=== PATIENT | female | born 1935 | race Caucasian/White ===

== ENCOUNTER 2017-09-09 22:24 | Observation (INO) | payer MEDICARE, SELFPAY ==
[2017-09-09 22:25] VITALS: BP 171/61; PULSE 62; RESP 23; TEMP 36.6; O2SAT 95; BMI 29.7
--- NOTE | 2017-09-09 22:35 | ED.VISSUMM ---
- ER Visit Summary Date of Service: 09/09/17 Chief Complaint: Choking episode History of Present Illness: The patient is a 82 F reports choking on a piece of chicken at dinner tonight. She vomited 4 times and thinks she brought anything up. She is a mild cough. She does have a history of COPD. Physical Examination: Signs are unremarkable other than hypertension. Head neck examination is unremarkable. Heart is regular rate and rhythm. Lung sounds with mild expiratory wheeze in the right upper lung. She is in no distress and is speaking full sentences. Abdomen is soft and nontender. Test Results: EKG is sinus at 60 with left bundle branch block. Two-view chest x-ray shows calcified plaques of the aorta but no acute process. CBC was normal white count. Hemoglobin is concentrated at 15.2. Chemistry studies and troponin are negative. Emergency Department Course and Treatment: Patient was given Zofran and a DuoNeb treatment. While on the monitor nursing staff noted patient to bradycardia down into the 30s. They went in to check on her and she states she felt some pressure in her chest and felt as if she is going to throw up again. I am unsure if she had a vasovagal reaction. She was placed on pacer pads and has not had any further episodes of bradycardia. On further questioning patient states that her collection administrator, Dr. Josue, had mentioned her needing a pacemaker at some point. Patient will be observed overnight for any further bradycardic dysrhythmias. Treatment Plan: [] Disposition: Admit Impression: 1. Vomiting, improved 2. Esophageal impaction, resolved 3. Bradycardic episode This note was generated with [employer] dictation software. It may contain incorrect words, spelling, and punctuation that were not noted in review of the chart prior to signing ED Disposition - Plan for ED Patient: Chief Complaint: Foreign Body Referrals: Salinas Keller III, MD [Primary Care Provider] -
--- NOTE | 2017-09-09 22:50 | RAD_ITS ---
STUDY: X-RAY CHEST REASON FOR EXAM: Female, 82 years old. Chicken stuck in throat TECHNIQUE: PA and lateral views of the chest. COMPARISON: Prior study of 09/23/2016 FINDINGS: nuclear monitoring technician leads are present. The lungs are clear and expanded. There is no demonstrated pleural abnormality. Normal size heart. Normal mediastinum and noelle. Normal visualized pulmonary arteries. There are calcified plaques of the thoracic aorta. There is demineralization of the osseous structures. Normal visualized ribs, clavicles, and shoulders. There is no demonstrated abnormality of the visualized soft tissue structures of the upper abdomen. RAD/Chest PA and Lateral IMPRESSION: Calcified plaques of the thoracic aorta. Generalized osteopenia. No acute cardiopulmonary disease process is seen. Chest findings appear stable in the interval. Electronically Signed: Willi Pires MD at 23:26 EST , Service support ,
--- NOTE | 2017-09-09 23:36 | EKG12_ITS ---
Test Reason : BRADYCARDIA Blood Pressure : / mmHG Vent. Rate : 068 BPM Atrial Rate : 068 BPM P-R Int : 186 ms QRS Dur : 144 ms QT Int : 466 ms P-R-T Axes : 029 -39 109 degrees QTc Int : 495 ms Normal sinus rhythm Left axis deviation Left bundle branch block Abnormal ECG Confirmed by ANDERSON MCKEE, MARLA ([id number]), telegraph editor TYE MILLS ([id number] on 09/14/2017 2:52:36 PM Referred By: DR ENNIS Confirmed By:MARLA BARRON MD
[2017-09-09] MEDS: Ipratropium/Albuterol Sulfate 3 ML AMPUL.NEB INHALATION (23:42)
[2017-09-09 23:48] VITALS: PULSE 67; RESP 21
--- NOTE | 2017-09-09 23:57 | ED.RN ---
at 2330 pt's monitor rang out bradycardia. Pt HR noted to be in the 30's and irregular with pauses. Upon checking on patient, she c/o of nausea and chest pain. called for EKG and notified Dr. Wilson. Crash cart brought to bedside and defib pads placed on patient. Dr. Wilson at bedside discussing new findings and what measures the patient wants to take. Pt is a full code
[2017-09-10] VITALS (13 sets, daily range): BP systolic 145–164; BP diastolic 60–74; PULSE 56–80; RESP 12–19; TEMP 36.3–36.8; O2SAT 94–96; BMI 29.3
[2017-09-10 00:15] LABS: Absolute Lymphocyte Count 1.39 X10^3/ul (0.83-4.51); Absolute Neutrophil Count 5.7 X10^3/uL (2.0-7.7); Basophil# 0.05 X10^3/uL; Basophil% 0.6 % (0-1); Eosinophil# 0.33 X10^3/uL; Eosinophils% 4.1 % (0-5); Hematocrit 43.9 % (37-47); Hemoglobin 15.2 g/dl (12.0-15.0); Lymphocyte # 1.39 X10^3/ul (4.0); Lymphocyte % 17.2 % (19-41); Mean Corp Hgb Conc 34.6 g/gl (32-36); Mean Corpuscular Hgb 33.1 pg (27.0-32.0); Mean Corpuscular Volume 95.6 fL (81-99); Mean Platelet Vol. 9.3 fl (6.2-12.0); Monocyte# 0.59 X10^3/uL; Monocyte% 7.3 % (0-10); Neutrophil % 70.7 % (47-70); POSITIVE COUNT NO; POSITIVE DIFFERENTIAL NO; POSITIVE MORPHOLOGY NO; Platelet Count 234 K/mm3 (150-450); RBC Distribution Width CV 12.8 % (11.6-14.6); RBC Distribution Width SD 43.6 fl (35.1-43.9); Red Blood Count 4.59 M/mm3 (4.2-5.4); White Blood Count 8.1 K/mm3 (4.4-11.0)
[2017-09-10 00:19] LABS: Anion Gap 8 (5-15); BUN 21 mg/dL (7-18); BUN/Creat Ratio 21.5 RATIO (10-20); Calcium,Total 10.3 mg/dL (8.5-10.1); Chloride 108 mmol/L (98-107); Creatinine, Serum 0.98 mg/dL (0.55-1.02); EST Glomerular Filtration Rate 58 mL/min (>60); Est Glom Filt Rate - Afr Amer 70 mL/min (>60); Estimated Creatinine Clearance 39.83 ml/min; Glucose 133 mg/dL (74-106); Potassium 4.1 mmol/L (3.5-5.1); Sodium Level 141 mmol/L (136-145)
--- NOTE | 2017-09-10 01:01 | PCM.HP.STD ---
Problem List (1) Sinus bradycardia with sinus pauses Status: Acute (2) Acute dysphagia due to chicken piece Status: Acute (3) Sinus node dysfunction Status: Chronic (4) COPD with acute exacerbation Status: Resolved (5) COPD, mild Status: Chronic (6) Dyslipidemia Status: Chronic (7) HTN (hypertension) Status: Chronic (8) Hypothyroidism Status: Chronic History of Present Illness Date of Admission: 09/10/17 Chief Complaint: Dysphagia on chicken piece. Sinus bradycardia with sinus pauses The patient is a 82 year old F with multiple comorbidities and possible underlying sinus node dysfunction came to ER with choking while she was eating chicken piece at dinner tonight. She has dysphagia and it takes her longer time than usual for swallowing. She vomited about 4 times and she thinks she vomited that she can base out. In ER her EKG shows normal sinus rhythm at 68 bpm with LAD and left bundle branch block. On monitor technician she had bradycardia heart rate 55 and at 3 occasions she had missed beat and one time she had sinus pause about 3.2 second. She denies any chest symptoms including shortness of breath, chest pain or missed heartbeat. She recalls that her job placement counselor Dr. Josue said once time that she might need a pacemaker. She is further admitted. Past Medical History Past Medical History (Chronic Problems): Chronic Problems Sinus node dysfunction (Chronic) COPD, mild (Chronic) Hypothyroidism (Chronic) Dyslipidemia (Chronic) HTN (hypertension) (Chronic) Allergies hydrochlorothiazide Adverse Reaction (Verified 05/03/16 00:02) Other Home Medications: Ambulatory Orders Medication Instructions Recorded Allopurinol [Zyloprim] 100 mg PO QHS 09/10/13 Levothyroxine [Synthroid] 75 mcg PO DAILY 10/02/14 Lisinopril 10 mg PO BID 10/02/14 Multivitamins,Therapeutic 1 tablet PO DAILY 10/02/14 [Multivitamin] Albuterol Aerosols [Ventolin 2.5 mg INHALATION Q4H PRN #25 vial 09/23/16 Aerosols] Albuterol IH (ProAir) [Proair Hfa 2 puff INHALATION Q4H PRN PRN 09/23/16 (SP)Vent Pts] Budesonide/Formoterol 160/4.5 2 puff INHALATION BID 09/23/16 [Symbicort 160/4.5 Mcg Inhaler (SP)] Cholecalciferol (Vitamin D3) 5,000 unit PO DAILY 09/23/16 [Vitamin D3] PredniSONE [Prednisone] 40 mg PO DAILY #10 tablet 09/23/16 Surgical History: no surgical history Psychiatric History: 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 Denies: Head Aches, Sinus Congestion, Sinus Drainage Cardiovascular: Denies: Chest Pain, Claudication, Palpitations Respiratory: Reports: Cough - Mild chronic cough due to COPD. Denies: Shortness of breath at rest, Sputum production Gastrointestinal: Denies: Abdominal Pain, Nausea, Vomiting Genitourinary: Denies: Dysuria Musculoskeletal: Reports: Joint Pain, Joint stiffness. Denies: Joint Tenderness Skin: Denies: Rash, Wounds Neurological: Denies: Numbness, Tingling, Focal weakness Psychiatric: Denies: Anxiety, Depression, Homicidal Ideations, Suicidal Ideations Hematologic/ Lymphatic: Denies: Easy Bruising, Easy Bleeding VTE Information - Inpt Only VTE Present on Admission: No VTE Mechan Device Prophylaxis: SCD's VTE Pharm Prophylaxis ordered?: Yes Patient Problems: Active and Suspected Problems Sinus bradycardia with sinus pauses (Acute) Acute dysphagia due to chicken piece (Acute) - Physical Exam General: Alert, Oriented x3, Cooperative HEENT: Atraumatic, PERRLA, EOMI, Normocephalic, - Oral: Dry Mucosa - Of hearing Neck: Supple, No JVD, Negative Carotid Bruits Lungs: Clear to auscultation, Normal air movement, No rhonchi, No wheeze, No rales Cardiovascular: Normal S1, Normal S2, No murmurs, - - Sinus bradycardia with sinus pauses Abdomen: Bowel Sounds Present, Soft, Non Tender, Non-Distended Extremities: Capillary Refill Less than 3 Seconds, Edema Skin: No rashes, No breakdown Musculoskeletal: No Tenderness to Palpation of Joints or Extremities, Arthritic Changes, Muscle Wasting Neurological: Cranial nerves II-XII grossly intact Psych/Mental Status: Normal Affect, Appropriate Vital Signs Temp Pulse Resp BP Pulse Ox 97.8 F 80 12 156/60 H 94 09/09/17 22:25 09/10/17 00:24 09/10/17 00:24 09/10/17 00:24 09/10/17 00:24 Oxygen Delivery Method Room Air Weight: 179 lb 0.246 oz Body Mass Index (BMI) 29.7 Laboratory Tests Past 24 Hrs 09/09/17 09/09/17 23:50 23:50 WBC 8.1 RBC 4.59 Hgb 15.2 H Hct 43.9 MCV 95.6 MCH 33.1 H MCHC 34.6 RDW 12.8 RDW Differential 43.6 Plt Count 234 MPV 9.3 Immature Gran % (Auto) 0.100 Neut % (Auto) 70.7 H Lymph % (Auto) 17.2 L Mchenry % (Auto) 7.3 Eos % (Auto) 4.1 Baso % (Auto) 0.6 Absolute Neuts (auto) 5.7 Absolute Lymphs (auto) 1.39 Total Counted Not Reportable Sodium 141 Potassium 4.1 Chloride 108 H Carbon Dioxide 25.0 Anion Gap 8 BUN 21 H Creatinine 0.98 Estim Creat Clear Calc 39.83 Est GFR (MDRD) Af Amer 70 Est GFR (MDRD) Non-Af 58 L BUN/Creatinine Ratio 21.5 H Glucose 133 H Calcium 10.3 H Troponin I < 0.02 Assessment/Plan Active and Suspected Problems Sinus bradycardia with sinus pauses (Acute) Acute dysphagia due to chicken piece (Acute) The patient is a 82 year old F with multiple comorbidities and possible underlying sinus node dysfunction came to ER with choking while she was eating chicken piece at dinner tonight. She has dysphagia and it takes her longer time than usual for swallowing. She vomited about 4 times and she thinks she vomited that she can base out. In ER her EKG shows normal sinus rhythm at 68 bpm with LAD and left bundle branch block. On monitor technician she had bradycardia heart rate 55 and at 3 occasions she had missed beat and one time she had sinus pause about 3.2 second. She denies any chest symptoms including shortness of breath, chest pain or missed heartbeat. She recalls that her job placement counselor Dr. Josue said once time that she might need a pacemaker. She is further admitted. 1. Sinus bradycardia with sinus pauses most probably has underlying sinus node dysfunction exacerbated by vagal effect of dysphagia: The patient is admitted in PCU on monitor technician. She has chest pads. 2D echo tomorrow morning. Cardiology consult to further assess for need for pacemaker. Serial cardiac enzymes. She denies history of coronary artery disease/HI. She did not recall having recent a stress test or echo. 2. Acute dysphagia/odynophagia due to mid bolus: Currently, she is comfortable. Patient needs modified barium swallow. Speech/swallow evaluation. 3. COPD: She uses 4 times albuterol inhaler at home. Continue Symbicort and albuterol nebulization as needed. 4. Other comorbidities include hypothyroidism, gout, hypertension: Stable. Home medication reconciliation done. TSH and free T4 ordered for tomorrow a.m. DVT prophylaxis: On Lovenox 40 mg subcu daily and bilateral SCDs. Code Visit OBSV E&M: 81066 Initial observation care L3
[2017-09-10] MEDS: Enoxaparin 40 MG/0.4 ML Syringe SC (03:21)
[2017-09-10] MEDS: Levothyroxine 75 MCG Tablet PO (05:38)
--- NOTE | 2017-09-10 05:55 | ECHOD_ITS ---
Reason For Study: Arrhythmia Procedure This was a 2D Doppler, Color Flow transthoracic echocardiogram. Exam performed portable in patient room. Left Ventricle Normal LV size. Mild concentric left ventricular hypertrophy. The estimated ejection fraction is 65 %. Stage 2 diastolic dysfunction. Right Ventricle Normal right ventricle. Atria Normal left atrium. Normal right atrium. Mitral Valve Mildly thickened mitral valve leaflets. Tricuspid Valve Normal tricuspid valve. Mild tricuspid valve insufficiency. Right ventricular systolic pressure estimated to be 34 mmHg. Aortic Valve Normal aortic valve. Pulmonic Valve Mild (1+) pulmonic valve insufficiency. Great Vessels Normal aortic root. Pericardium/Pleural No pericardial effusion. MMode/2D Measurements & Calculations LVIDd: 3.9 cm IVSd: 1.2 cm Ao root diam: 2.7 cm LVIDs: 2.8 cm LVPWd: 1.3 cm LA dimension: 3.0 cm RVDd: 2.2 cm FS: 28.1 % LAV(MOD-bp): 34.6 ml LA A4 area: 13.0 cm2 RA A4 area: 10.6 cm2 LAV(MOD-bp) Indexed: 19.0 ml/m2 LAV(MOD-sp2): 38.1 ml LAV(MOD-sp4): 27.9 ml Doppler Measurements & Calculations MV E max nahum: 51.3 cm/sec Lat Peak E' Nahum: 3.9 cm/sec Med Peak E' Nahum: 4.1 cm/sec E/E' lat: 13.2 E/E' med: 12.6 Ao V2 max: 135.3 cm/sec LV V1 max: 90.4 cm/sec PA V2 max: 113.5 cm/sec Ao max P.3 mmHg LV V1 max P.3 mmHg Ao V2 mean: 106.2 cm/sec Ao mean P.7 mmHg Ao V2 VTI: 34.2 cm TR max nahum: 246.1 cm/sec TR max P.2 mmHg Interpretation Summary Mild concentric left ventricular hypertrophy. The estimated ejection fraction is 65 %. Stage 2 diastolic dysfunction. Mild tricuspid valve insufficiency. Ordering Physician: Alden Sumner Referring Physician: Salinas Keller Performed By: Rosaura Dong RDCS, RVT
[2017-09-10] MEDS: Albuterol 2.5 MG/3 ML VIAL.NEB. INHALATION ×2 (06:52→15:15)
[2017-09-10] MEDS: Budesonide Respules 0.5 MG/2 ML AMPUL.NEB. INHALATION (06:53)
[2017-09-10 08:18] LABS: Anion Gap 9 (5-15); BUN 20 mg/dL (7-18); BUN/Creat Ratio 23.5 RATIO (10-20); Calcium,Total 9.6 mg/dL (8.5-10.1); Chloride 109 mmol/L (98-107); Creatinine, Serum 0.85 mg/dL (0.55-1.02); EST Glomerular Filtration Rate 68 mL/min (>60); Est Glom Filt Rate - Afr Amer 82 mL/min (>60); Estimated Creatinine Clearance 44.06 ml/min; Glucose 94 mg/dL (74-106); Sodium Level 142 mmol/L (136-145); T4 Free Direct 1.13 ng/dL (0.76-1.46); Thyroid Stim Hormone (TSH) 1.68 uIU/mL (0.358-3.74)
--- NOTE | 2017-09-10 08:39 | PCM.CONS.C ---
Problem List (1) Sinus bradycardia with sinus pauses Status: Acute Reason for Consult Date of Consultation: 09/10/17 History of Present Illness: The patient is a 82 year old F with past medical history significant for hypertension, COPD, hypothyroidism and possible sick sinus syndrome. She came to the emergency room after she choked on a piece of chicken she was eating at home. Per patient, in the emergency room she continued to vomit and had the choking sensation going on. Subsequently with vomiting, she felt better and the choking sensation disappeared. She has not had any further symptoms overnight. In the emergency room, telemetry monitoring revealed that the patient had some dropped beats. A single 3.2 second pause was also noted. Since then, she has been in normal sinus rhythm with no dropped beats overnight. Denied any chest pains. No shortness of breath. No palpitations. Patient has a remote history of syncope. According to her, the last such episode may have occurred couple of years ago. She is to see Dr. Josue when he was here in town. According to her, she was told that she may need a pacemaker but it was not absolutely necessary. Subsequently she did not get the pacemaker. X Complains of occasional dizziness. [] Past Medical History Allergies/Adverse Reactions: Allergies hydrochlorothiazide Adverse Reaction (Verified 05/03/16 00:02) Other Home Medications: Ambulatory Orders Medication Instructions Recorded Allopurinol [Zyloprim] 100 mg PO QHS 09/10/13 Levothyroxine [Synthroid] 75 mcg PO DAILY 10/02/14 Lisinopril 10 mg PO BID 10/02/14 Multivitamins,Therapeutic 1 tablet PO DAILY 10/02/14 [Multivitamin] Albuterol Aerosols [Ventolin 2.5 mg INHALATION Q4H PRN #25 vial 09/23/16 Aerosols] Albuterol IH (ProAir) [Proair Hfa 2 puff INHALATION Q4H PRN PRN 09/23/16 (SP)Vent Pts] Budesonide/Formoterol 160/4.5 2 puff INHALATION BID 09/23/16 [Symbicort 160/4.5 Mcg Inhaler (SP)] Cholecalciferol (Vitamin D3) 5,000 unit PO DAILY 09/23/16 [Vitamin D3] PredniSONE [Prednisone] 40 mg PO DAILY #10 tablet 09/23/16 Atorvastatin Calcium [Lipitor] 20 mg PO QHS 09/10/17 Past Medical History (Chronic Problems): Chronic Problems Sinus node dysfunction (Chronic) COPD, mild (Chronic) Hypothyroidism (Chronic) Dyslipidemia (Chronic) HTN (hypertension) (Chronic) Surgical History: no surgical history Psychiatric History: No pertinent psych hx 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 Denies: Chest Discomfort, Chest Discomfort at Rest, Chest Discomfort with Exertion, Shortness of Breath, Shortness of Breath at Rest, Shortness of Breath with Exertion, Orthopnea, PND, Peripheral Edema, Palpitations Gastrointestinal: Reports: Nausea, Emesis - As noted in history of presenting illness. Denies: Jaundice Neurological: Denies: History of TIA, History of CVA Endocrine: Reports: - - Study of hypothyroidism. Denies: Heat Intolerance, Cold Intolerance Hematologic/ Lymphatic: Denies: Easy Brusing, Easy Bleeding Subjectve: Comfortable. No apparent distress Objective: Vital Signs Temp Pulse Resp BP Pulse Ox 97.3 F L 65 18 159/72 H 96 09/10/17 05:41 09/10/17 07:38 09/10/17 06:53 09/10/17 05:41 09/10/17 05:41 Oxygen Delivery Method Room Air Weight: 77.5 kg Body Mass Index (BMI) 29.3 General: Healthy Appearing, Awake, Alert, Oriented x 3, No Acute Distress HEENT: Atraumatic Oral: Moist Mucosa Neck: Supple Lungs: Clear to auscultation Cardiovascular: Regular Rhythm, Normal S1, Normal S2 Vascular: R Carotid Artery Bruits - Very soft right carotid bruit Abdomen: Bowel Sounds Present, Soft Extremities: No edema Neurological: No Focal Motor or Sensory Deficit Psych/Mental Status: Appropriate 09/10/17 03:40: Troponin I < 0.02 09/10/17 07:40: Sodium 142, Potassium 4.0, Chloride 109 H, Carbon Dioxide 24.0, Anion Gap 9, BUN 20 H, Creatinine 0.85, Est GFR (MDRD) Af Amer 82, Est GFR (MDRD) Non-Af 68, BUN/Creatinine Ratio 23.5 H, Glucose 94, Calcium 9.6, Magnesium 2.0, Troponin I < 0.02 Rhythm: Normal sinus rhythm presently. Telemetry strips from the emergency room were reviewed. They showed what appears to be second-degree AV block with Wenckebach phenomenon. On one such occasion, there was noted to be 3-1 conduction with a 3.2 second ventricular pause EKG: Normal sinus rhythm. Left bundle branch block. Left axis deviation ECHO: Pending Assessment/Plan 1. 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 This most probably was because of increased vagal tone with the patient choking on a piece of chicken and in acute distress with vomiting. Since her choking is resolved, she is continuing to have normal sinus rhythm without any heart blocks. Does give me a history of possible sick sinus syndrome. I would recommend avoiding negative chronotropic medications. Check 24-hour Holter as an outpatient. Follow-up with Dr. Arreola as outpatient next week for further evaluation 2. Episode of choking on a piece of chicken. Resolved. Dysphagia workup in process as per internal medicine 3. History of hypertension. Continue lisinopril. Blood pressure remains elevated, consider adding hydrochlorothiazide 4. History of hypothyroidism 5. History of COPD
--- NOTE | 2017-09-10 08:50 | CON.PCM_ITS ---
Problem List (1) Sinus bradycardia with sinus pauses Status: Acute Reason for Consult Date of Consultation: 09/10/17 History of Present Illness: The patient is a 82 year old F with past medical history significant for hypertension, COPD, hypothyroidism and possible sick sinus syndrome. She came to the emergency room after she choked on a piece of chicken she was eating at home. Per patient, in the emergency room she continued to vomit and had the choking sensation going on. Subsequently with vomiting, she felt better and the choking sensation disappeared. She has not had any further symptoms overnight. In the emergency room, telemetry monitoring revealed that the patient had some dropped beats. A single 3.2 second pause was also noted. Since then, she has been in normal sinus rhythm with no dropped beats overnight. Denied any chest pains. No shortness of breath. No palpitations. Patient has a remote history of syncope. According to her, the last such episode may have occurred couple of years ago. She is to see Dr. Josue when he was here in town. According to her, she was told that she may need a pacemaker but it was not absolutely necessary. Subsequently she did not get the pacemaker. X Complains of occasional dizziness. [] Past Medical History Allergies/Adverse Reactions: Allergies hydrochlorothiazide Adverse Reaction (Verified 05/03/16 00:02) Other Home Medications: Ambulatory Orders Medication Instructions Recorded Allopurinol [Zyloprim] 100 mg PO QHS 09/10/13 Levothyroxine [Synthroid] 75 mcg PO DAILY 10/02/14 Lisinopril 10 mg PO BID 10/02/14 Multivitamins,Therapeutic 1 tablet PO DAILY 10/02/14 [Multivitamin] Albuterol Aerosols [Ventolin 2.5 mg INHALATION Q4H PRN #25 vial 09/23/16 Aerosols] Albuterol IH (ProAir) [Proair Hfa 2 puff INHALATION Q4H PRN PRN 09/23/16 (SP)Vent Pts] Budesonide/Formoterol 160/4.5 2 puff INHALATION BID 09/23/16 [Symbicort 160/4.5 Mcg Inhaler (SP)] Cholecalciferol (Vitamin D3) 5,000 unit PO DAILY 09/23/16 [Vitamin D3] PredniSONE [Prednisone] 40 mg PO DAILY #10 tablet 09/23/16 Atorvastatin Calcium [Lipitor] 20 mg PO QHS 09/10/17 Past Medical History (Chronic Problems): Chronic Problems Sinus node dysfunction (Chronic) COPD, mild (Chronic) Hypothyroidism (Chronic) Dyslipidemia (Chronic) HTN (hypertension) (Chronic) Surgical History: no surgical history Psychiatric History: No pertinent psych hx 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 Denies: Chest Discomfort, Chest Discomfort at Rest , Chest Discomfort with Exertion, Shortness of Breath, Shortness of Breath at Rest, Shortness of Breath with Exertion, Orthopnea, PND, Peripheral Edema, Palpitations Gastrointestinal: Reports: Nausea, Emesis - As noted in history of presenting illness. Denies: Jaundice Neurological: Denies: History of TIA, History of CVA Endocrine: Reports: - - Study of hypothyroidism. Denies: Heat Intolerance, Cold Intolerance Hematologic/ Lymphatic: Denies: Easy Brusing, Easy Bleeding Subjectve: Comfortable. No apparent distress Objective: Vital Signs Temp Pulse Resp BP Pulse Ox 97.3 F L 65 18 159/72 H 96 09/10/17 05:41 09/10/17 07:38 09/10/17 06:53 09/10/17 05:41 09/10/17 05:41 Oxygen Delivery Method Room Air Weight: 77.5 kg Body Mass Index (BMI) 29.3 General: Healthy Appearing, Awake, Alert, Oriented x 3, No Acute Distress HEENT: Atraumatic Oral: Moist Mucosa Neck: Supple Lungs: Clear to auscultation Cardiovascular: Regular Rhythm, Normal S1, Normal S2 Vascular: R Carotid Artery Bruits - Very soft right carotid bruit Abdomen: Bowel Sounds Present, Soft Extremities: No edema Neurological: No Focal Motor or Sensory Deficit Psych/Mental Status: Appropriate 09/10/17 03:40: Troponin I < 0.02 09/10/17 07:40: Sodium 142, Potassium 4.0, Chloride 109 H, Carbon Dioxide 24.0, Anion Gap 9, BUN 20 H, Creatinine 0.85, Est GFR (MDRD) Af Amer 82, Est GFR (MDRD ) Non-Af 68, BUN/Creatinine Ratio 23.5 H, Glucose 94, Calcium 9.6, Magnesium 2.0 , Troponin I < 0.02 Rhythm: Normal sinus rhythm presently. Telemetry strips from the emergency room were reviewed. They showed what appears to be second-degree AV block with Wenckebach phenomenon. On one such occasion, there was noted to be 3-1 conduction with a 3.2 second ventricular pause EKG: Normal sinus rhythm. Left bundle branch block. Left axis deviation ECHO: Pending Assessment/Plan 1. 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 This most probably was because of increased vagal tone with the patient choking on a piece of chicken and in acute distress with vomiting. Since her choking is resolved, she is continuing to have normal sinus rhythm without any heart blocks. Does give me a history of possible sick sinus syndrome. I would recommend avoiding negative chronotropic medications. Check 24-hour Holter as an outpatient. Follow-up with Dr. Arreola as outpatient next week for further evaluation 2. Episode of choking on a piece of chicken. Resolved. Dysphagia workup in process as per internal medicine 3. History of hypertension. Continue lisinopril. Blood pressure remains elevated, consider adding hydrochlorothiazide 4. History of hypothyroidism 5. History of COPD
[2017-09-10] MEDS: Famotidine 20 MG Tablet PO (08:52)
[2017-09-10] MEDS: Lisinopril 10 MG Tablet PO (08:53)
--- NOTE | 2017-09-10 09:40 | PCM.DC ---
- Discharge Diagnoses Current Active Problems: Current Active and Chronic Problems Sinus bradycardia with sinus pauses (Acute) Acute dysphagia due to chicken piece (Acute) Sinus node dysfunction (Chronic) You will use the following diet at home:: Cardiac Your food should be the consistency of: Mechanical soft (ground) Your liquids should be the consistency of: Regular/Thin Discharge Activity: Return to Normal Activity Call your doctor if you observe: Shortness of breath, Dizziness, Fainting spells, Chest pain, Increased palpitations (irregular heartbeat) Allergies/Adverse Reactions: Allergies hydrochlorothiazide Adverse Reaction (Verified 05/03/16 00:02) Other Medications to take at Discharge Allopurinol [Zyloprim] 100 mg PO QHS 09/10/13 Levothyroxine [Synthroid] 75 mcg PO DAILY 10/02/14 Lisinopril 10 mg PO BID 10/02/14 Multivitamins,Therapeutic [Multivitamin] 1 tablet PO DAILY 10/02/14 Albuterol Aerosols [Ventolin Aerosols] 2.5 mg INHALATION Q4H PRN #25 vial 09/23/16 Albuterol IH (ProAir) [Proair Hfa] 2 puff INHALATION Q4H PRN PRN 09/23/16 Budesonide/Formoterol 160/4.5 [Symbicort 160/4.5 Mcg Inhaler (SP)] 2 puff INHALATION BID 09/23/16 Cholecalciferol (Vitamin D3) [Vitamin D3] 5,000 unit PO DAILY 09/23/16 Atorvastatin Calcium [Lipitor] 20 mg PO QHS 09/10/17 Orders to be completed after discharge: Cardiac Holter Monitor, Set-Up [[facility]] Location: None Selected Primary Care Physician: Salinas Keller III, MD [Primary Care Provider] - Please follow up with your Primary Care Physician in: As scheduled Please Follow Up With: Juice Arreola MD When: Next week Proposed Discharge Date: 09/10/17
--- NOTE | 2017-09-10 09:42 | PCM.DC.SUM ---
Discharge Date and Diagnosis Date of Admission: 09/10/17 Date of Discharge: 09/10/17 - Primary Discharge Diagnosis Active and Suspected Problems Sinus bradycardia with sinus pauses-transient AV bob block suspected secondary to vasovagal as a result of choking episode Acute dysphagia due to chicken piece (Acute) - Secondary Discharge Diagnosis Chronic Problems Sinus node dysfunction (Chronic) COPD, mild (Chronic) Hypothyroidism (Chronic) Dyslipidemia (Chronic) HTN (hypertension) (Chronic) Hospital Course and Treatment Imaging Results: Diagnostic Data Chest X-Ray 09/09/17 22:50 IMPRESSION: Calcified plaques of the thoracic aorta. Generalized osteopenia. No acute cardiopulmonary disease process is seen. Chest findings appear stable in the interval. Electronically Signed: Willi Pires MD at 23:26 EST , Service support , Dr. Taylor- Cardiology Operations: None Procedures: 2-D Echocardiogram, - - Barium swallow Summary of Care Provided: The patient is a 82 year old F who presented to the emergency room 09/10/17 due to dysphasia, choking on a piece of chicken and sinus bradycardia with sinus pauses. Patient denies syncope, dizziness, chest pain, shortness of breath. She previously followed with Dr. Josue who patient states told her she may require pacemaker at some point, however this was not further pursued at that time. Cardiology consulted. Transient AV bob block suspected secondary to increased vagal tone as a result of patient choking on a piece of chicken. Since this episode, she has remained normal sinus rhythm without any bradycardia or heart blocks. Troponin negative. She will be discharged on 24 hour Holter monitor and follow-up with Dr. Arreola next week. Avoid negative chronotropic medications. Echocardiogram showed ejection fraction of 65%, stage II diastolic dysfunction, mild tricuspid valve insufficiency. Patient states she has had ongoing dysphasia off and on. Speech therapy consulted. Patient underwent barium swallow study which showed no evidence of increased risk for aspiration. Speech therapy recommending mechanical soft, thin liquids. She was offered to follow-up with speech therapy as outpatient if she desires. Her other past medical history includes COPD, hypothyroidism, gout, hypertension, hyperlipidemia which are stable at this time. General: Alert, Oriented x3, Cooperative HEENT: Atraumatic, PERRLA, EOMI, Normocephalic Oral: Dry Mucosa Neck: Supple, No JVD, Negative Carotid Bruits Lungs: Clear to auscultation, Normal air movement Cardiovascular: Normal S1, Normal S2, No murmurs, regular rate Abdomen: Bowel Sounds Present, Soft, Non Tender, Non-Distended Extremities: Capillary Refill Less than 3 Seconds, Edema Skin: No rashes, No breakdown Musculoskeletal: No Tenderness to Palpation of Joints or Extremities Neurological: Cranial nerves II-XII grossly intact Psych/Mental Status: Normal Affect, Appropriate Patient seen and examined prior to discharge. Physical assessment as noted above. This patient was seen by CRISTELA Driscoll under the supervision of Dr. Escalante. Discharge Activity: Return to Normal Activity Call your doctor if you observe: Shortness of breath, Dizziness, Fainting spells, Chest pain, Increased palpitations (irregular heartbeat) Home Medications: Medications to take at Discharge Allopurinol [Zyloprim] 100 mg PO QHS 09/10/13 Levothyroxine [Synthroid] 75 mcg PO DAILY 10/02/14 Lisinopril 10 mg PO BID 10/02/14 Multivitamins,Therapeutic [Multivitamin] 1 tablet PO DAILY 10/02/14 Albuterol Aerosols [Ventolin Aerosols] 2.5 mg INHALATION Q4H PRN #25 vial 09/23/16 Albuterol IH (ProAir) [Proair Hfa] 2 puff INHALATION Q4H PRN PRN 09/23/16 Budesonide/Formoterol 160/4.5 [Symbicort 160/4.5 Mcg Inhaler (SP)] 2 puff INHALATION BID 09/23/16 Cholecalciferol (Vitamin D3) [Vitamin D3] 5,000 unit PO DAILY 09/23/16 Atorvastatin Calcium [Lipitor] 20 mg PO QHS 09/10/17 Other Amb Orders: Cardiac Holter Monitor, Set-Up [[facility]] Location: None Selected Primary Care Physician: Salinas Keller III, MD [Primary Care Provider] - Please follow up with your Primary Care Physician in: As scheduled Please Follow Up With: Juice Arreola MD When: Next week Disposition: Home Minutes spent on discharge:: 35 Patient Condition:: Stable Meaningful Use Info Meaningful Use Diagnoses (Choose all that apply): None applicable
--- NOTE | 2017-09-10 09:51 | DS.PCM_ITS ---
Discharge Date and Diagnosis Date of Admission: 09/10/17 Date of Discharge: 09/10/17 - Primary Discharge Diagnosis Active and Suspected Problems Sinus bradycardia with sinus pauses-transient AV bob block suspected secondary to vasovagal as a result of choking episode Acute dysphagia due to chicken piece (Acute) - Secondary Discharge Diagnosis Chronic Problems Sinus node dysfunction (Chronic) COPD, mild (Chronic) Hypothyroidism (Chronic) Dyslipidemia (Chronic) HTN (hypertension) (Chronic) Hospital Course and Treatment Imaging Results: Diagnostic Data Chest X-Ray 09/09/17 22:50 IMPRESSION: Calcified plaques of the thoracic aorta. Generalized osteopenia. No acute cardiopulmonary disease process is seen. Chest findings appear stable in the interval. Electronically Signed: Willi Pires MD at 23:26 EST , Service support , Dr. Taylor- Cardiology Operations: None Procedures: 2-D Echocardiogram, - - Barium swallow Summary of Care Provided: The patient is a 82 year old F who presented to the emergency room 09/10/17 due to dysphasia, choking on a piece of chicken and sinus bradycardia with sinus pauses. Patient denies syncope, dizziness, chest pain, shortness of breath. She previously followed with Dr. Josue who patient states told her she may require pacemaker at some point, however this was not further pursued at that time. Cardiology consulted. Transient AV bob block suspected secondary to increased vagal tone as a result of patient choking on a piece of chicken. Since this episode, she has remained normal sinus rhythm without any bradycardia or heart blocks. Troponin negative. She will be discharged on 24 hour Holter monitor and follow-up with Dr. Arreola next week. Avoid negative chronotropic medications. Echocardiogram showed ejection fraction of 65%, stage II diastolic dysfunction, mild tricuspid valve insufficiency. Patient states she has had ongoing dysphasia off and on. Speech therapy consulted. Patient underwent barium swallow study which showed no evidence of increased risk for aspiration. Speech therapy recommending mechanical soft, thin liquids. She was offered to follow-up with speech therapy as outpatient if she desires. Her other past medical history includes COPD, hypothyroidism, gout, hypertension, hyperlipidemia which are stable at this time. General: Alert, Oriented x3, Cooperative HEENT: Atraumatic, PERRLA, EOMI, Normocephalic Oral: Dry Mucosa Neck: Supple, No JVD, Negative Carotid Bruits Lungs: Clear to auscultation, Normal air movement Cardiovascular: Normal S1, Normal S2, No murmurs, regular rate Abdomen: Bowel Sounds Present, Soft, Non Tender, Non-Distended Extremities: Capillary Refill Less than 3 Seconds, Edema Skin: No rashes, No breakdown Musculoskeletal: No Tenderness to Palpation of Joints or Extremities Neurological: Cranial nerves II-XII grossly intact Psych/Mental Status: Normal Affect, Appropriate Patient seen and examined prior to discharge. Physical assessment as noted above. This patient was seen by CRISTELA Driscoll under the supervision of Dr. Escalante. Discharge Activity: Return to Normal Activity Call your doctor if you observe: Shortness of breath, Dizziness, Fainting spells , Chest pain, Increased palpitations (irregular heartbeat) Home Medications: Medications to take at Discharge Allopurinol [Zyloprim] 100 mg PO QHS 09/10/13 Levothyroxine [Synthroid] 75 mcg PO DAILY 10/02/14 Lisinopril 10 mg PO BID 10/02/14 Multivitamins,Therapeutic [Multivitamin] 1 tablet PO DAILY 10/02/14 Albuterol Aerosols [Ventolin Aerosols] 2.5 mg INHALATION Q4H PRN #25 vial Albuterol IH (ProAir) [Proair Hfa] 2 puff INHALATION Q4H PRN PRN 09/23/16 Budesonide/Formoterol 160/4.5 [Symbicort 160/4.5 Mcg Inhaler (SP)] 2 puff INHALATION BID 09/23/16 Cholecalciferol (Vitamin D3) [Vitamin D3] 5,000 unit PO DAILY 09/23/16 Atorvastatin Calcium [Lipitor] 20 mg PO QHS 09/10/17 Other Amb Orders: Cardiac Holter Monitor, Set-Up [[facility]] Location: None Selected Primary Care Physician: Salinas Keller III, MD [Primary Care Provider] - Please follow up with your Primary Care Physician in: As scheduled Please Follow Up With: Juice Arreola MD When: Next week Disposition: Home Minutes spent on discharge:: 35 Patient Condition:: Stable Meaningful Use Info Meaningful Use Diagnoses (Choose all that apply): None applicable
--- NOTE | 2017-09-10 10:38 | CDU_ITS ---
Reason For Study: bruit Rt. Velocities/BP Lt. Velocities/BP Prox CCA 42/5 cm/sec. Prox CCA 84/13 cm/sec. Mid CCA 66/8 cm/sec. Mid CCA 109/16 cm/sec. Dist CCA 58/9 cm/sec. Dist CCA 112/15 cm/sec. Prox ICA 343/44 cm/sec. Prox ICA 155/6 cm/sec. Mid ICA 246/24 cm/sec. Mid ICA 127/15 cm/sec. Dist ICA 91/19 cm/sec. Dist ICA 101/22 cm/sec. Rt. ICA/CCA = 5.17. Lt. ICA/CCA = 1.4. Prox ECA 547/9 cm/sec. Prox ECA 284/2 cm/sec. Rt. Vert. 58/8 cm/sec. Lt. Vert. 59/2 cm/sec. Right Extracranial The right common carotid artery is tortuous. There is homogeneous, smooth atherosclerotic plaque noted in the right common carotid artery. There is heterogeneous, irregular atherosclerotic plaque noted in the right internal carotid artery. There is heterogeneous, irregular atherosclerotic plaque noted in the right external carotid artery. Antegrade flow is noted in the right vertebral artery. There is heterogeneous, irregular atherosclerotic plaque noted in the right bulb. Left Extracranial There is heterogeneous, irregular atherosclerotic plaque noted in the left common carotid artery. There is heterogeneous, irregular atherosclerotic plaque noted in the left internal carotid artery. There is heterogeneous, smooth atherosclerotic plaque noted in the left external carotid artery. Antegrade flow is noted in the left vertebral artery. There is heterogeneous, irregular atherosclerotic plaque noted in the left bulb. Procedure Carotid Duplex [id number]. Exam performed portable in patient room. Interpretation Summary Severe (>70%) stenosis right extracranial internal carotid. Moderate (50-69%) stenosis left extracranial internal carotid. Flow within the vertebral arteries is antegrade bilaterally. Elevated velocities within the external carotid arteries are suggestive of stenosis bilaterally. Ordering Physician: Vicki Taylor Referring Physician: DOLORES STOVER Performed By: Bel Johnson, LUIS, RVT
--- NOTE | 2017-09-10 14:00 | RAD_ITS ---
STUDY: SWALLOWING STUDY REASON FOR EXAM: Female, 82 years old. Dysphagia. TECHNIQUE: The examination was performed with Speech Pathology in attendance. Under fluoroscopic observation, the patient ingested thin barium, thick barium, barium pudding, and barium coated cracker. FLUOROSCOPY TIME: 1:54 minutes/seconds. 1517 spot images were obtained. RADIOLOGIST INVOLVEMENT: Radiologist was present and providing direct supervision. COMPARISON: None. FINDINGS: The following was observed during swallowing of the various mixtures of barium: Thin Barium: There was no evidence of aspiration or laryngeal penetration. Barium Pudding: There was no evidence of aspiration or laryngeal penetration. Barium Coated Cracker: There was no evidence of aspiration or laryngeal penetration. RAD/Swallowing Function w/Video IMPRESSION: Normal tailored barium swallow study. No evidence of increased risk for aspiration. The swallow study findings were discussed with the patient by the speech pathologist at the conclusion of the examination. Please see speech pathology report for more information and recommendations. Electronically Signed: Td Ibanez MD at 14:26 EST Tel [phone], Service support ,
--- NOTE | 2017-09-10 15:15 | SP.MBSS_ITS ---
PRIMARY / SECONDARY DIAGNOSIS: dysphagia (R13.10) REFERRING PHYSICIAN: Dr. Alden Sumner MD CURRENT DIET: regular textures, thin liquids DENTITION: WFL MENTAL STATUS: WNL RESPIRATORY STATUS: O2 via room air PREVIOUS MODIFIED BARIUM SWALLOW STUDY: yes Per Patient report, no abnormalities; results not available at time of assessment REASON FOR REFERRAL: Patient is an 82 year old female referred for a modified barium swallow (MBS) study to objectively assess the Patients oropharyngeal swallow function under fluoroscopy following episode of choking on a piece of chicken resulting in multiple bouts of emesis during evening meal. Patient reports prior swallow evaluation completed under fluoroscopy due to intermittent coughing episodes followed by uptake in mucus production and emesis, though reports no issues reported, findings unavailable at time of assessment. Patient reports issues have been managed by reduced bolus volumes and cutting bites into smaller pieces , no further issues with PO texture tolerance prior to the most recent episode. 09/09/2017 CXR revealed calcified plaques of the thoracic aorta; generalized osteopenia; no acute cardiopulmonary disease process is seen; chest findings appear stable in the interval. MEDICAL HISTORY: Chronic obstructive pulmonary disease, sinus node dysfunction, hypothyroidism, dyslipidemia, hypertension STUDY FINDINGS: Patient participated in a Modified Barium Swallow (MBS) study on 09/10/2017. Dr. Ibanez was the radiologist present for this evaluation. This study was recorded in the lateral view and images were sent to PACs for storage. The following consistencies were presented to this patient for analysis of oropharyngeal swallow function: thin liquids, pudding, and a regular textured, [employer] cookie. Results of the MBS are as follows: PENETRATION / ASPIRATION SCALE (ESQUIVEL): 1 = does not enter airway 2 = enters airway/above vocal folds/ejected 3 = enters airway/above vocal folds/not ejected 4 = enters airway/contacts vocal folds/ejected 5 = enters airway/contacts vocal folds/not ejected 6 = enters airway/below vocal folds/ejected 7 = enters airway/below vocal folds/not ejected despite effort 8 = enters airway/below vocal folds/no effort PENETRATION / ASPIRATION SCALE (SCORE) WITH VIDEOFLOROSCOPIC SCALE SCORE: Thin liquids via cup (single sip): 1 Thin liquids via cup (single sip): 1 Thin liquids via cup (single sip): 1 Thin liquids via straw (single sip): 1 Thin liquids via straw (single sip): 1 Pudding via spoon: 1 Regular textured cookie: 1 Regular textured cookie: 1 Thin liquids via straw (single sip): 1 Thin liquids via straw (single sip): 1 IMPRESSION: DIAGNOSIS: mild oropharyngeal dysphagia (R13.12) ORAL PHASE CHARACTERIZED BY: LABIAL SEAL: no labial escape TONGUE CONTROL DURING BOLUS MANIPULATION: cohesive bolus between tongue to palatal seal BOLUS PREPARATION / MASTICATION: slow prolonged chewing/mashing with complete recollection BOLUS TRANSPORT / LINGUAL MOTION: brisk tongue motion ORAL RESIDUE: intermittent residue collection on oral structures PHARYNGEAL PHASE CHARACTERIZED BY: INITIATION OF PHARYNGEAL SWALLOW: bolus head at posterior laryngeal surface of epiglottis at first hyoid excursion SOFT PALATE ELEVATION: no bolus between soft palate and pharyngeal wall LARYNGEAL ELEVATION: complete superior movement of thyroid cartilage with complete approximation of arytenoids cartilage to epiglottic petiole ANTERIOR HYOID EXCURSION: partial anterior movement EPIGLOTTIC MOVEMENT: complete epiglottic inversion LARYNGEAL VESTIBULE CLOSURE AT HEIGHT OF SWALLOW: complete laryngeal vestibule closure with no air/contrast in laryngeal vestibule PHARYNGEAL STRIPPING WAVE: pharyngeal stripping wave present / diminished PHARYNGOESOPHAGEAL SEGMENT OPENING: complete distension and complete duration with no obstruction of flow TONGUE BASE RETRACTION: narrow column of contrast between tongue base and posterior pharyngeal wall PHARYNGEAL RESIDUE: collection of residue within or on pharyngeal structures ( valleculae) ESOPHAGEAL PHASE CHARACTERIZED BY: ESOPHAGEAL BOLUS CLEARANCE IN THE UPRIGHT POSITION: could not view EFFECTS OF TREATMENT STRATEGIES ATTEMPTED: Liquid chaser = moderately effective Reduced bolus size = effective DIET TEXTURE RECOMMENDATIONS: Will recommend a mechanical soft textured, thin liquid diet. COMPENSATORY STRATEGIES RECOMMENDED: Reduced bolus volume, reduced rate of intake, liquid chaser, seated upright at 90 degrees during PO intake, remain upright for 30-60 minutes post meal (GERD precaution) INTERPRETATION OF RESULTS: Patient presents with mild oropharyngeal dysphagia (R13.12) likely attributed to primary presbyphagia. Oral phase primarily marked by mild mastication inefficiency. Pharyngeal phase primarily marked by mild delayed pharyngeal swallow onset timing; and suboptimal pharyngeal motility / pharyngeal dysmotility reduced tongue based retraction and posterior pharyngeal stripping wave action resulting in pharyngeal retention within the valleculae. RECOMMENDATIONS: Patient may benefit from continued skilled speech-language intervention targeting continued diet texture management; training and implementation of recommended compensatory strategies; and primarily Patient and caregiver training targeting meal preparation at the outpatient level. ADDITIONAL COMMENTS/RECOMMENDATIONS: Results and recommendations were discussed with the Patient immediately following MBS completion, with the Patient verbalizing understanding and agreement with all recommendations and education provided. IMAGE COUNT: [id number]
== END 2017-09-10 09:41 | disposition home or self-care (01) ==
LOC: ED 23:22 → PCU 09-10 01:15
PROVIDERS: Admitting Provider Internal Medicine; Emergency Provider Emergency Medicine; Family Provider Family Medicine; PCP Family Medicine; Visit Provider Family Medicine
DX: I45.5 Other specified heart block (principal); T17.928A Food in respiratory tract, part unspecified causing other injury, initial encounter; I10 Essential (primary) hypertension; E78.5 Hyperlipidemia, unspecified; J44.9 Chronic obstructive pulmonary disease, unspecified; E03.9 Hypothyroidism, unspecified; Z79.899 Other long term (current) drug therapy; R13.10 Dysphagia, unspecified; Z87.891 Personal history of nicotine dependence; I07.1 Rheumatic tricuspid insufficiency; I37.1 Nonrheumatic pulmonary valve insufficiency; I65.23 Occlusion and stenosis of bilateral carotid arteries; R00.1 Bradycardia, unspecified; I44.30 Unspecified atrioventricular block
CPT/HCPCS: 36415; 71046; 74230; 80048; 83735; 84439; 84443; 84484; 85025; 92526; 92611; 93005; 93225; 93306; 93880; 94640; 96372; 97162; 97166; 97802; 99218; 99285; G0378

== ENCOUNTER 2017-09-10 16:00 | Outpatient (CLI) | payer MEDICARE, SELFPAY ==
[2017-09-10 16:34] VITALS: BMI 29.3
== END 2017-09-10 17:15 | disposition home or self-care (01) ==
LOC: PCUOUT 16:11 → PCU 16:12
PROVIDERS: Family Provider Family Medicine; PCP Family Medicine; Visit Provider Nurse Practitioner Family
DX: R00.1 Bradycardia, unspecified (principal); I44.30 Unspecified atrioventricular block
CPT/HCPCS: 93225; 93226

== ENCOUNTER 2018-01-31 14:37 | Inpatient (IN) | payer MEDICARE, SELFPAY ==
[2018-01-31] VITALS (8 sets, daily range): BP systolic 185–229; BP diastolic 57–147; PULSE 63–74; RESP 14–18; TEMP 36.5–36.7; O2SAT 96–99; BMI 30.6
--- NOTE | 2018-01-31 15:18 | EKG12_ITS ---
Test Reason : SOB Blood Pressure : / mmHG Vent. Rate : 060 BPM Atrial Rate : 060 BPM P-R Int : 200 ms QRS Dur : 142 ms QT Int : 448 ms P-R-T Axes : 046 -42 139 degrees QTc Int : 448 ms Normal sinus rhythm Left axis deviation Left bundle branch block Abnormal ECG Confirmed by TONYA MCKEE, JONATHAN ([id number]), map editor TYE MILLS ([id number]) on 02/04/2018 1:10:12 PM Referred By: ASHANTI Confirmed By:JONATHAN CASTANEDA MD
--- NOTE | 2018-01-31 15:20 | RAD_ITS ---
STUDY: X-RAY CHEST REASON FOR EXAM: Female, 82 years old. Syncope TECHNIQUE: AP portable COMPARISON: September 09, 2017 FINDINGS: Lungs are hyperinflated but clear. There is no demonstrated pleural abnormality. Heart is upper normal size. Normal mediastinum and noelle. Normal visualized pulmonary arteries. Mildly calcified aortic arch and descending thoracic aorta. Dorsal spine demonstrates moderate spondylosis Normal visualized ribs, clavicles, and shoulders. There is no demonstrated abnormality of the visualized soft tissue structures of the upper abdomen. No significant change since prior study RAD/Chest 1 View (Portable) IMPRESSION: COPD. No acute cardiopulmonary pathology Electronically Signed: JoséL uis Epps MD at 17:00 EDT , Service support ,
[2018-01-31] MEDS: 0.9% Normal Saline 1,000 ML 1000 ML IV (15:30)
[2018-01-31 15:36] LABS: Absolute Lymphocyte Count 2.24 X10^3/ul (0.83-4.51); Absolute Neutrophil Count 3.3 X10^3/uL (2.0-7.7); Basophil# 0.02 X10^3/uL; Basophil% 0.3 % (0-1); Eosinophil# 0.25 X10^3/uL; Eosinophils% 3.8 % (0-5); Hematocrit 41.2 % (37-47); Lymphocyte # 2.24 X10^3/ul (4.0); Lymphocyte % 33.7 % (19-41); Mean Corpuscular Hgb 33.3 pg (27.0-32.0); Mean Corpuscular Volume 97.9 fL (81-99); Mean Platelet Vol. 9.1 fl (6.2-12.0); Monocyte# 0.84 X10^3/uL; Monocyte% 12.6 % (0-10); Neutrophil # 3.29 X10^3/uL (2.7-7.7); Neutrophil % 49.4 % (47-70); Platelet Count 208 K/mm3 (150-450); RBC Distribution Width CV 13.2 % (11.6-14.6); RBC Distribution Width SD 47.3 fl (35.1-43.9); Red Blood Count 4.21 M/mm3 (4.2-5.4); White Blood Count 6.7 K/mm3 (4.4-11.0)
[2018-01-31 15:42] LABS: POSITIVE COUNT NO; POSITIVE DIFFERENTIAL NO; POSITIVE MORPHOLOGY NO
[2018-01-31 15:49] LABS: Anion Gap 6 (5-15); BUN 18 mg/dL (7-18); BUN/Creat Ratio 19.8 RATIO (10-20); Calcium,Total 9.5 mg/dL (8.5-10.1); Chloride 109 mmol/L (98-107); Creatinine, Serum 0.91 mg/dL (0.55-1.02); EST Glomerular Filtration Rate 63 mL/min (>60); Est Glom Filt Rate - Afr Amer 76 mL/min (>60); Estimated Creatinine Clearance 41.16 ml/min; Glucose 111 mg/dL (74-106); Lactic Acid 1.5 mmol/L (0.4-2.0); Potassium 4.8 mmol/L (3.5-5.1); Sodium Level 140 mmol/L (136-145)
[2018-01-31 15:53] LABS: Red Blood Cells-Urine 0 SEEN /hpf (0-5); Squamous Epithelial Cells - UA 0 SEEN /hpf (5-10)
[2018-01-31 16:01] LABS: Color, Urine Straw (Yellow); Glucose, Dipstick Normal (Normal); Ketone-Dipstick Negative (Negative); Leukocyte Esterase-Dipstick 25 /ul (Negative); Nitrite-Dipstick Positive (Negative); Occult Blood-Urine Negative /ul (Negative); Protein-Dipstick 30 mg/dl (Negative); Specific Gravity, Urine 1.015 (1.002-1.030); Urine Bilirubin Dipstick Negative (Negative); Urine Clarity Cloudy (Clear); Urine Urobilinogen Normal (Normal)
[2018-01-31 16:16] LABS: Amorphous Sediment 1+; Bacteria 4+ /hpf (None Seen); White Blood Cells 5-10 SEEN /hpf (0-5)
--- NOTE | 2018-01-31 17:01 | ED.VISSUMM ---
- ER Visit Summary Date of Service: 01/31/18 Chief Complaint: [Generalized weakness] History of Present Illness: The patient is a 82 F [presents the emergency department from home with complaint of generally feeling weak. Patient states that she is having a hard time standing and walking. Patient states most of her symptoms started today. Family member states that there is a strong odor to the patient's urine. Patient states that she feels like she might pass out when she tries to stand up and walk. Patient denies any chest pain or palpitations. Patient denies fever. Patient denies vomiting or diarrhea. Family member states that patient really does not drink very much water.] Physical Examination: HEENT-PERRLA, EOMI. Cranial nerves II through XII grossly intact. TMs clear. Mucous membranes moist. No adenopathy. Cardiovascular-regular rate and rhythm without murmur or ectopy Lungs-clear to auscultation, chest wall stable without crepitus or subcu emphysema Abdomen-normoactive bowel sounds, soft, nontender, no rebound or rigidity, no peritoneal signs. Extremities-intact ?4, normal range of motion, normal pulses, atraumatic] Test Results: [EKG obtained on arrival showed a sinus rhythm with a ventricular rate 60 bpm with left bundle branch block. CBC with differential showed white count 6.7, hemoglobin 14, hematocrit 41, platelets 208. Chemistries unremarkable. Urinalysis was positive for 25 leukocyte esterase and positive for nitrites as well as 5-10 WBCs and +4 bacteria. Urine culture was sent. Troponin was less than 0.015. Lactate was normal at 1.5. Chest x-ray showed nothing acute.] Emergency Department Course and Treatment: [Patient was started on Rocephin 1 g IV and was given a liter normal same fluid bolus] Treatment Plan: [Patient will be admitted for IV antibiotics and IV hydration.] Disposition: [Admit] Impression: [Generalized weakness Near syncope Hypertension Urinary tract infection] This note was generated with mGenerator dictation software. It may contain incorrect words, spelling, and punctuation that were not noted in review of the chart prior to signing ED Disposition - Plan for ED Patient: Chief Complaint: General Illness Referrals: Salinas Keller III, MD [Primary Care Provider] -
--- NOTE | 2018-01-31 17:26 | PCM.HP.STD ---
<Saima Felton - Last Filed: 01/31/18 17:55> Problem List (1) Acute dysphagia due to chicken piece Status: Resolved (2) Sinus node dysfunction Status: Resolved (3) COPD, mild Status: Chronic (4) Hypothyroidism Status: Chronic (5) Dyslipidemia Status: Chronic (6) HTN (hypertension) Status: Chronic History of Present Illness Date of Admission: 01/31/18 Chief Complaint: Generalized weakness, dizziness. The patient is a 82 year old F who presents to the emergency room due to generalized weakness and dizziness. Patient states this has been ongoing. She states today she felt like she was going to pass out. Patient states she has had generalized weakness and difficulty caring for herself at home for a while. She states her symptoms worsened yesterday. She uses a cane at home to ambulate and also states she has a lift chair which helps her with stairs. She denies urinary symptoms. Denies fever, chills. Denies nausea, vomiting, diarrhea. Patient reports poor oral intake. Family at bedside states patient drinks very little water and typically only eats one meal a day. Family reports patient has strong smelling urine. She is occasionally incontinent. Patient states dizziness is worse when she stands from seated position or attempts to ambulate. She states she feels better when she is lying to rest. Patient has right lower extremity wounds and multiple scabbed areas throughout body. Family reports patient picks at her skin. Patient states her right leg wounds are from itching. She has not sought medical attention for these wounds. Her past medical history includes COPD, hypothyroidism, gout, hypertension, hyperlipidemia, dysphasia. Past Medical History Past Medical History (Chronic Problems): Chronic Problems COPD, mild (Chronic) Hypothyroidism (Chronic) Dyslipidemia (Chronic) HTN (hypertension) (Chronic) Allergies hydrochlorothiazide Adverse Reaction (Verified 01/31/18 17:23) Other Home Medications: Ambulatory Orders Medication Instructions Recorded Allopurinol [Zyloprim] 100 mg PO QHS 09/10/13 Levothyroxine [Synthroid] 75 mcg PO DAILY 10/02/14 Multivitamins,Therapeutic 1 tablet PO DAILY 10/02/14 [Multivitamin] Albuterol IH (ProAir) [Proair Hfa] 2 puff INHALATION Q4H PRN PRN 09/23/16 Budesonide/Formoterol 160/4.5 2 puff INHALATION BID 09/23/16 [Symbicort 160/4.5 Mcg Inhaler (SP)] Atorvastatin Calcium [Lipitor] 20 mg PO QHS 09/10/17 Cholecalciferol (Vitamin D3) 2,000 unit PO DAILY 01/31/18 [Vitamin D3] Lisinopril [Zestril] 10 mg PO DAILY 01/31/18 Surgical History: - - Patient reports right ear surgery when she was a child. Tonsillectomy and adenoidectomy. Psychiatric History: No pertinent psych hx [employer] History: No pertinent [employer] history Lives: With Family Smoking Status: Former smoker Alcohol: None Drugs: None - *Family History Maternal History Items: Cancer - Breast cancer Paternal History Items: Cancer - Unknown type Review of Systems Constitutional: Reports: Malaise, Weakness, Fatigue. Denies: Chills, Fever HEENT: Reports: Difficulty Hearing - Intermittently. Denies: Head Aches, Sinus Congestion, Sinus Drainage Cardiovascular: Reports: Light Headedness. Denies: Chest Pain, Edema, Palpitations, Syncope Respiratory: Reports: Shortness of breath upon exertion - Chronic. Denies: Cough, Shortness of breath at rest, Sputum production Gastrointestinal: Reports: - - Poor appetite. Denies: Abdominal Pain, Diarrhea, Nausea, Vomiting Genitourinary: Reports: Incontinence. Denies: Dysuria, Frequency, Retention Musculoskeletal: Denies: Joint Pain, Joint Tenderness Skin: Reports: Rash - Right breast, Wounds - Multiple wounds right leg and scattered scabbing throughout body. Neurological: Denies: Numbness, Tingling, Focal weakness Psychiatric: Denies: Anxiety, Depression, Homicidal Ideations, Suicidal Ideations Hematologic/ Lymphatic: Denies: Easy Bruising, Easy Bleeding VTE Information - Inpt Only VTE Present on Admission: No VTE Mechan Device Prophylaxis: None VTE Pharm Prophylaxis ordered?: Yes - Physical Exam General: Alert, Oriented x3, Cooperative, No apparent distress HEENT: Atraumatic, PERRLA, EOMI, Normocephalic Neck: Supple, No JVD, Carotid Bruit, Right Lungs: Clear to auscultation, Diminished Cardiovascular: Regular rate, Regular Rhythm, Normal S1, Normal S2, No murmurs Abdomen: Bowel Sounds Present, Soft, Non Tender Extremities: No clubbing, No cyanosis, No edema, Capillary Refill Less than 3 Seconds Skin: - - Multiple areas of scabbing throughout body. Patient picks at skin. Right leg with multiple wounds and abrasions. Musculoskeletal: No Tenderness to Palpation of Joints or Extremities Neurological: Cranial nerves II-XII grossly intact, Neuro grossly intact Psych/Mental Status: Normal Affect, Appropriate Vital Signs Temp Pulse Resp BP Pulse Ox 98.0 F 66 14 201/145 H 99 01/31/18 14:38 01/31/18 17:20 01/31/18 17:20 01/31/18 17:20 01/31/18 17:20 Oxygen Delivery Method Room Air Weight: 178 lb 5.663 oz Body Mass Index (BMI) 30.6 Laboratory Tests Past 24 Hrs 01/31/18 01/31/18 01/31/18 14:52 14:52 14:52 WBC 6.7 RBC 4.21 Hgb 14.0 Hct 41.2 MCV 97.9 MCH 33.3 H MCHC 34.0 RDW 13.2 RDW Differential 47.3 H Plt Count 208 MPV 9.1 Immature Gran % (Auto) 0.200 Neut % (Auto) 49.4 Lymph % (Auto) 33.7 [place] % (Auto) 12.6 H Eos % (Auto) 3.8 Baso % (Auto) 0.3 Absolute Neuts (auto) 3.3 Absolute Lymphs (auto) 2.24 Total Counted Not Reportable Sodium 140 Potassium 4.8 Chloride 109 H Carbon Dioxide 25.0 Anion Gap 6 BUN 18 Creatinine 0.91 Estim Creat Clear Calc 41.16 Est GFR (MDRD) Af Amer 76 Est GFR (MDRD) Non-Af 63 BUN/Creatinine Ratio 19.8 Glucose 111 H Lactic Acid 1.5 Calcium 9.5 Troponin I < 0.015 Urine Color Urine Clarity Urine pH Ur Specific [employer] Urine Protein Urine Glucose (UA) Urine Ketones Urine Occult Blood Urine Nitrite Urine Bilirubin Urine Urobilinogen Ur Leukocyte Esterase Urine RBC Urine WBC Ur Squamous Epith Cells Amorphous Sediment Urine Bacteria Urine Mucus 01/31/18 15:50 WBC RBC Hgb Hct MCV MCH MCHC RDW RDW Differential Plt Count MPV Immature Gran % (Auto) Neut % (Auto) Lymph % (Auto) [place] % (Auto) Eos % (Auto) Baso % (Auto) Absolute Neuts (auto) Absolute Lymphs (auto) Total Counted Sodium Potassium Chloride Carbon Dioxide Anion Gap BUN Creatinine Estim Creat Clear Calc Est GFR (MDRD) Af Amer Est GFR (MDRD) Non-Af BUN/Creatinine Ratio Glucose Lactic Acid Calcium Troponin I Urine Color Straw Urine Clarity Cloudy Urine pH 8.0 Ur Specific [employer] 1.015 Urine Protein 30 H Urine Glucose (UA) Normal Urine Ketones Negative Urine Occult Blood Negative Urine Nitrite Positive H Urine Bilirubin Negative Urine Urobilinogen Normal Ur Leukocyte Esterase 25 H Urine RBC 0 SEEN Urine WBC 5-10 SEEN Ur Squamous Epith Cells 0 SEEN Amorphous Sediment 1+ Urine Bacteria 4+ Urine Mucus Not Reportable Assessment/Plan All Active Problems Acute dysphagia due to chicken piece (Resolved) Sinus node dysfunction (Resolved) 1. Acute UTI-UA positive for leukocytes, nitrites. Send urine for culture. Continue IV Rocephin. IV fluids. 2. Generalized weakness, near syncope-orthostatic vitals negative in ER. Repeat in a.m. Continue IV fluids. PT/OT. Recent echocardiogram September 2017 showed an EF of 65%, stage II diastolic dysfunction, mild tricuspid valve insufficiency. Troponin negative ?1. 3. Hypertensive urgency-history of hypertension. Does not appear to be antihypertensive regimen at home. Begin lisinopril 10 mg daily. As needed hydralazine for systolic greater than 160. 4. Right lower extremity wounds, present on admission-do not appear infected. Consult wound RN. 5. Hyperlipidemia-continue statin. 6. Hypothyroidism-continue home Synthroid regimen. Check TSH. 7. COPD-no acute exacerbation. Albuterol and DuoNeb aerosol. 8. Gout-continue home allopurinol. 9. Chronic dysphasia-consult speech therapy. Patient underwent barium swallow study in September which showed no evidence of increased risk for aspiration. At that time, speech therapy recommended mechanical soft, thin liquids. Aspiration precautions. 10. Carotid artery disease-Carotid ultrasound 09/10/17 demonstrated severe (greater than 70%) stenosis right internal carotid. Moderate (50-69%) stenosis left internal carotid. Recommend outpatient follow-up as previously recommended. DVT prophylaxis-Lovenox subcu. This patient was seen by CRISTELA Driscoll under the supervision of Dr. Waters. <Janelle Waters - Last Filed: 01/31/18 18:32> History of Present Illness The patient is a 82 year old F [] Past Medical History Allergies hydrochlorothiazide Adverse Reaction (Verified 01/31/18 17:23) Other - Physical Exam Vital Signs Temp Pulse Resp BP Pulse Ox 98.0 F 66 14 201/145 H 99 01/31/18 14:38 01/31/18 17:20 01/31/18 17:20 01/31/18 17:20 01/31/18 17:20 Oxygen Delivery Method Room Air Weight: 178 lb 5.663 oz Body Mass Index (BMI) 30.6 Laboratory Tests Past 24 Hrs 01/31/18 01/31/18 01/31/18 14:52 14:52 14:52 WBC 6.7 RBC 4.21 Hgb 14.0 Hct 41.2 MCV 97.9 MCH 33.3 H MCHC 34.0 RDW 13.2 RDW Differential 47.3 H Plt Count 208 MPV 9.1 Immature Gran % (Auto) 0.200 Neut % (Auto) 49.4 Lymph % (Auto) 33.7 [place] % (Auto) 12.6 H Eos % (Auto) 3.8 Baso % (Auto) 0.3 Absolute Neuts (auto) 3.3 Absolute Lymphs (auto) 2.24 Total Counted Not Reportable Sodium 140 Potassium 4.8 Chloride 109 H Carbon Dioxide 25.0 Anion Gap 6 BUN 18 Creatinine 0.91 Estim Creat Clear Calc 41.16 Est GFR (MDRD) Af Amer 76 Est GFR (MDRD) Non-Af 63 BUN/Creatinine Ratio 19.8 Glucose 111 H Lactic Acid 1.5 Calcium 9.5 Troponin I < 0.015 Urine Color Urine Clarity Urine pH Ur Specific [employer] Urine Protein Urine Glucose (UA) Urine Ketones Urine Occult Blood Urine Nitrite Urine Bilirubin Urine Urobilinogen Ur Leukocyte Esterase Urine RBC Urine WBC Ur Squamous Epith Cells Amorphous Sediment Urine Bacteria Urine Mucus 01/31/18 15:50 WBC RBC Hgb Hct MCV MCH MCHC RDW RDW Differential Plt Count MPV Immature Gran % (Auto) Neut % (Auto) Lymph % (Auto) [place] % (Auto) Eos % (Auto) Baso % (Auto) Absolute Neuts (auto) Absolute Lymphs (auto) Total Counted Sodium Potassium Chloride Carbon Dioxide Anion Gap BUN Creatinine Estim Creat Clear Calc Est GFR (MDRD) Af Amer Est GFR (MDRD) Non-Af BUN/Creatinine Ratio Glucose Lactic Acid Calcium Troponin I Urine Color Straw Urine Clarity Cloudy Urine pH 8.0 Ur Specific [employer] 1.015 Urine Protein 30 H Urine Glucose (UA) Normal Urine Ketones Negative Urine Occult Blood Negative Urine Nitrite Positive H Urine Bilirubin Negative Urine Urobilinogen Normal Ur Leukocyte Esterase 25 H Urine RBC 0 SEEN Urine WBC 5-10 SEEN Ur Squamous Epith Cells 0 SEEN Amorphous Sediment 1+ Urine Bacteria 4+ Urine Mucus Not Reportable Assessment/Plan Patient seen by Saima Felton nurse practitioner under my supervision. Patient is an 82-year-old with a history of dyslipidemia, hypertension and hypothyroidism as well as COPD. She was admitted by the ED on 01/31/2018 complaint of generalized weakness and dizziness. Patient said this has been ongoing for a while and had worsened and she felt like passing out before admission today. She is not able to care for herself as well. She has a son who lives with her but he is always in his room because he is diabetic and she has other family members to visit periodically. She denied any fever or chills, any nausea vomiting or diarrhea but admitted to poor oral intake and family also complained of offensive, strong smelling urine. She also complained of itching on her lower extremities and had been picking at the lower legs with resultant ulcerations and abrasions. Review of systems otherwise negative. Vitals in the ED was significant for temperature of 98 Fahrenheit, blood pressure of 2 1/145, pulse rate of 66 and respiratory rate of 14. VC showed no leukocytosis and CMP was also not remarkable. Urine analysis showed evidence of UTI with elevated leukocyte esterase and nitrites. She started on IV ceftriaxone in the ED. She is being admitted to be managed for UTI and dehydration. Patient seen and examined. o/e: General: Alert, Oriented x3, Cooperative, No apparent distress HEENT: Atraumatic, PERRLA, EOMI, Normocephalic Neck: Supple, No JVD, Carotid Bruit, Right Lungs: Clear to auscultation, Diminished Cardiovascular: Regular rate, Regular Rhythm, Normal S1, Normal S2, No murmurs Abdomen: Bowel Sounds Present, Soft, Non Tender Extremities: No clubbing, No cyanosis, No edema, Capillary Refill Less than 3 Seconds Skin: - - Multiple areas of scabbing throughout body. superficial bleeding ulcerations and abrasions on LEs, especially on the RLE. Is a result of patient picking at skin. Multiple areas of scabbing over her body. Musculoskeletal: No Tenderness to Palpation of Joints or Extremities Neurological: Cranial nerves II-XII grossly intact, Neuro grossly intact Psych/Mental Status: Normal Affect, Appropriate Agree with Saima Felton nurse practitioner's note. Will monitor for UTI and hypertensive urgency. I doubt the patient has been compliant with her medication at home. Will also check TSH to assess compliance with her medication. We will continue IV ceftriaxone and hydrated with IV fluid normal saline. No blood pressure medications. Med rec, though patient states she is on blood pressure medications. Start lisinopril 10 mg daily. IV hydralazien 10mg prn for SBP >160mmhg Will get wound consult for lower extremity wounds. Will get urine culture and adjust antibiotics as needed. Wound care consult for lower extremity wounds. To wrap lower extremities in bandages to prevent patient from picking. Code status: Patient counseled extensively on different types of CODE STATUS and what they meant. Patient wishes to be full code at this time. Rest of management as per Saima Felton [employer]'s assessment and plan. Code Visit Inpatient E&M: 22373 Init Hosp L3 Procedures: 49245 Advncd Care Plan 30 Min
[2018-01-31] MEDS: Ceftriaxone 1 GM/50 ML BAG IV (17:28)
--- NOTE | 2018-01-31 17:36 | HP.PCM_ITS ---
<Saima Felton - Last Filed: 01/31/18 17:55> Problem List (1) Acute dysphagia due to chicken piece Status: Resolved (2) Sinus node dysfunction Status: Resolved (3) COPD, mild Status: Chronic (4) Hypothyroidism Status: Chronic (5) Dyslipidemia Status: Chronic (6) HTN (hypertension) Status: Chronic History of Present Illness Date of Admission: 01/31/18 Chief Complaint: Generalized weakness, dizziness. The patient is a 82 year old F who presents to the emergency room due to generalized weakness and dizziness. Patient states this has been ongoing. She states today she felt like she was going to pass out. Patient states she has had generalized weakness and difficulty caring for herself at home for a while . She states her symptoms worsened yesterday. She uses a cane at home to ambulate and also states she has a lift chair which helps her with stairs. She denies urinary symptoms. Denies fever, chills. Denies nausea, vomiting, diarrhea. Patient reports poor oral intake. Family at bedside states patient drinks very little water and typically only eats one meal a day. Family reports patient has strong smelling urine. She is occasionally incontinent. Patient states dizziness is worse when she stands from seated position or attempts to ambulate. She states she feels better when she is lying to rest. Patient has right lower extremity wounds and multiple scabbed areas throughout body. Family reports patient picks at her skin. Patient states her right leg wounds are from itching. She has not sought medical attention for these wounds. Her past medical history includes COPD, hypothyroidism, gout, hypertension, hyperlipidemia, dysphasia. Past Medical History Past Medical History (Chronic Problems): Chronic Problems COPD, mild (Chronic) Hypothyroidism (Chronic) Dyslipidemia (Chronic) HTN (hypertension) (Chronic) Allergies hydrochlorothiazide Adverse Reaction (Verified 01/31/18 17:23) Other Home Medications: Ambulatory Orders Medication Instructions Recorded Allopurinol [Zyloprim] 100 mg PO QHS 09/10/13 Levothyroxine [Synthroid] 75 mcg PO DAILY 10/02/14 Multivitamins,Therapeutic 1 tablet PO DAILY 10/02/14 [Multivitamin] Albuterol IH (ProAir) [Proair Hfa] 2 puff INHALATION Q4H PRN PRN 09/23/16 Budesonide/Formoterol 160/4.5 2 puff INHALATION BID 09/23/16 [Symbicort 160/4.5 Mcg Inhaler (SP)] Atorvastatin Calcium [Lipitor] 20 mg PO QHS 09/10/17 Cholecalciferol (Vitamin D3) 2,000 unit PO DAILY 01/31/18 [Vitamin D3] Lisinopril [Zestril] 10 mg PO DAILY 01/31/18 Surgical History: - - Patient reports right ear surgery when she was a child. Tonsillectomy and adenoidectomy. Psychiatric History: No pertinent psych hx DIRECTOR OF DIRECT MARKETING History: No pertinent DIRECTOR OF DIRECT MARKETING history Lives: With Family Smoking Status: Former smoker Alcohol: None Drugs: None - *Family History Maternal History Items: Cancer - Breast cancer Paternal History Items: Cancer - Unknown type Review of Systems Constitutional: Reports: Malaise, Weakness, Fatigue. Denies: Chills, Fever HEENT: Reports: Difficulty Hearing - Intermittently. Denies: Head Aches, Sinus Congestion, Sinus Drainage Cardiovascular: Reports: Light Headedness. Denies: Chest Pain, Edema, Palpitations, Syncope Respiratory: Reports: Shortness of breath upon exertion - Chronic. Denies: Cough, Shortness of breath at rest, Sputum production Gastrointestinal: Reports: - - Poor appetite. Denies: Abdominal Pain, Diarrhea , Nausea, Vomiting Genitourinary: Reports: Incontinence. Denies: Dysuria, Frequency, Retention Musculoskeletal: Denies: Joint Pain, Joint Tenderness Skin: Reports: Rash - Right breast, Wounds - Multiple wounds right leg and scattered scabbing throughout body. Neurological: Denies: Numbness, Tingling, Focal weakness Psychiatric: Denies: Anxiety, Depression, Homicidal Ideations, Suicidal Ideations Hematologic/ Lymphatic: Denies: Easy Bruising, Easy Bleeding VTE Information - Inpt Only VTE Present on Admission: No VTE Mechan Device Prophylaxis: None VTE Pharm Prophylaxis ordered?: Yes - Physical Exam General: Alert, Oriented x3, Cooperative, No apparent distress HEENT: Atraumatic, PERRLA, EOMI, Normocephalic Neck: Supple, No JVD, Carotid Bruit, Right Lungs: Clear to auscultation, Diminished Cardiovascular: Regular rate, Regular Rhythm, Normal S1, Normal S2, No murmurs Abdomen: Bowel Sounds Present, Soft, Non Tender Extremities: No clubbing, No cyanosis, No edema, Capillary Refill Less than 3 Seconds Skin: - - Multiple areas of scabbing throughout body. Patient picks at skin. Right leg with multiple wounds and abrasions. Musculoskeletal: No Tenderness to Palpation of Joints or Extremities Neurological: Cranial nerves II-XII grossly intact, Neuro grossly intact Psych/Mental Status: Normal Affect, Appropriate Vital Signs Temp Pulse Resp BP Pulse Ox 98.0 F 66 14 201/145 H 99 01/31/18 14:38 01/31/18 17:20 01/31/18 17:20 01/31/18 17:20 01/31/18 17:20 Oxygen Delivery Method Room Air Weight: 178 lb 5.663 oz Body Mass Index (BMI) 30.6 Laboratory Tests Past 24 Hrs 01/31/18 01/31/18 01/31/18 14:52 14:52 14:52 WBC 6.7 RBC 4.21 Hgb 14.0 Hct 41.2 MCV 97.9 MCH 33.3 H MCHC 34.0 RDW 13.2 RDW Differential 47.3 H Plt Count 208 MPV 9.1 Immature Gran % (Auto) 0.200 Neut % (Auto) 49.4 Lymph % (Auto) 33.7 [place] % (Auto) 12.6 H Eos % (Auto) 3.8 Baso % (Auto) 0.3 Absolute Neuts (auto) 3.3 Absolute Lymphs (auto) 2.24 Total Counted Not Reportable Sodium 140 Potassium 4.8 Chloride 109 H Carbon Dioxide 25.0 Anion Gap 6 BUN 18 Creatinine 0.91 Estim Creat Clear Calc 41.16 Est GFR (MDRD) Af Amer 76 Est GFR (MDRD) Non-Af 63 BUN/Creatinine Ratio 19.8 Glucose 111 H Lactic Acid 1.5 Calcium 9.5 Troponin I < 0.015 Urine Color Urine Clarity Urine pH Ur Specific [place] Urine Protein Urine Glucose (UA) Urine Ketones Urine Occult Blood Urine Nitrite Urine Bilirubin Urine Urobilinogen Ur Leukocyte Esterase Urine RBC Urine WBC Ur Squamous Epith Cells Amorphous Sediment Urine Bacteria Urine Mucus 01/31/18 15:50 WBC RBC Hgb Hct MCV MCH MCHC RDW RDW Differential Plt Count MPV Immature Gran % (Auto) Neut % (Auto) Lymph % (Auto) [place] % (Auto) Eos % (Auto) Baso % (Auto) Absolute Neuts (auto) Absolute Lymphs (auto) Total Counted Sodium Potassium Chloride Carbon Dioxide Anion Gap BUN Creatinine Estim Creat Clear Calc Est GFR (MDRD) Af Amer Est GFR (MDRD) Non-Af BUN/Creatinine Ratio Glucose Lactic Acid Calcium Troponin I Urine Color Straw Urine Clarity Cloudy Urine pH 8.0 Ur Specific [place] 1.015 Urine Protein 30 H Urine Glucose (UA) Normal Urine Ketones Negative Urine Occult Blood Negative Urine Nitrite Positive H Urine Bilirubin Negative Urine Urobilinogen Normal Ur Leukocyte Esterase 25 H Urine RBC 0 SEEN Urine WBC 5-10 SEEN Ur Squamous Epith Cells 0 SEEN Amorphous Sediment 1+ Urine Bacteria 4+ Urine Mucus Not Reportable Assessment/Plan All Active Problems Acute dysphagia due to chicken piece (Resolved) Sinus node dysfunction (Resolved) 1. Acute UTI-UA positive for leukocytes, nitrites. Send urine for culture. Continue IV Rocephin. IV fluids. 2. Generalized weakness, near syncope-orthostatic vitals negative in ER. Repeat in a.m. Continue IV fluids. PT/OT. Recent echocardiogram September 2017 showed an EF of 65%, stage II diastolic dysfunction, mild tricuspid valve insufficiency. Troponin negative ?1. 3. Hypertensive urgency-history of hypertension. Does not appear to be antihypertensive regimen at home. Begin lisinopril 10 mg daily. As needed hydralazine for systolic greater than 160. 4. Right lower extremity wounds, present on admission-do not appear infected. Consult wound RN. 5. Hyperlipidemia-continue statin. 6. Hypothyroidism-continue home Synthroid regimen. Check TSH. 7. COPD-no acute exacerbation. Albuterol and DuoNeb aerosol. 8. Gout-continue home allopurinol. 9. Chronic dysphasia-consult speech therapy. Patient underwent barium swallow study in September which showed no evidence of increased risk for aspiration. At that time, speech therapy recommended mechanical soft, thin liquids. Aspiration precautions. 10. Carotid artery disease-Carotid ultrasound 09/10/17 demonstrated severe ( greater than 70%) stenosis right internal carotid. Moderate (50-69%) stenosis left internal carotid. Recommend outpatient follow-up as previously recommended. DVT prophylaxis-Lovenox subcu. This patient was seen by CRISTELA Driscoll under the supervision of Dr. Waters. <Janelle Waters - Last Filed: 01/31/18 18:32> History of Present Illness The patient is a 82 year old F [] Past Medical History Allergies hydrochlorothiazide Adverse Reaction (Verified 01/31/18 17:23) Other - Physical Exam Vital Signs Temp Pulse Resp BP Pulse Ox 98.0 F 66 14 201/145 H 99 01/31/18 14:38 01/31/18 17:20 01/31/18 17:20 01/31/18 17:20 01/31/18 17:20 Oxygen Delivery Method Room Air Weight: 178 lb 5.663 oz Body Mass Index (BMI) 30.6 Laboratory Tests Past 24 Hrs 01/31/18 01/31/18 01/31/18 14:52 14:52 14:52 WBC 6.7 RBC 4.21 Hgb 14.0 Hct 41.2 MCV 97.9 MCH 33.3 H MCHC 34.0 RDW 13.2 RDW Differential 47.3 H Plt Count 208 MPV 9.1 Immature Gran % (Auto) 0.200 Neut % (Auto) 49.4 Lymph % (Auto) 33.7 [place] % (Auto) 12.6 H Eos % (Auto) 3.8 Baso % (Auto) 0.3 Absolute Neuts (auto) 3.3 Absolute Lymphs (auto) 2.24 Total Counted Not Reportable Sodium 140 Potassium 4.8 Chloride 109 H Carbon Dioxide 25.0 Anion Gap 6 BUN 18 Creatinine 0.91 Estim Creat Clear Calc 41.16 Est GFR (MDRD) Af Amer 76 Est GFR (MDRD) Non-Af 63 BUN/Creatinine Ratio 19.8 Glucose 111 H Lactic Acid 1.5 Calcium 9.5 Troponin I < 0.015 Urine Color Urine Clarity Urine pH Ur Specific [place] Urine Protein Urine Glucose (UA) Urine Ketones Urine Occult Blood Urine Nitrite Urine Bilirubin Urine Urobilinogen Ur Leukocyte Esterase Urine RBC Urine WBC Ur Squamous Epith Cells Amorphous Sediment Urine Bacteria Urine Mucus 01/31/18 15:50 WBC RBC Hgb Hct MCV MCH MCHC RDW RDW Differential Plt Count MPV Immature Gran % (Auto) Neut % (Auto) Lymph % (Auto) [place] % (Auto) Eos % (Auto) Baso % (Auto) Absolute Neuts (auto) Absolute Lymphs (auto) Total Counted Sodium Potassium Chloride Carbon Dioxide Anion Gap BUN Creatinine Estim Creat Clear Calc Est GFR (MDRD) Af Amer Est GFR (MDRD) Non-Af BUN/Creatinine Ratio Glucose Lactic Acid Calcium Troponin I Urine Color Straw Urine Clarity Cloudy Urine pH 8.0 Ur Specific [place] 1.015 Urine Protein 30 H Urine Glucose (UA) Normal Urine Ketones Negative Urine Occult Blood Negative Urine Nitrite Positive H Urine Bilirubin Negative Urine Urobilinogen Normal Ur Leukocyte Esterase 25 H Urine RBC 0 SEEN Urine WBC 5-10 SEEN Ur Squamous Epith Cells 0 SEEN Amorphous Sediment 1+ Urine Bacteria 4+ Urine Mucus Not Reportable Assessment/Plan Patient seen by Saima Felton nurse practitioner under my supervision. Patient is an 82-year-old with a history of dyslipidemia, hypertension and hypothyroidism as well as COPD. She was admitted by the ED on 01/31/2018 complaint of generalized weakness and dizziness. Patient said this has been ongoing for a while and had worsened and she felt like passing out before admission today. She is not able to care for herself as well. She has a son who lives with her but he is always in his room because he is diabetic and she has other family members to visit periodically. She denied any fever or chills , any nausea vomiting or diarrhea but admitted to poor oral intake and family also complained of offensive, strong smelling urine. She also complained of itching on her lower extremities and had been picking at the lower legs with resultant ulcerations and abrasions. Review of systems otherwise negative. Vitals in the ED was significant for temperature of 98 Fahrenheit, blood pressure of 2 1/145, pulse rate of 66 and respiratory rate of 14. VC showed no leukocytosis and CMP was also not remarkable. Urine analysis showed evidence of UTI with elevated leukocyte esterase and nitrites. She started on IV ceftriaxone in the ED. She is being admitted to be managed for UTI and dehydration. Patient seen and examined. o/e: General: Alert, Oriented x3, Cooperative, No apparent distress HEENT: Atraumatic, PERRLA, EOMI, Normocephalic Neck: Supple, No JVD, Carotid Bruit, Right Lungs: Clear to auscultation, Diminished Cardiovascular: Regular rate, Regular Rhythm, Normal S1, Normal S2, No murmurs Abdomen: Bowel Sounds Present, Soft, Non Tender Extremities: No clubbing, No cyanosis, No edema, Capillary Refill Less than 3 Seconds Skin: - - Multiple areas of scabbing throughout body. superficial bleeding ulcerations and abrasions on LEs, especially on the RLE. Is a result of patient picking at skin. Multiple areas of scabbing over her body. Musculoskeletal: No Tenderness to Palpation of Joints or Extremities Neurological: Cranial nerves II-XII grossly intact, Neuro grossly intact Psych/Mental Status: Normal Affect, Appropriate Agree with Saima Felton nurse practitioner's note. Will monitor for UTI and hypertensive urgency. I doubt the patient has been compliant with her medication at home. Will also check TSH to assess compliance with her medication. We will continue IV ceftriaxone and hydrated with IV fluid normal saline. No blood pressure medications. Med rec, though patient states she is on blood pressure medications. Start lisinopril 10 mg daily. IV hydralazien 10mg prn for SBP >160mmhg Will get wound consult for lower extremity wounds. Will get urine culture and adjust antibiotics as needed. Wound care consult for lower extremity wounds. To wrap lower extremities in bandages to prevent patient from picking. Code status: Patient counseled extensively on different types of CODE STATUS and what they meant. Patient wishes to be full code at this time. Rest of management as per Saima Felton VEHICLE WASHER's assessment and plan. Code Visit Inpatient E&M: 40511 Init Hosp L3 Procedures: 88550 Advncd Care Plan 30 Min
[2018-01-31] MEDS: 0.9% Normal Saline 1,000 ML 75 ML IV (19:01)
[2018-01-31 21:50] LABS: Thyroid Stim Hormone (TSH) 2.39 uIU/mL (0.358-3.74)
[2018-01-31] MEDS: Heparin Injection (Vial) 5,000 UNIT/ML VIAL 5000 UNIT SC (22:06)
[2018-01-31] MEDS: Atorvastatin Calcium 20 MG Tablet PO (22:06)
[2018-01-31] MEDS: Allopurinol 100 MG Tablet PO (22:07)
[2018-01-31] MEDS: Nystatin Ointment 1 APPLIC TOPICAL (22:07)
[2018-01-31] MEDS: Budesonide Respules 0.5 MG/2 ML AMPUL.NEB. INHALATION (23:24)
[2018-01-31] MEDS: Albuterol 2.5 MG/3 ML VIAL.NEB. INHALATION (23:24)
[2018-02-01] VITALS (16 sets, daily range): BP systolic 150–163; BP diastolic 52–70; PULSE 41–68; RESP 16–18; TEMP 36.4–37.1; O2SAT 93–99
[2018-02-01] MEDS: Ceftriaxone 1 GM/50 ML BAG IV ×2 (05:17→17:28)
[2018-02-01] MEDS: Heparin Injection (Vial) 5,000 UNIT/ML VIAL 5000 UNIT SC ×3 (05:18→22:19)
[2018-02-01] MEDS: Levothyroxine 75 MCG Tablet PO (05:18)
[2018-02-01] MEDS: Nystatin Ointment 1 APPLIC TOPICAL (05:18)
[2018-02-01 06:19] LABS: Absolute Neutrophil Count 3.4 X10^3/uL (2.0-7.7); Basophil# 0.02 X10^3/uL; Basophil% 0.3 % (0-1); Eosinophil# 0.22 X10^3/uL; Eosinophils% 3.5 % (0-5); Hematocrit 38.3 % (37-47); Lymphocyte % 33.7 % (19-41); Mean Corp Hgb Conc 33.9 g/gl (32-36); Mean Corpuscular Hgb 32.9 pg (27.0-32.0); Mean Platelet Vol. 9.1 fl (6.2-12.0); Monocyte# 0.45 X10^3/uL; Monocyte% 7.2 % (0-10); Neutrophil # 3.44 X10^3/uL (2.7-7.7); Neutrophil % 55.1 % (47-70); Platelet Count 204 K/mm3 (150-450); RBC Distribution Width CV 12.7 % (11.6-14.6); Red Blood Count 3.95 M/mm3 (4.2-5.4); White Blood Count 6.2 K/mm3 (4.4-11.0)
[2018-02-01 06:22] LABS: POSITIVE COUNT NO; POSITIVE DIFFERENTIAL NO; POSITIVE MORPHOLOGY NO
[2018-02-01 06:39] LABS: Anion Gap 7 (5-15); BUN 12 mg/dL (7-18); BUN/Creat Ratio 15.6 RATIO (10-20); Calcium,Total 8.5 mg/dL (8.5-10.1); Chloride 112 mmol/L (98-107); Creatinine, Serum 0.77 mg/dL (0.55-1.02); EST Glomerular Filtration Rate 76 mL/min (>60); Est Glom Filt Rate - Afr Amer 92 mL/min (>60); Estimated Creatinine Clearance 37.45 ml/min; Glucose 112 mg/dL (74-106); Potassium 3.6 mmol/L (3.5-5.1); Sodium Level 142 mmol/L (136-145)
[2018-02-01] MEDS: Budesonide Respules 0.5 MG/2 ML AMPUL.NEB. INHALATION ×2 (06:57→19:30)
[2018-02-01] MEDS: Albuterol 2.5 MG/3 ML VIAL.NEB. INHALATION ×3 (06:57→19:30)
[2018-02-01] MEDS: 0.9% Normal Saline 1,000 ML 75 ML IV ×2 (10:09→22:19)
[2018-02-01] MEDS: Multivitamins,Therapeutic Tablet 1 TABLET PO (10:09)
[2018-02-01] MEDS: Lisinopril 10 MG Tablet PO ×2 (10:10→15:48)
--- NOTE | 2018-02-01 13:15 | NURSING ---
wound photo: right lower leg
--- NOTE | 2018-02-01 13:15 | NURSING ---
wound photo: under right breast
--- NOTE | 2018-02-01 13:17 | PCM.PROGNOTE ---
<Saima Felton - Last Filed: 02/01/18 14:25> Subjective: Patient seen and examined. States weakness and dizziness have improved. Denies fever, chills. Denies other complaints. - Physical Exam General: Alert, Oriented x3, Cooperative, No apparent distress HEENT: Atraumatic, PERRLA, EOMI, Normocephalic Neck: Supple, No JVD, Negative Carotid Bruits Lungs: Clear to auscultation, Diminished Cardiovascular: Regular rate, Regular Rhythm, Normal S1, Normal S2, No murmurs Abdomen: Bowel Sounds Present, Soft, Non Tender, Non-Distended Extremities: No clubbing, No cyanosis, No edema, Capillary Refill Less than 3 Seconds Skin: - - Multiple areas of scabbing throughout body. Patient picks at skin. Right leg with multiple wounds and abrasions. Musculoskeletal: No Tenderness to Palpation of Joints or Extremities Neurological: Cranial nerves II-XII grossly intact, Neuro grossly intact Psych/Mental Status: Normal Affect, Appropriate Vital Signs Temp Pulse Resp BP Pulse Ox 97.6 F L 61 16 163/70 H 95 02/01/18 10:07 02/01/18 11:03 02/01/18 10:07 02/01/18 10:07 02/01/18 10:07 Oxygen Delivery Method Room Air Weight: 174 lb 13.225 oz Intake and Output for Last 24 Hours 01/30/18 01/31/18 02/01/18 23:59 23:59 23:59 Intake Total 1719 / 1719 Balance 1719 / 1719 Laboratory Tests Past 24 Hrs 02/01/18 02/01/18 05:40 05:40 WBC 6.2 RBC 3.95 L Hgb 13.0 Hct 38.3 MCV 97.0 MCH 32.9 H MCHC 33.9 RDW 12.7 RDW Differential 44.0 H Plt Count 204 MPV 9.1 Immature Gran % (Auto) 0.200 Neut % (Auto) 55.1 Lymph % (Auto) 33.7 [place] % (Auto) 7.2 Eos % (Auto) 3.5 Baso % (Auto) 0.3 Absolute Neuts (auto) 3.4 Absolute Lymphs (auto) 2.10 Total Counted Not Reportable Sodium 142 Potassium 3.6 Chloride 112 H Carbon Dioxide 23.0 Anion Gap 7 BUN 12 Creatinine 0.77 Estim Creat Clear Calc 37.45 Est GFR (MDRD) Af Amer 92 Est GFR (MDRD) Non-Af 76 BUN/Creatinine Ratio 15.6 Glucose 112 H Calcium 8.5 Medical Necessity - Tobacco Use Smoking Status: Former smoker Tobacco Use: Cigarettes Assessment/Plan All Active Problems Acute dysphagia due to chicken piece (Resolved) Sinus node dysfunction (Resolved) 1. Acute gram-negative UTI-UA positive for leukocytes, nitrites. Urine culture pending, preliminary shows gram-negative shital. Continue IV Rocephin. IV fluids. 2. Generalized weakness, near syncope-orthostatic vitals negative. Continue IV fluids. PT/OT. Recent echocardiogram September 2017 showed an EF of 65%, stage II diastolic dysfunction, mild tricuspid valve insufficiency. Troponin negative ?1. 3. Hypertensive urgency-improving. Increase lisinopril to 20mg daily. Continue as needed hydralazine for systolic greater than 160. 4. Right lower extremity wounds, present on admission-do not appear infected. Consult wound RN. 5. Hyperlipidemia-continue statin. 6. Hypothyroidism-continue home Synthroid regimen. TSH within normal limits. 7. COPD-no acute exacerbation. Albuterol and DuoNeb aerosol. 8. Gout-continue home allopurinol. 9. Chronic dysphasia-consult speech therapy. Patient underwent barium swallow study in September which showed no evidence of increased risk for aspiration. At that time, speech therapy recommended mechanical soft, thin liquids. Aspiration precautions. 10. Carotid artery disease-Carotid ultrasound 09/10/17 demonstrated severe (greater than 70%) stenosis right internal carotid. Moderate (50-69%) stenosis left internal carotid. Recommend outpatient follow-up as previously recommended. DVT prophylaxis-Lovenox subcu. This patient was seen by CRISTELA Driscoll under the supervision of Dr. Mcclelland. <Tabitha Mcclelland - Last Filed: 02/01/18 21:51> - Physical Exam Vital Signs Temp Pulse Resp BP Pulse Ox 97.9 F 64 16 154/61 H 93 02/01/18 20:35 02/01/18 20:35 02/01/18 20:35 02/01/18 20:35 02/01/18 20:40 Oxygen Delivery Method Room Air Weight: 79.3 kg Intake and Output for Last 24 Hours 01/30/18 01/31/18 02/01/18 23:59 23:59 23:59 Intake Total 2698 / 2698 Balance 2698 / 2698 Laboratory Tests Past 24 Hrs 02/01/18 02/01/18 05:40 05:40 WBC 6.2 RBC 3.95 L Hgb 13.0 Hct 38.3 MCV 97.0 MCH 32.9 H MCHC 33.9 RDW 12.7 RDW Differential 44.0 H Plt Count 204 MPV 9.1 Immature Gran % (Auto) 0.200 Neut % (Auto) 55.1 Lymph % (Auto) 33.7 [place] % (Auto) 7.2 Eos % (Auto) 3.5 Baso % (Auto) 0.3 Absolute Neuts (auto) 3.4 Absolute Lymphs (auto) 2.10 Total Counted Not Reportable Sodium 142 Potassium 3.6 Chloride 112 H Carbon Dioxide 23.0 Anion Gap 7 BUN 12 Creatinine 0.77 Estim Creat Clear Calc 37.45 Est GFR (MDRD) Af Amer 92 Est GFR (MDRD) Non-Af 76 BUN/Creatinine Ratio 15.6 Glucose 112 H Calcium 8.5 Assessment/Plan Patient was seen and examined. I agree with the above interval history, physical exam and assessment and plans as detailed by Ann Marie Palomares. Vitals are stable. No acute events overnight. BP is improving, will continue with increased Lisinopril Labs reviewed Will continue on IV antibiotics, monitor vitals closely. Code Visit Inpatient E&M: 88535 Subs Hosp L2
--- NOTE | 2018-02-01 13:37 | CASEMGMT ---
SW met with patient, introduced self and role at [facility]. Patient's son lives with her as well as her disabled daughter. She said her son helps her with many things. She plans on going home at d/c. She has never had home health nor has she ever been to a SNF. She did ask about a bedside commode. SAMMY told her SW can see if the physician can write a prescription. Plan: Home with family Kathy BOLANOS
--- NOTE | 2018-02-01 14:51 | CHAPLAIN ---
Type of Pastoral Visit _x__ Initial Visit ___ Follow-up Visit ___ On-call Visit ___ General Patient Visit ___ Spiritual Assessment ___ Family Conference ___ Bereavement ___ Rapid Response ___ Code Blue ___ Other (describe below) Pastoral Care Referral From _x__ Patient ___ Family ___ Nurse ___ Physician ___ Warehouser ___ Dance Master ___ Other (describe below) Sacrament/Intervention _x__ Active listening ___ Anointing ___ Adventism ___ Bereavement ___ Communion _x__ Stephanie exploration ___ _x__ Life review _x__ Prayer ___ Reconciliation ___ Sacrament of Sick _x__ Supportive presence ___ Wedding ___ Other (describe below) Pastoral Comments when entering room the patient had discovered that her IV site was bleeding and so I helped pt use her call button and assistance came
[2018-02-01] MEDS: Allopurinol 100 MG Tablet PO (22:20)
[2018-02-01] MEDS: Nystatin Powder 15gm Bottle 1 APPLIC TOPICAL (22:20)
[2018-02-01] MEDS: Atorvastatin Calcium 20 MG Tablet PO (22:20)
[2018-02-02] VITALS (9 sets, daily range): BP systolic 128–161; BP diastolic 69–71; PULSE 57–71; RESP 16–18; TEMP 36.4–36.5; O2SAT 95–100
[2018-02-02] MEDS: Ceftriaxone 1 GM/50 ML BAG IV (05:55)
[2018-02-02] MEDS: Levothyroxine 75 MCG Tablet PO (05:55)
[2018-02-02] MEDS: Heparin Injection (Vial) 5,000 UNIT/ML VIAL 5000 UNIT SC (05:55)
[2018-02-02] MEDS: Budesonide Respules 0.5 MG/2 ML AMPUL.NEB. INHALATION (07:03)
[2018-02-02] MEDS: Albuterol 2.5 MG/3 ML VIAL.NEB. INHALATION (07:03)
[2018-02-02] MEDS: Multivitamins,Therapeutic Tablet 1 TABLET PO (08:58)
[2018-02-02] MEDS: Lisinopril 20 MG Tablet PO (08:59)
[2018-02-02] MEDS: Nystatin Powder 15gm Bottle 1 APPLIC TOPICAL (08:59)
--- NOTE | 2018-02-02 11:52 | DCINST_ITS ---
You will use the following diet at home:: Cardiac Discharge Activity: Return to Normal Activity Call your doctor if you observe: Fever of 101 or Higher, Shortness of breath, Dizziness, Fainting spells, Chest pain Allergies/Adverse Reactions: Allergies hydrochlorothiazide Adverse Reaction (Verified 01/31/18 17:23) Other Medications to take at Discharge Allopurinol [Zyloprim] 100 mg PO QHS 09/10/13 Levothyroxine [Synthroid] 75 mcg PO DAILY 10/02/14 Multivitamins,Therapeutic [Multivitamin] 1 tablet PO DAILY 10/02/14 Albuterol IH (ProAir) [Proair Hfa] 2 puff INHALATION Q4H PRN PRN 09/23/16 Budesonide/Formoterol 160/4.5 [Symbicort 160/4.5 Mcg Inhaler (SP)] 2 puff INHALATION BID 09/23/16 Atorvastatin Calcium [Lipitor] 20 mg PO QHS 09/10/17 Cholecalciferol (Vitamin D3) [Vitamin D3] 2,000 unit PO DAILY 01/31/18 Amlodipine [Norvasc] 10 mg PO DAILY #30 tab 02/02/18 Ciprofloxacin [Cipro] 500 mg PO BID #10 tab 02/02/18 Lisinopril [Zestril] 20 mg PO DAILY #30 tab 02/02/18 The following prescriptions were given: Amlodipine [Norvasc] 10 mg PO DAILY #30 tab Lisinopril [Zestril] 20 mg PO DAILY #30 tab Ciprofloxacin [Cipro] 500 mg PO BID #10 tab Primary Care Physician: Salinas Keller III, MD [Primary Care Provider] - Please follow up with your Primary Care Physician in: 1 Week Test Results: Test results from this visit will be discussed in further detail at your follow- up appointment, if applicable. Proposed Discharge Date: 02/02/18
--- NOTE | 2018-02-02 12:05 | PCM.DC.SUM ---
<Saima Felton - Last Filed: 02/02/18 12:16> Discharge Date and Diagnosis Date of Admission: 01/31/18 Date of Discharge: 02/02/18 - Primary Discharge Diagnosis 1. Acute E. coli cystitis 2. Generalized weakness, presyncope-suspect secondary to hypertensive urgency and #1 3. Hypertensive urgency 4. Right lower extremity wound secondary to trauma from patient picking, present on admission-not infected - Secondary Discharge Diagnosis Chronic Problems COPD, mild (Chronic) Hypothyroidism (Chronic) Dyslipidemia (Chronic) HTN (hypertension) (Chronic) Hospital Course and Treatment Imaging Results: Diagnostic Data Chest X-Ray 01/31/18 15:20 IMPRESSION: COPD. No acute cardiopulmonary pathology Electronically Signed: José Luis Epps MD at 17:00 EDT , Service support , Consultations 01/31/18 17:49 Consult: Onc/Wound/lpn medical assistant Routine Comment: Reason for Consult:: RLE wounds, right breast Operations: None Procedures: None Summary of Care Provided: Patient is an 82-year-old female admitted 01/31/2018 due to generalized weakness, dizziness. Her past medical history includes COPD, hypothyroidism, gout, hypertension, hyperlipidemia, dysphasia. 1. Acute E. coli UTI-UA positive for leukocytes, nitrites. Urine culture shows E. coli. Patient received IV Rocephin during admission. She will be discharged on Cipro 500 mg twice daily for 5 days. 2. Generalized weakness, near syncope-orthostatic vitals negative. Recent echocardiogram September 2017 showed an EF of 65%, stage II diastolic dysfunction, mild tricuspid valve insufficiency. Troponin negative ?1. Physical therapy recommended further skilled therapy. Patient declined SNF and home health services. Weakness improved. 3. Hypertensive urgency-resolved. Patient will be discharged on lisinopril 20 mg daily and amlodipine 10 mg daily. 4. Right lower extremity wounds, present on admission-do not appear infected. Patient will need to cleanse lower extremity daily and keep shelly wraps bilateral lower extremities. Encouraged patient to not pick at skin. 5. Hyperlipidemia-continue statin. 6. Hypothyroidism-continue home Synthroid regimen. TSH within normal limits. 7. COPD-no acute exacerbation. 8. Gout-continue home allopurinol. 9. Chronic dysphasia-Patient underwent barium swallow study in September which showed no evidence of increased risk for aspiration. At that time, speech therapy recommended mechanical soft, thin liquids. Aspiration precautions. 10. Carotid artery disease-Carotid ultrasound 09/10/17 demonstrated severe (greater than 70%) stenosis right internal carotid. Moderate (50-69%) stenosis left internal carotid. Recommend outpatient follow-up as previously recommended. General: Alert, Oriented x3, Cooperative, No apparent distress HEENT: Atraumatic, PERRLA, EOMI, Normocephalic Neck: Supple, No JVD, Negative Carotid Bruits Lungs: Clear to auscultation, Diminished Cardiovascular: Regular rate, Regular Rhythm, Normal S1, Normal S2, No murmurs Abdomen: Bowel Sounds Present, Soft, Non Tender, Non-Distended Extremities: No clubbing, No cyanosis, No edema, Capillary Refill Less than 3 Seconds Skin: - - Multiple areas of scabbing throughout body. Patient picks at skin. Right leg with multiple wounds and abrasions. Musculoskeletal: No Tenderness to Palpation of Joints or Extremities Neurological: Cranial nerves II-XII grossly intact, Neuro grossly intact Psych/Mental Status: Normal Affect, Appropriate Patient seen exam prior to discharge. Physical assessment as noted above. Patient stable for discharge home with the follow-up her conditions as noted above. This patient was seen by CRISTELA Driscoll under the supervision of Dr. Mcclelland. Discharge Diet: Low fat/ Low Cholesterol Discharge Activity: Return to Normal Activity Call your doctor if you observe: Fever of 101 or Higher, Shortness of breath, Dizziness, Fainting spells, Chest pain Home Medications: Medications to take at Discharge Allopurinol [Zyloprim] 100 mg PO QHS 09/10/13 Levothyroxine [Synthroid] 75 mcg PO DAILY 10/02/14 Multivitamins,Therapeutic [Multivitamin] 1 tablet PO DAILY 10/02/14 Albuterol IH (ProAir) [Proair Hfa] 2 puff INHALATION Q4H PRN PRN 09/23/16 Budesonide/Formoterol 160/4.5 [Symbicort 160/4.5 Mcg Inhaler (SP)] 2 puff INHALATION BID 09/23/16 Atorvastatin Calcium [Lipitor] 20 mg PO QHS 09/10/17 Cholecalciferol (Vitamin D3) [Vitamin D3] 2,000 unit PO DAILY 01/31/18 Amlodipine [Norvasc] 10 mg PO DAILY #30 tab 02/02/18 Ciprofloxacin [Cipro] 500 mg PO BID #10 tab 02/02/18 Lisinopril [Zestril] 20 mg PO DAILY #30 tab 02/02/18 Following Prescrptions Were Given to Patient: Amlodipine [Norvasc] 10 mg PO DAILY #30 tab Lisinopril [Zestril] 20 mg PO DAILY #30 tab Ciprofloxacin [Cipro] 500 mg PO BID #10 tab Primary Care Physician: Salinas Keller III, MD [Primary Care Provider] - Please follow up with your Primary Care Physician in: 1 Week Disposition: Home Minutes spent on discharge:: 35 Patient Condition:: Stable Medical Necessity - Tobacco Use Smoking Status: Former smoker Tobacco Use: Cigarettes Meaningful Use Info Meaningful Use Diagnoses (Choose all that apply): None applicable <[place] - Last Filed: 02/02/18 15:27> Discharge Date and Diagnosis - Secondary Discharge Diagnosis Chronic Problems COPD, mild (Chronic) Hypothyroidism (Chronic) Dyslipidemia (Chronic) HTN (hypertension) (Chronic) Hospital Course and Treatment Consultations 01/31/18 17:49 Consult: Onc/Wound/lpn medical assistant Routine Comment: Reason for Consult:: RLE wounds, right breast Summary of Care Provided: The patient is a 82 year old F [] Code Visit Inpatient E&M: 25768 Disch Hosp
[2018-02-02] MEDS: amLODIPine 10 MG Tablet PO (12:11)
--- NOTE | 2018-02-02 12:16 | DS.PCM_ITS ---
<Saima Felton - Last Filed: 02/02/18 12:16> Discharge Date and Diagnosis Date of Admission: 01/31/18 Date of Discharge: 02/02/18 - Primary Discharge Diagnosis 1. Acute E. coli cystitis 2. Generalized weakness, presyncope-suspect secondary to hypertensive urgency and #1 3. Hypertensive urgency 4. Right lower extremity wound secondary to trauma from patient picking, present on admission-not infected - Secondary Discharge Diagnosis Chronic Problems COPD, mild (Chronic) Hypothyroidism (Chronic) Dyslipidemia (Chronic) HTN (hypertension) (Chronic) Hospital Course and Treatment Imaging Results: Diagnostic Data Chest X-Ray 01/31/18 15:20 IMPRESSION: COPD. No acute cardiopulmonary pathology Electronically Signed: José Luis Epps MD at 17:00 EDT , Service support , Consultations 01/31/18 17:49 Consult: Onc/Wound/drugless physician Routine Comment: Reason for Consult:: RLE wounds, right breast Operations: None Procedures: None Summary of Care Provided: Patient is an 82-year-old female admitted 01/31/2018 due to generalized weakness , dizziness. Her past medical history includes COPD, hypothyroidism, gout, hypertension, hyperlipidemia, dysphasia. 1. Acute E. coli UTI-UA positive for leukocytes, nitrites. Urine culture shows E. coli. Patient received IV Rocephin during admission. She will be discharged on Cipro 500 mg twice daily for 5 days. 2. Generalized weakness, near syncope-orthostatic vitals negative. Recent echocardiogram September 2017 showed an EF of 65%, stage II diastolic dysfunction, mild tricuspid valve insufficiency. Troponin negative ?1. Physical therapy recommended further skilled therapy. Patient declined SNF and home health services. Weakness improved. 3. Hypertensive urgency-resolved. Patient will be discharged on lisinopril 20 mg daily and amlodipine 10 mg daily. 4. Right lower extremity wounds, present on admission-do not appear infected. Patient will need to cleanse lower extremity daily and keep shelly wraps bilateral lower extremities. Encouraged patient to not pick at skin. 5. Hyperlipidemia-continue statin. 6. Hypothyroidism-continue home Synthroid regimen. TSH within normal limits. 7. COPD-no acute exacerbation. 8. Gout-continue home allopurinol. 9. Chronic dysphasia-Patient underwent barium swallow study in September which showed no evidence of increased risk for aspiration. At that time, speech therapy recommended mechanical soft, thin liquids. Aspiration precautions. 10. Carotid artery disease-Carotid ultrasound 09/10/17 demonstrated severe ( greater than 70%) stenosis right internal carotid. Moderate (50-69%) stenosis left internal carotid. Recommend outpatient follow-up as previously recommended. General: Alert, Oriented x3, Cooperative, No apparent distress HEENT: Atraumatic, PERRLA, EOMI, Normocephalic Neck: Supple, No JVD, Negative Carotid Bruits Lungs: Clear to auscultation, Diminished Cardiovascular: Regular rate, Regular Rhythm, Normal S1, Normal S2, No murmurs Abdomen: Bowel Sounds Present, Soft, Non Tender, Non-Distended Extremities: No clubbing, No cyanosis, No edema, Capillary Refill Less than 3 Seconds Skin: - - Multiple areas of scabbing throughout body. Patient picks at skin. Right leg with multiple wounds and abrasions. Musculoskeletal: No Tenderness to Palpation of Joints or Extremities Neurological: Cranial nerves II-XII grossly intact, Neuro grossly intact Psych/Mental Status: Normal Affect, Appropriate Patient seen exam prior to discharge. Physical assessment as noted above. Patient stable for discharge home with the follow-up her conditions as noted above. This patient was seen by CRISTELA Driscoll under the supervision of Dr. Mcclelland. Discharge Diet: Low fat/ Low Cholesterol Discharge Activity: Return to Normal Activity Call your doctor if you observe: Fever of 101 or Higher, Shortness of breath, Dizziness, Fainting spells, Chest pain Home Medications: Medications to take at Discharge Allopurinol [Zyloprim] 100 mg PO QHS 09/10/13 Levothyroxine [Synthroid] 75 mcg PO DAILY 10/02/14 Multivitamins,Therapeutic [Multivitamin] 1 tablet PO DAILY 10/02/14 Albuterol IH (ProAir) [Proair Hfa] 2 puff INHALATION Q4H PRN PRN 09/23/16 Budesonide/Formoterol 160/4.5 [Symbicort 160/4.5 Mcg Inhaler (SP)] 2 puff INHALATION BID 09/23/16 Atorvastatin Calcium [Lipitor] 20 mg PO QHS 09/10/17 Cholecalciferol (Vitamin D3) [Vitamin D3] 2,000 unit PO DAILY 01/31/18 Amlodipine [Norvasc] 10 mg PO DAILY #30 tab 02/02/18 Ciprofloxacin [Cipro] 500 mg PO BID #10 tab 02/02/18 Lisinopril [Zestril] 20 mg PO DAILY #30 tab 02/02/18 Following Prescrptions Were Given to Patient: Amlodipine [Norvasc] 10 mg PO DAILY #30 tab Lisinopril [Zestril] 20 mg PO DAILY #30 tab Ciprofloxacin [Cipro] 500 mg PO BID #10 tab Primary Care Physician: Salinas Keller III, MD [Primary Care Provider] - Please follow up with your Primary Care Physician in: 1 Week Disposition: Home Minutes spent on discharge:: 35 Patient Condition:: Stable Medical Necessity - Tobacco Use Smoking Status: Former smoker Tobacco Use: Cigarettes Meaningful Use Info Meaningful Use Diagnoses (Choose all that apply): None applicable <StasA[place] - Last Filed: 02/02/18 15:27> Discharge Date and Diagnosis - Secondary Discharge Diagnosis Chronic Problems COPD, mild (Chronic) Hypothyroidism (Chronic) Dyslipidemia (Chronic) HTN (hypertension) (Chronic) Hospital Course and Treatment Consultations 01/31/18 17:49 Consult: Onc/Wound/drugless physician Routine Comment: Reason for Consult:: RLE wounds, right breast Summary of Care Provided: The patient is a 82 year old F [] Code Visit Inpatient E&M: 85254 Disch Hosp
--- NOTE | 2018-02-02 12:53 | CASEMGMT ---
Therapy recommending further skilled therapy for pt at this time and per Greg MULTI NEEDLE MACHINE OPERATOR-C, pt is interested in HHC. This RN CM to room to speak with pt and pt declines HHC at this time. Pt is interested in getting a BSC and script faxed to [facility] at this time per pt request. Original order given to pt at this time and copy to chart. Manolo CORDERO CM
--- NOTE | 2018-02-04 11:37 | CASEMGMT ---
RN CM DC PHONE CALL NOTE. Attempted call to pt's home, no answer. Maren PINEDA RN ACM
== END 2018-02-02 16:07 | disposition home or self-care (01) | DRG 690 ==
LOC: ED 15:34 → PCU 20:47
PROVIDERS: Nurse Practitioner Family; Admitting Provider Student in an Organized Health Care Education/Training Program; Emergency Provider Emergency Medicine; Family Provider Family Medicine; PCP Family Medicine; Visit Provider Internal Medicine
DX: N30.00 Acute cystitis without hematuria (principal); B96.20 Unspecified Escherichia coli [E. coli] as the cause of diseases classified elsewhere; I16.0 Hypertensive urgency; E86.0 Dehydration; J44.9 Chronic obstructive pulmonary disease, unspecified; E03.9 Hypothyroidism, unspecified; E78.5 Hyperlipidemia, unspecified; R47.02 Dysphasia; R32 Unspecified urinary incontinence; H91.90 Unspecified hearing loss, unspecified ear; M10.9 Gout, unspecified; S81.801A Unspecified open wound, right lower leg, initial encounter; X58.XXXA Exposure to other specified factors, initial encounter; Y93.9 Activity, unspecified; Y92.9 Unspecified place or not applicable; Y99.9 Unspecified external cause status; Z79.899 Other long term (current) drug therapy; Z87.891 Personal history of nicotine dependence
CPT/HCPCS: 36415; 71045; 80048; 81001; 83605; 84443; 84484; 85025; 87077; 87086; 87088; 87186; 93005; 94640; 97162; 97165; 97530; 97535; 97802; 99285; J7030; J7040; P9612; A4216

== ENCOUNTER 2018-02-18 19:01 | Observation (INO) | payer MEDICARE, SELFPAY ==
[2018-02-18 19:03] VITALS: BP 157/69; PULSE 69; RESP 18; TEMP 36.6; O2SAT 94; BMI 28.0
--- NOTE | 2018-02-18 19:50 | RAD_ITS ---
STUDY: X-RAY - RIGHT TIBIA AND FIBULA REASON FOR EXAM: Female, 82 years old. Blisters TECHNIQUE: 2 view(s) of the tibia and fibula were obtained. COMPARISON: None. FINDINGS: There is no evidence of fracture or dislocation. There are no radiographic signs of osteomyelitis. There are no radiodense foreign bodies. RAD/Tibia & Fibula 2 Views IMPRESSION: Negative radiographs of the right tibia and fibula. Electronically Signed: Lior Cordoba, at 20:07 EDT Tel , Service support ,
[2018-02-18 20:00] LABS: Absolute Lymphocyte Count 2.38 X10^3/ul (0.83-4.51); Absolute Neutrophil Count 4.6 X10^3/uL (2.0-7.7); Basophil# 0.04 X10^3/uL; Basophil% 0.5 % (0-1); Eosinophil# 0.23 X10^3/uL; Eosinophils% 2.9 % (0-5); Hematocrit 39.4 % (37-47); Hemoglobin 13.6 g/dl (12.0-15.0); Lymphocyte # 2.38 X10^3/ul (4.0); Lymphocyte % 30.4 % (19-41); Mean Corp Hgb Conc 34.5 g/gl (32-36); Mean Corpuscular Hgb 33.6 pg (27.0-32.0); Mean Corpuscular Volume 97.3 fL (81-99); Mean Platelet Vol. 9.3 fl (6.2-12.0); Monocyte% 7.7 % (0-10); Neutrophil # 4.57 X10^3/uL (2.7-7.7); Neutrophil % 58.4 % (47-70); Platelet Count 257 K/mm3 (150-450); RBC Distribution Width CV 13.2 % (11.6-14.6); RBC Distribution Width SD 46.8 fl (35.1-43.9); Red Blood Count 4.05 M/mm3 (4.2-5.4); White Blood Count 7.8 K/mm3 (4.4-11.0)
[2018-02-18 20:01] LABS: POSITIVE COUNT NO; POSITIVE DIFFERENTIAL NO; POSITIVE MORPHOLOGY NO
[2018-02-18 20:22] LABS: ALB/GLOB Ratio 0.7 RATIO (0.9-2.4); AST(SGOT) 30 U/L (15-37); Alanine Aminotransfer ALT/SGPT 35 U/L (13-56); Alkaline Phosphatase 129 U/L (45-117); Anion Gap 6 (5-15); BUN 21 mg/dL (7-18); BUN/Creat Ratio 23.4 RATIO (10-20); Calcium,Total 9.3 mg/dL (8.5-10.1); Chloride 109 mmol/L (98-107); EST Glomerular Filtration Rate 64 mL/min (>60); Est Glom Filt Rate - Afr Amer 77 mL/min (>60); Estimated Creatinine Clearance 45.12 ml/min; Globulin 4.6 g/dL (2.2-4.2); Glucose 155 mg/dL (74-106); Potassium 3.9 mmol/L (3.5-5.1); Protein, Total 7.6 g/dL (6.4-8.2); Sodium Level 141 mmol/L (136-145)
[2018-02-18 21:47] VITALS: BP 209/73; PULSE 57; RESP 16; O2SAT 95
[2018-02-18] MEDS: Ceftriaxone 1 GM/50 ML BAG IV (22:38)
--- NOTE | 2018-02-18 22:54 | HP.PCM_ITS ---
Problem List (1) Bullous rash Status: Chronic (2) Hypothyroidism Status: Chronic (3) Wound of right leg Status: Chronic (4) Hypertensive urgency Status: Acute History of Present Illness Date of Admission: 02/18/18 Chief Complaint: Right leg wounds ?2 months The patient is a 82 year old F with a significant history of COPD; hypertension , gout, thyroid disease and hyperlipidemia who presents with a wound of her right leg x 2 months. She also complains of pain and itchiness at her right leg that makes her scratch right leg. The patient was admitted on 01/31/2018 and discharged on 02/02/2018 for acute E. coli cystitis; Generalized weakness, presyncope; Hypertensive urgency and Right lower extremity wound secondary to trauma from patient picking at leg. Her right leg was not considered infected at that time. She completed ciprofloxacin therapy about a week ago. He saw his PCP who did not think that her wound is infected and she may be having poor healing because of low protein; and was advised to try Vaseline and Collin wraps. Past Medical History Past Medical History (Chronic Problems): Chronic Problems Bullous rash (Chronic) Wound of right leg (Chronic) COPD, mild (Chronic) Hypothyroidism (Chronic) Dyslipidemia (Chronic) HTN (hypertension) (Chronic) Allergies hydrochlorothiazide Adverse Reaction (Verified 02/18/18 19:03) Other Home Medications: Ambulatory Orders Medication Instructions Recorded Allopurinol [Zyloprim] 100 mg PO QHS 09/10/13 Levothyroxine [Synthroid] 75 mcg PO DAILY 10/02/14 Multivitamins,Therapeutic 1 tablet PO DAILY 10/02/14 [Multivitamin] Budesonide/Formoterol 160/4.5 2 puff INHALATION BID 09/23/16 [Symbicort 160/4.5 Mcg Inhaler (SP)] Atorvastatin Calcium [Lipitor] 20 mg PO QHS 09/10/17 Cholecalciferol (Vitamin D3) 2,000 unit PO DAILY 01/31/18 [Vitamin D3] Amlodipine [Norvasc] 10 mg PO DAILY #30 tab 02/02/18 Lisinopril [Zestril] 10 mg PO QHS 02/19/18 Surgical History: - - Patient reports right ear surgery when she was a child. Tonsillectomy and adenoidectomy. Psychiatric History: No pertinent psych hx DESIGN CELL ENGINEER History: No pertinent DESIGN CELL ENGINEER history Smoking Status: Former smoker Alcohol: None - *Family History Paternal History Items: Cancer - Unknown type Maternal History Items: Cancer - Breast cancer Review of Systems Constitutional: Denies: Chills, Fever, Weight Change HEENT: Denies: Head Aches, Sinus Congestion, Sinus Drainage Cardiovascular: Denies: Chest Pain, Palpitations Respiratory: Denies: Cough, Shortness of breath at rest, Sputum production Gastrointestinal: Denies: Abdominal Pain, Nausea, Vomiting Genitourinary: Denies: Dysuria Musculoskeletal: Reports: Joint Pain, Leg Pain Skin: Reports: - - Diffuse Blisters with some blisters appearing healed. Denies: Wounds Neurological: Denies: Numbness, Tingling, Focal weakness Psychiatric: Denies: Anxiety, Depression, Homicidal Ideations, Suicidal Ideations Hematologic/ Lymphatic: Denies: Easy Bruising, Easy Bleeding VTE Information - Inpt Only VTE Present on Admission: No VTE Mechan Device Prophylaxis: None VTE Pharm Prophylaxis ordered?: Yes Patient Problems: Active and Suspected Problems Hypertensive urgency (Acute) Wound infection (Acute) - Physical Exam General: Alert, Oriented x3, Cooperative HEENT: Atraumatic, PERRLA, EOMI, Normocephalic Neck: Supple, No JVD, Negative Carotid Bruits Lungs: Clear to auscultation, Normal air movement Cardiovascular: Regular rate, No murmurs Abdomen: Bowel Sounds Present, Soft, Non Tender Extremities: Tenderness - Right leg Skin: - - Extensive wound right leg with blisters, left eye with healed blisters ; blister on the left breast; diffuse rashes on entire body. Musculoskeletal: No Tenderness to Palpation of Joints or Extremities Lymphatic: No Cervical, Supraclavicular, or Inguinal Adenopathy Neurological: Cranial nerves II-XII grossly intact Psych/Mental Status: Normal Affect Vital Signs Temp Pulse Resp BP Pulse Ox 98 F 57 L 16 209/73 H 95 02/18/18 19:03 02/18/18 21:47 02/18/18 21:47 02/18/18 21:47 02/18/18 21:47 Oxygen Delivery Method Room Air Weight: 78.925 kg Body Mass Index (BMI) 28.0 Laboratory Tests Past 24 Hrs 02/18/18 02/18/18 19:40 19:40 WBC 7.8 RBC 4.05 L Hgb 13.6 Hct 39.4 MCV 97.3 MCH 33.6 H MCHC 34.5 RDW 13.2 RDW Differential 46.8 H Plt Count 257 MPV 9.3 Immature Gran % (Auto) 0.100 Neut % (Auto) 58.4 Lymph % (Auto) 30.4 [place] % (Auto) 7.7 Eos % (Auto) 2.9 Baso % (Auto) 0.5 Absolute Neuts (auto) 4.6 Absolute Lymphs (auto) 2.38 Total Counted Not Reportable Sodium 141 Potassium 3.9 Chloride 109 H Carbon Dioxide 26.0 Anion Gap 6 BUN 21 H Creatinine 0.90 Estim Creat Clear Calc 45.12 Est GFR (MDRD) Af Amer 77 Est GFR (MDRD) Non-Af 64 BUN/Creatinine Ratio 23.4 H Glucose 155 H Calcium 9.3 Total Bilirubin 0.20 AST 30 ALT 35 Alkaline Phosphatase 129 H Total Protein 7.6 Albumin 3.0 L Globulin 4.6 H Albumin/Globulin Ratio 0.7 L Assessment/Plan All Active Problems Hypertensive urgency (Acute) Wound infection (Acute) Acute dysphagia due to chicken piece (Resolved) Sinus node dysfunction (Resolved) The patient is a 82 year old F with a significant history of COPD; hypertension , gout, thyroid disease and hyperlipidemia who presents with a wound of her right leg and multiple blisters in various stages of healing. Right leg wound Patient received Ceftriaxone IV at emergency department. Her wound does not look infected . However her family insisted that she has had increasing pain in the right leg. Will clindamycin p.o. for now Bullous rash Differential diagnosis of his skin disease includes pemphigus vulgaris and bullous pemphigoid. Dermatology consulted to help evaluate her skin disease. Apparently Dr. Urbano Lira, bonding and composite fabricator comes to our hospital here. If patient cannot be seen by bonding and composite fabricator here recommend outpatient dermatology follow-up. Hypertensive urgency Home medication continued -amlodipine and lisinopril. Clonidine prn COPD Albuterol and budesonide continued Hypothyroidism Synthroid continue Gout Allopurinol continued DVT Prophylaxis Subcutaneous heparin Code Visit OBSV E&M: 05909 Initial observation care L3
--- NOTE | 2018-02-18 22:59 | ED.VIS.GEN ---
History of Present Illness Chief Complaint: Wound Informant: Patient Onset: Weeks - 1-2 Context: Gradual Onset Timing: Continuous Quality: sore/pain Location: right lower leg Current Severity: Moderate Maximum Severity: Moderate Worsened by: palpation Relieved by: nothing Associated Symptoms: malaise/fatigue x 1-2 days. seeping clear fluid. Narrative: Patient has had this rash for some time, family states that she picks at her legs, she was recently in the hospital for cystitis that was E. coli, they documented something similar. It was not infected at that time. She was discharged home on ciprofloxacin, patient and family state that she finished at around the same time that she saw her PCP for these wounds on her right leg about 8 days ago, and since then it has become much worse. No known fevers. She has developed a couple of lesions other parts of her body such as her left leg, right arm, left inframammary area. She also did have inframammary candidal infection at her recent admission last month. - Past Medical History (1) COPD, mild Status: Chronic (2) Dyslipidemia Status: Chronic (3) HTN (hypertension) Status: Chronic (4) Hypothyroidism Status: Chronic Past Medical History - Allergies and Home Meds Allergies/Adverse Reactions: Allergies hydrochlorothiazide Adverse Reaction (Verified 02/18/18 19:03) Other Primary Care Physician: Baldemar Keller III, MD [Primary Care Provider] - Surgical History: - - Patient reports right ear surgery when she was a child. Tonsillectomy and adenoidectomy. Smoking Status: Unknown if ever smoked - Family History Paternal Family History: Reports: Cancer - Unknown type Maternal Family History: Reports: Cancer - Breast cancer Review of Systems All systems negative except as indicated General: Reports: Malaise. Denies: Fever Cardiovascular: Denies: Chest pain, Palpitations Respiratory: Denies: Dyspnea, Cough Gastrointestinal: Reports: - - Decreased appetite. Denies: Abdominal pain, Nausea, Vomiting, Melena, Hematochezia Genitourinary: Denies: Dysuria, Hematuria Musculoskeletal: Reports: Extremity Pain. Denies: Back pain Skin: Reports: Rash, Wounds Neurological: Denies: Headache, Weakness, Parasthesia Physical Exam Vital Signs/Narrative: Vital Signs Temp Pulse Resp BP Pulse Ox 02/18/18 21:47 57 L 16 209/73 H 95 02/18/18 19:03 98 F 69 18 157/69 H 94 Inital Vital Signs reviewed: Yes General: Well nourished, Well developed, Unkempt Head: Normocephalic, Atraumatic Eyes: Perrl, EOMI ENT: Moist mucous membranes, No rhinorrhea Neck: Supple, Nontender Cardiovascular: Regular rate, Regular rhythm, No murmurs Respiratory: No distress, CTA bilaterally, Chest nontender Abdomen: Soft, Nontender, Nondistended, Normal bowel sounds Back: Nontender, Normal Inspection Extremities: No edema, Tenderness - Wounds/rash right lower leg. No other wounds are tender. Skin: Normal color, Rash - Areas of nonraised, nontender erythema on left walker, some of which are scabbed and without abscess. Significant area of erythema, warmth, tenderness throughout the anterior right lower leg that stops before the knee, with some sloughing of superficial skin and a couple of bullae with one in particular that is large and nonruptured. There is some oozing of clear fluid. There is no apparent abscess or fluctuance. No palpable subcutaneous emphysema. Full range of motion of knee and ankle without difficulty. No calf tenderness or pedal edema. No intraoral lesions. Single small bullous lesion that is ruptured and nontender left inframammary and a similar one on the right arm. No lymphangitis seen. Neurological: Alert, Oriented x3, Cranial nerves II-XII grossly intact, Normal Strength, Normal Sensation Psychological: Normal affect Diagnostic/Tx/Re-eval Impressions Tibia/Fibula X-Ray 02/18/18 19:50 IMPRESSION: Negative radiographs of the right tibia and fibula. Electronically Signed: Lior Cordoba, at 20:07 EDT Tel , Service support , 02/18/18 19:50 Tibia & Fibula 2 Views [RAD] Stat Laboratory Results 02/18/18 02/18/18 Range/Units 19:40 19:40 WBC 7.8 (4.4-11.0) K/mm3 RBC 4.05 L (4.2-5.4) M/mm3 Hgb 13.6 (12.0-15.0) g/dl Hct 39.4 (37-47) % MCV 97.3 (81-99) fL MCH 33.6 H (27.0-32.0) pg MCHC 34.5 (32-36) g/gl RDW 13.2 (11.6-14.6) % RDW Differential 46.8 H (35.1-43.9) fl Plt Count 257 (150-450) K/mm3 MPV 9.3 (6.2-12.0) fl Immature Gran % (Auto) 0.100 (0.0-0.9) % Neut % (Auto) 58.4 (47-70) % Lymph % (Auto) 30.4 (19-41) % [place] % (Auto) 7.7 (0-10) % Eos % (Auto) 2.9 (0-5) % Baso % (Auto) 0.5 (0-1) % Absolute Neuts (auto) 4.6 (2.0-7.7) X10^3/uL Absolute Lymphs (auto) 2.38 (0.83-4.51) X10^3/ul Total Counted Not Reportable Sodium 141 (136-145) mmol/L Potassium 3.9 (3.5-5.1) mmol/L Chloride 109 H (98-107) mmol/L Carbon Dioxide 26.0 (21.0-32.0) mmol/L Anion Gap 6 (5-15) BUN 21 H (7-18) mg/dL Creatinine 0.90 (0.55-1.02) mg/dL Estim Creat Clear Calc 45.12 ml/min Est GFR (MDRD) Af Amer 77 (>60) mL/min Est GFR (MDRD) Non-Af 64 (>60) mL/min BUN/Creatinine Ratio 23.4 H (10-20) RATIO Glucose 155 H (74-106) mg/dL Calcium 9.3 (8.5-10.1) mg/dL Total Bilirubin 0.20 (0.20-1.00) mg/dL AST 30 (15-37) U/L ALT 35 (13-56) U/L Alkaline Phosphatase 129 H (45-117) U/L Total Protein 7.6 (6.4-8.2) g/dL Albumin 3.0 L (3.2-5.0) g/dL Globulin 4.6 H (2.2-4.2) g/dL Albumin/Globulin Ratio 0.7 L (0.9-2.4) RATIO - Medical Decision Making Labs her feel very reassuring, the patient stated that her doctor told her that she might be having this issue because of low protein levels in her blood. Her has a metabolic panel was sent, her albumin level is 3.0 which is a little low and her total protein levels are within normal limits. She does not have baldemar edema in her legs. My concern is that she has a wound that has become secondarily infected in her right lower extremity. The etiology of the rest of these wounds is unknown and may be something separate. Nothing looks consistent with Gao-Chicho's or TEN at this time. She is hemodynamically and clinically stable, but I think it would be reasonable to err on the side of caution and admit her for further treatment and evaluation with IV antibiotics, initial dose of Rocephin given here. ED Disposition - Plan for ED Patient: Disposition: Acute Care Hospital [facility] Chief Complaint: Wound Diagnosis: Wound infection, Bullous rash
[2018-02-18 23:34] LABS: Mucous, Urine 0 SEEN /hpf (<or=2+); White Blood Cells 0 SEEN /hpf (0-5)
[2018-02-18 23:39] LABS: Color, Urine Yellow (Yellow); Glucose, Dipstick Normal (Normal); Ketone-Dipstick Negative (Negative); Leukocyte Esterase-Dipstick Negative /ul (Negative); Nitrite-Dipstick Negative (Negative); Occult Blood-Urine 10 /ul (Negative); Protein-Dipstick 15 mg/dl (Negative); Specific Gravity, Urine 1.015 (1.002-1.030); Urine Bilirubin Dipstick Negative (Negative); Urine Clarity Clear (Clear); Urine Urobilinogen Normal (Normal)
[2018-02-18 23:48] LABS: Bacteria RARE /hpf (None Seen); Red Blood Cells-Urine 0-5 SEEN /hpf (0-5); Squamous Epithelial Cells - UA 0-5 SEEN /hpf (5-10)
[2018-02-19 00:36] VITALS: BMI 27.9; BMI 28.0
[2018-02-19 00:59] VITALS: BP 201/62; PULSE 58; RESP 18; TEMP 36.8; O2SAT 96
[2018-02-19 02:51] VITALS: BP 207/69; PULSE 63; RESP 16; TEMP 36.6; O2SAT 96
[2018-02-19] MEDS: Lisinopril 20 MG Tablet PO ×2 (02:52→08:27)
[2018-02-19] MEDS: amLODIPine 10 MG Tablet PO ×2 (02:54→08:27)
[2018-02-19 05:00] VITALS: BP 155/75; PULSE 62; RESP 16; TEMP 36.6; O2SAT 96
[2018-02-19] MEDS: Levothyroxine 75 MCG Tablet PO (06:55)
[2018-02-19 07:04] LABS: Absolute Lymphocyte Count 2.28 X10^3/ul (0.83-4.51); Absolute Neutrophil Count 4.9 X10^3/uL (2.0-7.7); Basophil# 0.03 X10^3/uL; Basophil% 0.4 % (0-1); Eosinophil# 0.21 X10^3/uL; Eosinophils% 2.6 % (0-5); Hematocrit 39.9 % (37-47); Lymphocyte # 2.28 X10^3/ul (4.0); Lymphocyte % 27.8 % (19-41); Mean Corp Hgb Conc 35.1 g/gl (32-36); Mean Corpuscular Hgb 33.9 pg (27.0-32.0); Mean Corpuscular Volume 96.6 fL (81-99); Mean Platelet Vol. 9.5 fl (6.2-12.0); Monocyte% 9.7 % (0-10); Neutrophil # 4.88 X10^3/uL (2.7-7.7); Neutrophil % 59.4 % (47-70); Platelet Count 248 K/mm3 (150-450); RBC Distribution Width CV 12.8 % (11.6-14.6); RBC Distribution Width SD 44.7 fl (35.1-43.9); Red Blood Count 4.13 M/mm3 (4.2-5.4); White Blood Count 8.2 K/mm3 (4.4-11.0)
[2018-02-19 07:06] LABS: POSITIVE COUNT NO; POSITIVE DIFFERENTIAL NO; POSITIVE MORPHOLOGY NO
[2018-02-19 07:37] VITALS: PULSE 57; RESP 16; O2SAT 94
[2018-02-19] MEDS: Albuterol 2.5 MG/3 ML VIAL.NEB. INHALATION (07:37)
[2018-02-19] MEDS: Budesonide Respules 0.5 MG/2 ML AMPUL.NEB. INHALATION (07:37)
[2018-02-19 07:41] LABS: Anion Gap 14 (5-15); BUN 17 mg/dL (7-18); BUN/Creat Ratio 20.9 RATIO (10-20); Calcium,Total 9.4 mg/dL (8.5-10.1); Chloride 109 mmol/L (98-107); Creatinine, Serum 0.81 mg/dL (0.55-1.02); EST Glomerular Filtration Rate 72 mL/min (>60); Est Glom Filt Rate - Afr Amer 87 mL/min (>60); Estimated Creatinine Clearance 50.13 ml/min; Glucose 98 mg/dL (74-106); Potassium 3.8 mmol/L (3.5-5.1); Sodium Level 143 mmol/L (136-145)
[2018-02-19] MEDS: Multivitamins,Therapeutic Tablet 1 TABLET PO (08:26)
[2018-02-19] MEDS: Clindamycin HCl 150 MG Capsule 300 MG PO (08:26)
[2018-02-19] MEDS: Heparin Injection (Vial) 5,000 UNIT/ML VIAL 5000 UNIT SC (08:26)
[2018-02-19 08:28] VITALS: BP 129/64; PULSE 72; RESP 18; TEMP 36.7; O2SAT 95
[2018-02-19] MEDS: Nystatin Powder 15gm Bottle 1 APPLIC TOPICAL (08:28)
--- NOTE | 2018-02-19 10:34 | DCINST_ITS ---
- Discharge Diagnoses Current Active Problems: Current Active and Chronic Problems Bullous rash (Chronic) Wound of right leg (Chronic) Hypertensive urgency (Acute) Wound infection (Acute) You will use the following diet at home:: No restrictions Your food should be the consistency of: Regular Your liquids should be the consistency of: Regular/Thin Discharge Activity: Return to Normal Activity, Use Walker Weight Bearing Status: Full weight bearing Call your doctor if your incision/area has: Increased Pain/ Swelling, Foul Smelling Discharge Cleanse incision/area with: Soap & Water, - - wash affected right leg area with soap and water daily, pat dry, apply adaptic dressing to open wound areas on right leg, cover with kerlix, then wrap area with KI wrap Allergies/Adverse Reactions: Allergies hydrochlorothiazide Adverse Reaction (Verified 02/18/18 19:03) Other Medications to take at Discharge Allopurinol [Zyloprim] 100 mg PO QHS 09/10/13 Levothyroxine [Synthroid] 75 mcg PO DAILY 10/02/14 Multivitamins,Therapeutic [Multivitamin] 1 tablet PO DAILY 10/02/14 Budesonide/Formoterol 160/4.5 [Symbicort 160/4.5 Mcg Inhaler (SP)] 2 puff INHALATION BID 09/23/16 Atorvastatin Calcium [Lipitor] 20 mg PO QHS 09/10/17 Cholecalciferol (Vitamin D3) [Vitamin D3] 2,000 unit PO DAILY 01/31/18 Amlodipine [Norvasc] 10 mg PO DAILY #30 tab 02/02/18 Lisinopril [Zestril] 20 mg PO DAILY 02/19/18 Lisinopril [Zestril] 20 mg PO DAILY tablet 02/19/18 Nystatin Powder [Mycostatin Powder] 1 applic TOPICAL BID bottle 02/19/18 Primary Care Physician: Salinas Keller III, MD [Primary Care Provider] - Please follow up with your Primary Care Physician in: next week-obtain referral to wound center for evaluation Test Results: Test results from this visit will be discussed in further detail at your follow- up appointment, if applicable.
--- NOTE | 2018-02-19 14:44 | CASEMGMT ---
Addendum entered by Vidhya Sheridan 02/19/18 14:53: Phone attempt with patient who had already been discharged; voice mail message left to advise of information regarding skilled HHC referral as per physician order. JOSE FRANCISCO Jeffery Original Note: SOCIAL WORK: Referral received from Dr. Osorio this date for SW to initiate referral for skilled home health care for nursing for wound care; home PT and home SW. Face to face completed and signed by physician. SW notified on-call nurse, Roberta, with [facility] regarding referral and physician request for patient to be seen on February 21. Order, face to face and Discharge Instructions faxed to [facility] accordingly. No further issues or needs identified. Update provided to JOSE FRANCISCO Stinson CM.
--- NOTE | 2018-02-20 16:33 | PCM.DC.SUM ---
Discharge Date and Diagnosis Date of Admission: 02/18/18 Date of Discharge: 02/19/18 - Primary Discharge Diagnosis #1 stasis dermatitis of the right lower extremity with blister formation secondary to edema #2 hypertension #3 chronic obstructive pulmonary disease #4 hyperlipidemia - Secondary Discharge Diagnosis Chronic Problems Bullous rash (Chronic) Wound of right leg (Chronic) COPD, mild (Chronic) Hypothyroidism (Chronic) Dyslipidemia (Chronic) HTN (hypertension) (Chronic) Hospital Course and Treatment Consultations 02/19/18 01:09 Consult: Onc/Wound/bacteriology teacher Routine Comment: Operations: None Procedures: None Summary of Care Provided: The patient is a 83 year old F was seen in the emergency room at [facility] with a chief complaint of right lower extremity wounds which have been chronic in nature but the family felt that these were worsening. Examination of the wounds in the emergency room showed multiple open areas which appeared to be unroofed blisters on the patient's right lower legs on a backdrop of chronic skin changes. Patient also had other areas over her body that appeared to be picking injuries. Patient was seeing her PCP for wound care and her son's girlfriend had been wrapping the patient's legs. Examination in the emergency room revealed no purulent drainage from the skin lesions on the right lower leg, labs revealed a normal WBC and a slightly elevated BUN. Patient was afebrile. Patient was placed in observation on MedSurg 3, my examination of the wounds the following day did not reveal them to be infected, there was serous drainage noted to be present. There is a large blister full of clear fluid that I drained using a sterile needle on the anterior right lower leg. I recommended to the family and the patient that she follow-up closely with her PCP and obtained a wound care referral for the patient. The admitting hospitalist was under the impression that a mirror polisher with see the patient in the hospital, unfortunately dermatology does not have privileges to see patients in the hospital. On 02/19/18, patient was seen and examined and felt to be in stable condition for discharge home, it was not felt that she warranted antibiotic treatment at the time of discharge. Discharge Activity: Return to Normal Activity, Use Walker Weight Bearing Status: Full weight bearing Call your doctor if your incision/area has: Increased Pain/ Swelling, Foul Smelling Discharge Cleanse incision/area with: Soap & Water, - - wash affected right leg area with soap and water daily, pat dry, apply adaptic dressing to open wound areas on right leg, cover with kerlix, then wrap area with KI wrap Home Medications: Medications to take at Discharge Allopurinol [Zyloprim] 100 mg PO QHS 09/10/13 Levothyroxine [Synthroid] 75 mcg PO DAILY 10/02/14 Multivitamins,Therapeutic [Multivitamin] 1 tablet PO DAILY 10/02/14 Budesonide/Formoterol 160/4.5 [Symbicort 160/4.5 Mcg Inhaler (SP)] 2 puff INHALATION BID 09/23/16 Atorvastatin Calcium [Lipitor] 20 mg PO QHS 09/10/17 Cholecalciferol (Vitamin D3) [Vitamin D3] 2,000 unit PO DAILY 01/31/18 Amlodipine [Norvasc] 10 mg PO DAILY #30 tab 02/02/18 Lisinopril [Zestril] 20 mg PO DAILY 02/19/18 Lisinopril [Zestril] 20 mg PO DAILY tablet 02/19/18 Nystatin Powder [Mycostatin Powder] 1 applic TOPICAL BID bottle 02/19/18 Primary Care Physician: Salinas Keller III, MD [Primary Care Provider] - Please follow up with your Primary Care Physician in: next week-obtain referral to wound center for evaluation Disposition: Home with Home Health Minutes spent on discharge:: 25 Patient Condition:: Stable Medical Necessity - Tobacco Use Smoking Status: Former smoker Meaningful Use Info Meaningful Use Diagnoses (Choose all that apply): None applicable Code Visit OBSV E&M: 09116 Observation care discharge
--- NOTE | 2018-02-20 16:38 | DS.PCM_ITS ---
Discharge Date and Diagnosis Date of Admission: 02/18/18 Date of Discharge: 02/19/18 - Primary Discharge Diagnosis #1 stasis dermatitis of the right lower extremity with blister formation secondary to edema #2 hypertension #3 chronic obstructive pulmonary disease #4 hyperlipidemia - Secondary Discharge Diagnosis Chronic Problems Bullous rash (Chronic) Wound of right leg (Chronic) COPD, mild (Chronic) Hypothyroidism (Chronic) Dyslipidemia (Chronic) HTN (hypertension) (Chronic) Hospital Course and Treatment Consultations 02/19/18 01:09 Consult: Onc/Wound/managing partner [employer] [place] Routine Comment: Operations: None Procedures: None Summary of Care Provided: The patient is a 83 year old F was seen in the emergency room at [facility] with a chief complaint of right lower extremity wounds which have been chronic in nature but the family felt that these were worsening. Examination of the wounds in the emergency room showed multiple open areas which appeared to be unroofed blisters on the patient's right lower legs on a backdrop of chronic skin changes. Patient also had other areas over her body that appeared to be picking injuries. Patient was seeing her PCP for wound care and her son's girlfriend had been wrapping the patient's legs. Examination in the emergency room revealed no purulent drainage from the skin lesions on the right lower leg, labs revealed a normal WBC and a slightly elevated BUN. Patient was afebrile. Patient was placed in observation on MedSurg 3, my examination of the wounds the following day did not reveal them to be infected, there was serous drainage noted to be present. There is a large blister full of clear fluid that I drained using a sterile needle on the anterior right lower leg. I recommended to the family and the patient that she follow-up closely with her PCP and obtained a wound care referral for the patient. The admitting hospitalist was under the impression that a bail agent with see the patient in the hospital, unfortunately dermatology does not have privileges to see patients in the hospital. On 02/19/18, patient was seen and examined and felt to be in stable condition for discharge home, it was not felt that she warranted antibiotic treatment at the time of discharge. Discharge Activity: Return to Normal Activity, Use Walker Weight Bearing Status: Full weight bearing Call your doctor if your incision/area has: Increased Pain/ Swelling, Foul Smelling Discharge Cleanse incision/area with: Soap & Water, - - wash affected right leg area with soap and water daily, pat dry, apply adaptic dressing to open wound areas on right leg, cover with kerlix, then wrap area with KI wrap Home Medications: Medications to take at Discharge Allopurinol [Zyloprim] 100 mg PO QHS 09/10/13 Levothyroxine [Synthroid] 75 mcg PO DAILY 10/02/14 Multivitamins,Therapeutic [Multivitamin] 1 tablet PO DAILY 10/02/14 Budesonide/Formoterol 160/4.5 [Symbicort 160/4.5 Mcg Inhaler (SP)] 2 puff INHALATION BID 09/23/16 Atorvastatin Calcium [Lipitor] 20 mg PO QHS 09/10/17 Cholecalciferol (Vitamin D3) [Vitamin D3] 2,000 unit PO DAILY 01/31/18 Amlodipine [Norvasc] 10 mg PO DAILY #30 tab 02/02/18 Lisinopril [Zestril] 20 mg PO DAILY 02/19/18 Lisinopril [Zestril] 20 mg PO DAILY tablet 02/19/18 Nystatin Powder [Mycostatin Powder] 1 applic TOPICAL BID bottle 02/19/18 Primary Care Physician: Salinas Keller III, MD [Primary Care Provider] - Please follow up with your Primary Care Physician in: next week-obtain referral to wound center for evaluation Disposition: Home with Home Health Minutes spent on discharge:: 25 Patient Condition:: Stable Medical Necessity - Tobacco Use Smoking Status: Former smoker Meaningful Use Info Meaningful Use Diagnoses (Choose all that apply): None applicable Code Visit OBSV E&M: 04630 Observation care discharge
== END 2018-02-19 13:19 | disposition home health service (06) ==
LOC: ED 23:08 → MS3 02-19 00:04
PROVIDERS: Admitting Provider Hospitalist; Emergency Provider Emergency Medicine; Family Provider Family Medicine; PCP Family Medicine; Visit Provider Internal Medicine
DX: I87.2 Venous insufficiency (chronic) (peripheral) (principal); I10 Essential (primary) hypertension; J44.9 Chronic obstructive pulmonary disease, unspecified; E03.9 Hypothyroidism, unspecified; E78.5 Hyperlipidemia, unspecified; R21 Rash and other nonspecific skin eruption; Z79.899 Other long term (current) drug therapy; Z79.51 Long term (current) use of inhaled steroids; Z87.891 Personal history of nicotine dependence; I16.0 Hypertensive urgency; M10.9 Gout, unspecified
CPT/HCPCS: 36415; 73590; 80048; 80053; 81001; 85025; 94640; 96365; 96372; 97162; 97166; 99218; 99283; J7050; A4216; G0378

== ENCOUNTER 2018-03-10 14:14 | Outpatient (RCR) | payer MEDICARE, SELFPAY ==
[2018-03-10 14:36] VITALS: BP 181/71; PULSE 61; RESP 18; TEMP 36.8; BMI 28.2
--- NOTE | 2018-03-10 16:30 | PCM.WC.HP ---
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 Status: Acute Current Visit: Yes Code(s): L97.912 - Non-pressure chronic ulcer of unspecified part of right lower leg with fat layer exposed (2) Nonhealing ulcer of left lower extremity with fat layer exposed Status: Acute Current Visit: Yes Code(s): L97.922 - Non-pressure chronic ulcer of unspecified part of left lower leg with fat layer exposed (3) Bilateral lower extremity edema Status: Acute Current Visit: Yes Code(s): R60.0 - Localized edema (4) Decreased dorsalis pedis pulse Status: Acute Current Visit: Yes Code(s): R09.89 - Other specified symptoms and signs involving the circulatory and respiratory systems (5) COPD, mild Status: Chronic Current Visit: No Code(s): J44.9 - Chronic obstructive pulmonary disease, unspecified (6) HTN (hypertension) Status: Chronic Current Visit: No Code(s): I10 - Essential (primary) hypertension (7) Dyslipidemia Status: Chronic Current Visit: No Code(s): E78.5 - Hyperlipidemia, unspecified History of Present Illness Date of Service: 03/10/18 Chief Complaint: nonhealing ulcers BLLE, lower ext edema B/L History of Wound: 83-year-old female presented to the wound center due to bilateral lower extremity wounds that have been chronic in nature for the past 2 months. Her past medical history is as documented above. Patient's family recently were concerned that the wounds to her BLLE were worsening and took patient to [facility] ER on February. Patient has been picking at the areas on her bilateral lower extremities d/t itchiness. Labs at [facility] ER revealed normal WBC and slightly elevated BUN and no antibiotic treatment was warranted at that time. Patient discharged home February 19, 2018 with [facility] home health. Wound care at home has consisted of soap and water Adaptic dressing right leg and cover with Kerlix and wrapped with Collin wrap per hospital discharge instructions. Patient continues complaints of itchiness to bilateral lower extremities and per her son that she still picks at the areas. Patient's son stated she had a referral for dermatology but has not made an appointment. The patient otherwise denies any fever, chills, nausea, vomiting, shortness of breath, chest pain or pressure, palpitations, orthopnea, syncope or presyncopal episodes. Past Medical History Past Medical History: Chronic Problems Bullous rash (Chronic) Wound of right leg (Chronic) COPD, mild (Chronic) Hypothyroidism (Chronic) Dyslipidemia (Chronic) HTN (hypertension) (Chronic) Surgical History: - - Patient reports right ear surgery when she was a child. Tonsillectomy and adenoidectomy. Allergies/Adverse Reactions: Allergies hydrochlorothiazide Adverse Reaction (Verified 02/18/18 19:03) Other Home Medications: Ambulatory Orders Medication Instructions Recorded Allopurinol [Zyloprim] 100 mg PO QHS 09/10/13 Levothyroxine [Synthroid] 75 mcg PO DAILY 10/02/14 Multivitamins,Therapeutic 1 tablet PO DAILY 10/02/14 [Multivitamin] Budesonide/Formoterol 160/4.5 2 puff INHALATION BID 09/23/16 [Symbicort 160/4.5 Mcg Inhaler (SP)] Atorvastatin Calcium [Lipitor] 20 mg PO QHS 09/10/17 Cholecalciferol (Vitamin D3) 2,000 unit PO DAILY 01/31/18 [Vitamin D3] Amlodipine [Norvasc] 10 mg PO DAILY #30 tab 02/02/18 Lisinopril [Zestril] 20 mg PO DAILY 02/19/18 Lisinopril [Zestril] 20 mg PO DAILY tablet 02/19/18 Nystatin Powder [Mycostatin Powder] 1 applic TOPICAL BID bottle 02/19/18 - Family History Paternal Cancer - Unknown type Maternal Cancer - Breast cancer Smoking Status: Former smoker Review of Systems Constitutional: Denies: Chills, Fever, Weight Change Eyes: Denies: Pain, Vision Change HEENT: Denies: Difficulty Hearing, Difficulty Swallowing, Sinus Congestion Cardiovascular: Reports: Edema - BLE. Denies: Chest Pain, Palpitations Respiratory: Denies: Cough, Shortness of Breath Gastrointestinal: Denies: Diarrhea, Nausea, Vomiting Genitourinary: Denies: Dysuria, Hematuria Skin: Reports: Pruritis - BLE, Wounds - BLE Endocrine: Denies: Heat/ Cold Intolerance, Polydipsia, Polyuria Hematologic/ Lymphatic: Denies: Easy Bruising, Easy Bleeding - Physical Exam Vital Signs Temp Pulse Resp BP 98.2 F 61 18 181/71 H 03/10/18 14:36 03/10/18 14:36 03/10/18 14:36 03/10/18 14:36 General: Alert, Oriented x3, Cooperative, No apparent distress HEENT: PERRLA, EOMI Neck: Supple, No JVD, Negative Carotid Bruits Lungs: Clear to auscultation Cardiovascular: Regular rate, Regular Rhythm, Normal S1, Normal S2 Abdomen: Soft, Non Tender Extremities: No cyanosis, Capillary Refill Less than 3 Seconds, Diminished Peripheral Pulses, Edema - 1+ BLE Skin: Ulcer/ Wound - BLE non healing ulcers Wound Measurements and Assessment WC - Nurse 1 - General Ulcer Measurement Start: 03/10/18 14:34 Freq: Status: Active Protocol: Activity Type Activity Date Activity User E-Sign Co-Sign Detail Recorded Client Recorded Date Recorded By Document 03/10/18 14:36 [place] [id number] 03/10/18 15:12 [place] 03/10/18 14:36 Wound Center Nurse 1 [Ulcer Assessment] #4 LEFT OBREGON CLUSTER -Combined with other wound No -Current Size (cm) - Length 13.7 -Current Size (cm) - Width 8.1 -Current Size (cm) - Depth 0.1 -Total Square Cm 110.97 -Date of Last Picture (Recall this 03/10/18 field) -Photo Taken Yes -Epithelialization Small 1-33% -Tunneling No -Undermining/Tunneling No -Circular Undermining No -Exudate Amt Small (1-33%) -Exudate Type Serosanguineous -Wound Margin Flat & Intact -Granulation Amt Small (1-33%) -Granulation Quality Pale Goltry -Slough/Fibrin Yes -Necrosis Amt None Present (0 %) -Necrotic Tissue Type Adherent Slough -Structure Exposed None/Limited to Skin Breakdown -Texture (Clara-wound Skin Appearance) Assessed Friable Localized Edema -Moisture (Clara-wound Skin Appearance Assessed ) -Color (Clara-wound Skin Appearance) Assessed Hemosiderin Staining -Temperature (Clara-wound Skin No Abnormality Appearance) (Pt Warm) -Tenderness on Palpation (Clara-wound Yes Skin Appearance) -Ulcer Cleansing Wound Cleanser -Foul Odor after Cleansing No -Anesthetic Used 4% Lidocaine Solution #3 LEFT UPPER THIGH -Combined with other wound No -Current Size (cm) - Length 17 -Current Size (cm) - Width 11.5 -Current Size (cm) - Depth 0.1 -Total Square Cm 195.5 -Date of Last Picture (Recall this 03/10/18 field) -Photo Taken No -Tunneling No -Undermining/Tunneling No -Circular Undermining No -Classification - Thickness Partial Thickness -Exudate Amt None Present (0 %) -Wound Margin Flat & Intact -Granulation Amt Small (1-33%) -Granulation Quality Pale Goltry -Slough/Fibrin Yes -Necrosis Amt None Present (0 %) -Necrotic Tissue Type Adherent Slough -Structure Exposed None/Limited to Skin Breakdown -Texture (Clara-wound Skin Appearance) Assessed -Moisture (Clara-wound Skin Appearance Assessed ) Weeping -Color (Clara-wound Skin Appearance) Assessed Erythema -Temperature (Clara-wound Skin No Abnormality Appearance) (Pt Warm) -Tenderness on Palpation (Clara-wound Yes Skin Appearance) -Ulcer Cleansing Wound Cleanser -Foul Odor after Cleansing No -Anesthetic Used 4% Lidocaine Solution #2 RIGHT OBREGON CLUSTER -Combined with other wound No -Current Size (cm) - Length 27.5 -Current Size (cm) - Width 19 -Current Size (cm) - Depth 0.1 -Total Square Cm 522.5 -Date of Last Picture (Recall this 03/10/18 field) -Photo Taken Yes -Tunneling No -Undermining/Tunneling No -Circular Undermining No -Exudate Amt Large (67-100%) -Exudate Type Serosanguineous -Wound Margin Flat & Intact -Granulation Amt Large (67-100%) -Granulation Quality Pale Goltry Red -Slough/Fibrin Yes -Necrosis Amt Small (1-33%) -Necrotic Tissue Type Adherent Slough -Texture (Clara-wound Skin Appearance) Assessed Localized Edema -Moisture (Clara-wound Skin Appearance Assessed ) Maceration -Color (Clara-wound Skin Appearance) Assessed Hemosiderin Staining -Temperature (Clara-wound Skin No Abnormality Appearance) (Pt Warm) -Tenderness on Palpation (Clara-wound No Skin Appearance) -Ulcer Cleansing Wound Cleanser -Foul Odor after Cleansing No -Anesthetic Used 4% Lidocaine Solution #1 RIGHT UPPER THIGH -Combined with other wound No -Current Size (cm) - Length 5.2 -Current Size (cm) - Width 15 -Current Size (cm) - Depth 0.1 -Total Square Cm 78.0 -Date of Last Picture (Recall this 03/10/18 field) -Photo Taken Yes -Epithelialization Small 1-33% -Tunneling No -Undermining/Tunneling No -Circular Undermining No -Exudate Amt None Present (0 %) -Wound Margin Flat & Intact -Granulation Amt Large (67-100%) -Granulation Quality Pale Goltry -Slough/Fibrin No -Texture (Clara-wound Skin Appearance) Assessed -Moisture (Clara-wound Skin Appearance Assessed ) -Color (Clara-wound Skin Appearance) Assessed -Temperature (Clara-wound Skin No Abnormality Appearance) (Pt Warm) -Tenderness on Palpation (Clara-wound No Skin Appearance) -Ulcer Cleansing Wound Cleanser -Anesthetic Used 4% Lidocaine Solution [Edema Assessment] -Lower Limb Edema Present Yes -Right Calf (cm) 41.4 -Right Ankle (cm) 24 -Left Calf (cm) 37.5 -Left Ankle (cm) 20.9 WC - Nurse 2 - General Ulcer CM Notes Start: 03/10/18 14:34 Freq: Status: Active Protocol: Activity Type Activity Date Activity User E-Sign Co-Sign Detail Recorded Client Recorded Date Recorded By Document 03/10/18 15:57 CS [id number] 03/10/18 16:00 CS 03/10/18 15:57 Wound Center Nurse 2 [Procedure/Treatment] #4 LEFT OBREGON CLUSTER -Time 15:57 -Correct Patient Yes -Correct Side, Site, Position Yes -Correct Procedure Yes -Procedure Performed Yes -Type of Procedure Debridement -Clinical Debridement Subcutaneous -Post Debridement Size (cm) - Length 13.7 -Post Debridement Size (cm) - Width 8.1 -Post Debridement Size (cm) - Depth 0.1 -Total Square Cm 110.97 -Wound/Ulcer Outcome Not Healed -Ulcer Cleansing Not Cleansed -Foul Odor after Cleansing No -Bioengineered Tissue No -Bleeding Controlled with Pressure -Treatment Response Procedure Tolerated Well #3 LEFT UPPER THIGH -Time 15:57 -Correct Patient Yes -Correct Side, Site, Position Yes -Correct Procedure Yes -Procedure Performed Yes -Type of Procedure Debridement -Clinical Debridement Subcutaneous -Post Debridement Size (cm) - Length 17 -Post Debridement Size (cm) - Width 11.5 -Post Debridement Size (cm) - Depth 0.1 -Total Square Cm 195.5 -Wound/Ulcer Outcome Not Healed -Ulcer Cleansing Not Cleansed -Foul Odor after Cleansing No -Bioengineered Tissue No -Bleeding Controlled with NA -Treatment Response Procedure Tolerated Well #2 RIGHT OBREGON CLUSTER -Time 15:57 -Correct Patient Yes -Correct Side, Site, Position Yes -Correct Procedure Yes -Procedure Performed Yes -Type of Procedure Debridement -Clinical Debridement Subcutaneous -Post Debridement Size (cm) - Length 27.5 -Post Debridement Size (cm) - Width 19 -Post Debridement Size (cm) - Depth 0.1 -Total Square Cm 522.5 -Wound/Ulcer Outcome Not Healed -Ulcer Cleansing Not Cleansed -Foul Odor after Cleansing No -Bioengineered Tissue No -Bleeding Controlled with NA -Treatment Response Procedure Tolerated Well #1 RIGHT UPPER THIGH -Time 15:58 -Correct Patient Yes -Correct Side, Site, Position Yes -Correct Procedure Yes -Procedure Performed Yes -Type of Procedure Debridement -Clinical Debridement Subcutaneous -Post Debridement Size (cm) - Length 5.2 -Post Debridement Size (cm) - Width 15 -Post Debridement Size (cm) - Depth 0.1 -Total Square Cm 78.0 -Wound/Ulcer Outcome Not Healed -Ulcer Cleansing Not Cleansed -Foul Odor after Cleansing No -Bioengineered Tissue No -Bleeding Controlled with Pressure -Treatment Response Procedure Tolerated Well [See Physician Procedure note for Specifics] Pain Scale: 0-10 Numeric [Pain] -Is Patient Pain Free? No Musculoskeletal: No Tenderness to Palpation of Joints or Extremities Neurological: Cranial nerves II-XII grossly intact, Neuro grossly intact Psych/Mental Status: Normal Affect, Appropriate, Alert and oriented to time, place, person, mood and affect Debridement Note Post-Debridement Measurements/Treatment WC - Nurse 2 - General Ulcer CM Notes Start: 03/10/18 14:34 Freq: Status: Active Protocol: Activity Type Activity Date Activity User E-Sign Co-Sign Detail Recorded Client Recorded Date Recorded By Document 03/10/18 15:57 CS [id number] 03/10/18 16:00 CS 03/10/18 15:57 Wound Center Nurse 2 #4 LEFT OBREGON CLUSTER -Time 15:57 -Correct Patient Yes -Correct Side, Site, Position Yes -Correct Procedure Yes -Procedure Performed Yes -Type of Procedure Debridement -Clinical Debridement Subcutaneous -Post Debridement Size (cm) - Length 13.7 -Post Debridement Size (cm) - Width 8.1 -Post Debridement Size (cm) - Depth 0.1 -Total Square Cm 110.97 -Wound/Ulcer Outcome Not Healed -Ulcer Cleansing Not Cleansed -Foul Odor after Cleansing No -Bioengineered Tissue No -Bleeding Controlled with Pressure -Treatment Response Procedure Tolerated Well #3 LEFT UPPER THIGH -Time 15:57 -Correct Patient Yes -Correct Side, Site, Position Yes -Correct Procedure Yes -Procedure Performed Yes -Type of Procedure Debridement -Clinical Debridement Subcutaneous -Post Debridement Size (cm) - Length 17 -Post Debridement Size (cm) - Width 11.5 -Post Debridement Size (cm) - Depth 0.1 -Total Square Cm 195.5 -Wound/Ulcer Outcome Not Healed -Ulcer Cleansing Not Cleansed -Foul Odor after Cleansing No -Bioengineered Tissue No -Bleeding Controlled with NA -Treatment Response Procedure Tolerated Well #2 RIGHT OBREGON CLUSTER -Time 15:57 -Correct Patient Yes -Correct Side, Site, Position Yes -Correct Procedure Yes -Procedure Performed Yes -Type of Procedure Debridement -Clinical Debridement Subcutaneous -Post Debridement Size (cm) - Length 27.5 -Post Debridement Size (cm) - Width 19 -Post Debridement Size (cm) - Depth 0.1 -Total Square Cm 522.5 -Wound/Ulcer Outcome Not Healed -Ulcer Cleansing Not Cleansed -Foul Odor after Cleansing No -Bioengineered Tissue No -Bleeding Controlled with NA -Treatment Response Procedure Tolerated Well #1 RIGHT UPPER THIGH -Time 15:58 -Correct Patient Yes -Correct Side, Site, Position Yes -Correct Procedure Yes -Procedure Performed Yes -Type of Procedure Debridement -Clinical Debridement Subcutaneous -Post Debridement Size (cm) - Length 5.2 -Post Debridement Size (cm) - Width 15 -Post Debridement Size (cm) - Depth 0.1 -Total Square Cm 78.0 -Wound/Ulcer Outcome Not Healed -Ulcer Cleansing Not Cleansed -Foul Odor after Cleansing No -Bioengineered Tissue No -Bleeding Controlled with Pressure -Treatment Response Procedure Tolerated Well Pain Scale: 0-10 Numeric Is Patient Pain Free? No Wound debrided: Lower extremity non healing ulcers Laterality: Right Type of Debridement: Excisional debridement Anesthesia Used: 5% Lidocaine Gel Depth: Down to and including healthy tissue, in the subcutaneous layer Percentage of wound debrided: 50 Instrument Used: 5mm curette Tissue Removed: devitalized tissue removed and debrided Severity: Fat Layer Exposed Amount of bleeding with debridement: Mild Bleeding Controlled with: Pressure, Compression and gauze Patient tolerated procedure well - Additional Wound Wound debrided: Lower extremity non healing ulcers Laterality: Left Type of Debridement: Excisional debridement Depth: Down to and including healthy tissue, in the subcutaneous layer Percentage of wound debrided: 50 Instrument Used: 5mm curette Tissue Removed: devitalized tissue removed and debrided Severity: Fat Layer Exposed Amount of bleeding with debridement: Mild Bleeding Controlled with: Pressure, Compression and gauze Patient tolerated procedure: Patient tolerated procedure well Assessment/Plan Active Problems Nonhealing ulcer of right lower extremity with fat layer exposed (Acute) Nonhealing ulcer of left lower extremity with fat layer exposed (Acute) Bilateral lower extremity edema (Acute) Decreased dorsalis pedis pulse (Acute) Assessment: see above Plan: The patient was seen and examined at the wound center today and was updated on the plan of care. A subcutaneous debridement was performed today. The patient tolerated the procedure well. The patients wound care will consist of silvercell, adaptic and gauze to superior BLLE ulcers and a lightly compressed UNNA boots to posterior lower extremity ulcers. Wound cultures were collected from rle medial thigh. Baseline bloodwork reviewed at hospital from recent visit. Vascular studies ordered. She will continue to have [facility] home health 3 times a week. 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 Patient educated on the importance of diet on wound healing and instructed to increase protein 3 times a day and vitamin C intake. Patient verbalized understanding. Patient will follow up at wound healing center in one week or sooner if needed. This note was generated with [employer] dictation software. It may contain incorrect words, spelling, and punctuation that were not noted in checking the note before signing. Code Visit Office Visits / Consults: [id number] OV L4 Est [id number]: [id number] Alexandrea subq tissue 20 sq cm/<
== END 2018-03-11 23:59 ==
LOC: WC 14:14
PROVIDERS: Family Provider Family Medicine; PCP Family Medicine; Visit Provider Nurse Practitioner Family
DX: L97.812 Non-pressure chronic ulcer of other part of right lower leg with fat layer exposed (principal); L97.822 Non-pressure chronic ulcer of other part of left lower leg with fat layer exposed; R60.0 Localized edema; R09.89 Other specified symptoms and signs involving the circulatory and respiratory systems; J44.9 Chronic obstructive pulmonary disease, unspecified; I10 Essential (primary) hypertension; E78.5 Hyperlipidemia, unspecified; Z79.899 Other long term (current) drug therapy; Z87.891 Personal history of nicotine dependence; L97.122 Non-pressure chronic ulcer of left thigh with fat layer exposed; L97.112 Non-pressure chronic ulcer of right thigh with fat layer exposed
CPT/HCPCS: 11042; 11045; 29580; 87070; 87075; 87077; 87186; 87205

== ENCOUNTER 2018-03-28 10:00 | Outpatient (RCR) | payer MEDICARE, SELFPAY ==
[2018-03-12 01:53] VITALS: BP 181/71; PULSE 61; RESP 18; TEMP 36.8
[2018-03-17 15:11] VITALS: BP 150/70; PULSE 65; RESP 18; TEMP 36.3
--- NOTE | 2018-03-17 18:10 | PCM.WC.PN ---
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 Status: Acute Code(s): L97.912 - Non-pressure chronic ulcer of unspecified part of right lower leg with fat layer exposed (2) Nonhealing ulcer of left lower extremity with fat layer exposed Status: Acute Code(s): L97.922 - Non-pressure chronic ulcer of unspecified part of left lower leg with fat layer exposed (3) Bilateral lower extremity edema Status: Acute Code(s): R60.0 - Localized edema (4) Decreased dorsalis pedis pulse Status: Acute Code(s): R09.89 - Other specified symptoms and signs involving the circulatory and respiratory systems (5) COPD, mild Status: Chronic Code(s): J44.9 - Chronic obstructive pulmonary disease, unspecified (6) HTN (hypertension) Status: Chronic Code(s): I10 - Essential (primary) hypertension (7) Chronic pruritus Status: Acute Code(s): L29.9 - Pruritus, unspecified Type of Wound Date of Service: 03/17/18 Chief Complaint: nonhealing ulcers BLLE, lower ext edema B/L History of Wound: 83-year-old female presented to the wound center due to bilateral lower extremity wounds that have been chronic in nature for the past 2 months. Her past medical history is as documented above. Patient's family recently were concerned that the wounds to her BLLE were worsening and took patient to [facility] ER on February. Patient has been picking at the areas on her bilateral lower extremities d/t itchiness. Labs at [facility] ER revealed normal WBC and slightly elevated BUN and no antibiotic treatment was warranted at that time. Patient discharged home February 19, 2018 with [facility] home health. Wound care at home has consisted of soap and water Adaptic dressing right leg and cover with Kerlix and wrapped with Collin wrap per hospital discharge instructions. Patient continues complaints of itchiness to bilateral lower extremities and per her son that she still picks at the areas. Patient's son stated she had a referral for dermatology but has not made an appointment. The patient otherwise denies any fever, chills, nausea, vomiting, shortness of breath, chest pain or pressure, palpitations, orthopnea, syncope or presyncopal episodes. Progress of Wound: Patient wounds have worsened somewhat. She scratched through the unna boots on her BLLE. Has visible old dried blood under her fingernails. States that she recently saw PCP who started on Atarax, has not started yet. Continue to pick BLLE. Culture did show staph and anerobic cocci, will start on doxy and flagyl. Denies signs of systemic infection, pending dermatology consult. - Physical Exam Vital Signs Temp Pulse Resp BP 97.3 F L 65 18 150/70 H 03/17/18 15:11 03/17/18 15:11 03/17/18 15:11 03/17/18 15:11 General: Alert, Oriented x3, Cooperative, No apparent distress HEENT: Atraumatic Lungs: Clear to auscultation Cardiovascular: Regular rate Extremities: No clubbing, No cyanosis, Diminished Peripheral Pulses, Edema - +1 BLLE edema Skin: Ulcer/ Wound - Visible scratch julian BLLE, multiple open wounds with moderate amounts of serosanguinous drainage.No purulent drainage. No warmth or erythema. Neurological: Neuro grossly intact Psych/Mental Status: Normal Affect, Appropriate, Anxious, Alert and oriented to time, place, person, mood and affect Debridement Note Post-Debridement Measurements/Treatment WC - Nurse 2 - General Ulcer CM Notes Start: 03/17/18 15:10 Freq: Status: Active Protocol: Activity Type Activity Date Activity User E-Sign Co-Sign Detail Recorded Client Recorded Date Recorded By Document 03/17/18 16:44 [id number] 03/17/18 17:00 BRYANNA 03/17/18 16:44 Wound Center Nurse 2 #4 LEFT WALKER CLUSTER -Time 16:44 -Correct Patient Yes -Correct Side, Site, Position Yes -Correct Procedure Yes -Procedure Performed Yes -Type of Procedure Debridement -Clinical Debridement Selective -Post Debridement Size (cm) - Length 2.0 -Post Debridement Size (cm) - Width 2.5 -Post Debridement Size (cm) - Depth 0.1 -Total Square Cm 5.00 -Wound/Ulcer Outcome Not Healed -Ulcer Cleansing Rinsed/ Irrigated with Saline -Foul Odor after Cleansing No -Bioengineered Tissue No -Bleeding Controlled with NA -Treatment Response Procedure Tolerated Well #3 LEFT UPPER THIGH -Time 16:45 -Correct Patient Yes -Correct Side, Site, Position Yes -Correct Procedure Yes -Procedure Performed Yes -Type of Procedure Debridement -Clinical Debridement Selective -Post Debridement Size (cm) - Length 17.0 -Post Debridement Size (cm) - Width 16.0 -Post Debridement Size (cm) - Depth 0.1 -Total Square Cm 272.00 -Wound/Ulcer Outcome Not Healed -Ulcer Cleansing Rinsed/ Irrigated with Saline -Foul Odor after Cleansing No -Bioengineered Tissue No -Bleeding Controlled with NA -Treatment Response Procedure Tolerated Well #2 RIGHT WALKER CLUSTER -Time 16:45 -Correct Patient Yes -Correct Side, Site, Position Yes -Correct Procedure Yes -Procedure Performed Yes -Clinical Debridement Selective -Post Debridement Size (cm) - Length 35.5 -Post Debridement Size (cm) - Width 14.5 -Post Debridement Size (cm) - Depth 0.1 -Total Square Cm 514.75 -Wound/Ulcer Outcome Not Healed -Ulcer Cleansing Rinsed/ Irrigated with Saline -Bleeding Controlled with NA -Treatment Response Procedure Tolerated Well #1 RIGHT UPPER THIGH -Time 16:45 -Correct Patient Yes -Correct Side, Site, Position Yes -Correct Procedure Yes -Procedure Performed Yes -Type of Procedure Debridement -Clinical Debridement Selective -Post Debridement Size (cm) - Length 15.0 -Post Debridement Size (cm) - Width 9.0 -Post Debridement Size (cm) - Depth 0.1 -Total Square Cm 135.00 -Wound/Ulcer Outcome Not Healed -Ulcer Cleansing Rinsed/ Irrigated with Saline -Bleeding Controlled with NA -Treatment Response Procedure Tolerated Well Pain Scale: 0-10 Numeric Is Patient Pain Free? Yes Wound debrided: Right upper thigh and walker cluster ulcer Laterality: Right Type of Debridement: Selective debridement Anesthesia Used: 5% Lidocaine Gel Depth: in the subcutaneous layer Percentage of wound debrided: 50 Instrument Used: 7mm curette Tissue Removed: large amount of slough and devitalized tissue Severity: Fat Layer Exposed Amount of bleeding with debridement: Mild Bleeding Controlled with: Pressure Patient tolerated procedure well - Additional Wound Wound debrided: Left upper anterior thigh and left walker cluster ulcer Laterality: Left Type of Debridement: Selective debridement Anesthesia Used: 5% Lidocaine Gel Depth: in the subcutaneous layer Percentage of wound debrided: 50 Instrument Used: 7mm curette Tissue Removed: large amount of slough and devitalized tissue Severity: Fat Layer Exposed Amount of bleeding with debridement: Mild Bleeding Controlled with: Pressure Patient tolerated procedure: Patient tolerated procedure well Assessment/Plan Assessment: see above Plan: The patient was seen and examined at the wound center today and was updated on the plan of care. A subcutaneous debridement was performed today. The patient tolerated the procedure well. The patients wound care will consist of silvercell, adaptic and gauze to anterior B/L thigh ulcers and a lightly compressed UNNA boots to posterior lower extremity ulcers. Wound cultures were collected from rle medial thigh, which showed staph aureus and anerobic cocci, will treat with flagyl and doxy. Baseline bloodwork reviewed at hospital from recent visit. Vascular studies ordered. She will continue to have [facility] home health 3 times a week. Patient was recently referred to detective and intelligence analyst and recommended to schedule an appointment due to her lower extremity itchiness. Patient educated on the importance of diet on wound healing and instructed to increase protein supplementation to 3 times a day and increase vitamin C intake. Patient verbalized understanding.Patients underlying chronic picking and scratching may need psych eval after dermatology input. Patient will follow up at wound healing center in one week or sooner if needed. This note was generated with [employer] dictation software. It may contain incorrect words, spelling, and punctuation that were not noted in checking the note before signing. Code Visit 111xxx-113xx: 25510 Alexandrea subq tissue 20 sq cm/< Add On Codes: [id number] Alexandrea subq tissue add-on
--- NOTE | 2018-03-22 11:15 | PN.PCM_ITS ---
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 Status: Acute Code(s): L97.912 - Non-pressure chronic ulcer of unspecified part of right lower leg with fat layer exposed (2) Nonhealing ulcer of left lower extremity with fat layer exposed Status: Acute Code(s): L97.922 - Non-pressure chronic ulcer of unspecified part of left lower leg with fat layer exposed (3) Bilateral lower extremity edema Status: Acute Code(s): R60.0 - Localized edema (4) Decreased dorsalis pedis pulse Status: Acute Code(s): R09.89 - Other specified symptoms and signs involving the circulatory and respiratory systems (5) COPD, mild Status: Chronic Code(s): J44.9 - Chronic obstructive pulmonary disease, unspecified (6) HTN (hypertension) Status: Chronic Code(s): I10 - Essential (primary) hypertension (7) Chronic pruritus Status: Acute Code(s): L29.9 - Pruritus, unspecified Type of Wound Date of Service: 03/17/18 Chief Complaint: nonhealing ulcers BLLE, lower ext edema B/L History of Wound: 83-year-old female presented to the wound center due to bilateral lower extremity wounds that have been chronic in nature for the past 2 months. Her past medical history is as documented above. Patient's family recently were concerned that the wounds to her BLLE were worsening and took patient to [facility] ER on February. Patient has been picking at the areas on her bilateral lower extremities d/t itchiness. Labs at [facility] ER revealed normal WBC and slightly elevated BUN and no antibiotic treatment was warranted at that time. Patient discharged home February 19, 2018 with [facility] home health. Wound care at home has consisted of soap and water Adaptic dressing right leg and cover with Kerlix and wrapped with Collin wrap per hospital discharge instructions. Patient continues complaints of itchiness to bilateral lower extremities and per her son that she still picks at the areas. Patient's son stated she had a referral for dermatology but has not made an appointment. The patient otherwise denies any fever, chills, nausea, vomiting, shortness of breath, chest pain or pressure , palpitations, orthopnea, syncope or presyncopal episodes. Progress of Wound: Patient wounds have worsened somewhat. She scratched through the unna boots on her BLLE. Has visible old dried blood under her fingernails. States that she recently saw PCP who started on Atarax, has not started yet. Continue to pick BLLE. Culture did show staph and anerobic cocci, will start on doxy and flagyl. Denies signs of systemic infection, pending dermatology consult. - Physical Exam Vital Signs Temp Pulse Resp BP 97.3 F L 65 18 150/70 H 03/17/18 15:11 03/17/18 15:11 03/17/18 15:11 03/17/18 15:11 General: Alert, Oriented x3, Cooperative, No apparent distress HEENT: Atraumatic Lungs: Clear to auscultation Cardiovascular: Regular rate Extremities: No clubbing, No cyanosis, Diminished Peripheral Pulses, Edema - +1 BLLE edema Skin: Ulcer/ Wound - Visible scratch julian BLLE, multiple open wounds with moderate amounts of serosanguinous drainage.No purulent drainage. No warmth or erythema. Neurological: Neuro grossly intact Psych/Mental Status: Normal Affect, Appropriate, Anxious, Alert and oriented to time, place, person, mood and affect Debridement Note Post-Debridement Measurements/Treatment WC - Nurse 2 - General Ulcer CM Notes Start: 03/17/18 15:10 Freq: Status: Active Protocol: Activity Type Activity Date Activity User E-Sign Co-Sign Detail Recorded Client Recorded Date Recorded By Document 03/17/18 16:44 [id number] 03/17/18 17:00 BRYANNA 03/17/18 16:44 Wound Center Nurse 2 #4 LEFT WALKER CLUSTER -Time 16:44 -Correct Patient Yes -Correct Side, Site, Position Yes -Correct Procedure Yes -Procedure Performed Yes -Type of Procedure Debridement -Clinical Debridement Selective -Post Debridement Size (cm) - Length 2.0 -Post Debridement Size (cm) - Width 2.5 -Post Debridement Size (cm) - Depth 0.1 -Total Square Cm 5.00 -Wound/Ulcer Outcome Not Healed -Ulcer Cleansing Rinsed/ Irrigated with Saline -Foul Odor after Cleansing No -Bioengineered Tissue No -Bleeding Controlled with NA -Treatment Response Procedure Tolerated Well #3 LEFT UPPER THIGH -Time 16:45 -Correct Patient Yes -Correct Side, Site, Position Yes -Correct Procedure Yes -Procedure Performed Yes -Type of Procedure Debridement -Clinical Debridement Selective -Post Debridement Size (cm) - Length 17.0 -Post Debridement Size (cm) - Width 16.0 -Post Debridement Size (cm) - Depth 0.1 -Total Square Cm 272.00 -Wound/Ulcer Outcome Not Healed -Ulcer Cleansing Rinsed/ Irrigated with Saline -Foul Odor after Cleansing No -Bioengineered Tissue No -Bleeding Controlled with NA -Treatment Response Procedure Tolerated Well #2 RIGHT WALKER CLUSTER -Time 16:45 -Correct Patient Yes -Correct Side, Site, Position Yes -Correct Procedure Yes -Procedure Performed Yes -Clinical Debridement Selective -Post Debridement Size (cm) - Length 35.5 -Post Debridement Size (cm) - Width 14.5 -Post Debridement Size (cm) - Depth 0.1 -Total Square Cm 514.75 -Wound/Ulcer Outcome Not Healed -Ulcer Cleansing Rinsed/ Irrigated with Saline -Bleeding Controlled with NA -Treatment Response Procedure Tolerated Well #1 RIGHT UPPER THIGH -Time 16:45 -Correct Patient Yes -Correct Side, Site, Position Yes -Correct Procedure Yes -Procedure Performed Yes -Type of Procedure Debridement -Clinical Debridement Selective -Post Debridement Size (cm) - Length 15.0 -Post Debridement Size (cm) - Width 9.0 -Post Debridement Size (cm) - Depth 0.1 -Total Square Cm 135.00 -Wound/Ulcer Outcome Not Healed -Ulcer Cleansing Rinsed/ Irrigated with Saline -Bleeding Controlled with NA -Treatment Response Procedure Tolerated Well Pain Scale: 0-10 Numeric Is Patient Pain Free? Yes Wound debrided: Right upper thigh and walker cluster ulcer Laterality: Right Type of Debridement: Selective debridement Anesthesia Used: 5% Lidocaine Gel Depth: in the subcutaneous layer Percentage of wound debrided: 50 Instrument Used: 7mm curette Tissue Removed: large amount of slough and devitalized tissue Severity: Fat Layer Exposed Amount of bleeding with debridement: Mild Bleeding Controlled with: Pressure Patient tolerated procedure well - Additional Wound Wound debrided: Left upper anterior thigh and left walker cluster ulcer Laterality: Left Type of Debridement: Selective debridement Anesthesia Used: 5% Lidocaine Gel Depth: in the subcutaneous layer Percentage of wound debrided: 50 Instrument Used: 7mm curette Tissue Removed: large amount of slough and devitalized tissue Severity: Fat Layer Exposed Amount of bleeding with debridement: Mild Bleeding Controlled with: Pressure Patient tolerated procedure: Patient tolerated procedure well Assessment/Plan Assessment: see above Plan: The patient was seen and examined at the wound center today and was updated on the plan of care. A subcutaneous debridement was performed today. The patient tolerated the procedure well. The patients wound care will consist of silvercell, adaptic and gauze to anterior B/L thigh ulcers and a lightly compressed UNNA boots to posterior lower extremity ulcers. Wound cultures were collected from rle medial thigh, which showed staph aureus and anerobic cocci, will treat with flagyl and doxy. Baseline bloodwork reviewed at hospital from recent visit. Vascular studies ordered. She will continue to have [facility] home health 3 times a week. Patient was recently referred to carpentry professional and recommended to schedule an appointment due to her lower extremity itchiness. Patient educated on the importance of diet on wound healing and instructed to increase protein supplementation to 3 times a day and increase vitamin C intake. Patient verbalized understanding.Patients underlying chronic picking and scratching may need psych eval after dermatology input. Patient will follow up at wound healing center in one week or sooner if needed. This note was generated with [employer] dictation software. It may contain incorrect words, spelling, and punctuation that were not noted in checking the note before signing. Code Visit 111xxx-113xx: 22749 Alexandrea subq tissue 20 sq cm/< Add On Codes: [id number] Alexandrea subq tissue add-on
--- NOTE | 2018-03-28 09:44 | VDLE_ITS ---
Reason For Study: Ulcer RIGHT LEFT GSV is normal. CFV is compressible, spontaneous, phasic, CFV is compressible, spontaneous, phasic, competent, and demonstrates normal competent and demonstrates normal augmentation. augmentation. FV is compressible, spontaneous, phasic, FV is compressible, spontaneous, phasic, competent and demonstrates normal competent and demonstrates normal augmentation. augmentation. POP V is compressible, spontaneous, phasic, POP V is compressible, spontaneous, phasic, competent and demonstrates normal competent and demonstrates normal augmentation. augmentation. T/P Trunk is compressible. T/P Trunk is compressible. PTV is compressible. PTV is compressible. LT PerV is compressible. RT PerV is compressible. Lt SFJ is Competent Unable to visualize Rt PTV/Rt PeroV/Rt GSV distal due to ulcer/bandages Lt GSV is Incompetent with reflux greater than 0.5 sec and a diameter of 0.60cm x Rt SFJ is Competent 0.67cm in the thigh and 0.23cm x 0.24cm in the calf Rt GSV is Competent Lt SSV is Competent. Rt SSV is Competent. Interpretation Summary Deep veins of the lower extremities are bilaterally patent and compressible segmentally. There is no evidence of deep vein thrombosis on either side. Valvular competence appears intact within the proximal deep venous systems bilaterally. The greater saphenous veins appear bilaterally patent and compressible segmentally. The right posterior tibial vein and peroneal vein were not visualized due to the presence of an ulceration and bandages. Sapheno-femoral junctions are bilaterally competent . The distal right greater saphenous vein was not visualized due to the presence of an ulceration and bandages, though is competent more proximally. The left greater saphenous vein is incompetent. Small saphenous veins are patent and competent bilaterally. Ordering Physician: Eduardo Perry Referring Physician: Salinas Keller Performed By: Rosaura Dong, LUIS, RVT
== END 2018-04-10 23:59 ==
LOC: CVS 10:00
PROVIDERS: Family Provider Family Medicine; PCP Family Medicine; Visit Provider Nurse Practitioner Family
DX: L97.812 Non-pressure chronic ulcer of other part of right lower leg with fat layer exposed (principal); R09.89 Other specified symptoms and signs involving the circulatory and respiratory systems; J44.9 Chronic obstructive pulmonary disease, unspecified; I10 Essential (primary) hypertension; L29.9 Pruritus, unspecified; R60.0 Localized edema; L97.822 Non-pressure chronic ulcer of other part of left lower leg with fat layer exposed
CPT/HCPCS: 11042; 11045; 29580; 93923; 93970

== ENCOUNTER 2018-04-09 11:08 | Inpatient (IN) | payer MEDICARE, SELFPAY ==
[2018-04-09] VITALS (11 sets, daily range): BP systolic 138–245; BP diastolic 58–95; PULSE 61–90; RESP 17–97; TEMP 36.6–36.8; O2SAT 20–99; BMI 30.3; BMI 28.7; BMI 28.8
--- NOTE | 2018-04-09 11:16 | EKG12_ITS ---
Test Reason : WEAKNESS Blood Pressure : / mmHG Vent. Rate : 058 BPM Atrial Rate : 058 BPM P-R Int : 166 ms QRS Dur : 136 ms QT Int : 446 ms P-R-T Axes : 052 -40 138 degrees QTc Int : 437 ms Sinus bradycardia Left axis deviation Left bundle branch block Abnormal ECG Confirmed by TONYA MCKEE, JONATHAN ([id number]), industrial editor TYE MILLS ([id number] on 04/11/2018 3:10:48 PM Referred By: Bull Colby Confirmed By:JONATHAN CASTANEDA MD
--- NOTE | 2018-04-09 11:24 | RAD_ITS ---
STUDY: X-RAY CHEST REASON FOR EXAM: Female, 83 years old. Confusion and weakness TECHNIQUE: Single AP portable view of the chest. COMPARISON: 01/31/2018 FINDINGS: The lungs are clear and expanded. There is no demonstrated pleural abnormality. Normal size heart. Normal mediastinum and noelle. Normal visualized pulmonary arteries. Normal visualized aortic arch and descending thoracic aorta. Normal visualized thoracic spine. Normal visualized ribs, clavicles, and shoulders. There is no demonstrated abnormality of the visualized soft tissue structures of the upper abdomen. RAD/Chest 1 View (Portable) IMPRESSION: Normal x-ray examination of the chest. Electronically Signed: Robert Patrick DO at 11:44 EDT Tel , Service support ,
[2018-04-09] MEDS: 0.9% Normal Saline 1,000 ML 1000 ML IV (11:37)
[2018-04-09] MEDS: 0.9% Normal Saline 1,000 ML 150 ML IV (11:38)
[2018-04-09 11:46] LABS: Absolute Lymphocyte Count 1.96 X10^3/ul (0.83-4.51); Absolute Neutrophil Count 8.3 X10^3/uL (2.0-7.7); Basophil# 0.01 X10^3/uL; Basophil% 0.1 % (0-1); Eosinophil# 0.34 X10^3/uL; Hematocrit 44.1 % (37-47); Lymphocyte # 1.96 X10^3/ul (4.0); Lymphocyte % 17.3 % (19-41); Mean Corpuscular Hgb 33.1 pg (27.0-32.0); Mean Corpuscular Volume 97.4 fL (81-99); Mean Platelet Vol. 8.9 fl (6.2-12.0); Monocyte# 0.74 X10^3/uL; Monocyte% 6.5 % (0-10); Neutrophil # 8.28 X10^3/uL (2.7-7.7); Neutrophil % 72.9 % (47-70); Platelet Count 213 K/mm3 (150-450); RBC Distribution Width SD 50.2 fl (35.1-43.9); Red Blood Count 4.53 M/mm3 (4.2-5.4); White Blood Count 11.4 K/mm3 (4.4-11.0)
[2018-04-09 11:47] LABS: POSITIVE COUNT NO; POSITIVE DIFFERENTIAL NO; POSITIVE MORPHOLOGY NO
[2018-04-09 12:11] LABS: ALB/GLOB Ratio 0.6 RATIO (0.9-2.4); AST(SGOT) 26 U/L (15-37); Alanine Aminotransfer ALT/SGPT 51 U/L (13-56); Albumin, Serum 2.7 g/dL (3.2-5.0); Alkaline Phosphatase 100 U/L (45-117); Anion Gap 9 (5-15); BUN 31 mg/dL (7-18); BUN/Creat Ratio 32.2 RATIO (10-20); Calcium,Total 8.8 mg/dL (8.5-10.1); Chloride 103 mmol/L (98-107); Creatinine, Serum 0.96 mg/dL (0.55-1.02); EST Glomerular Filtration Rate 59 mL/min (>60); Est Glom Filt Rate - Afr Amer 71 mL/min (>60); Estimated Creatinine Clearance 41.57 ml/min; Globulin 4.2 g/dL (2.2-4.2); Glucose 147 mg/dL (74-106); Potassium 3.8 mmol/L (3.5-5.1); Protein, Total 6.9 g/dL (6.4-8.2); Sodium Level 139 mmol/L (136-145)
[2018-04-09 12:31] LABS: Bacteria 0 SEEN /hpf (None Seen); Mucous, Urine 0 SEEN /hpf (<or=2+); Squamous Epithelial Cells - UA 0 SEEN /hpf (5-10)
[2018-04-09 12:37] LABS: Lactic Acid 2.6 mmol/L (0.4-2.0)
[2018-04-09 12:38] LABS: Color, Urine Yellow (Yellow); Glucose, Dipstick Normal (Normal); Ketone-Dipstick Negative (Negative); Leukocyte Esterase-Dipstick 500 /ul (Negative); Nitrite-Dipstick Negative (Negative); Occult Blood-Urine 250 /ul (Negative); Protein-Dipstick 30 mg/dl (Negative); Specific Gravity, Urine 1.015 (1.002-1.030); Urine Bilirubin Dipstick Negative (Negative); Urine Clarity Cloudy (Clear); Urine Urobilinogen Normal (Normal)
--- NOTE | 2018-04-09 12:38 | ED.RN ---
LACTIC ACID 2.6 PER PHONE CALL FROM LAB, PRIMARY RN AND MD NOTIFIED
[2018-04-09 12:46] LABS: White Blood Cells 50-100 SEEN /hpf (0-5)
[2018-04-09 12:48] LABS: Amorphous Sediment 3+; Red Blood Cells-Urine 0-5 SEEN /hpf (0-5)
[2018-04-09 12:49] LABS: Calcium Oxalate Crystals Ur 1+ /hpf (<or=2+)
--- NOTE | 2018-04-09 13:12 | ED.DCSUM_ITS ---
- ER Visit Summary Date of Service: 04/09/18 Chief Complaint: [Weakness] History of Present Illness: The patient is a 83 F [presents the emergency department complaint of weakness since yesterday. Patient eating and drinking less than usual. Per son she has had dark urine that is foul-smelling. Patient also complains of some urinary frequency but no dysuria. She is not had any fevers. Son thought maybe she was a little more confused than usual. Patient does have a history of hypertension, COPD, gout, hypothyroidism, and high cholesterol. Patient denies any chest pain or shortness of breath. She denies any abdominal pain. Patient denies vomiting or diarrhea.] Physical Examination: [HEENT-PERRLA, EOMI. Cranial nerves II through XII grossly intact. TMs clear. Mucous membranes moist. No adenopathy. Cardiovascular-regular rate and rhythm without murmur or ectopy Lungs-clear to auscultation, chest wall stable without crepitus or subcu emphysema Abdomen-normoactive bowel sounds, soft, nontender, no rebound or rigidity, no peritoneal signs. Neuro [id number] and heel walker testing within normal limits, negative Romberg, negative pronator drift, fundi benign. NIH stroke scale 0. Extremities-intact ?4, normal range of motion, normal pulses, atraumatic] Test Results: [CBC with differential obtained showed a white blood cell count of 11.4, hemoglobin 15, hematocrit 44, platelets 213. Chemistries unremarkable. LFTs unremarkable. Troponin was less than 0.015. Lactate was elevated 2.5. Urinalysis was positive for infection with 500 leukocyte esterase, 50-100 WBCs, and +1 bacteria.] Emergency Department Course and Treatment: [Patient had urine culture sent. Patient started on Rocephin.] Treatment Plan: [Admit] Disposition: [Admit for fluids and IV antibiotics.] Impression: [UTI Sepsis Generalized weakness] This note was generated with [employer] dictation software. It may contain incorrect words, spelling, and punctuation that were not noted in review of the chart prior to signing ED Disposition - Plan for ED Patient: Chief Complaint: Weakness Referrals: Salinas Keller III, MD [Primary Care Provider] -
[2018-04-09] MEDS: Ceftriaxone 1 GM/50 ML BAG IV (13:35)
--- NOTE | 2018-04-09 13:35 | PCM.HP.STD ---
Problem List (1) Bilateral lower extremity edema Status: Chronic (2) Chronic pruritus Status: Chronic (3) Hypertensive urgency Status: Acute (4) Nonhealing ulcer of left lower extremity with fat layer exposed Status: Chronic (5) Nonhealing ulcer of right lower extremity with fat layer exposed Status: Chronic (6) Bullous rash Status: Chronic (7) COPD, mild Status: Chronic (8) Dyslipidemia Status: Chronic (9) HTN (hypertension) Status: Chronic (10) Hypothyroidism Status: Chronic (11) Wound of right leg Status: Chronic (12) Severe sepsis Status: Acute (13) Acute cystitis Status: Acute History of Present Illness Date of Admission: 04/09/18 Chief Complaint: Generalized weakness The patient is a 83 year old F with past medical history significant for chronic bilateral lower extremity ulcers, hypertension COPD who presents with progressive generalized weakness. Patient was recently discharged from the hospital and per family her condition has not really improved since being discharged. Her generalized weakness started a couple of days prior to coming in. On the night prior to her admission she felt she was having a stroke. She also did complain of some lower abdominal pain. In view of worsening symptoms family brought patient to the emergency department where her workup was consistent with severe sepsis secondary to acute cystitis. Patient was also found to have markedly elevated systolic blood pressure greater than 240. She did receive Rocephin as well as labetalol and decision made to admit patient to a monitored bed for subsequent management. 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) Nonhealing ulcer of left lower extremity with fat layer exposed (Chronic) Bilateral lower extremity edema (Chronic) Chronic pruritus (Chronic) COPD, mild (Chronic) Hypothyroidism (Chronic) Dyslipidemia (Chronic) HTN (hypertension) (Chronic) Allergies No Known Allergies Allergy (Verified 04/09/18 11:35) Home Medications: Ambulatory Orders Medication Instructions Recorded Allopurinol [Zyloprim] 100 mg PO QHS 09/10/13 Levothyroxine [Synthroid] 75 mcg PO DAILY 10/02/14 Multivitamins,Therapeutic 1 tablet PO DAILY 10/02/14 [Multivitamin] Budesonide/Formoterol 160/4.5 2 puff INHALATION BID 09/23/16 [Symbicort 160/4.5 Mcg Inhaler (SP)] Atorvastatin Calcium [Lipitor] 20 mg PO QHS 09/10/17 Cholecalciferol (Vitamin D3) 2,000 unit PO DAILY 01/31/18 [Vitamin D3] Amlodipine [Norvasc] 10 mg PO DAILY #30 tab 02/02/18 Lisinopril [Zestril] 20 mg PO DAILY PRN PRN 02/19/18 Nystatin Powder [Mycostatin Powder] 1 applic TOPICAL BID bottle 02/19/18 Surgical History: - - Patient reports right ear surgery when she was a child. Tonsillectomy and adenoidectomy. Smoking Status: Former smoker - *Family History Paternal History Items: Cancer - Unknown type Maternal History Items: Cancer - Breast cancer Review of Systems Constitutional: Reports: Malaise, Weakness Eyes: Denies: Blurred vision HEENT: Denies: Head Aches, Sinus Congestion, Sinus Drainage Cardiovascular: Denies: Chest Pain, Orthopnea, Palpitations, Paroxysmal Noc. Dyspnea Respiratory: Denies: Cough, Shortness of breath at rest, Shortness of breath upon exertion, Sputum production Gastrointestinal: Reports: Abdominal Pain Genitourinary: Denies: Hematuria Musculoskeletal: Denies: Joint Pain, Joint Tenderness Skin: Reports: Pruritis, Rash Neurological: Denies: Focal weakness, Numbness, Tingling Psychiatric: Denies: Homicidal Ideations, Suicidal Ideations Hematologic/ Lymphatic: Denies: Easy Bruising, Easy Bleeding VTE Information - Inpt Only VTE Present on Admission: No VTE Mechan Device Prophylaxis: None VTE Pharm Prophylaxis ordered?: Yes Patient Problems: Active and Suspected Problems Severe sepsis (Acute) Acute cystitis (Acute) Objective: GENERAL: Patient appears ill looking HEENT: Atraumatic; moist oral mucosa EYES; Anicteric, Normal Conjunctiva NECK; supple, normal thyroid, no distended JVD. RESPIRATORY: Diminished to auscultation bilaterally, CARDIOVASCULAR: Regular S1 S2, no audible murmurs GI: soft, non-tender, normoactive bowel sounds, : No Renal angle tenderness; No blackmon EXTREMITIES: , no clubbing, no cyanosis. MUSCULOSKELETAL: No Joint Tenderness; no muscle waisting NEURO: Awake; no lateralizing signs. SKIN: Bullous rash on both thighs PSYCH; Normal affect - Physical Exam Vital Signs Temp Pulse Resp BP Pulse Ox 98.3 F 63 17 214/69 H 99 04/09/18 11:09 04/09/18 11:09 04/09/18 11:09 04/09/18 11:09 04/09/18 11:09 Oxygen Delivery Method Room Air Weight: 85.3 kg Body Mass Index (BMI) 30.3 Laboratory Tests Past 24 Hrs 04/09/18 04/09/18 04/09/18 11:36 11:36 11:36 WBC 11.4 H RBC 4.53 Hgb 15.0 Hct 44.1 MCV 97.4 MCH 33.1 H MCHC 34.0 RDW 14.0 RDW Differential 50.2 H Plt Count 213 MPV 8.9 Immature Gran % (Auto) 0.200 Neut % (Auto) 72.9 H Lymph % (Auto) 17.3 L [place] % (Auto) 6.5 Eos % (Auto) 3.0 Baso % (Auto) 0.1 Absolute Neuts (auto) 8.3 H Absolute Lymphs (auto) 1.96 Total Counted Not Reportable Sodium 139 Potassium 3.8 Chloride 103 Carbon Dioxide 27.0 Anion Gap 9 BUN 31 H Creatinine 0.96 Estim Creat Clear Calc 41.57 Est GFR (MDRD) Af Amer 71 Est GFR (MDRD) Non-Af 59 L BUN/Creatinine Ratio 32.2 H Glucose 147 H Lactic Acid 2.6 H Calcium 8.8 Total Bilirubin 0.50 AST 26 ALT 51 Alkaline Phosphatase 100 Troponin I < 0.015 Total Protein 6.9 Albumin 2.7 L Globulin 4.2 Albumin/Globulin Ratio 0.6 L Urine Color Urine Clarity Urine pH Ur Specific [place] Urine Protein Urine Glucose (UA) Urine Ketones Urine Occult Blood Urine Nitrite Urine Bilirubin Urine Urobilinogen Ur Leukocyte Esterase Urine RBC Urine WBC Ur Squamous Epith Cells Calcium Oxalate Crystal Amorphous Sediment Urine Bacteria Urine Mucus 04/09/18 12:25 WBC RBC Hgb Hct MCV MCH MCHC RDW RDW Differential Plt Count MPV Immature Gran % (Auto) Neut % (Auto) Lymph % (Auto) [place] % (Auto) Eos % (Auto) Baso % (Auto) Absolute Neuts (auto) Absolute Lymphs (auto) Total Counted Sodium Potassium Chloride Carbon Dioxide Anion Gap BUN Creatinine Estim Creat Clear Calc Est GFR (MDRD) Af Amer Est GFR (MDRD) Non-Af BUN/Creatinine Ratio Glucose Lactic Acid Calcium Total Bilirubin AST ALT Alkaline Phosphatase Troponin I Total Protein Albumin Globulin Albumin/Globulin Ratio Urine Color Yellow Urine Clarity Cloudy Urine pH 8.0 Ur Specific [place] 1.015 Urine Protein 30 H Urine Glucose (UA) Normal Urine Ketones Negative Urine Occult Blood 250 H Urine Nitrite Negative Urine Bilirubin Negative Urine Urobilinogen Normal Ur Leukocyte Esterase 500 H Urine RBC 0-5 SEEN Urine WBC 50-100 SEEN Ur Squamous Epith Cells 0 SEEN Calcium Oxalate Crystal 1+ Amorphous Sediment 3+ Urine Bacteria 0 SEEN Urine Mucus 0 SEEN Assessment/Plan All Active Problems Hypertensive urgency (Acute) Decreased dorsalis pedis pulse (Resolved) Severe sepsis (Acute) Acute cystitis (Acute) Acute dysphagia due to chicken piece (Resolved) Sinus node dysfunction (Resolved) Patient is an 83-year-old lady with multiple comorbidities presented with progressive generalized weakness. She was found to have severe sepsis secondary to UTI as well as accelerated hypertension on admission. Admitted to a monitored bed for subsequent management 1. Severe sepsis secondary to acute cystitis patient has been admitted to monitored bed where she is currently being managed per protocol with aggressive IV fluid resuscitation, antibiotics after cultures have been sent and serial monitoring of lactic acid levels 2. Acute hypertensive crisis: Did continue patient home medications was also placed on hydralazine as needed for systolic blood pressure greater than 160 3. Chronic lower extremity ulcers patient has Collin wraps. Consult was placed to the wound care nurse 4. COPD currently not in exacerbation did continue home regimen 5. Obesity with BMI of 30.4 6. Bullous pemphigoid patient is apparently followed by Dr. Urbano Lira 7. Hypothyroidism-patient is on levothyroxine home dose continued 8. Gout currently not in exacerbation patient is on allopurinol next 9. DVT prophylaxis SC Lovenox Advance planning; did discuss with the patient and family regarding her advanced directives as well as CODE STATUS. Did explain the various modalities involved ( FULL CODE, DNR CCA, DNR CCA with no intubation, and DNR CC ) patient elected to be DNR CCA no intubation. Order was placed. Time spent on discussion 18 minutes. Clinical Impression(s) from Imaging Studies Chest X-Ray 04/09/18 11:24 IMPRESSION: Normal x-ray examination of the chest. Electronically Signed: Robert Patrick DO at 11:44 EDT Tel , Service support , Code Visit Inpatient E&M: 79080 Init Hosp L3 Procedures: 96368 Advncd Care Plan 30 Min
[2018-04-09] MEDS: 0.9% Normal Saline 1,000 ML 100 ML IV ×2 (15:30→22:20)
[2018-04-09 15:43] LABS: Reflex Lactate? Y
[2018-04-09] MEDS: Enoxaparin 40 MG/0.4 ML Syringe SC (17:07)
[2018-04-09] MEDS: Nystatin Powder 15gm Bottle 1 APPLIC TOPICAL ×2 (17:08→22:21)
[2018-04-09 17:09] LABS: Lactic Acid 2.1 mmol/L (0.4-2.0)
[2018-04-09] MEDS: Budesonide Respules 0.5 MG/2 ML AMPUL.NEB. INHALATION (19:35)
[2018-04-09] MEDS: Albuterol 2.5 MG/3 ML VIAL.NEB. INHALATION (19:35)
[2018-04-09] MEDS: Atorvastatin Calcium 20 MG Tablet PO (22:21)
[2018-04-09] MEDS: Allopurinol 100 MG Tablet PO (22:21)
[2018-04-10] VITALS (12 sets, daily range): BP systolic 129–156; BP diastolic 50–75; PULSE 64–83; RESP 14–16; TEMP 36.9–37.2; O2SAT 92–96
[2018-04-10] MEDS: 0.9% NaCl Peripheral Flush Adult/Peds IV (04:46)
[2018-04-10] MEDS: Ondansetron 4 MG/2 ML Vial IV (04:46)
[2018-04-10 06:19] LABS: Absolute Lymphocyte Count 1.87 X10^3/ul (0.83-4.51); Absolute Neutrophil Count 6.7 X10^3/uL (2.0-7.7); Basophil# 0.03 X10^3/uL; Basophil% 0.3 % (0-1); Eosinophil# 0.26 X10^3/uL; Eosinophils% 2.7 % (0-5); Hematocrit 39.4 % (37-47); Hemoglobin 13.4 g/dl (12.0-15.0); Lymphocyte # 1.87 X10^3/ul (4.0); Lymphocyte % 19.6 % (19-41); Mean Platelet Vol. 8.7 fl (6.2-12.0); Monocyte# 0.61 X10^3/uL; Monocyte% 6.4 % (0-10); Neutrophil # 6.74 X10^3/uL (2.7-7.7); Neutrophil % 70.6 % (47-70); Platelet Count 206 K/mm3 (150-450); RBC Distribution Width CV 13.7 % (11.6-14.6); RBC Distribution Width SD 47.3 fl (35.1-43.9); Red Blood Count 4.06 M/mm3 (4.2-5.4); White Blood Count 9.6 K/mm3 (4.4-11.0)
[2018-04-10 06:25] LABS: POSITIVE COUNT NO; POSITIVE DIFFERENTIAL NO; POSITIVE MORPHOLOGY NO
[2018-04-10] MEDS: Levothyroxine 75 MCG Tablet PO (06:35)
[2018-04-10] MEDS: 0.9% Normal Saline 1,000 ML 100 ML IV ×2 (06:35→17:11)
[2018-04-10 06:37] LABS: Anion Gap 7 (5-15); BUN 20 mg/dL (7-18); BUN/Creat Ratio 26.5 RATIO (10-20); Calcium,Total 8.2 mg/dL (8.5-10.1); Chloride 108 mmol/L (98-107); Creatinine, Serum 0.75 mg/dL (0.55-1.02); EST Glomerular Filtration Rate 78 mL/min (>60); Est Glom Filt Rate - Afr Amer 94 mL/min (>60); Glucose 127 mg/dL (74-106); Potassium 3.7 mmol/L (3.5-5.1); Sodium Level 138 mmol/L (136-145)
[2018-04-10] MEDS: Albuterol 2.5 MG/3 ML VIAL.NEB. INHALATION ×3 (06:46→19:12)
[2018-04-10] MEDS: Budesonide Respules 0.5 MG/2 ML AMPUL.NEB. INHALATION ×2 (06:46→19:12)
--- NOTE | 2018-04-10 08:42 | PCM.PN.HOSP ---
Patient Problems: Active and Suspected Problems Severe sepsis (Acute) Acute cystitis (Acute) Subjective: Patient is an 83-year-old lady with multiple comorbidities presented with progressive generalized weakness. She was found to have severe sepsis secondary to UTI as well as accelerated hypertension on admission. Admitted to a monitored bed for subsequent management 04/10/2018: Patient seen still complains of feeling weak. Cultures obtained on admission still pending. She was also found to have intertrigo under her breasts subsequently started on nystatin Objective: GENERAL: Patient appears ill looking HEENT: Atraumatic; moist oral mucosa EYES; Anicteric, Normal Conjunctiva NECK; supple, normal thyroid, no distended JVD. RESPIRATORY: Diminished to auscultation bilaterally, CARDIOVASCULAR: Regular S1 S2, no audible murmurs GI: soft, non-tender, normoactive bowel sounds, : No Renal angle tenderness; No blackmon EXTREMITIES: , no clubbing, no cyanosis. MUSCULOSKELETAL: No Joint Tenderness; no muscle waisting NEURO: Awake; no lateralizing signs. SKIN: Bullous rash on both thighs PSYCH; Normal affect Vitals/I&O's: Vital Signs Temp Pulse Resp BP Pulse Ox 98.5 F 70 16 129/54 H 94 04/10/18 02:20 04/10/18 07:23 04/10/18 06:46 04/10/18 02:20 04/10/18 06:46 Oxygen Delivery Method Room Air Weight: 80.8 kg Body Mass Index (BMI) 28.7 Intake and Output for Last 24 Hours 04/08/18 04/09/18 04/10/18 23:59 23:59 23:59 Intake Total 189 / 189 638 / 638 Balance 189 / 189 638 / 638 Laboratory Results 04/09/18 11:36: WBC 11.4 H, RBC 4.53, Hgb 15.0, Hct 44.1, MCV 97.4, MCH 33.1 H, MCHC 34.0, RDW 14.0, RDW Differential 50.2 H, Plt Count 213, MPV 8.9, Immature Gran % (Auto) 0.200, Neut % (Auto) 72.9 H, Lymph % (Auto) 17.3 L, [place] % (Auto) 6.5, Eos % (Auto) 3.0, Baso % (Auto) 0.1, Absolute Neuts (auto) 8.3 H, Absolute Lymphs (auto) 1.96, Total Counted Not Reportable 04/09/18 11:36: Sodium 139, Potassium 3.8, Chloride 103, Carbon Dioxide 27.0, Anion Gap 9, BUN 31 H, Creatinine 0.96, Estim Creat Clear Calc 41.57, Est GFR (MDRD) Af Amer 71, Est GFR (MDRD) Non-Af 59 L, BUN/Creatinine Ratio 32.2 H, Glucose 147 H, Calcium 8.8, Total Bilirubin 0.50, AST 26, ALT 51, Alkaline Phosphatase 100, Troponin I < 0.015, Total Protein 6.9, Albumin 2.7 L, Globulin 4.2, Albumin/Globulin Ratio 0.6 L 04/09/18 11:36: Lactic Acid 2.6 H 04/09/18 12:25: Urine Color Yellow, Urine Clarity Cloudy, Urine pH 8.0, Ur Specific [place] 1.015, Urine Protein 30 H, Urine Glucose (UA) Normal, Urine Ketones Negative, Urine Occult Blood 250 H, Urine Nitrite Negative, Urine Bilirubin Negative, Urine Urobilinogen Normal, Ur Leukocyte Esterase 500 H, Urine RBC 0-5 SEEN, Urine WBC 50-100 SEEN, Ur Squamous Epith Cells 0 SEEN, Calcium Oxalate Crystal 1+, Amorphous Sediment 3+, Urine Bacteria 0 SEEN, Urine Mucus 0 SEEN 04/09/18 16:15: Lactic Acid 2.1 H 04/10/18 05:53: Sodium 138, Potassium 3.7, Chloride 108 H, Carbon Dioxide 23.0, Anion Gap 7, BUN 20 H, Creatinine 0.75, Estim Creat Clear Calc 39.90, Est GFR (MDRD) Af Amer 94, Est GFR (MDRD) Non-Af 78, BUN/Creatinine Ratio 26.5 H, Glucose 127 H, Calcium 8.2 L 04/10/18 05:53: WBC 9.6, RBC 4.06 L, Hgb 13.4, Hct 39.4, MCV 97.0, MCH 33.0 H, MCHC 34.0, RDW 13.7, RDW Differential 47.3 H, Plt Count 206, MPV 8.7, Immature Gran % (Auto) 0.400, Neut % (Auto) 70.6 H, Lymph % (Auto) 19.6, [place] % (Auto) 6.4, Eos % (Auto) 2.7, Baso % (Auto) 0.3, Absolute Neuts (auto) 6.7, Absolute Lymphs (auto) 1.87, Total Counted Not Reportable Current Medications Acetaminophen (Tylenol) 650 mg PO Q6H PRN PRN PRN Reason: Mild Pain (scale 0-3)/T>100.7 Al Hydroxide/Mg Hydroxide (Mylanta Ii) 30 ml PO Q6H PRN PRN PRN Reason: Gastric Burning Albuterol Sulfate (Ventolin Aerosols) 2.5 mg INHALATION Q6HWA.RT [facility] Last Admin: 04/10/18 06:46 Dose: 2.5 mg Allopurinol (Zyloprim) 100 mg PO QHS [facility] Last Admin: 04/09/18 22:21 Dose: 100 mg Amlodipine Besylate (Norvasc) 10 mg PO DAILY [facility] Atorvastatin Calcium (Lipitor) 20 mg PO QHS [facility] Last Admin: 04/09/18 22:21 Dose: 20 mg Bisacodyl (Dulcolax) 10 mg PO DAILY PRN PRN PRN Reason: Constipation Budesonide (Pulmicort Aerosol) 0.5 mg INHALATION Q12H.RT [facility] Last Admin: 04/10/18 06:46 Dose: 0.5 mg Cholecalciferol (Vitamin D) 2,000 unit PO DAILY [facility] Docusate Sodium (Colace) 200 mg PO BID PRN PRN PRN Reason: Constipation Enoxaparin Sodium (Lovenox) 40 mg SC DAILY@1000 [facility] Last Admin: 04/09/18 17:07 Dose: 40 mg Sodium Chloride () 1,000 mls @ 100 mls/hr IV .Q10H [facility] Last Admin: 04/10/18 06:35 Dose: 100 mls/hr Ceftriaxone Sodium 2 gm/ (Sodium Chloride) 50 mls @ 100 mls/hr IV Q24 [facility] Influenza Virus Vaccine Quadrival (Fluarix/Fluzone) 0.5 ml IM .ONCE ONE Stop: 04/10/18 10:01 Levothyroxine Sodium (Synthroid) 75 mcg PO DAILY@0600 [facility] Last Admin: 04/10/18 06:35 Dose: 75 mcg Lisinopril (Zestril) 20 mg PO DAILY PRN PRN PRN Reason: htn Magnesium Hydroxide (Milk Of Magnesia) 30 ml PO DAILY PRN PRN Reason: Constipation Morphine Sulfate () 2 - 4 mg IV Q3H PRN PRN PRN Reason: Severe Pain (pain scale 6-10) Multivitamins (Multivitamin) 1 tablet PO DAILY [facility] Nutritional Formula (Lactose Free) (Ensure Enlive) 120 ml PO 4X/DAY [facility] Last Admin: 04/09/18 22:21 Dose: 120 ml Nystatin (Mycostatin Powder) 1 applic TOPICAL BID [facility]; Protocol Last Admin: 04/09/18 22:21 Dose: 1 applicatio Ondansetron HCl (Zofran) 4 mg IV Q8H PRN PRN PRN Reason: Nausea Last Admin: 04/10/18 04:46 Dose: 4 mg Oxycodone HCl (Oxyir) 5 mg PO Q4H PRN PRN PRN Reason: Moderate Pain (pain scale 4-5) Sodium Chloride () 5 - 30 ml IV UD PRN PRN Reason: SALINE FLUSH Last Admin: 04/10/18 04:46 Dose: 30 ml Medical Necessity - Tobacco Use Smoking Status: Former smoker Assessment/Plan All Active Problems Hypertensive urgency (Acute) Decreased dorsalis pedis pulse (Resolved) Severe sepsis (Acute) Acute cystitis (Acute) Acute dysphagia due to chicken piece (Resolved) Sinus node dysfunction (Resolved) Patient is an 83-year-old lady with multiple comorbidities presented with progressive generalized weakness. She was found to have severe sepsis secondary to UTI as well as accelerated hypertension on admission. Admitted to a monitored bed for subsequent management 1. Severe sepsis secondary to acute cystitis patient has been admitted to monitored bed where she is currently being managed per protocol with aggressive IV fluid resuscitation, antibiotics after cultures have been sent and serial monitoring of lactic acid levels 2. Acute hypertensive crisis: Did continue patient home medications continued and doses adjusted as needed. Patient blood pressure has since improved following her admission 3. Chronic lower extremity ulcers patient has Collin wraps. Consult was placed to the wound care nurse 4. COPD currently not in exacerbation did continue home regimen 5. Obesity with BMI of 30.4 6. Bullous pemphigoid patient is apparently followed by Dr. Urbano Lira 7. Hypothyroidism-patient is on levothyroxine home dose continued 8. Gout currently not in exacerbation patient is on allopurinol next 9. DVT prophylaxis SC Lovenox 10. Intertrigo patient is on nystatin Active Medications Acetaminophen (Tylenol) 650 mg PO Q6H PRN PRN PRN Reason: Mild Pain (scale 0-3)/T>100.7 Al Hydroxide/Mg Hydroxide (Mylanta Ii) 30 ml PO Q6H PRN PRN PRN Reason: Gastric Burning Albuterol Sulfate (Ventolin Aerosols) 2.5 mg INHALATION Q6HWA.RT [facility] Last Admin: 04/10/18 06:46 Dose: 2.5 mg Allopurinol (Zyloprim) 100 mg PO QHS [facility] Last Admin: 04/09/18 22:21 Dose: 100 mg Amlodipine Besylate (Norvasc) 10 mg PO DAILY [facility] Atorvastatin Calcium (Lipitor) 20 mg PO QHS [facility] Last Admin: 04/09/18 22:21 Dose: 20 mg Bisacodyl (Dulcolax) 10 mg PO DAILY PRN PRN PRN Reason: Constipation Budesonide (Pulmicort Aerosol) 0.5 mg INHALATION Q12H.RT [facility] Last Admin: 04/10/18 06:46 Dose: 0.5 mg Cholecalciferol (Vitamin D) 2,000 unit PO DAILY [facility] Docusate Sodium (Colace) 200 mg PO BID PRN PRN PRN Reason: Constipation Enoxaparin Sodium (Lovenox) 40 mg SC DAILY@1000 [facility] Last Admin: 04/09/18 17:07 Dose: 40 mg Sodium Chloride () 1,000 mls @ 100 mls/hr IV .Q10H [facility] Last Admin: 04/10/18 06:35 Dose: 100 mls/hr Ceftriaxone Sodium 2 gm/ (Sodium Chloride) 50 mls @ 100 mls/hr IV Q24 [facility] Influenza Virus Vaccine Quadrival (Fluarix/Fluzone) 0.5 ml IM .ONCE ONE Stop: 04/10/18 10:01 Levothyroxine Sodium (Synthroid) 75 mcg PO DAILY@0600 [facility] Last Admin: 04/10/18 06:35 Dose: 75 mcg Lisinopril (Zestril) 20 mg PO DAILY PRN PRN PRN Reason: htn Magnesium Hydroxide (Milk Of Magnesia) 30 ml PO DAILY PRN PRN Reason: Constipation Morphine Sulfate () 2 - 4 mg IV Q3H PRN PRN PRN Reason: Severe Pain (pain scale 6-10) Multivitamins (Multivitamin) 1 tablet PO DAILY [facility] Nutritional Formula (Lactose Free) (Ensure Enlive) 120 ml PO 4X/DAY [facility] Last Admin: 04/09/18 22:21 Dose: 120 ml Nystatin (Mycostatin Powder) 1 applic TOPICAL BID [facility]; Protocol Last Admin: 04/09/18 22:21 Dose: 1 applicatio Ondansetron HCl (Zofran) 4 mg IV Q8H PRN PRN PRN Reason: Nausea Last Admin: 04/10/18 04:46 Dose: 4 mg Oxycodone HCl (Oxyir) 5 mg PO Q4H PRN PRN PRN Reason: Moderate Pain (pain scale 4-5) Sodium Chloride () 5 - 30 ml IV UD PRN PRN Reason: SALINE FLUSH Last Admin: 04/10/18 04:46 Dose: 30 ml Code Visit Inpatient E&M: [id number] Subs Hosp L3
--- NOTE | 2018-04-10 08:52 | PN_ITS ---
Patient Problems: Active and Suspected Problems Severe sepsis (Acute) Acute cystitis (Acute) Subjective: Patient is an 83-year-old lady with multiple comorbidities presented with progressive generalized weakness. She was found to have severe sepsis secondary to UTI as well as accelerated hypertension on admission. Admitted to a monitored bed for subsequent management 04/10/2018: Patient seen still complains of feeling weak. Cultures obtained on admission still pending. She was also found to have intertrigo under her breas ts subsequently started on nystatin Objective: GENERAL: Patient appears ill looking HEENT: Atraumatic; moist oral mucosa EYES; Anicteric, Normal Conjunctiva NECK; supple, normal thyroid, no distended JVD. RESPIRATORY: Diminished to auscultation bilaterally, CARDIOVASCULAR: Regular S1 S2, no audible murmurs GI: soft, non-tender, normoactive bowel sounds, : No Renal angle tenderness; No blackmon EXTREMITIES: , no clubbing, no cyanosis. MUSCULOSKELETAL: No Joint Tenderness; no muscle waisting NEURO: Awake; no lateralizing signs. SKIN: Bullous rash on both thighs PSYCH; Normal affect Vitals/I&O's: Vital Signs Temp Pulse Resp BP Pulse Ox 98.5 F 70 16 129/54 H 94 04/10/18 02:20 04/10/18 07:23 04/10/18 06:46 04/10/18 02:20 04/10/18 06:46 Oxygen Delivery Method Room Air Weight: 80.8 kg Body Mass Index (BMI) 28.7 Intake and Output for Last 24 Hours 04/08/18 04/09/18 04/10/18 23:59 23:59 23:59 Intake Total 1899 / 1899 638 / 638 Balance 189 / 189 638 / 638 Laboratory Results 04/09/18 11:36: WBC 11.4 H, RBC 4.53, Hgb 15.0, Hct 44.1, MCV 97.4, MCH 33.1 H, MCHC 34.0, RDW 14.0, RDW Differential 50.2 H, Plt Count 213, MPV 8.9, Immature Gran % (Auto) 0.200, Neut % (Auto) 72.9 H, Lymph % (Auto) 17.3 L, [place] % (Auto) 6.5, Eos % (Auto) 3.0, Baso % (Auto) 0.1, Absolute Neuts (auto) 8.3 H, Absolute Lymphs (auto) 1.96, Total Counted Not Reportable 04/09/18 11:36: Sodium 139, Potassium 3.8, Chloride 103, Carbon Dioxide 27.0, Anion Gap 9, BUN 31 H, Creatinine 0.96, Estim Creat Clear Calc 41.57, Est GFR (MDRD) Af Amer 71, Est GFR (MDRD) Non-Af 59 L, BUN/Creatinine Ratio 32.2 H, Glucose 147 H, Calcium 8.8, Total Bilirubin 0.50, AST 26, ALT 51, Alkaline Phosphatase 100, Troponin I < 0.015, Total Protein 6.9, Albumin 2.7 L, Globulin 4.2, Albumin/Globulin Ratio 0.6 L 04/09/18 11:36: Lactic Acid 2.6 H 04/09/18 12:25: Urine Color Yellow, Urine Clarity Cloudy, Urine pH 8.0, Ur Specific Catlin 1.015, Urine Protein 30 H, Urine Glucose (UA) Normal, Urine Ketones Negative, Urine Occult Blood 250 H, Urine Nitrite Negative, Urine Bilirubin Negative, Urine Urobilinogen Normal, Ur Leukocyte Esterase 500 H, Urine RBC 0-5 SEEN, Urine WBC 50-100 SEEN, Ur Squamous Epith Cells 0 SEEN, Calcium Oxalate Crystal 1+, Amorphous Sediment 3+, Urine Bacteria 0 SEEN, Urine Mucus 0 SEEN 04/09/18 16:15: Lactic Acid 2.1 H 04/10/18 05:53: Sodium 138, Potassium 3.7, Chloride 108 H, Carbon Dioxide 23.0, Anion Gap 7, BUN 20 H, Creatinine 0.75, Estim Creat Clear Calc 39.90, Est GFR (MDRD) Af Amer 94, Est GFR (MDRD) Non-Af 78, BUN/Creatinine Ratio 26.5 H, Glucose 127 H, Calcium 8.2 L 04/10/18 05:53: WBC 9.6, RBC 4.06 L, Hgb 13.4, Hct 39.4, MCV 97.0, MCH 33.0 H, MCHC 34.0, RDW 13.7, RDW Differential 47.3 H, Plt Count 206, MPV 8.7, Immature Gran % (Auto) 0.400, Neut % (Auto) 70.6 H, Lymph % (Auto) 19.6, [place] % (Auto) 6.4, Eos % (Auto) 2.7, Baso % (Auto) 0.3, Absolute Neuts (auto) 6.7, Absolute Lymphs (auto) 1.87, Total Counted Not Reportable Current Medications Acetaminophen (Tylenol) 650 mg PO Q6H PRN PRN PRN Reason: Mild Pain (scale 0-3)/T>100.7 Al Hydroxide/Mg Hydroxide (Mylanta Ii) 30 ml PO Q6H PRN PRN PRN Reason: Gastric Burning Albuterol Sulfate (Ventolin Aerosols) 2.5 mg INHALATION Q6HWA.RT [facility] Last Admin: 04/10/18 06:46 Dose: 2.5 mg Allopurinol (Zyloprim) 100 mg PO QHS [facility] Last Admin: 04/09/18 22:21 Dose: 100 mg Amlodipine Besylate (Norvasc) 10 mg PO DAILY [facility] Atorvastatin Calcium (Lipitor) 20 mg PO QHS [facility] Last Admin: 04/09/18 22:21 Dose: 20 mg Bisacodyl (Dulcolax) 10 mg PO DAILY PRN PRN PRN Reason: Constipation Budesonide (Pulmicort Aerosol) 0.5 mg INHALATION Q12H.RT [facility] Last Admin: 04/10/18 06:46 Dose: 0.5 mg Cholecalciferol (Vitamin D) 2,000 unit PO DAILY [facility] Docusate Sodium (Colace) 200 mg PO BID PRN PRN PRN Reason: Constipation Enoxaparin Sodium (Lovenox) 40 mg SC DAILY@1000 [facility] Last Admin: 04/09/18 17:07 Dose: 40 mg Sodium Chloride () 1,000 mls @ 100 mls/hr IV .Q10H [facility] Last Admin: 04/10/18 06:35 Dose: 100 mls/hr Ceftriaxone Sodium 2 gm/ (Sodium Chloride) 50 mls @ 100 mls/hr IV Q24 [facility] Influenza Virus Vaccine Quadrival (Fluarix/Fluzone) 0.5 ml IM .ONCE ONE Stop: 04/10/18 10:01 Levothyroxine Sodium (Synthroid) 75 mcg PO DAILY@0600 [facility] Last Admin: 04/10/18 06:35 Dose: 75 mcg Lisinopril (Zestril) 20 mg PO DAILY PRN PRN PRN Reason: htn Magnesium Hydroxide (Milk Of Magnesia) 30 ml PO DAILY PRN PRN Reason: Constipation Morphine Sulfate () 2 - 4 mg IV Q3H PRN PRN PRN Reason: Severe Pain (pain scale 6-10) Multivitamins (Multivitamin) 1 tablet PO DAILY [facility] Nutritional Formula (Lactose Free) (Ensure Enlive) 120 ml PO 4X/DAY [facility] Last Admin: 04/09/18 22:21 Dose: 120 ml Nystatin (Mycostatin Powder) 1 applic TOPICAL BID [facility]; Protocol Last Admin: 04/09/18 22:21 Dose: 1 applicatio Ondansetron HCl (Zofran) 4 mg IV Q8H PRN PRN PRN Reason: Nausea Last Admin: 04/10/18 04:46 Dose: 4 mg Oxycodone HCl (Oxyir) 5 mg PO Q4H PRN PRN PRN Reason: Moderate Pain (pain scale 4-5) Sodium Chloride () 5 - 30 ml IV UD PRN PRN Reason: SALINE FLUSH Last Admin: 04/10/18 04:46 Dose: 30 ml Medical Necessity - Tobacco Use Smoking Status: Former smoker Assessment/Plan All Active Problems Hypertensive urgency (Acute) Decreased dorsalis pedis pulse (Resolved) Severe sepsis (Acute) Acute cystitis (Acute) Acute dysphagia due to chicken piece (Resolved) Sinus node dysfunction (Resolved) Patient is an 83-year-old lady with multiple comorbidities presented with progressive generalized weakness. She was found to have severe sepsis secondary to UTI as well as accelerated hypertension on admission. Admitted to a monitored bed for subsequent management 1. Severe sepsis secondary to acute cystitis patient has been admitted to monitored bed where she is currently being managed per protocol with aggressive IV fluid resuscitation, antibiotics after cultures have been sent and serial monitoring of lactic acid levels 2. Acute hypertensive crisis: Did continue patient home medications continued and doses adjusted as needed. Patient blood pressure has since improved following her admission 3. Chronic lower extremity ulcers patient has Collin wraps. Consult was placed to the wound care nurse 4. COPD currently not in exacerbation did continue home regimen 5. Obesity with BMI of 30.4 6. Bullous pemphigoid patient is apparently followed by Dr. Urbano Lira 7. Hypothyroidism-patient is on levothyroxine home dose continued 8. Gout currently not in exacerbation patient is on allopurinol next 9. DVT prophylaxis SC Lovenox 10. Intertrigo patient is on nystatin Active Medications Acetaminophen (Tylenol) 650 mg PO Q6H PRN PRN PRN Reason: Mild Pain (scale 0-3)/T>100.7 Al Hydroxide/Mg Hydroxide (Mylanta Ii) 30 ml PO Q6H PRN PRN PRN Reason: Gastric Burning Albuterol Sulfate (Ventolin Aerosols) 2.5 mg INHALATION Q6HWA.RT [facility] Last Admin: 04/10/18 06:46 Dose: 2.5 mg Allopurinol (Zyloprim) 100 mg PO QHS [facility] Last Admin: 04/09/18 22:21 Dose: 100 mg Amlodipine Besylate (Norvasc) 10 mg PO DAILY [facility] Atorvastatin Calcium (Lipitor) 20 mg PO QHS [facility] Last Admin: 04/09/18 22:21 Dose: 20 mg Bisacodyl (Dulcolax) 10 mg PO DAILY PRN PRN PRN Reason: Constipation Budesonide (Pulmicort Aerosol) 0.5 mg INHALATION Q12H.RT [facility] Last Admin: 04/10/18 06:46 Dose: 0.5 mg Cholecalciferol (Vitamin D) 2,000 unit PO DAILY [facility] Docusate Sodium (Colace) 200 mg PO BID PRN PRN PRN Reason: Constipation Enoxaparin Sodium (Lovenox) 40 mg SC DAILY@1000 [facility] Last Admin: 04/09/18 17:07 Dose: 40 mg Sodium Chloride () 1,000 mls @ 100 mls/hr IV .Q10H [facility] Last Admin: 04/10/18 06:35 Dose: 100 mls/hr Ceftriaxone Sodium 2 gm/ (Sodium Chloride) 50 mls @ 100 mls/hr IV Q24 [facility] Influenza Virus Vaccine Quadrival (Fluarix/Fluzone) 0.5 ml IM .ONCE ONE Stop: 04/10/18 10:01 Levothyroxine Sodium (Synthroid) 75 mcg PO DAILY@0600 [facility] Last Admin: 04/10/18 06:35 Dose: 75 mcg Lisinopril (Zestril) 20 mg PO DAILY PRN PRN PRN Reason: htn Magnesium Hydroxide (Milk Of Magnesia) 30 ml PO DAILY PRN PRN Reason: Constipation Morphine Sulfate () 2 - 4 mg IV Q3H PRN PRN PRN Reason: Severe Pain (pain scale 6-10) Multivitamins (Multivitamin) 1 tablet PO DAILY [facility] Nutritional Formula (Lactose Free) (Ensure Enlive) 120 ml PO 4X/DAY [facility] Last Admin: 04/09/18 22:21 Dose: 120 ml Nystatin (Mycostatin Powder) 1 applic TOPICAL BID [facility]; Protocol Last Admin: 04/09/18 22:21 Dose: 1 applicatio Ondansetron HCl (Zofran) 4 mg IV Q8H PRN PRN PRN Reason: Nausea Last Admin: 04/10/18 04:46 Dose: 4 mg Oxycodone HCl (Oxyir) 5 mg PO Q4H PRN PRN PRN Reason: Moderate Pain (pain scale 4-5) Sodium Chloride () 5 - 30 ml IV UD PRN PRN Reason: SALINE FLUSH Last Admin: 04/10/18 04:46 Dose: 30 ml Code Visit Inpatient E&M: 48105 Subs Hosp L3
[2018-04-10] MEDS: Enoxaparin 40 MG/0.4 ML Syringe SC (09:21)
[2018-04-10] MEDS: amLODIPine 10 MG Tablet PO (09:22)
[2018-04-10] MEDS: Nystatin Powder 15gm Bottle 1 APPLIC TOPICAL ×2 (09:22→20:54)
[2018-04-10] MEDS: Multivitamins,Therapeutic Tablet 1 TABLET PO (09:22)
--- NOTE | 2018-04-10 16:11 | CM.UR ---
Met face to face with patient and her son Javier. She has son christiano who lives with her, Son javier and Javier's girlfriend who helps care for this patient at home. She has been declining. Spoke with the patient and javier for awhile about her needs. She has 100 steps to the bathroom and this wipes her out and she gets lightheaded. She is hesitant but is considering SNF placement for skilled therapies with goal of returning home. Will alert SW. to contact during the day: Michael Ford: [phone] [facility] [phone] Ivory Moore RN, CCM.
[2018-04-10] MEDS: Allopurinol 100 MG Tablet PO (20:53)
[2018-04-10] MEDS: Atorvastatin Calcium 20 MG Tablet PO (20:54)
[2018-04-11] VITALS (17 sets, daily range): BP systolic 95–184; BP diastolic 45–86; PULSE 62–76; RESP 13–18; TEMP 36.7–37.1; O2SAT 92–95
[2018-04-11] MEDS: 0.9% Normal Saline 1,000 ML 100 ML IV ×2 (03:21→13:37)
[2018-04-11] MEDS: Levothyroxine 75 MCG Tablet PO (05:46)
[2018-04-11 06:55] LABS: Absolute Neutrophil Count 5.7 X10^3/uL (2.0-7.7); Basophil# 0.02 X10^3/uL; Basophil% 0.2 % (0-1); Eosinophil# 0.32 X10^3/uL; Eosinophils% 3.9 % (0-5); Hematocrit 37.3 % (37-47); Hemoglobin 12.7 g/dl (12.0-15.0); Lymphocyte % 18.5 % (19-41); Mean Corpuscular Hgb 33.5 pg (27.0-32.0); Mean Corpuscular Volume 98.4 fL (81-99); Mean Platelet Vol. 9.2 fl (6.2-12.0); Monocyte# 0.54 X10^3/uL; Monocyte% 6.7 % (0-10); Neutrophil # 5.71 X10^3/uL (2.7-7.7); Neutrophil % 70.3 % (47-70); Platelet Count 191 K/mm3 (150-450); RBC Distribution Width CV 13.8 % (11.6-14.6); RBC Distribution Width SD 48.2 fl (35.1-43.9); Red Blood Count 3.79 M/mm3 (4.2-5.4); White Blood Count 8.1 K/mm3 (4.4-11.0)
[2018-04-11 06:59] LABS: Anion Gap 9 (5-15); BUN 20 mg/dL (7-18); BUN/Creat Ratio 30.3 RATIO (10-20); Calcium,Total 8.6 mg/dL (8.5-10.1); Chloride 107 mmol/L (98-107); Creatinine, Serum 0.66 mg/dL (0.55-1.02); EST Glomerular Filtration Rate 91 mL/min (>60); Est Glom Filt Rate - Afr Amer 110 mL/min (>60); Glucose 112 mg/dL (74-106); Potassium 4.2 mmol/L (3.5-5.1); Sodium Level 140 mmol/L (136-145)
[2018-04-11 07:03] LABS: POSITIVE COUNT NO; POSITIVE DIFFERENTIAL NO; POSITIVE MORPHOLOGY NO
[2018-04-11] MEDS: Albuterol 2.5 MG/3 ML VIAL.NEB. INHALATION ×3 (07:07→19:44)
[2018-04-11] MEDS: Budesonide Respules 0.5 MG/2 ML AMPUL.NEB. INHALATION ×2 (07:08→19:44)
[2018-04-11] MEDS: amLODIPine 10 MG Tablet PO (09:40)
[2018-04-11] MEDS: Nystatin Powder 15gm Bottle 1 APPLIC TOPICAL ×2 (09:40→22:10)
[2018-04-11] MEDS: Multivitamins,Therapeutic Tablet 1 TABLET PO (09:40)
[2018-04-11] MEDS: Enoxaparin 40 MG/0.4 ML Syringe SC (09:44)
--- NOTE | 2018-04-11 11:02 | PN_ITS ---
Patient Problems: Active and Suspected Problems Severe sepsis (Acute) Acute cystitis (Acute) Subjective: Patient was seen and examined. Wants to go home. Denies any headache or dizziness. Vitals reviewed, blood pressures have been uncontrolled Vitals/I&O's: Vital Signs Temp Pulse Resp BP Pulse Ox 98.3 F 68 16 158/70 H 95 04/11/18 08:50 04/11/18 08:50 04/11/18 08:50 04/11/18 08:50 04/11/18 08:50 Oxygen Delivery Method Room Air Weight: 80.8 kg Body Mass Index (BMI) 28.7 Intake and Output for Last 24 Hours 04/09/18 04/10/18 04/11/18 23:59 23:59 23:59 Intake Total 1898 1485 / 1485 Output Total 100 / 100 Balance 1898 1385 / 1385 General: Alert, Oriented x3, Cooperative, - - Appears weak HEENT: Atraumatic, PERRLA, EOMI, Normocephalic Oral: Moist Mucosa Neck: Supple, No JVD, Negative Carotid Bruits Lungs: Clear to auscultation, Normal air movement, Diminished - The lung bases Cardiovascular: Regular rate, Regular Rhythm, Normal S1, Normal S2, No murmurs Abdomen: Bowel Sounds Present, Soft, Non Tender, Non-Distended, No Hepato- splenomegaly Extremities: No edema, Capillary Refill Less than 3 Seconds Skin: No rashes Musculoskeletal: No Tenderness to Palpation of Joints or Extremities Lymphatic: No Cervical, Supraclavicular, or Inguinal Adenopathy Neurological: Cranial nerves II-XII grossly intact, - - Weakness of the lower extremities, 4/5 in power Psych/Mental Status: Normal Affect, Appropriate Microbiology Past 72 Hours 04/09/18 12:25 Urine, Clean Catch Urine Culture - Final Proteus mirabilis 04/09/18 13:45 Blood Culture (Wb) - Right Hand Bacteria Detection (PCR) - Preliminary Staphylococcus aureus 04/09/18 13:45 Blood Culture (Wb) - Right Hand Blood Culture - Preliminary Laboratory Results 04/11/18 05:50: Sodium 140, Potassium 4.2, Chloride 107, Carbon Dioxide 24.0, Anion Gap 9, BUN 20 H, Creatinine 0.66, Estim Creat Clear Calc 39.90, Est GFR (MDRD) Af Amer 110, Est GFR (MDRD) Non-Af 91, BUN/Creatinine Ratio 30.3 H, Glucose 112 H, Calcium 8.6 04/11/18 05:50: WBC 8.1, RBC 3.79 L, Hgb 12.7, Hct 37.3, MCV 98.4, MCH 33.5 H, MCHC 34.0, RDW 13.8, RDW Differential 48.2 H, Plt Count 191, MPV 9.2, Immature Gran % (Auto) 0.400, Neut % (Auto) 70.3 H, Lymph % (Auto) 18.5 L, [place] % (Auto) 6.7, Eos % (Auto) 3.9, Baso % (Auto) 0.2, Absolute Neuts (auto) 5.7, Absolute Lymphs (auto) 1.50, Total Counted Not Reportable Current Medications Acetaminophen (Tylenol) 650 mg PO Q6H PRN PRN PRN Reason: Mild Pain (scale 0-3)/T>100.7 Al Hydroxide/Mg Hydroxide (Mylanta Ii) 30 ml PO Q6H PRN PRN PRN Reason: Gastric Burning Albuterol Sulfate (Ventolin Aerosols) 2.5 mg INHALATION Q6HWA.RT [facility] Last Admin: 04/11/18 07:07 Dose: 2.5 mg Allopurinol (Zyloprim) 100 mg PO QHS [facility] Last Admin: 04/10/18 20:53 Dose: 100 mg Amlodipine Besylate (Norvasc) 10 mg PO DAILY [facility] Last Admin: 04/11/18 09:40 Dose: 10 mg Atorvastatin Calcium (Lipitor) 20 mg PO QHS [facility] Last Admin: 04/10/18 20:54 Dose: 20 mg Bisacodyl (Dulcolax) 10 mg PO DAILY PRN PRN PRN Reason: Constipation Budesonide (Pulmicort Aerosol) 0.5 mg INHALATION Q12H.RT [facility] Last Admin: 04/11/18 07:08 Dose: 0.5 mg Cholecalciferol (Vitamin D) 2,000 unit PO DAILY [facility] Last Admin: 04/11/18 09:40 Dose: 2,000 unit Docusate Sodium (Colace) 200 mg PO BID PRN PRN PRN Reason: Constipation Enoxaparin Sodium (Lovenox) 40 mg SC DAILY@1000 [facility] Last Admin: 04/11/18 09:44 Dose: 40 mg Sodium Chloride () 1,000 mls @ 100 mls/hr IV .Q10H [facility] Last Admin: 04/11/18 03:21 Dose: 100 mls/hr Ceftriaxone Sodium 2 gm/ (Dextrose) 50 mls @ 100 mls/hr IV Q24 [facility] Last Admin: 04/11/18 09:40 Dose: 100 mls/hr Levothyroxine Sodium (Synthroid) 75 mcg PO DAILY@0600 [facility] Last Admin: 04/11/18 05:46 Dose: 75 mcg Lisinopril (Zestril) 20 mg PO DAILY PRN PRN PRN Reason: htn Magnesium Hydroxide (Milk Of Magnesia) 30 ml PO DAILY PRN PRN Reason: Constipation Morphine Sulfate () 2 - 4 mg IV Q3H PRN PRN PRN Reason: Severe Pain (pain scale 6-10) Multivitamins (Multivitamin) 1 tablet PO DAILY [facility] Last Admin: 04/11/18 09:40 Dose: 1 tablet Nutritional Formula (Lactose Free) (Ensure Enlive) 120 ml PO 4X/DAY [facility] Last Admin: 04/11/18 09:44 Dose: 120 ml Nystatin (Mycostatin Powder) 1 applic TOPICAL BID [facility]; Protocol Last Admin: 04/11/18 09:40 Dose: 1 applicatio Ondansetron HCl (Zofran) 4 mg IV Q8H PRN PRN PRN Reason: Nausea Last Admin: 04/10/18 04:46 Dose: 4 mg Oxycodone HCl (Oxyir) 5 mg PO Q4H PRN PRN PRN Reason: Moderate Pain (pain scale 4-5) Sodium Chloride () 5 - 30 ml IV UD PRN PRN Reason: SALINE FLUSH Last Admin: 04/10/18 04:46 Dose: 30 ml Medical Necessity - Tobacco Use Smoking Status: Former smoker Assessment/Plan All Active Problems Hypertensive urgency (Acute) Decreased dorsalis pedis pulse (Resolved) Severe sepsis (Acute) Acute cystitis (Acute) Acute dysphagia due to chicken piece (Resolved) Sinus node dysfunction (Resolved) 83-year-old female with multiple comorbidities admitted with progressive generalized weakness. She is being managed as severe sepsis secondary to UTI as well as accelerated hypertension which has been present since admission. 1. Severe sepsis secondary to acute Proteus UTI, pansensitive, remains on IV ceftriaxone(day3), vitals are stable, no leukocytosis, will continue for 1 week total antibiotics. Will switch tomorrow to oral antibiotics. 2. Accelerated hypertension, blood pressure continues to be elevated, on amlodipine 10 mg as well as lisinopril 20 mg, will add hydralazine as needed, start patient on metoprolol XL 12.5 mg daily, will continue to monitor 3. Chronic lower extremity ulcers, bullous pemphigoid, followed by Dr. Urbano Lira, wound nurse consulted, will continue with topical care, Collin wraps. 4. COPD, stable, not in acute exacerbation. 5. Obesity, BMI of 30.4 6. Hypothyroidism, on levothyroxine 7. Gout, stable, on allopurinol 8. Candidal intertrigo, started on nystatin 9. DVT prophylaxis- SC Lovenox Code Visit Inpatient E&M: 11604 Subs Hosp L2
[2018-04-11] MEDS: hydrALAZINE 20 MG/ML Vial 5 MG IV (13:32)
[2018-04-11] MEDS: 0.9% NaCl Peripheral Flush Adult/Peds IV (13:35)
--- NOTE | 2018-04-11 14:13 | CASEMGMT ---
SW spoke with patient and she said she is not going to a assisted and prefers to go home. She said she has home health and she would like to resume this at d/c. Plan: Home with resumption of home health services. Kathy MINER MSW
--- NOTE | 2018-04-11 14:55 | CASEMGMT ---
SAMMY spoke with patient and her son per his request. Patient's son, Logan said he is home with patient to help her with her needs. He said his brother and his girlfriend help care for patient on the weekends. SAMMY told them that therapy is recommending she go to a residential facility short term for rehab. He said he was told that, but he knows patient won't agree. SAMMY again told patient this would be short term for rehab and she shook her head no. SAMMY told them we will make sure home health is resumed. We can add therapy if it is not already ordered and we can also add Social Work as per patient's son she is depressed. SAMMY let RN CM know to add Social Work to home health order and PT if not already added. Plan: d/c home with resumption of home health. Kathy MINER MSW
[2018-04-11] MEDS: Acetaminophen 325 MG Tablet 650 MG PO (15:09)
--- NOTE | 2018-04-11 15:48 | NURSING ---
wound photo: bilateral lower legs
--- NOTE | 2018-04-11 15:49 | NURSING ---
wound photo: right anterolateral lower leg
[2018-04-11] MEDS: Atorvastatin Calcium 20 MG Tablet PO (22:10)
[2018-04-11] MEDS: Allopurinol 100 MG Tablet PO (22:10)
[2018-04-12] VITALS (11 sets, daily range): BP systolic 122–155; BP diastolic 46–84; PULSE 64–70; RESP 16–17; TEMP 36.7–37.1; O2SAT 94–96
[2018-04-12] MEDS: Levothyroxine 75 MCG Tablet PO (05:43)
[2018-04-12] MEDS: Budesonide Respules 0.5 MG/2 ML AMPUL.NEB. INHALATION (06:39)
[2018-04-12] MEDS: Albuterol 2.5 MG/3 ML VIAL.NEB. INHALATION ×2 (06:39→12:45)
[2018-04-12] MEDS: Nystatin Powder 15gm Bottle 1 APPLIC TOPICAL (09:20)
[2018-04-12] MEDS: Metoprolol(XL)Succ 25 MG Tablet 12.5 MG PO (09:21)
[2018-04-12] MEDS: Multivitamins,Therapeutic Tablet 1 TABLET PO (09:21)
[2018-04-12] MEDS: amLODIPine 10 MG Tablet PO (09:22)
[2018-04-12] MEDS: Enoxaparin 40 MG/0.4 ML Syringe SC (09:23)
[2018-04-12] MEDS: 0.9% NaCl Peripheral Flush Adult/Peds IV (09:24)
--- NOTE | 2018-04-12 10:45 | ECHOCS_ITS ---
Reason For Study: Murmur Procedure This was a 2D Doppler, Color Flow transthoracic echocardiogram. The study was technically difficult. Exam performed portable in patient room. Left Ventricle Normal LV size. Mild concentric left ventricular hypertrophy. Left ventricular systolic function is normal. The estimated ejection fraction is 65 %. Septal bounce. Diastolic function is indeterminate. No regional wall motion abnormalities noted. Right Ventricle Normal RV size. Normal systolic function. Atria Normal left atrium. Normal right atrium. No doppler evidence for ASD. Mitral Valve There is no mitral annular calcification. Normal mitral valve. Trivial mitral valve insufficiency. Tricuspid Valve Normal tricuspid valve. Trivial tricuspid valve insufficiency. Right ventricular systolic pressure estimated to be 38 mmHg. Aortic Valve Trisinus/trileaflet aortic valve. Normal aortic valve. Pulmonic Valve The pulmonic valve is not well visualized. Trivial pulmonic valve insufficiency. Great Vessels Normal sized aortic root. Pericardium/Pleural No pericardial effusion. MMode/2D Measurements & Calculations LVIDd: 3.4 cm IVSd: 1.4 cm Ao root diam: 2.8 cm LVIDs: 2.4 cm LVPWd: 1.4 cm LA dimension: 2.8 cm RVDd: 3.7 cm FS: 31.2 % LAV(MOD-bp): 46.4 ml LA A4 area: 18.6 cm2 RA A4 area: 15.8 cm2 LAV(MOD-bp) Indexed: 24.4 ml/m2 LAV(MOD-sp2): 34.5 ml LAV(MOD-sp4): 51.4 ml Doppler Measurements & Calculations MV E max nahum: 59.3 cm/sec Lat Peak E' Nahum: 6.1 cm/sec Med Peak E' Nahum: 5.7 cm/sec MV A max nahum: 94.4 cm/sec E/E' lat: 9.8 E/E' med: 10.4 MV E/A: 0.63 Ao V2 max: 148.7 cm/sec LV V1 max: 103.1 cm/sec PA V2 max: 135.9 cm/sec Ao max P.8 mmHg LV V1 max P.2 mmHg TR max nahum: 293.4 cm/sec TR max P.6 mmHg Interpretation Summary The study was technically difficult. Left ventricular systolic function is normal. The estimated ejection fraction is 65 %. Septal bounce. Mild concentric left ventricular hypertrophy. Trivial mitral valve insufficiency. Trivial tricuspid valve insufficiency. Trivial pulmonic valve insufficiency. Right ventricular systolic pressure estimated to be 38 mmHg. Diastolic function is indeterminate. Ordering Physician: Milton Lea Referring Physician: ADRIANA Keller M.D. Performed By: Jina Nichols RDCS
--- NOTE | 2018-04-12 10:54 | PN_ITS ---
Subjective: Patient was seen and examined. No acute events overnight. Eager to be discharged. Denies any chest pain or dizziness. More alert today. Objective: General: Alert, Oriented x3, Cooperative, - - Appears weak HEENT: Atraumatic, PERRLA, EOMI, Normocephalic Oral: Moist Mucosa Neck: Supple, No JVD, Negative Carotid Bruits Lungs: Clear to auscultation, Normal air movement, Diminished - The lung bases Cardiovascular: Regular rate, Regular Rhythm, Normal S1, Normal S2, No murmurs Abdomen: Bowel Sounds Present, Soft, Non Tender, Non-Distended, No Hepato- splenomegaly Extremities: No edema, Capillary Refill Less than 3 Seconds Skin: No rashes Musculoskeletal: No Tenderness to Palpation of Joints or Extremities Lymphatic: No Cervical, Supraclavicular, or Inguinal Adenopathy Neurological: Cranial nerves II-XII grossly intact, - - Weakness of the lower extremities, 4/5 in power Psych/Mental Status: Normal Affect, Appropriate Vitals/I&O's: Vital Signs Temp Pulse Resp BP Pulse Ox 98.3 F 68 17 122/46 H 94 04/12/18 09:18 04/12/18 09:21 04/12/18 09:18 04/12/18 09:18 04/12/18 09:18 Oxygen Delivery Method Room Air Weight: 80.8 kg Body Mass Index (BMI) 28.7 Intake and Output for Last 24 Hours 04/10/18 04/11/18 04/12/18 23:59 23:59 23:59 Intake Total 2095 3584 / 3584 50 / 50 Output Total 100 / 100 Balance 2095 3484 / 3484 50 / 50 Microbiology Past 72 Hours 04/09/18 13:45 Blood Culture (Wb) - Right Hand Bacteria Detection (PCR) - Final Staphylococcus aureus 04/09/18 13:45 Blood Culture (Wb) - Right Hand Blood Culture - Preliminary Staphylococcus aureus 04/09/18 13:45 Blood Culture (Wb) - Anticubital Right Blood Culture - Preliminary No growth in 48 hours. 04/09/18 12:25 Urine, Clean Catch Urine Culture - Final Proteus mirabilis Current Medications Acetaminophen (Tylenol) 650 mg PO Q6H PRN PRN PRN Reason: Mild Pain (scale 0-3)/T>100.7 Last Admin: 04/11/18 15:09 Dose: 650 mg Al Hydroxide/Mg Hydroxide (Mylanta Ii) 30 ml PO Q6H PRN PRN PRN Reason: Gastric Burning Albuterol Sulfate (Ventolin Aerosols) 2.5 mg INHALATION Q6HWA.RT [facility] Last Admin: 04/12/18 06:39 Dose: 2.5 mg Allopurinol (Zyloprim) 100 mg PO QHS [facility] Last Admin: 04/11/18 22:10 Dose: 100 mg Amlodipine Besylate (Norvasc) 10 mg PO DAILY [facility] Last Admin: 04/12/18 09:22 Dose: 10 mg Atorvastatin Calcium (Lipitor) 20 mg PO QHS [facility] Last Admin: 04/11/18 22:10 Dose: 20 mg Bisacodyl (Dulcolax) 10 mg PO DAILY PRN PRN PRN Reason: Constipation Budesonide (Pulmicort Aerosol) 0.5 mg INHALATION Q12H.RT [facility] Last Admin: 04/12/18 06:39 Dose: 0.5 mg Cholecalciferol (Vitamin D) 2,000 unit PO DAILY [facility] Last Admin: 04/12/18 09:22 Dose: 2,000 unit Docusate Sodium (Colace) 200 mg PO BID PRN PRN PRN Reason: Constipation Enoxaparin Sodium (Lovenox) 40 mg SC DAILY@1000 [facility] Last Admin: 04/12/18 09:23 Dose: 40 mg Hydralazine HCl (Apresoline Iv) 5 mg IV Q6H PRN PRN PRN Reason: BLOOD PRESSURE Last Admin: 04/11/18 13:32 Dose: 5 mg Ceftriaxone Sodium 2 gm/ (Dextrose) 50 mls @ 100 mls/hr IV Q24 [facility] Last Admin: 04/12/18 09:20 Dose: 100 mls/hr Levofloxacin (Levaquin Tablet) 500 mg PO DAILY@0600 [facility] Levothyroxine Sodium (Synthroid) 75 mcg PO DAILY@0600 [facility] Last Admin: 04/12/18 05:43 Dose: 75 mcg Lisinopril (Zestril) 20 mg PO DAILY PRN PRN PRN Reason: htn Magnesium Hydroxide (Milk Of Magnesia) 30 ml PO DAILY PRN PRN Reason: Constipation Metoprolol Succinate (Toprol Xl (Beta Elaine)) 12.5 mg PO DAILY [facility] Last Admin: 04/12/18 09:21 Dose: 12.5 mg Morphine Sulfate () 2 - 4 mg IV Q3H PRN PRN PRN Reason: Severe Pain (pain scale 6-10) Multivitamins (Multivitamin) 1 tablet PO DAILY [facility] Last Admin: 04/12/18 09:21 Dose: 1 tablet Nutritional Formula (Lactose Free) (Ensure Enlive) 120 ml PO 4X/DAY [facility] Last Admin: 04/12/18 09:20 Dose: 120 ml Nystatin (Mycostatin Powder) 1 applic TOPICAL BID [facility]; Protocol Last Admin: 04/12/18 09:20 Dose: 1 applicatio Ondansetron HCl (Zofran) 4 mg IV Q8H PRN PRN PRN Reason: Nausea Last Admin: 04/10/18 04:46 Dose: 4 mg Oxycodone HCl (Oxyir) 5 mg PO Q4H PRN PRN PRN Reason: Moderate Pain (pain scale 4-5) Sodium Chloride () 5 - 30 ml IV UD PRN PRN Reason: SALINE FLUSH Last Admin: 04/12/18 09:24 Dose: 10 ml Medical Necessity - Tobacco Use Smoking Status: Former smoker Assessment/Plan All Active Problems Hypertensive urgency (Acute) Decreased dorsalis pedis pulse (Resolved) Severe sepsis (Acute) Acute cystitis (Acute) MSSA bacteremia (Acute) Acute dysphagia due to chicken piece (Resolved) Sinus node dysfunction (Resolved) 83-year-old female with multiple comorbidities admitted with progressive generalized weakness. She is being managed as severe sepsis secondary to UTI as well as accelerated hypertension which has been present since admission. 1. Severe sepsis secondary to acute Proteus UTI, pansensitive, remains on IV ceftriaxone(day4), will be discharged on p.o. Levaquin 2. Staph aureus bacteremia, noted in 1 out of 2 blood cultures, ID consulted, sensitive to oral Levaquin, will discharge on 12 more days of Levaquin. 3. Accelerated hypertension, blood pressure improved, will continue amlodipine, lisinopril and metoprolol. 4. Chronic lower extremity ulcers, bullous pemphigoid, followed by Dr. Urbano Lira, wound nurse consulted, topical care, Collin wraps. 4. COPD, stable, not in acute exacerbation. 5. Obesity, BMI of 30.4 6. Hypothyroidism, on levothyroxine 7. Gout, stable, on allopurinol 8. Candidal intertrigo, started on nystatin 9. DVT prophylaxis- SC Lovenox Code Visit Inpatient E&M: 84680 Subs Hosp L2
--- NOTE | 2018-04-12 11:03 | DS.PCM_ITS ---
Discharge Date and Diagnosis Date of Admission: 04/09/18 Date of Discharge: 04/12/18 - Primary Discharge Diagnosis Active and Suspected Problems Severe sepsis (Acute) Acute cystitis (Acute) - Secondary Discharge Diagnosis Chronic Problems Bullous rash (Chronic) Wound of right leg (Chronic) Nonhealing ulcer of right lower extremity with fat layer exposed (Chronic) Nonhealing ulcer of left lower extremity with fat layer exposed (Chronic) Bilateral lower extremity edema (Chronic) Chronic pruritus (Chronic) COPD, mild (Chronic) Hypothyroidism (Chronic) Dyslipidemia (Chronic) HTN (hypertension) (Chronic) Hospital Course and Treatment Imaging Results: 04/12/18 10:45 Echo Complete W/ Contrast [ECHO] Urgent Consultations 04/09/18 15:43 Consult: Onc/Wound/strategic communications manager Routine Comment: Operations: None Procedures: None Summary of Care Provided: The patient is a 83 year old F with past medical history of bilateral chronic lower extremity ulcers from bullous pemphigus, hypertension, COPD who was admitted with worsening generalized weakness. Patient was said to have been recently discharged and had come in feeling very weak. On arrival to the ED, his CBC showed WBC count of 11.4, lactate was elevated at 2.5, urinalysis was positive for UTI. Patient was admitted to the telemetry bed and managed as severe sepsis secondary to UTI. Her blood pressure was also found to be severely elevated and she was started on amlodipine and metoprolol. Blood cultures done in the emergency room grew 1 out of 2 staph aureus. Started on IV ceftriaxone. This was pansensitive. Infectious disease was consulted, recommended 2D echo and discharged on oral Levaquin for 12 more days. At the time of discharge, 2D echo was not resulted, patient will follow up with her primary care doctor for results of this echo. Discharge Diet: Low fat/ Low Cholesterol, 2000 mg Sodium Diet Discharge Activity: Return to Normal Activity Home Medications: Medications to take at Discharge Allopurinol [Zyloprim] 100 mg PO QHS 09/10/13 Levothyroxine [Synthroid] 75 mcg PO DAILY 10/02/14 Multivitamins,Therapeutic [Multivitamin] 1 tablet PO DAILY 10/02/14 Budesonide/Formoterol 160/4.5 [Symbicort 160/4.5 Mcg Inhaler (SP)] 2 puff INHALATION BID 09/23/16 Atorvastatin Calcium [Lipitor] 20 mg PO QHS 09/10/17 Cholecalciferol (Vitamin D3) [Vitamin D3] 2,000 unit PO DAILY 01/31/18 Amlodipine [Norvasc] 10 mg PO DAILY #30 tablet 04/12/18 Ensure Enlive 120 ml PO 4X/DAY #100 liquid 04/12/18 Lisinopril [Zestril] 20 mg PO DAILY #30 tablet 04/12/18 Metoprolol(XL)Succ [Toprol Xl (Beta Elaine)] 12.5 mg PO DAILY #30 tablet 04/12/18 Nystatin Powder [Mycostatin Powder] 1 applic TOPICAL BID #0 bottle 04/12/18 levoFLOXacin tablet [Levaquin tablet] 500 mg PO DAILY@0600 #12 tablet 04/12/18 Following Prescrptions Were Given to Patient: Amlodipine [Norvasc] 10 mg PO DAILY #30 tablet levoFLOXacin tablet [Levaquin tablet] 500 mg PO DAILY@0600 #12 tablet Lisinopril [Zestril] 20 mg PO DAILY #30 tablet Metoprolol(XL)Succ [Toprol Xl (Beta Elaine)] 12.5 mg PO DAILY #30 tablet Ensure Enlive 120 ml PO 4X/DAY #100 liquid Other Amb Orders: Basic Metabolic Profile (BMP) Time Frame: 1 Week, Location: Laboratory CBC W/Diff, Automated Time Frame: 1 Week, Location: Laboratory Primary Care Physician: Salinas Keller III, MD [Primary Care Provider] - Please follow up with your Primary Care Physician in: within 2 weeks Disposition: Home with Home Health Minutes spent on discharge:: 40 Patient Condition:: Stable Medical Necessity - Tobacco Use Smoking Status: Former smoker Meaningful Use Info Meaningful Use Diagnoses (Choose all that apply): None applicable Code Visit Inpatient E&M: 27106 Disch Hosp
--- NOTE | 2018-04-12 11:03 | DCINST_ITS ---
- Discharge Diagnoses Current Active Problems: Current Active and Chronic Problems Severe sepsis (Acute) Acute cystitis (Acute) Reason(s) for Visit for Discharge Instructions: Generalised weakness You will use the following diet at home:: Cardiac Your food should be the consistency of: Regular Your liquids should be the consistency of: Regular/Thin Discharge Activity: Return to Normal Activity Additional Instructions: Complete your antibiotics. Continue to follow-up with your primary care doctor for results of your repeat blood culture and 2d-echo. You will be followed up by Home health team. You should have your blood pressure monitored daily. You will need repeat blood work in 1 week. Allergies/Adverse Reactions: Allergies No Known Allergies Allergy (Verified 04/09/18 11:35) Medications to take at Discharge Allopurinol [Zyloprim] 100 mg PO QHS 09/10/13 Levothyroxine [Synthroid] 75 mcg PO DAILY 10/02/14 Multivitamins,Therapeutic [Multivitamin] 1 tablet PO DAILY 10/02/14 Budesonide/Formoterol 160/4.5 [Symbicort 160/4.5 Mcg Inhaler (SP)] 2 puff INHALATION BID 09/23/16 Atorvastatin Calcium [Lipitor] 20 mg PO QHS 09/10/17 Cholecalciferol (Vitamin D3) [Vitamin D3] 2,000 unit PO DAILY 01/31/18 Amlodipine [Norvasc] 10 mg PO DAILY #30 tablet 04/12/18 Ensure Enlive 120 ml PO 4X/DAY #100 liquid 04/12/18 Lisinopril [Zestril] 20 mg PO DAILY PRN PRN #30 tablet 04/12/18 Metoprolol(XL)Succ [Toprol Xl (Beta Elaine)] 12.5 mg PO DAILY #30 tablet 04/12/18 Nystatin Powder [Mycostatin Powder] 1 applic TOPICAL BID #0 bottle 04/12/18 levoFLOXacin tablet [Levaquin tablet] 500 mg PO DAILY@0600 #12 tablet 04/12/18 The following prescriptions were given: Amlodipine [Norvasc] 10 mg PO DAILY #30 tablet levoFLOXacin tablet [Levaquin tablet] 500 mg PO DAILY@0600 #12 tablet Lisinopril [Zestril] 20 mg PO DAILY PRN PRN #30 tablet PRN Reason: htn Metoprolol(XL)Succ [Toprol Xl (Beta Elaine)] 12.5 mg PO DAILY #30 tablet Ensure Enlive 120 ml PO 4X/DAY #100 liquid Orders to be completed after discharge: Basic Metabolic Profile (BMP) Time Frame: 1 Week, Location: Laboratory CBC W/Diff, Automated Time Frame: 1 Week, Location: Laboratory Primary Care Physician: Salinas Keller III, MD [Primary Care Provider] - Please follow up with your Primary Care Physician in: within 2 weeks Test Results: Test results from this visit will be discussed in further detail at your follow- up appointment, if applicable. Proposed Discharge Date: 04/12/18
--- NOTE | 2018-04-12 11:43 | PCM.HP.ID ---
Problem List (1) MSSA bacteremia Status: Acute Reason for Consult: mssa Consulted by: Dr. Mcclelland History of Present Illness: The patient is a 83 year old F who presented with several days of not feeling well, fatigue, chills. Some chronic urinary frequency. No dysuria, no abd pain, no fever, no new joint pain. Came to ED, started on ceftriaxone for uti. Now feeling much better. Ucx with proteus, and single bcx with mssa. Has some chronic wounds on legs. Full ROS performed and neg except as noted above. - Medical History Past Medical History (Chronic Problems): Chronic Problems Bullous rash (Chronic) Wound of right leg (Chronic) Nonhealing ulcer of right lower extremity with fat layer exposed (Chronic) Nonhealing ulcer of left lower extremity with fat layer exposed (Chronic) Bilateral lower extremity edema (Chronic) Chronic pruritus (Chronic) COPD, mild (Chronic) Hypothyroidism (Chronic) Dyslipidemia (Chronic) HTN (hypertension) (Chronic) Allergies/Adverse Reactions: Allergies No Known Allergies Allergy (Verified 04/09/18 11:35) Home Medications: Ambulatory Orders Medication Instructions Recorded Allopurinol [Zyloprim] 100 mg PO QHS 09/10/13 Levothyroxine [Synthroid] 75 mcg PO DAILY 10/02/14 Multivitamins,Therapeutic 1 tablet PO DAILY 10/02/14 [Multivitamin] Budesonide/Formoterol 160/4.5 2 puff INHALATION BID 09/23/16 [Symbicort 160/4.5 Mcg Inhaler (SP)] Atorvastatin Calcium [Lipitor] 20 mg PO QHS 09/10/17 Cholecalciferol (Vitamin D3) 2,000 unit PO DAILY 01/31/18 [Vitamin D3] Amlodipine [Norvasc] 10 mg PO DAILY #30 tablet 04/12/18 Ensure Enlive 120 ml PO 4X/DAY #100 liquid 04/12/18 Lisinopril [Zestril] 20 mg PO DAILY PRN PRN #30 tablet 04/12/18 Metoprolol(XL)Succ [Toprol Xl 12.5 mg PO DAILY #30 tablet 04/12/18 (Beta Elaine)] Nystatin Powder [Mycostatin Powder] 1 applic TOPICAL BID #0 bottle 04/12/18 levoFLOXacin tablet [Levaquin 500 mg PO DAILY@0600 #12 tablet 04/12/18 tablet] - Social History SMOKING STATUS:: Former smoker Vital Signs Temp Pulse Resp BP Pulse Ox 98.3 F 68 17 122/46 H 94 04/12/18 09:18 04/12/18 10:58 04/12/18 09:18 04/12/18 09:18 04/12/18 09:18 Oxygen Delivery Method Room Air Weight: 80.8 kg Body Mass Index (BMI) 28.7 Microbiology Past 72 Hours 04/09/18 13:45 Bacteria Detection (PCR) - Final Blood Culture (Wb) - Right Hand Staphylococcus aureus Blood Culture - Preliminary Staphylococcus aureus 04/09/18 13:45 Blood Culture - Preliminary Blood Culture (Wb) - Anticubital Right No growth in 48 hours. 04/09/18 12:25 Urine Culture - Final Urine, Clean Catch Proteus mirabilis - Other Studies Radiology: [] reviewed Other Studies: [] Route of nutrition/ use of supplements: [] Nutritional Intake: [] IV Site: [] Pderoza Catheter: [] - Physical Exam General: Alert, Oriented x3, Cooperative, No apparent distress HEENT: Atraumatic, PERRLA, EOMI Neck: Supple, No Nodes Lungs: Clear to auscultation, Normal air movement Cardiovascular: Regular rate, Regular Rhythm, No murmurs Abdomen: Soft, Non Tender, Non-Distended Extremities: Edema - mild Skin: Ulcer/ Wound - BLE IV Site: Peripheral, without redness Musculoskeletal: No Tenderness to Palpation of Joints or Extremities Neurological: Cranial nerves II-XII grossly intact - Assessment/Plan Antibiotics: [] Assessment/Plan: [] Active and Suspected Problems Severe sepsis (Acute) Acute cystitis (Acute) MSSA bacteremia - possible source is leg ulcerations. Repeat bcx sent. No fever, no leukocytosis, feeling fine. Will order TTE. If no veg seen, ok for d/c home on 12 more days of levaquin, will give 1st dose now. QTC less than 450. She is to come back to hospital with any fever or worsening of symptoms. Proteus comp uti - abx as above will follow, thank you, d/w Dr. Mcclelland and telephonic nurse case manager
--- NOTE | 2018-04-12 11:48 | CASEMGMT ---
Kallie from [facility] aware that pt to be discharged today, voices understanding. Resumption of care order already placed for RN and PT/SW added. Manolo CORDERO CM
[2018-04-12] MEDS: levoFLOXacin 500 MG Tablet PO (11:52)
--- NOTE | 2018-04-12 12:06 | CASEMGMT ---
Kallie from [facility] notified of pt discharge at this time and voices understanding. Resumption of care order for RN placed and PT/SW added. Manolo CORDERO CM
--- NOTE | 2018-04-13 15:41 | CASEMGMT ---
FOLLOW-UP CALL: Follow-up call placed to patient with no answer. Voicemail left with return contact information.
== END 2018-04-12 14:53 | disposition home health service (06) | DRG 872 ==
LOC: ED 12:12 → PCU 13:21
PROVIDERS: Admitting Provider Internal Medicine; Emergency Provider Emergency Medicine; Family Provider Family Medicine; PCP Family Medicine; Visit Provider Internal Medicine
DX: A41.9 Sepsis, unspecified organism (principal); L12.0 Bullous pemphigoid; L97.912 Non-pressure chronic ulcer of unspecified part of right lower leg with fat layer exposed; L97.922 Non-pressure chronic ulcer of unspecified part of left lower leg with fat layer exposed; N30.00 Acute cystitis without hematuria; Z23 Encounter for immunization; E03.9 Hypothyroidism, unspecified; R65.20 Severe sepsis without septic shock; M10.9 Gout, unspecified; J44.9 Chronic obstructive pulmonary disease, unspecified; E66.9 Obesity, unspecified; E78.5 Hyperlipidemia, unspecified; I10 Essential (primary) hypertension; B95.61 Methicillin susceptible Staphylococcus aureus infection as the cause of diseases classified elsewhere; B96.4 Proteus (mirabilis) (morganii) as the cause of diseases classified elsewhere; B37.2 Candidiasis of skin and nail; Z68.28 Body mass index [BMI] 28.0-28.9, adult; Z87.891 Personal history of nicotine dependence; Z79.899 Other long term (current) drug therapy
CPT/HCPCS: 36415; 71045; 80048; 80053; 81001; 83605; 84484; 85025; 87040; 87077; 87086; 87088; 87149; 87186; 93005; 93306; 94640; 97162; 97166; 97530; 97535; 97802; 99285; J7030; 90686; A4216; C8929; J0696; J2405

== ENCOUNTER → 2018-04-21 15:38 | Outpatient (CLI) | payer MEDICARE, SELFPAY ==
[2018-04-21 15:46] LABS: Absolute Lymphocyte Count 1.19 X10^3/ul (0.83-4.51); Absolute Neutrophil Count 5.4 X10^3/uL (2.0-7.7); Basophil# 0.01 X10^3/uL; Basophil% 0.1 % (0-1); Eosinophil# 0.07 X10^3/uL; Hematocrit 40.3 % (37-47); Lymphocyte # 1.19 X10^3/ul (4.0); Mean Corp Hgb Conc 34.7 g/gl (32-36); Mean Corpuscular Volume 97.8 fL (81-99); Mean Platelet Vol. 8.9 fl (6.2-12.0); Monocyte# 0.27 X10^3/uL; Monocyte% 3.9 % (0-10); Neutrophil # 5.43 X10^3/uL (2.7-7.7); Neutrophil % 77.6 % (47-70); Platelet Count 272 K/mm3 (150-450); RBC Distribution Width CV 13.7 % (11.6-14.6); RBC Distribution Width SD 48.2 fl (35.1-43.9); Red Blood Count 4.12 M/mm3 (4.2-5.4)
[2018-04-21 15:47] LABS: POSITIVE COUNT NO; POSITIVE DIFFERENTIAL NO; POSITIVE MORPHOLOGY NO
[2018-04-21 16:08] LABS: Anion Gap 11 (5-15); BUN 28 mg/dL (7-18); BUN/Creat Ratio 30.5 RATIO (10-20); Calcium,Total 9.6 mg/dL (8.5-10.1); Chloride 105 mmol/L (98-107); Creatinine, Serum 0.92 mg/dL (0.55-1.02); EST Glomerular Filtration Rate 62 mL/min (>60); Est Glom Filt Rate - Afr Amer 75 mL/min (>60); Glucose 210 mg/dL (74-106); Potassium 4.2 mmol/L (3.5-5.1); Sodium Level 140 mmol/L (136-145)
== END ==
PROVIDERS: Visit Provider Family Medicine
DX: Z79.899 Other long term (current) drug therapy (principal)
CPT/HCPCS: 80048; 85025

== ENCOUNTER 2018-05-04 14:56 | Inpatient (IN) | payer MEDICARE, SELFPAY ==
[2018-05-04] VITALS (12 sets, daily range): BP systolic 164–225; BP diastolic 61–102; PULSE 60–77; RESP 14–30; TEMP 36.5–36.8; O2SAT 95–98; BMI 29.7
--- NOTE | 2018-05-04 15:38 | ED.DCSUM_ITS ---
- ER Visit Summary Date of Service: 05/04/18 Chief Complaint: Dizziness and urinary incontinence History of Present Illness: The patient is a 83 F presenting for evaluation secondary to dizziness and urinary incontinence. Patient reports that she recently was admitted to the hospital secondary to a urinary tract infection. Patient reports that today she had a relatively sudden onset of feeling significantly lightheaded and having some difficulty with ambulating. She states that she also is having urinary frequency dysuria and urinary incontinence. Patient states that she has not been having any other infectious signs or symptoms such as nausea vomiting diarrhea fevers chest pain or cough. She does have bullae on her legs bilaterally that are being treated by wound care. Patient states that she is getting physical therapy into the home on Tuesdays and . Patient simply states that she was so unable to ambulate due to her dizziness that her son called paramedics. Review of systems otherwise negative. Physical Examination: Vital signs notable for blood pressure 192/69, normal temperature, normal heart rate, respiratory rate of 28 with normal oxygenation on room air. Listless elderly female not in acute distress. No conjunctival pallor or scleral icterus. Moist mucous membranes. Neck was supple heart was regular rate and rhythm. Chest was nontender with tachypnea lungs were clear candidal infection noted under the patient's breast folds bilaterally. Abdomen was soft and nontender and nondistended. Extremities showed evidence of bilateral skin bullae on the lower extremities consistent with patient's history. 2+ DP pulses are bilaterally symmetric. Patient was alert and oriented with no lateralizing neurological deficits noted on neurologic exam. Test Results: CBC is within normal limits other than a slight neutrophilic predominance, chemistry unremarkable, liver panel unremarkable, coags are normal urinalysis negative. Lactic acid found to be elevated to 3.5. Chest x-ray unremarkable. CT abdomen and pelvis shows a 4 mm right sided distal ureteral obstructing stone with associated hydronephrosis Emergency Department Course and Treatment: Patient presented for evaluation secondary to dizziness weakness and urinary incontinence. She was tachypneic I was concerned for the possibility of sepsis or acidosis so a full workup was obtained. Patient's CBC chemistry and urinalysis were negative but she was found to have an elevated lactic acid. She was given 2-1/2 L of normal saline for hydration. As I had no source for the patient's lactic acidosis I also p erformed a chest x-ray and a CT. CT ended up revealing the patient to have a distal ureteral stone on the right with hydronephrosis. Given the patient's poor general health, inability to ambulate, lactic acidosis, and kidney stone I believe that she requires admission at this point. I did discuss the patient's case with Dr. Yates urology who will see the patient in consult. Patient will be admitted for further management to the hospitalist. Patient did develop some hypertension while in the emergency department, this was addressed with a dose of labetalol. She is chest pain-free and I do not believe that further intervention is necessary. Disposition: Admission Impression: 1. Right sided urolithiasis 2. Lactic acidosis 3. Hypertension This note was generated with [employer] dictation software. It may contain incorrect words, spelling, and punctuation that were not noted in review of the chart prior to signing ED Disposition - Plan for ED Patient: Chief Complaint: Complaint Referrals: Salinas Keller III, MD [Primary Care Provider] -
[2018-05-04 15:58] LABS: Bacteria 0 SEEN /hpf (None Seen); Mucous, Urine 0 SEEN /hpf (<or=2+); Squamous Epithelial Cells - UA 0 SEEN /hpf (5-10); White Blood Cells 0 SEEN /hpf (0-5)
[2018-05-04 16:02] LABS: Absolute Lymphocyte Count 1.08 X10^3/ul (0.83-4.51); Absolute Neutrophil Count 8.2 X10^3/uL (2.0-7.7); Basophil# 0.01 X10^3/uL; Basophil% 0.1 % (0-1); Eosinophil# 0.01 X10^3/uL; Eosinophils% 0.1 % (0-5); Hematocrit 42.6 % (37-47); Hemoglobin 14.5 g/dl (12.0-15.0); Lymphocyte # 1.08 X10^3/ul (4.0); Lymphocyte % 10.8 % (19-41); Mean Corpuscular Hgb 33.2 pg (27.0-32.0); Mean Corpuscular Volume 97.5 fL (81-99); Monocyte# 0.56 X10^3/uL; Monocyte% 5.6 % (0-10); Neutrophil # 8.21 X10^3/uL (2.7-7.7); Neutrophil % 82.5 % (47-70); Platelet Count 233 K/mm3 (150-450); RBC Distribution Width CV 13.5 % (11.6-14.6); RBC Distribution Width SD 47.2 fl (35.1-43.9); Red Blood Count 4.37 M/mm3 (4.2-5.4)
[2018-05-04 16:03] LABS: POSITIVE COUNT NO; POSITIVE DIFFERENTIAL NO; POSITIVE MORPHOLOGY NO
[2018-05-04 16:10] LABS: ALB/GLOB Ratio 0.8 RATIO (0.9-2.4); AST(SGOT) 22 U/L (15-37); Alanine Aminotransfer ALT/SGPT 41 U/L (13-56); Albumin, Serum 3.1 g/dL (3.2-5.0); Alkaline Phosphatase 149 U/L (45-117); Anion Gap 8 (5-15); BUN 23 mg/dL (7-18); BUN/Creat Ratio 23.4 RATIO (10-20); Calcium,Total 9.2 mg/dL (8.5-10.1); Chloride 103 mmol/L (98-107); Creatinine, Serum 0.98 mg/dL (0.55-1.02); EST Glomerular Filtration Rate 57 mL/min (>60); Est Glom Filt Rate - Afr Amer 69 mL/min (>60); Estimated Creatinine Clearance 40.72 ml/min; Glucose 235 mg/dL (74-106); Potassium 4.4 mmol/L (3.5-5.1); Protein, Total 7.1 g/dL (6.4-8.2); Sodium Level 136 mmol/L (136-145)
[2018-05-04 16:15] LABS: Color, Urine Straw (Yellow); Glucose, Dipstick 50 mg/dl (Normal); Ketone-Dipstick Negative (Negative); Leukocyte Esterase-Dipstick Negative /ul (Negative); Nitrite-Dipstick Negative (Negative); Occult Blood-Urine 250 /ul (Negative); Protein-Dipstick Negative (Negative); Urine Bilirubin Dipstick Negative (Negative); Urine Clarity Clear (Clear); Urine Urobilinogen Normal (Normal); Urine pH 6.5 (5.0 - 8.0)
[2018-05-04 16:15] LABS: Partial Thromboplast Time 24.3 Seconds (24.1-36.2); Prothrombin Time (Protime)PT. 12.8 SECONDS (11.7-14.9)
[2018-05-04 16:21] LABS: Red Blood Cells-Urine 0-5 SEEN /hpf (0-5)
--- NOTE | 2018-05-04 16:31 | ED.RN ---
LACTIC 3.[address] THE LAB DR ORTIZ AWARE
[2018-05-04 16:32] LABS: Lactic Acid 3.5 mmol/L (0.4-2.0)
--- NOTE | 2018-05-04 16:37 | CT_ITS ---
STUDY: CT ABDOMEN AND PELVIS WITHOUT CONTRAST REASON FOR EXAM: Female, 83 years old. Urinary incontinence RADIATION DOSAGE (If Supplied By Facility): CTDIvol = ( 11.15 ) mGy, DLP = ( 576.85 ) mGycm TECHNIQUE: Transaxial images were obtained from the dome of the diaphragm to the symphysis pubis without oral contrast, and without intravenous contrast. Sagittal and coronal images were reconstructed. Individualized dose optimization techniques were used for this CT. COMPARISON: Prior study of 05/03/2016 FINDINGS: The visualized lung bases are unremarkable. The visualized portions of the heart are within normal limits. Normal liver. Gallstone is present within a contracted gallbladder. Normal spleen. Normal pancreas. Normal bilateral adrenal glands. There is a mild right hydronephrosis and hydroureter to the level of the UVJ. There is an obstructing calculus in the distal right ureter at the level of the UVJ measuring 4 mm. Normal left kidney. There is a small hiatal hernia. Normal small intestine. Normal colon. There is non-visualization of the appendix. There are densely calcified plaques of the abdominal aorta and common iliac arteries. Normal inferior vena cava. Normal retroperitoneum. Normal urinary bladder. Several tiny uterine calcifications are seen consistent with degenerative fibroids. Adnexal structures are unremarkable. Normal abdominal wall. There are diffuse degenerative changes of the visualized thoracolumbar spine. CT/Abdomen/Pelvis without Cont IMPRESSION: 1. Cholelithiasis noted within a contracted gallbladder. 2. Mild right hydronephrosis and hydroureter to the level of the UVJ, at which point is demonstrated an obstructing 4 mm calculus. 3. Small hiatal hernia. Electronically Signed: Willi Pires MD at 17:06 EDT , Service support ,
--- NOTE | 2018-05-04 16:49 | RAD_ITS ---
STUDY: X-RAY CHEST REASON FOR EXAM: Female, 83 years old. Cough TECHNIQUE: Single AP portable view of the chest. COMPARISON: Prior study of 04/09/2018 FINDINGS: personnel monitor leads are present. The lungs are clear and expanded. There is no demonstrated pleural abnormality. Normal size heart. Normal mediastinum and noelle. Normal visualized pulmonary arteries. There are calcified plaques of the aortic arch. Normal visualized thoracic spine. Normal visualized ribs, clavicles, and shoulders. There is no demonstrated abnormality of the visualized soft tissue structures of the upper abdomen. RAD/Chest 1 View IMPRESSION: Calcified plaques of the aortic arch. No acute cardiopulmonary disease process is seen. Electronically Signed: Willi Pires MD at 17:11 EDT , Service support ,
[2018-05-04] MEDS: 0.9% Normal Saline 1,000 ML 999 ML IV ×2 (17:01→18:16)
--- NOTE | 2018-05-04 18:01 | HP.PCM_ITS ---
Problem List (1) Abdominal pain Status: Acute History of Present Illness Date of Admission: 05/04/18 Chief Complaint: lower abdominal pain The patient is a 83 year old F with an extensive past medical history as listed below. She was admitted through the ED on 04/30/2018 with a complaint of low abdominal pain which started the night before presentation. Pain was described as cramping in nature, radiating to the groin, with no aggravating or relieving factors. She rated it as 10 out of 10. She denied any fever or chills, but admitted to nausea and vomiting and also admitted to frequency of urination and pain with urination. She denies having had such pain before in the past. In the ED, vitals were significant for elevated blood pressure of 192/69, but vitals were otherwise unremarkable. CMP was significant for lactic acid of 3.5. CBC was essentially unremarkable. CT of the abdomen and pelvis showed mild right hydronephrosis and hydroureter at the level of the ureterovesical junction with an obstructing calculus at the distal right ureter at the level of the ureterovesical junction measuring 4 mm. Normal left kidney. [] She is being admitted to be managed for nephrolithiasis. 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) Nonhealing ulcer of left lower extremity with fat layer exposed (Chronic) Bilateral lower extremity edema (Chronic) Chronic pruritus (Chronic) COPD, mild (Chronic) Hypothyroidism (Chronic) Dyslipidemia (Chronic) HTN (hypertension) (Chronic) Allergies No Known Allergies Allergy (Verified 04/09/18 11:35) Home Medications: Ambulatory Orders Medication Instructions Recorded Allopurinol [Zyloprim] 100 mg PO QHS 09/10/13 Levothyroxine [Synthroid] 75 mcg PO DAILY 10/02/14 Budesonide/Formoterol 160/4.5 2 puff INHALATION BID 09/23/16 [Symbicort 160/4.5 Mcg Inhaler (SP)] Atorvastatin Calcium [Lipitor] 20 mg PO QHS 09/10/17 Cholecalciferol (Vitamin D3) 2,000 unit PO DAILY 01/31/18 [Vitamin D3] Nystatin Powder [Mycostatin Powder] 1 applic TOPICAL BID #0 bottle 04/12/18 Ensure Enlive 120 ml PO TID 05/04/18 Lisinopril [Zestril] 10 mg PO DAILY 05/04/18 Mupirocin [Bactroban] 1 applic TP UD 05/04/18 Prednisone 10 - 20 mg PO DAILY 05/04/18 Triamcinolone 0.1% Cream [Kenalog] 1 applic TP UD 05/04/18 Surgical History: - - Patient reports right ear surgery when she was a child. Tonsillectomy and adenoidectomy. Psychiatric History: No pertinent psych hx Lives: With Family Smoking Status: Former smoker Alcohol: None Drugs: None - *Family History Paternal History Items: Cancer - Unknown type Maternal History Items: Cancer - Breast cancer Review of Systems Constitutional: Denies: Anorexia, Chills, Fever, Malaise, Weakness, Weight Change, Fatigue Eyes: Denies: Blurred vision HEENT: Denies: Head Aches, Sinus Congestion, Sinus Drainage Cardiovascular: Denies: Chest Pain, Palpitations Respiratory: Denies: Cough, Shortness of Breath, Shortness of breath at rest, Shortness of breath upon exertion, Sputum production Gastrointestinal: Reports: Abdominal Pain, Nausea, Vomiting. Denies: Constipation, Diarrhea Genitourinary: Reports: Dysuria, Frequency. Denies: Hematuria, Hesitancy Musculoskeletal: Denies: Joint Pain, Joint Tenderness Skin: Denies: Rash, Wounds Neurological: Denies: Numbness, Tingling, Focal weakness Psychiatric: Denies: Anxiety, Depression, Homicidal Ideations, Suicidal Ideations Hematologic/ Lymphatic: Denies: Easy Bruising, Easy Bleeding VTE Information - Inpt Only VTE Present on Admission: No VTE Pharm Prophylaxis ordered?: Yes Patient Problems: Active and Suspected Problems Abdominal pain (Acute) - Physical Exam General: Alert, Oriented x3, Cooperative, - - moderate distress HEENT: Atraumatic, PERRLA, EOMI, Normocephalic Oral: Dry Mucosa Neck: Supple, No JVD, Negative Carotid Bruits Lungs: Clear to auscultation, Normal air movement, No rhonchi, No wheeze, No rales Cardiovascular: Regular rate, Regular Rhythm, Normal S1, Normal S2, No murmurs Abdomen: Bowel Sounds Present, Soft, Non Tender, Non-Distended, No Hepato- splenomegaly, Obese Extremities: No clubbing, No cyanosis, No edema, Capillary Refill Less than 3 Seconds Skin: - - erythematous bullae over the shins Musculoskeletal: No Tenderness to Palpation of Joints or Extremities Lymphatic: No Cervical, Supraclavicular, or Inguinal Adenopathy Neurological: Cranial nerves II-XII grossly intact, Neuro grossly intact, Motor Exam 5/5 strength throughout Psych/Mental Status: Normal Affect, Appropriate, Alert and oriented to time, place, person, mood and affect Vital Signs Temp Pulse Resp BP Pulse Ox 97.8 F 66 14 211/80 H 96 05/04/18 17:02 05/04/18 17:02 05/04/18 17:02 05/04/18 17:02 05/04/18 17:02 Oxygen Delivery Method Room Air Weight: 184 lb 1.376 oz Body Mass Index (BMI) 29.7 Laboratory Tests Past 24 Hrs 05/04/18 05/04/18 05/04/18 15:43 15:43 15:43 WBC 10.0 RBC 4.37 Hgb 14.5 Hct 42.6 MCV 97.5 MCH 33.2 H MCHC 34.0 RDW 13.5 RDW Differential 47.2 H Plt Count 233 MPV 9.0 Immature Gran % (Auto) 0.900 Neut % (Auto) 82.5 H Lymph % (Auto) 10.8 L [place] % (Auto) 5.6 Eos % (Auto) 0.1 Baso % (Auto) 0.1 Absolute Neuts (auto) 8.2 H Absolute Lymphs (auto) 1.08 Total Counted Not Reportable PT 12.8 INR 1.0 APTT 24.3 Sodium 136 Potassium 4.4 Chloride 103 Carbon Dioxide 25.0 Anion Gap 8 BUN 23 H Creatinine 0.98 Estim Creat Clear Calc 40.72 Est GFR (MDRD) Af Amer 69 Est GFR (MDRD) Non-Af 57 L BUN/Creatinine Ratio 23.4 H Glucose 235 H Lactic Acid Calcium 9.2 Total Bilirubin 0.20 AST 22 ALT 41 Alkaline Phosphatase 149 H Total Protein 7.1 Albumin 3.1 L Globulin 4.0 Albumin/Globulin Ratio 0.8 L Urine Color Urine Clarity Urine pH Ur Specific [place] Urine Protein Urine Glucose (UA) Urine Ketones Urine Occult Blood Urine Nitrite Urine Bilirubin Urine Urobilinogen Ur Leukocyte Esterase Urine RBC Urine WBC Ur Squamous Epith Cells Urine Bacteria Urine Mucus 05/04/18 05/04/18 15:43 15:50 WBC RBC Hgb Hct MCV MCH MCHC RDW RDW Differential Plt Count MPV Immature Gran % (Auto) Neut % (Auto) Lymph % (Auto) [place] % (Auto) Eos % (Auto) Baso % (Auto) Absolute Neuts (auto) Absolute Lymphs (auto) Total Counted PT INR APTT Sodium Potassium Chloride Carbon Dioxide Anion Gap BUN Creatinine Estim Creat Clear Calc Est GFR (MDRD) Af Amer Est GFR (MDRD) Non-Af BUN/Creatinine Ratio Glucose Lactic Acid 3.5 H Calcium Total Bilirubin AST ALT Alkaline Phosphatase Total Protein Albumin Globulin Albumin/Globulin Ratio Urine Color Straw Urine Clarity Clear Urine pH 6.5 Ur Specific [place] 1.010 Urine Protein Negative Urine Glucose (UA) 50 H Urine Ketones Negative Urine Occult Blood 250 H Urine Nitrite Negative Urine Bilirubin Negative Urine Urobilinogen Normal Ur Leukocyte Esterase Negative Urine RBC 0-5 SEEN Urine WBC 0 SEEN Ur Squamous Epith Cells 0 SEEN Urine Bacteria 0 SEEN Urine Mucus 0 SEEN Diagnostic Data Abdomen/Pelvis CT 05/04/18 16:37 IMPRESSION: 1. Cholelithiasis noted within a contracted gallbladder. 2. Mild right hydronephrosis and hydroureter to the level of the UVJ, at which point is demonstrated an obstructing 4 mm calculus. 3. Small hiatal hernia. Electronically Signed: Willi Pires MD at 17:06 EDT , Service support , Chest X-Ray 05/04/18 16:49 IMPRESSION: Calcified plaques of the aortic arch. No acute cardiopulmonary disease process is seen. Electronically Signed: Willi Pires MD at 17:11 EDT , Service support , Assessment/Plan All Active Problems Hypertensive urgency (Acute) Decreased dorsalis pedis pulse (Resolved) Severe sepsis (Acute) Acute cystitis (Acute) MSSA bacteremia (Acute) Abdominal pain (Acute) Acute dysphagia due to chicken piece (Resolved) Sinus node dysfunction (Resolved) 83 y/o female admitted with a complaint of abdominal pain. 1. Abdominal pain due to ureterolithiasis * CT abdomen: Mild right hydronephrosis and hydroureter to the level the ureterovesical junction at which point there is an obstructing 4 mm calculus. * admit to PCU with telemetry * IV toradol prn for pain * Give flomax, though it is unlikely she will be able to pass stone * urology consult 2. Hypertension: * poorly controlled. * on lisinopril. It is likely severe pain is contributing to this. * hydralazine 10mg q6prn for elevated BP. Hopefully BP will be better controlled as pain resolves * 3. Lactic acidosis: lactic acid is 3.5. source of lactic acid elevation is unclear, hypotension is unlikely as she is rather hypertensive. Will hydrate with IVf and trend 4. Gout: On allopurinol 5. COPD: On Symbicort. Will give breathing treatments. 6. Hyperthyroidism: on synthroid. 7. Bullous pemphigoid: has some bullae on her shins. On prednisone and kenalog cream, as well as mupirocin cream DVT prophylaxis: heparin Code status: full code * son and son's fianc? counseled extensively about patient's CODE STATUS. Counseled about differences to full code, DNR CCA and DNR CCA. Patient elects to be full code. Code Visit Inpatient E&M: 90000 Init Hosp L3 Procedures: 01976 Advncd Care Plan 30 Min
[2018-05-04] MEDS: Labetalol 20 MG/4 ML Vial 10 MG IV (18:36)
[2018-05-04 19:50] LABS: Reflex Lactate? Y
[2018-05-04] MEDS: Ketorolac 30 MG/ML Syringe IV (19:58)
[2018-05-04] MEDS: 0.45% Normal Saline 1,000 ML 100 ML IV (19:58)
[2018-05-04 21:27] LABS: Lactic Acid 2.2 mmol/L (0.4-2.0)
[2018-05-04] MEDS: Heparin Injection (Vial) 5,000 UNIT/ML VIAL 5000 UNIT SC (22:57)
[2018-05-04] MEDS: Tamsulosin HCl 0.4 MG Capsule PO (22:58)
[2018-05-04] MEDS: Allopurinol 100 MG Tablet PO (22:58)
[2018-05-04] MEDS: Atorvastatin Calcium 20 MG Tablet PO (22:58)
[2018-05-04] MEDS: Mupirocin Ointment 22gm Tube 1 APPLIC TOPICAL (23:00)
[2018-05-04] MEDS: Nystatin Powder 15gm Bottle 1 APPLIC TOPICAL (23:01)
[2018-05-04] MEDS: 0.9% NaCl Peripheral Flush Adult/Peds IV (23:05)
[2018-05-04] MEDS: hydrALAZINE 20 MG/ML Vial 10 MG IV (23:05)
[2018-05-04] MEDS: Triamcinolone 0.5% Cream TOPICAL (23:23)
[2018-05-05] VITALS (17 sets, daily range): BP systolic 110–149; BP diastolic 51–81; PULSE 57–84; RESP 14–18; TEMP 36.3–36.8; O2SAT 91–99
[2018-05-05] MEDS: 0.9% NaCl Peripheral Flush Adult/Peds IV (00:24)
[2018-05-05] MEDS: Morphine 2 MG/ML Syringe IV (00:24)
[2018-05-05] MEDS: HYDROcodone Bitartrate/Apap 5/325 Tablet PO ×2 (01:51→22:03)
[2018-05-05] MEDS: 0.45% Normal Saline 1,000 ML 100 ML IV (05:30)
[2018-05-05] MEDS: Heparin Injection (Vial) 5,000 UNIT/ML VIAL 5000 UNIT SC ×3 (05:30→22:01)
[2018-05-05] MEDS: Levothyroxine 75 MCG Tablet PO (05:30)
[2018-05-05 06:45] LABS: Absolute Lymphocyte Count 3.98 X10^3/ul (0.83-4.51); Basophil# 0.02 X10^3/uL; Basophil% 0.2 % (0-1); Eosinophil# 0.13 X10^3/uL; Eosinophils% 1.2 % (0-5); Hematocrit 38.8 % (37-47); Hemoglobin 12.9 g/dl (12.0-15.0); Lymphocyte # 3.98 X10^3/ul (4.0); Lymphocyte % 36.8 % (19-41); Mean Corp Hgb Conc 33.2 g/gl (32-36); Mean Corpuscular Hgb 32.4 pg (27.0-32.0); Mean Corpuscular Volume 97.5 fL (81-99); Mean Platelet Vol. 9.2 fl (6.2-12.0); Monocyte# 0.72 X10^3/uL; Monocyte% 6.7 % (0-10); Neutrophil # 5.95 X10^3/uL (2.7-7.7); Neutrophil % 54.9 % (47-70); Platelet Count 184 K/mm3 (150-450); RBC Distribution Width CV 13.8 % (11.6-14.6); RBC Distribution Width SD 49.3 fl (35.1-43.9); Red Blood Count 3.98 M/mm3 (4.2-5.4); White Blood Count 10.8 K/mm3 (4.4-11.0)
[2018-05-05] MEDS: Albuterol 2.5 MG/3 ML VIAL.NEB. INHALATION ×3 (06:54→18:58)
[2018-05-05 06:59] LABS: POSITIVE COUNT NO; POSITIVE DIFFERENTIAL NO; POSITIVE MORPHOLOGY NO
--- NOTE | 2018-05-05 07:02 | PCM.CONS.U ---
Reason for Consult Date of Consultation: 05/05/18 Reason for Consultation: Right obstructive ureteral calculi History of Present Illness: The patient is a 83 year old female who presents to the hospital with a 4 mm obstructive ureteral calculi she was admitted for pain control also with a high lactic acid white blood count was normal no fevers or chills. 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) Nonhealing ulcer of left lower extremity with fat layer exposed (Chronic) Bilateral lower extremity edema (Chronic) Chronic pruritus (Chronic) COPD, mild (Chronic) Hypothyroidism (Chronic) Dyslipidemia (Chronic) HTN (hypertension) (Chronic) Allergies No Known Allergies Allergy (Verified 04/09/18 11:35) Home Medications: Ambulatory Orders Medication Instructions Recorded Allopurinol [Zyloprim] 100 mg PO QHS 09/10/13 Levothyroxine [Synthroid] 75 mcg PO DAILY 10/02/14 Budesonide/Formoterol 160/4.5 2 puff INHALATION BID 09/23/16 [Symbicort 160/4.5 Mcg Inhaler (SP)] Atorvastatin Calcium [Lipitor] 20 mg PO QHS 09/10/17 Cholecalciferol (Vitamin D3) 2,000 unit PO DAILY 01/31/18 [Vitamin D3] Nystatin Powder [Mycostatin Powder] 1 applic TOPICAL BID #0 bottle 04/12/18 Ensure Enlive 120 ml PO TID 05/04/18 Lisinopril [Zestril] 10 mg PO DAILY 05/04/18 Mupirocin [Bactroban] 1 applic TP UD 05/04/18 Prednisone 10 - 20 mg PO DAILY 05/04/18 Triamcinolone 0.1% Cream [Kenalog] 1 applic TP UD 05/04/18 Surgical History: noncontributory, - - Patient reports right ear surgery when she was a child. Tonsillectomy and adenoidectomy. 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 Lives: With Family Smoking Status: Former smoker Alcohol: None Drugs: None - *Family History Paternal History Items: Cancer - Unknown type Maternal History Items: Cancer - Breast cancer Review of Systems Constitutional: Denies: Chills, Fever, Weight Change HEENT: Denies: Head Aches, Sinus Congestion, Sinus Drainage Cardiovascular: Denies: Chest Pain, Palpitations Respiratory: Denies: Cough, Shortness of breath at rest, Sputum production Gastrointestinal: Denies: Abdominal Pain, Nausea, Vomiting Genitourinary: Denies: Dysuria Musculoskeletal: Denies: Joint Pain, Joint Tenderness Skin: Denies: Rash, Wounds Neurological: Denies: Numbness, Tingling, Focal weakness Psychiatric: Denies: Anxiety, Depression, Homicidal Ideations, Suicidal Ideations Hematologic/ Lymphatic: Denies: Easy Bruising, Easy Bleeding Physical Exam - Physical Exam Vital Signs Temp 97.4 F L 05/05/18 05:33 Pulse 58 L 05/05/18 05:33 Resp 18 05/05/18 05:33 BP 136/78 H 05/05/18 05:33 Pulse Ox 98 05/05/18 05:33 Intake & Output 05/03/18 05/04/18 05/05/18 23:59 23:59 23:59 Intake Total 1199 / 1199 623 / 623 Balance 1199 / 1199 623 / 623 Weight: 83.7 kg Intake: Oral 120 / 120 120 / 120 IV fluid/meds 1079 / 1079 503 / 503 Other: Number of times incontinent 3 Incontinent Amount Large General: Alert, Oriented x3 HEENT: Atraumatic Oral: Moist Mucosa Neck: Supple Lungs: Normal air movement Cardiovascular: Regular rate, Regular Rhythm Abdomen: Bowel Sounds Present, Soft, Obese Rectal: Exam deferred Groin: No hernia Extremities: No clubbing, No cyanosis, No edema Skin: No rashes, No breakdown Musculoskeletal: No Tenderness to Palpation of Joints or Extremities Lymphatic: No Cervical, Supraclavicular, or Inguinal Adenopathy Neurological: Cranial nerves II-XII grossly intact Psych/Mental Status: Normal Affect, Appropriate Laboratory Tests Past 24 Hrs 05/04/18 05/04/18 05/04/18 15:43 15:43 15:43 WBC 10.0 RBC 4.37 Hgb 14.5 Hct 42.6 MCV 97.5 MCH 33.2 H MCHC 34.0 RDW 13.5 RDW Differential 47.2 H Plt Count 233 MPV 9.0 Immature Gran % (Auto) 0.900 Neut % (Auto) 82.5 H Lymph % (Auto) 10.8 L [place] % (Auto) 5.6 Eos % (Auto) 0.1 Baso % (Auto) 0.1 Absolute Neuts (auto) 8.2 H Absolute Lymphs (auto) 1.08 Total Counted Not Reportable PT 12.8 INR 1.0 APTT 24.3 Sodium 136 Potassium 4.4 Chloride 103 Carbon Dioxide 25.0 Anion Gap 8 BUN 23 H Creatinine 0.98 Estim Creat Clear Calc 40.72 Est GFR (MDRD) Af Amer 69 Est GFR (MDRD) Non-Af 57 L BUN/Creatinine Ratio 23.4 H Glucose 235 H Lactic Acid Calcium 9.2 Total Bilirubin 0.20 AST 22 ALT 41 Alkaline Phosphatase 149 H Total Protein 7.1 Albumin 3.1 L Globulin 4.0 Albumin/Globulin Ratio 0.8 L Urine Color Urine Clarity Urine pH Ur Specific [place] Urine Protein Urine Glucose (UA) Urine Ketones Urine Occult Blood Urine Nitrite Urine Bilirubin Urine Urobilinogen Ur Leukocyte Esterase Urine RBC Urine WBC Ur Squamous Epith Cells Urine Bacteria Urine Mucus 05/04/18 05/04/18 05/04/18 15:43 15:50 20:20 WBC RBC Hgb Hct MCV MCH MCHC RDW RDW Differential Plt Count MPV Immature Gran % (Auto) Neut % (Auto) Lymph % (Auto) [place] % (Auto) Eos % (Auto) Baso % (Auto) Absolute Neuts (auto) Absolute Lymphs (auto) Total Counted PT INR APTT Sodium Potassium Chloride Carbon Dioxide Anion Gap BUN Creatinine Estim Creat Clear Calc Est GFR (MDRD) Af Amer Est GFR (MDRD) Non-Af BUN/Creatinine Ratio Glucose Lactic Acid 3.5 H 2.2 H Calcium Total Bilirubin AST ALT Alkaline Phosphatase Total Protein Albumin Globulin Albumin/Globulin Ratio Urine Color Straw Urine Clarity Clear Urine pH 6.5 Ur Specific [place] 1.010 Urine Protein Negative Urine Glucose (UA) 50 H Urine Ketones Negative Urine Occult Blood 250 H Urine Nitrite Negative Urine Bilirubin Negative Urine Urobilinogen Normal Ur Leukocyte Esterase Negative Urine RBC 0-5 SEEN Urine WBC 0 SEEN Ur Squamous Epith Cells 0 SEEN Urine Bacteria 0 SEEN Urine Mucus 0 SEEN 05/05/18 05/05/18 05:30 05:30 WBC 10.8 RBC 3.98 L Hgb 12.9 Hct 38.8 MCV 97.5 MCH 32.4 H MCHC 33.2 RDW 13.8 RDW Differential 49.3 H Plt Count 184 MPV 9.2 Immature Gran % (Auto) 0.200 Neut % (Auto) 54.9 Lymph % (Auto) 36.8 [place] % (Auto) 6.7 Eos % (Auto) 1.2 Baso % (Auto) 0.2 Absolute Neuts (auto) 6.0 Absolute Lymphs (auto) 3.98 Total Counted Not Reportable PT INR APTT Sodium Pending Potassium Pending Chloride Pending Carbon Dioxide Pending Anion Gap Pending BUN Pending Creatinine Pending Estim Creat Clear Calc Est GFR (MDRD) Af Amer Pending Est GFR (MDRD) Non-Af Pending BUN/Creatinine Ratio Pending Glucose Pending Lactic Acid Calcium Pending Total Bilirubin AST ALT Alkaline Phosphatase Total Protein Albumin Globulin Albumin/Globulin Ratio Urine Color Urine Clarity Urine pH Ur Specific [place] Urine Protein Urine Glucose (UA) Urine Ketones Urine Occult Blood Urine Nitrite Urine Bilirubin Urine Urobilinogen Ur Leukocyte Esterase Urine RBC Urine WBC Ur Squamous Epith Cells Urine Bacteria Urine Mucus Assessment/Plan All Active Problems Hypertensive urgency (Acute) Decreased dorsalis pedis pulse (Resolved) Severe sepsis (Acute) Acute cystitis (Acute) MSSA bacteremia (Acute) Abdominal pain (Acute) Acute dysphagia due to chicken piece (Resolved) Sinus node dysfunction (Resolved) 83-year-old female presents with a 4 mm obstructive ureteral calculi in the distal right ureter with right hydronephrosis and obstruction, high-grade. Plan to place the patient on the surgical schedule tomorrow for ureteroscopy basket extraction of the stone possible stent. We will see if she can pass the stone for the next 24 hours but if fails then will plan to intervene with surgery tomorrow patient was agreeable with the plan will have her sign a consent form.
[2018-05-05 07:18] LABS: Anion Gap 12 (5-15); BUN 18 mg/dL (7-18); Calcium,Total 8.6 mg/dL (8.5-10.1); Chloride 111 mmol/L (98-107); Creatinine, Serum 0.69 mg/dL (0.55-1.02); EST Glomerular Filtration Rate 86 mL/min (>60); Est Glom Filt Rate - Afr Amer 104 mL/min (>60); Glucose 103 mg/dL (74-106); Potassium 3.5 mmol/L (3.5-5.1); Sodium Level 143 mmol/L (136-145)
[2018-05-05] MEDS: predniSONE 10 MG Tablet PO (08:02)
[2018-05-05] MEDS: Lisinopril 10 MG Tablet PO (09:09)
[2018-05-05] MEDS: Triamcinolone 0.5% Cream TOPICAL (09:09)
[2018-05-05] MEDS: Nystatin Powder 15gm Bottle 1 APPLIC TOPICAL ×2 (09:10→22:01)
--- NOTE | 2018-05-05 15:41 | PCM.PN.HOSP ---
Patient Problems: Active and Suspected Problems Abdominal pain (Acute) Subjective: Patient is a 83-year-old white female known history of chronic bilateral lower extremity edema, bullous rash, hypothyroidism, chronic pruritus, COPD, dyslipidemia, retention who presented on 05/04/2018 for kidney stone involving the right kidney with hydronephrosis and hydroureter at the ureterovesical junction approximately 4 mm in lactacidosis. Patient's pain has been well controlled although not requiring very much pain medications, urology has seen the patient and stool will likely go and do a cystoscopy tomorrow if patient has not passed stone. Patient currently denies any nausea vomiting diarrhea constipation is sleepy however otherwise has no new concerns. Vitals/I&O's: Vital Signs Temp Pulse Resp BP Pulse Ox 98.2 F 71 18 119/51 L 94 05/05/18 14:16 05/05/18 14:25 05/05/18 14:23 05/05/18 14:16 05/05/18 14:25 Oxygen Delivery Method Room Air Weight: 83.7 kg Body Mass Index (BMI) 29.7 Intake and Output for Last 24 Hours 05/03/18 05/04/18 05/05/18 23:59 23:59 23:59 Intake Total 1199 / 1199 1683 / 1683 Balance 1199 / 1199 1683 / 1683 General: Alert, Oriented x3, Cooperative HEENT: Atraumatic, PERRLA, EOMI - Positive glasses Oral: Moist Mucosa, No Gingival or Mucosal Lesions/ Ulcerations Neck: Supple, No JVD, Trachea Midline Lungs: Clear to auscultation, No rhonchi, No wheeze, No rales Cardiovascular: Normal S1, Normal S2, No murmurs Abdomen: Soft, Non Tender, Non-Distended Extremities: No clubbing, Edema, Tenderness, - - She has a bulllous lesions on bilateral shins Skin: Ulcer/ Wound, Rash Present Musculoskeletal: No Muscle Wasting Lymphatic: No Cervical, Supraclavicular, or Inguinal Adenopathy Neurological: Cranial nerves II-XII grossly intact, Neuro grossly intact Psych/Mental Status: Normal Affect, Appropriate, Agitated, Alert and oriented to time, place, person, mood and affect Laboratory Results 05/04/18 15:43: WBC 10.0, RBC 4.37, Hgb 14.5, Hct 42.6, MCV 97.5, MCH 33.2 H, MCHC 34.0, RDW 13.5, RDW Differential 47.2 H, Plt Count 233, MPV 9.0, Immature Gran % (Auto) 0.900, Neut % (Auto) 82.5 H, Lymph % (Auto) 10.8 L, [place] % (Auto) 5.6, Eos % (Auto) 0.1, Baso % (Auto) 0.1, Absolute Neuts (auto) 8.2 H, Absolute Lymphs (auto) 1.08, Total Counted Not Reportable 05/04/18 15:43: PT 12.8, INR 1.0, APTT 24.3 05/04/18 15:43: Sodium 136, Potassium 4.4, Chloride 103, Carbon Dioxide 25.0, Anion Gap 8, BUN 23 H, Creatinine 0.98, Estim Creat Clear Calc 40.72, Est GFR (MDRD) Af Amer 69, Est GFR (MDRD) Non-Af 57 L, BUN/Creatinine Ratio 23.4 H, Glucose 235 H, Calcium 9.2, Total Bilirubin 0.20, AST 22, ALT 41, Alkaline Phosphatase 149 H, Total Protein 7.1, Albumin 3.1 L, Globulin 4.0, Albumin/Globulin Ratio 0.8 L 05/04/18 15:43: Lactic Acid 3.5 H 05/04/18 15:50: Urine Color Straw, Urine Clarity Clear, Urine pH 6.5, Ur Specific [place] 1.010, Urine Protein Negative, Urine Glucose (UA) 50 H, Urine Ketones Negative, Urine Occult Blood 250 H, Urine Nitrite Negative, Urine Bilirubin Negative, Urine Urobilinogen Normal, Ur Leukocyte Esterase Negative, Urine RBC 0-5 SEEN, Urine WBC 0 SEEN, Ur Squamous Epith Cells 0 SEEN, Urine Bacteria 0 SEEN, Urine Mucus 0 SEEN 05/04/18 20:20: Lactic Acid 2.2 H 05/05/18 05:30: WBC 10.8, RBC 3.98 L, Hgb 12.9, Hct 38.8, MCV 97.5, MCH 32.4 H, MCHC 33.2, RDW 13.8, RDW Differential 49.3 H, Plt Count 184, MPV 9.2, Immature Gran % (Auto) 0.200, Neut % (Auto) 54.9, Lymph % (Auto) 36.8, Sunflower % (Auto) 6.7, Eos % (Auto) 1.2, Baso % (Auto) 0.2, Absolute Neuts (auto) 6.0, Absolute Lymphs (auto) 3.98, Total Counted Not Reportable 05/05/18 05:30: Sodium 143, Potassium 3.5, Chloride 111 H, Carbon Dioxide 20.0 L, Anion Gap 12, BUN 18, Creatinine 0.69, Estim Creat Clear Calc 39.90, Est GFR (MDRD) Af Amer 104, Est GFR (MDRD) Non-Af 86, BUN/Creatinine Ratio 26.0 H, Glucose 103, Calcium 8.6 Current Medications Hydrocodone Bitart/Acetaminophen ([place] 5mg-325mg) 1 - 2 tablet PO Q6H PRN PRN PRN Reason: Moderate-severe pain Last Admin: 05/05/18 01:51 Dose: 2 tablet Albuterol Sulfate (Ventolin Aerosols) 2.5 mg INHALATION Q6HWA.RT [facility] Last Admin: 05/05/18 13:18 Dose: 2.5 mg Allopurinol (Zyloprim) 100 mg PO QHS [facility] Last Admin: 05/04/18 22:58 Dose: 100 mg Atorvastatin Calcium (Lipitor) 20 mg PO QHS [facility] Last Admin: 05/04/18 22:58 Dose: 20 mg Cholecalciferol (Vitamin D) 2,000 unit PO DAILY [facility] Last Admin: 05/05/18 09:09 Dose: 2,000 unit Heparin Sodium (Porcine) (Heparin Na) 5,000 unit SC Q8 [facility] Last Admin: 05/05/18 14:01 Dose: 5,000 unit Hydralazine HCl (Apresoline Iv) 10 mg IV Q4H PRN PRN PRN Reason: SBP > 160 Last Admin: 05/04/18 23:05 Dose: 10 mg Ketorolac Tromethamine (Toradol) 30 mg IV Q6H PRN PRN PRN Reason: PAIN Stop: 05/09/18 20:01 Last Admin: 05/04/18 19:58 Dose: 30 mg Levothyroxine Sodium (Synthroid) 75 mcg PO DAILY@0600 [facility] Last Admin: 05/05/18 05:30 Dose: 75 mcg Lisinopril (Zestril) 10 mg PO DAILY [facility] Last Admin: 05/05/18 09:09 Dose: 10 mg Magnesium Hydroxide (Milk Of Magnesia) 30 ml PO DAILY PRN PRN PRN Reason: Constipation Morphine Sulfate () 1 - 2 mg IV Q4H PRN PRN PRN Reason: PAIN Last Admin: 05/05/18 00:24 Dose: 2 mg Mupirocin (Bactroban) 1 applic TOPICAL UD [facility]; Protocol Last Admin: 05/04/18 23:00 Dose: 1 applic Nutritional Formula (Lactose Free) (Ensure Enlive) 120 ml PO TID [facility] Last Admin: 05/05/18 12:39 Dose: 120 ml Nystatin (Mycostatin Powder) 1 applic TOPICAL BID [facility]; Protocol Last Admin: 05/05/18 09:10 Dose: 1 applic Prednisone () 10 mg PO DAILYCM [facility] Last Admin: 05/05/18 08:02 Dose: 10 mg Sodium Chloride () 5 - 30 ml IV UD PRN PRN Reason: SALINE FLUSH Last Admin: 05/05/18 00:24 Dose: 10 ml Tamsulosin HCl (Flomax) 0.4 mg PO DAILY@1730 [facility] Last Admin: 05/04/18 22:58 Dose: 0.4 mg Triamcinolone Acetonide (Triamcinolone Acetonide) 0 applic TOPICAL DAILY [facility]; Protocol Last Admin: 05/05/18 09:09 Dose: 1 applic Medical Necessity - Tobacco Use Smoking Status: Former smoker Assessment/Plan All Active Problems Hypertensive urgency (Acute) Decreased dorsalis pedis pulse (Resolved) Severe sepsis (Acute) Acute cystitis (Acute) MSSA bacteremia (Acute) Abdominal pain (Acute) Acute dysphagia due to chicken piece (Resolved) Sinus node dysfunction (Resolved) Patient is a 83-year-old white female known history of chronic bilateral lower extremity edema, bullous rash, hypothyroidism, chronic pruritus, COPD, dyslipidemia, retention who presented on 05/04/2018 for kidney stone involving the right kidney with hydronephrosis and hydroureter at the ureterovesical junction approximately 4 mm in lactacidosis. 1. Abdominal pain due to ureterolithiasis Patient is seen and possibly I will do cystoscopy tomorrow, will Flomax continue fluids as needed pain medications Toradol for pain. Patient might have already passed however will wait for evaluation of urology. N.p.o. after midnight. 2. Hypertension: Pressure is much better controlled, resolution of pain symptoms, with the initiation of lisinopril. Continue as needed hydralazine 3. Lactic acidosis: Continue IV fluids pending down we will check a lactic acid in a.m. 4. Gout: On allopurinol 5. COPD: On Symbicort. As needed breathing treatments 6. Hyperthyroidism: on synthroid. 7. Bullous pemphigoid: has some bullae on her shins. On prednisone and kenalog cream, as well as mupirocin cream, will consult wound care DVT prophylaxis: heparin Code status is full Diet clear n.p.o. after midnight Disposition patient will be monitored in the hospital overnight to see if she passes stone, if not we will have to have cystoscopy with stone removal possibly Chart is dictated with return clerk software. Errors may occur in dictation that may change providers meaning. This note was generated with [employer] dictation software. It may contain incorrect words, spelling, and punctuation that were not noted in checking the note before signing. Code Visit Inpatient E&M: 16669 Init Hosp L3
--- NOTE | 2018-05-05 15:45 | PN_ITS ---
Patient Problems: Active and Suspected Problems Abdominal pain (Acute) Subjective: Patient is a 83-year-old white female known history of chronic bilateral lower extremity edema, bullous rash, hypothyroidism, chronic pruritus, COPD, dyslipidemia, retention who presented on 05/04/2018 for kidney stone involving the right kidney with hydronephrosis and hydroureter at the ureterovesical junction approximately 4 mm in lactacidosis. Patient's pain has been well controlled although not requiring very much pain medications, urology has seen the patient and stool will likely go and do a cystoscopy tomorrow if patient has not passed stone. Patient currently denies any nausea vomiting diarrhea constipation is sleepy however otherwise has no new concerns. Vitals/I&O's: Vital Signs Temp Pulse Resp BP Pulse Ox 98.2 F 71 18 119/51 L 94 05/05/18 14:16 05/05/18 14:25 05/05/18 14:23 05/05/18 14:16 05/05/18 14:25 Oxygen Delivery Method Room Air Weight: 83.7 kg Body Mass Index (BMI) 29.7 Intake and Output for Last 24 Hours 05/03/18 05/04/18 05/05/18 23:59 23:59 23:59 Intake Total 1199 / 1199 1683 / 1683 Balance 1199 / 1199 1683 / 1683 General: Alert, Oriented x3, Cooperative HEENT: Atraumatic, PERRLA, EOMI - Positive glasses Oral: Moist Mucosa, No Gingival or Mucosal Lesions/ Ulcerations Neck: Supple, No JVD, Trachea Midline Lungs: Clear to auscultation, No rhonchi, No wheeze, No rales Cardiovascular: Normal S1, Normal S2, No murmurs Abdomen: Soft, Non Tender, Non-Distended Extremities: No clubbing, Edema, Tenderness, - - She has a bulllous lesions on bilateral shins Skin: Ulcer/ Wound, Rash Present Musculoskeletal: No Muscle Wasting Lymphatic: No Cervical, Supraclavicular, or Inguinal Adenopathy Neurological: Cranial nerves II-XII grossly intact, Neuro grossly intact Psych/Mental Status: Normal Affect, Appropriate, Agitated, Alert and oriented to time, place, person, mood and affect Laboratory Results 05/04/18 15:43: WBC 10.0, RBC 4.37, Hgb 14.5, Hct 42.6, MCV 97.5, MCH 33.2 H, MCHC 34.0, RDW 13.5, RDW Differential 47.2 H, Plt Count 233, MPV 9.0, Immature Gran % (Auto) 0.900, Neut % (Auto) 82.5 H, Lymph % (Auto) 10.8 L, [place] % (Auto) 5.6, Eos % (Auto) 0.1, Baso % (Auto) 0.1, Absolute Neuts (auto) 8.2 H, Absolute Lymphs (auto) 1.08, Total Counted Not Reportable 05/04/18 15:43: PT 12.8, INR 1.0, APTT 24.3 05/04/18 15:43: Sodium 136, Potassium 4.4, Chloride 103, Carbon Dioxide 25.0, Anion Gap 8, BUN 23 H, Creatinine 0.98, Estim Creat Clear Calc 40.72, Est GFR (MDRD) Af Amer 69, Est GFR (MDRD) Non-Af 57 L, BUN/Creatinine Ratio 23.4 H, Glucose 235 H, Calcium 9.2, Total Bilirubin 0.20, AST 22, ALT 41, Alkaline Phosphatase 149 H, Total Protein 7.1, Albumin 3.1 L, Globulin 4.0, Albumin/Globulin Ratio 0.8 L 05/04/18 15:43: Lactic Acid 3.5 H 05/04/18 15:50: Urine Color Straw, Urine Clarity Clear, Urine pH 6.5, Ur Specific [place] 1.010, Urine Protein Negative, Urine Glucose (UA) 50 H, Urine Ketones Negative, Urine Occult Blood 250 H, Urine Nitrite Negative, Urine Bilirubin Negative, Urine Urobilinogen Normal, Ur Leukocyte Esterase Negative, Urine RBC 0-5 SEEN, Urine WBC 0 SEEN, Ur Squamous Epith Cells 0 SEEN, Urine Bacteria 0 SEEN, Urine Mucus 0 SEEN 05/04/18 20:20: Lactic Acid 2.2 H 05/05/18 05:30: WBC 10.8, RBC 3.98 L, Hgb 12.9, Hct 38.8, MCV 97.5, MCH 32.4 H, MCHC 33.2, RDW 13.8, RDW Differential 49.3 H, Plt Count 184, MPV 9.2, Immature Gran % (Auto) 0.200, Neut % (Auto) 54.9, Lymph % (Auto) 36.8, [place] % (Auto) 6.7, Eos % (Auto) 1.2, Baso % (Auto) 0.2, Absolute Neuts (auto) 6.0, Absolute Lymphs (auto) 3.98, Total Counted Not Reportable 05/05/18 05:30: Sodium 143, Potassium 3.5, Chloride 111 H, Carbon Dioxide 20.0 L , Anion Gap 12, BUN 18, Creatinine 0.69, Estim Creat Clear Calc 39.90, Est GFR (MDRD) Af Amer 104, Est GFR (MDRD) Non-Af 86, BUN/Creatinine Ratio 26.0 H, Glucose 103, Calcium 8.6 Current Medications Hydrocodone Bitart/Acetaminophen ([place] 5mg-325mg) 1 - 2 tablet PO Q6H PRN PRN PRN Reason: Moderate-severe pain Last Admin: 05/05/18 01:51 Dose: 2 tablet Albuterol Sulfate (Ventolin Aerosols) 2.5 mg INHALATION Q6HWA.RT [facility] Last Admin: 05/05/18 13:18 Dose: 2.5 mg Allopurinol (Zyloprim) 100 mg PO QHS [facility] Last Admin: 05/04/18 22:58 Dose: 100 mg Atorvastatin Calcium (Lipitor) 20 mg PO QHS [facility] Last Admin: 05/04/18 22:58 Dose: 20 mg Cholecalciferol (Vitamin D) 2,000 unit PO DAILY [facility] Last Admin: 05/05/18 09:09 Dose: 2,000 unit Heparin Sodium (Porcine) (Heparin Na) 5,000 unit SC Q8 [facility] Last Admin: 05/05/18 14:01 Dose: 5,000 unit Hydralazine HCl (Apresoline Iv) 10 mg IV Q4H PRN PRN PRN Reason: SBP > 160 Last Admin: 05/04/18 23:05 Dose: 10 mg Ketorolac Tromethamine (Toradol) 30 mg IV Q6H PRN PRN PRN Reason: PAIN Stop: 05/09/18 20:01 Last Admin: 05/04/18 19:58 Dose: 30 mg Levothyroxine Sodium (Synthroid) 75 mcg PO DAILY@0600 [facility] Last Admin: 05/05/18 05:30 Dose: 75 mcg Lisinopril (Zestril) 10 mg PO DAILY [facility] Last Admin: 05/05/18 09:09 Dose: 10 mg Magnesium Hydroxide (Milk Of Magnesia) 30 ml PO DAILY PRN PRN PRN Reason: Constipation Morphine Sulfate () 1 - 2 mg IV Q4H PRN PRN PRN Reason: PAIN Last Admin: 05/05/18 00:24 Dose: 2 mg Mupirocin (Bactroban) 1 applic TOPICAL UD [facility]; Protocol Last Admin: 05/04/18 23:00 Dose: 1 applic Nutritional Formula (Lactose Free) (Ensure Enlive) 120 ml PO TID [facility] Last Admin: 05/05/18 12:39 Dose: 120 ml Nystatin (Mycostatin Powder) 1 applic TOPICAL BID [facility]; Protocol Last Admin: 05/05/18 09:10 Dose: 1 applic Prednisone () 10 mg PO DAILYCM [facility] Last Admin: 05/05/18 08:02 Dose: 10 mg Sodium Chloride () 5 - 30 ml IV UD PRN PRN Reason: SALINE FLUSH Last Admin: 05/05/18 00:24 Dose: 10 ml Tamsulosin HCl (Flomax) 0.4 mg PO DAILY@1730 [facility] Last Admin: 05/04/18 22:58 Dose: 0.4 mg Triamcinolone Acetonide (Triamcinolone Acetonide) 0 applic TOPICAL DAILY [facility]; Protocol Last Admin: 05/05/18 09:09 Dose: 1 applic Medical Necessity - Tobacco Use Smoking Status: Former smoker Assessment/Plan All Active Problems Hypertensive urgency (Acute) Decreased dorsalis pedis pulse (Resolved) Severe sepsis (Acute) Acute cystitis (Acute) MSSA bacteremia (Acute) Abdominal pain (Acute) Acute dysphagia due to chicken piece (Resolved) Sinus node dysfunction (Resolved) Patient is a 83-year-old white female known history of chronic bilateral lower extremity edema, bullous rash, hypothyroidism, chronic pruritus, COPD, dyslipidemia, retention who presented on 05/04/2018 for kidney stone involving the right kidney with hydronephrosis and hydroureter at the ureterovesical junction approximately 4 mm in lactacidosis. 1. Abdominal pain due to ureterolithiasis Patient is seen and possibly I will do cystoscopy tomorrow, will Flomax continue fluids as needed pain medications Toradol for pain. Patient might have already passed however will wait for evaluation of urology. N.p.o. after midnight. 2. Hypertension: Pressure is much better controlled, resolution of pain symptoms, with the initiation of lisinopril. Continue as needed hydralazine 3. Lactic acidosis: Continue IV fluids pending down we will check a lactic acid in a.m. 4. Gout: On allopurinol 5. COPD: On Symbicort. As needed breathing treatments 6. Hyperthyroidism: on synthroid. 7. Bullous pemphigoid: has some bullae on her shins. On prednisone and kenalog cream, as well as mupirocin cream, will consult wound care DVT prophylaxis: heparin Code status is full Diet clear n.p.o. after midnight Disposition patient will be monitored in the hospital overnight to see if she passes stone, if not we will have to have cystoscopy with stone removal possibly Chart is dictated with pharmacy billing adjudicator software. Errors may occur in dictation that may change providers meaning. This note was generated with [employer] dictation software. It may contain incorrect words, spelling, and punctuation that were not noted in checking the note before signing. Code Visit Inpatient E&M: 80582 Init Hosp L3
[2018-05-05] MEDS: Mupirocin Ointment 22gm Tube 1 APPLIC TOPICAL (17:58)
[2018-05-05] MEDS: Tamsulosin HCl 0.4 MG Capsule PO (17:58)
[2018-05-05] MEDS: 0.9% Normal Saline 1,000 ML 125 ML IV (18:02)
[2018-05-05] MEDS: Atorvastatin Calcium 20 MG Tablet PO (22:01)
[2018-05-05] MEDS: Allopurinol 100 MG Tablet PO (22:01)
[2018-05-06] VITALS (23 sets, daily range): BP systolic 111–197; BP diastolic 54–77; PULSE 65–93; RESP 16–20; TEMP 36.2–37.8; O2SAT 93–98; BMI 29.7
[2018-05-06] MEDS: 0.9% Normal Saline 1,000 ML 125 ML IV ×2 (01:05→09:21)
--- NOTE | 2018-05-06 04:00 | EKG12_ITS ---
Test Reason : MORNING EKG Blood Pressure : / mmHG Vent. Rate : 076 BPM Atrial Rate : 076 BPM P-R Int : 186 ms QRS Dur : 132 ms QT Int : 460 ms P-R-T Axes : 038 -27 131 degrees QTc Int : 517 ms Normal sinus rhythm Left bundle branch block Abnormal ECG When compared with ECG of 09-APR-2018 11:30, QT has lengthened Confirmed by ALEX GARCIA ([id number]), mapping editor TYE MILLS ([id number]) on 05/10/2018 12:48:50 PM Referred By: KRISTIAN Confirmed By:ALEX GARCIA
[2018-05-06 04:03] LABS: Absolute Neutrophil Count 4.5 X10^3/uL (2.0-7.7); Basophil# 0.03 X10^3/uL; Basophil% 0.3 % (0-1); Eosinophil# 0.22 X10^3/uL; Eosinophils% 2.5 % (0-5); Hematocrit 34.3 % (37-47); Hemoglobin 11.7 g/dl (12.0-15.0); Lymphocyte % 39.6 % (19-41); Mean Corp Hgb Conc 34.1 g/gl (32-36); Mean Corpuscular Hgb 33.5 pg (27.0-32.0); Mean Corpuscular Volume 98.3 fL (81-99); Mean Platelet Vol. 9.1 fl (6.2-12.0); Monocyte# 0.55 X10^3/uL; Monocyte% 6.2 % (0-10); Neutrophil # 4.47 X10^3/uL (2.7-7.7); Neutrophil % 50.7 % (47-70); Platelet Count 170 K/mm3 (150-450); RBC Distribution Width SD 48.7 fl (35.1-43.9); Red Blood Count 3.49 M/mm3 (4.2-5.4); White Blood Count 8.8 K/mm3 (4.4-11.0)
[2018-05-06 04:07] LABS: POSITIVE COUNT NO; POSITIVE DIFFERENTIAL NO; POSITIVE MORPHOLOGY NO
[2018-05-06 04:32] LABS: ALB/GLOB Ratio 0.8 RATIO (0.9-2.4); AST(SGOT) 18 U/L (15-37); Alanine Aminotransfer ALT/SGPT 29 U/L (13-56); Albumin, Serum 2.4 g/dL (3.2-5.0); Alkaline Phosphatase 83 U/L (45-117); Anion Gap 8 (5-15); BUN 25 mg/dL (7-18); BUN/Creat Ratio 28.1 RATIO (10-20); Calcium,Total 8.4 mg/dL (8.5-10.1); Chloride 114 mmol/L (98-107); Creatinine, Serum 0.89 mg/dL (0.55-1.02); EST Glomerular Filtration Rate 64 mL/min (>60); Est Glom Filt Rate - Afr Amer 78 mL/min (>60); Estimated Creatinine Clearance 44.84 ml/min; Glucose 102 mg/dL (74-106); Magnesium 1.6 mg/dL (1.6-2.6); Phosphorus 3.1 mg/dL (2.5-4.9); Potassium 4.4 mmol/L (3.5-5.1); Protein, Total 5.4 g/dL (6.4-8.2); Sodium Level 143 mmol/L (136-145); Thyroid Stim Hormone (TSH) 6.88 uIU/mL (0.358-3.74)
[2018-05-06] MEDS: hydrALAZINE 20 MG/ML Vial 10 MG IV ×2 (04:40→20:11)
[2018-05-06 04:44] LABS: Lactic Acid 1.3 mmol/L (0.4-2.0)
[2018-05-06] MEDS: Morphine 2 MG/ML Syringe IV ×2 (05:22→20:05)
[2018-05-06] MEDS: Albuterol 2.5 MG/3 ML VIAL.NEB. INHALATION ×2 (05:34→11:40)
[2018-05-06] MEDS: Levothyroxine 75 MCG Tablet PO (08:08)
[2018-05-06] MEDS: predniSONE 10 MG Tablet PO (08:08)
[2018-05-06] MEDS: Lisinopril 10 MG Tablet PO (09:26)
[2018-05-06] MEDS: Nystatin Powder 15gm Bottle 1 APPLIC TOPICAL ×2 (09:28→21:02)
[2018-05-06] MEDS: Triamcinolone 0.5% Cream TOPICAL (09:28)
--- NOTE | 2018-05-06 10:47 | CASEMGMT ---
SW met with patient as SW saw patient last time she was in the hospital. Patient lives with her son in a 2 story home. She stays on the first floor. Her two sons and daughter in law help her with everything.. She uses [facility]. She has a walker, cane, and bedside commode. Her son, Logan is her healthcare power of contract attorney. She currently has [facility] longterm, PT, and OT. Her family will transport her home at d/c. Kathy BOLANOS
--- NOTE | 2018-05-06 13:51 | NURSING ---
wound photo: left thigh
--- NOTE | 2018-05-06 13:51 | NURSING ---
wound photo: right lower leg
--- NOTE | 2018-05-06 18:39 | OP.PCM_ITS ---
Report of Operation Date of Procedure: 05/06/18 Pre-Operative Diagnosis: Right ureteral calculi with obstruction Post-Operative Diagnosis: Same Surgery/Procedure Performed:: Cystoscopy, balloon dilation of the ureter, right ureteroscopy basket extraction of stone. Description of Surgical Findings:: 83-year-old female admitted to the hospital with obstructing stone in the distal right ureter she is failed to pass the stone spontaneously therefore taken her to surgery today for possible ESWL possible ureteroscopy and extraction,. Patient was taken back to the operating room at the smooth induction of anesthesia. 83-year-old female taken back to the operating room at the smooth induction of anesthesia she was placed supine on the lithotripter table we used the fluoroscope to try to localize the stone in the distal right ureter but were not able to see the stone clearly so therefore the patient was placed in dorsolithotomy position the urethra and vaginal area prepped and draped in usual sterile fashion went in the bladder with a 21 [place] rigid cystourethroscope immediately recognized the stone that was in the distal right ureter I advanced the wire past the stone I then dilated the distal ureter with a 12 [place] 10 cm balloon dilator, we then went into the ureter with the ureteroscope and used a basket and basketed the stone and then pulled the stone fragment out it was a very soft stone appeared to be uric acid we tried to get some of the fragments to be sent for analysis. We then went back into the ureter with the ureteroscope second time basketed some other small fragments in the distal ureter at this point the ureter was clear of obstructing stones, decided not to leave a stent in the bladder was drained the patient's anesthetic is currently being reversed she will be able to be discharged from the hospital once clinically stable. Type of Anesthesia:: General Drains: none - Admit VTE Documentation VTE Present on Admission: No VTE Mechan Device Prophylaxis: SCD's
--- NOTE | 2018-05-06 18:39 | PCM.PN.HOSP ---
Patient Problems: Active and Suspected Problems Abdominal pain (Acute) Subjective: Patient is a 83-year-old white female known history of chronic bilateral lower extremity edema, bullous rash, hypothyroidism, chronic pruritus, COPD, dyslipidemia, retention who presented on 05/04/2018 for kidney stone involving the right kidney with hydronephrosis and hydroureter at the ureterovesical junction approximately 4 mm and lactacidosis. Patient is just out of the OR, will monitor overnight, and likely discharge tomorrow morning. Patient currently seen disown the PACU, very confused due to anesthesia uncommitted able to communicate review of systems. Due to this reason I will keep patient overnight for further monitoring and laboratories. Vitals/I&O's: Vital Signs Temp Pulse Resp BP Pulse Ox 100.1 F H 74 18 184/63 H 97 05/06/18 16:47 05/06/18 16:47 05/06/18 16:47 05/06/18 16:47 05/06/18 16:47 Oxygen Delivery Method Room Air Weight: 83.7 kg Body Mass Index (BMI) 29.7 Intake and Output for Last 24 Hours 05/04/18 05/05/18 05/06/18 23:59 23:59 23:59 Intake Total 1199 / 1199 3413 / 3413 1786 / 1786 Balance 1199 / 1199 3413 / 3413 1786 / 1786 General: Confused, Disoriented, Non-Cooperative - Past postanesthesia HEENT: Atraumatic, PERRLA, EOMI Oral: No Gingival or Mucosal Lesions/ Ulcerations, Dry Mucosa Neck: Supple, No JVD, Trachea Midline Lungs: No rhonchi, No wheeze, No rales, Diminished - Respiratory effort poor Cardiovascular: Regular rate, Normal S1, Normal S2, No murmurs Abdomen: Bowel Sounds Present, Non Tender, Non-Distended Extremities: Edema, Tenderness, - - Bullous pemphigoid blistering Skin: Ulcer/ Wound, - - Bolus pemphigoid Musculoskeletal: No Tenderness to Palpation of Joints or Extremities, No Muscle Wasting Lymphatic: No Cervical, Supraclavicular, or Inguinal Adenopathy Neurological: Cranial nerves II-XII grossly intact, Neuro grossly intact Psych/Mental Status: Flat Affect - Fully assess secondary to patient under anesthesia Microbiology Past 72 Hours 05/04/18 15:50 Urine, Clean Catch Urine Culture - Preliminary Culture exhibits no growth. Laboratory Results 05/06/18 03:48: WBC 8.8, RBC 3.49 L, Hgb 11.7 L, Hct 34.3 L, MCV 98.3, MCH 33.5 H, MCHC 34.1, RDW 14.0, RDW Differential 48.7 H, Plt Count 170, MPV 9.1, Immature Gran % (Auto) 0.700, Neut % (Auto) 50.7, Lymph % (Auto) 39.6, [place] % (Auto) 6.2, Eos % (Auto) 2.5, Baso % (Auto) 0.3, Absolute Neuts (auto) 4.5, Absolute Lymphs (auto) 3.50, Total Counted Not Reportable 05/06/18 03:48: Sodium 143, Potassium 4.4, Chloride 114 H, Carbon Dioxide 21.0, Anion Gap 8, BUN 25 H, Creatinine 0.89, Estim Creat Clear Calc 44.84, Est GFR (MDRD) Af Amer 78, Est GFR (MDRD) Non-Af 64, BUN/Creatinine Ratio 28.1 H, Glucose 102, Calcium 8.4 L, Phosphorus 3.1, Magnesium 1.6, Total Bilirubin 0.30, AST 18, ALT 29, Alkaline Phosphatase 83, Total Protein 5.4 L, Albumin 2.4 L, Globulin 3.0, Albumin/Globulin Ratio 0.8 L, TSH 6.88 H 05/06/18 03:48: Lactic Acid 1.3 05/06/18 03:48: APTT 28.0 Current Medications Hydrocodone Bitart/Acetaminophen ([place] 5mg-325mg) 1 - 2 tablet PO Q6H PRN PRN PRN Reason: Moderate-severe pain Last Admin: 05/05/18 22:03 Dose: 2 tablet Albuterol Sulfate (Ventolin Aerosols) 2.5 mg INHALATION Q6HWA.RT [facility] Last Admin: 05/06/18 11:40 Dose: 2.5 mg Allopurinol (Zyloprim) 100 mg PO QHS [facility] Last Admin: 05/05/18 22:01 Dose: 100 mg Atorvastatin Calcium (Lipitor) 20 mg PO QHS [facility] Last Admin: 05/05/18 22:01 Dose: 20 mg Cholecalciferol (Vitamin D) 2,000 unit PO DAILY [facility] Last Admin: 05/06/18 09:26 Dose: 2,000 unit Heparin Sodium (Porcine) (Heparin Na) 5,000 unit SC Q8 [facility] Last Admin: 05/06/18 12:17 Dose: Not Given Hydralazine HCl (Apresoline Iv) 10 mg IV Q4H PRN PRN PRN Reason: SBP > 160 Last Admin: 05/06/18 04:40 Dose: 10 mg Ketorolac Tromethamine (Toradol) 30 mg IV Q6H PRN PRN PRN Reason: PAIN Stop: 05/09/18 20:01 Last Admin: 05/04/18 19:58 Dose: 30 mg Levothyroxine Sodium (Synthroid) 75 mcg PO DAILY@0600 [facility] Last Admin: 05/06/18 08:08 Dose: 75 mcg Lisinopril (Zestril) 10 mg PO DAILY [facility] Last Admin: 05/06/18 09:26 Dose: 10 mg Magnesium Hydroxide (Milk Of Magnesia) 30 ml PO DAILY PRN PRN PRN Reason: Constipation Morphine Sulfate () 1 - 2 mg IV Q4H PRN PRN PRN Reason: PAIN Last Admin: 05/06/18 05:22 Dose: 2 mg Nutritional Formula (Lactose Free) (Ensure Enlive) 120 ml PO TID [facility] Last Admin: 05/06/18 12:17 Dose: Not Given Nystatin (Mycostatin Powder) 1 applic TOPICAL BID [facility]; Protocol Last Admin: 05/06/18 09:28 Dose: 1 applic Prednisone () 10 mg PO DAILYCM [facility] Last Admin: 05/06/18 08:08 Dose: 10 mg Sodium Chloride () 5 - 30 ml IV UD PRN PRN Reason: SALINE FLUSH Last Admin: 05/05/18 00:24 Dose: 10 ml Tamsulosin HCl (Flomax) 0.4 mg PO DAILY@1730 [facility] Last Admin: 05/05/18 17:58 Dose: 0.4 mg Triamcinolone Acetonide (Triamcinolone Acetonide) 0 applic TOPICAL DAILY [facility]; Protocol Last Admin: 05/06/18 09:28 Dose: 1 applic Medical Necessity - Tobacco Use Smoking Status: Former smoker Assessment/Plan All Active Problems Hypertensive urgency (Acute) Decreased dorsalis pedis pulse (Resolved) Severe sepsis (Acute) Acute cystitis (Acute) MSSA bacteremia (Acute) Abdominal pain (Acute) Acute dysphagia due to chicken piece (Resolved) Sinus node dysfunction (Resolved) Patient is a 83-year-old white female known history of chronic bilateral lower extremity edema, bullous rash, hypothyroidism, chronic pruritus, COPD, dyslipidemia, retention who presented on 05/04/2018 for kidney stone involving the right kidney with hydronephrosis and hydroureter at the ureterovesical junction approximately 4 mm and in lactacidosis. 1. Abdominal pain due to ureterolithiasis Patient had cystoscopy in late, showing a 4 mm stone with possible uric acid. No stenting required will monitor overnight, check laboratories, see if patient needs any home health needs but likely discharge tomorrow. 2. Hypertension: Since the blood pressure medications was held earlier, elevated, PRN hydralazine 3. Lactic acidosis: Lactic acidosis resolved 4. Gout: On allopurinol 5. COPD: On Symbicort. As needed breathing treatments 6. Hyperthyroidism: on synthroid. 7. Bullous pemphigoid: has some bullae on her shins. On prednisone and kenalog cream, as well as mupirocin cream, consulted wound care DVT prophylaxis: heparin Code status is full Diet regular after anesthesia Disposition she just had stone removal will monitor overnight and reevaluate in the a.m. likely discharge tomorrow. Chart is dictated with mild disabilities teacher software. Errors may occur in dictation that may change providers meaning. This note was generated with [employer] dictation software. It may contain incorrect words, spelling, and punctuation that were not noted in checking the note before signing.
--- NOTE | 2018-05-06 18:50 | PN_ITS ---
Patient Problems: Active and Suspected Problems Abdominal pain (Acute) Subjective: Patient is a 83-year-old white female known history of chronic bilateral lower extremity edema, bullous rash, hypothyroidism, chronic pruritus, COPD, dyslipidemia, retention who presented on 05/04/2018 for kidney stone involving the right kidney with hydronephrosis and hydroureter at the ureterovesical junction approximately 4 mm and lactacidosis. Patient is just out of the OR, will monitor overnight, and likely discharge tomorrow morning. Patient currently seen disown the PACU, very confused due to anesthesia uncommitted able to communicate review of systems. Due to this reason I will keep patient overnight for further monitoring and lab oratories. Vitals/I&O's: Vital Signs Temp Pulse Resp BP Pulse Ox 100.1 F H 74 18 184/63 H 97 05/06/18 16:47 05/06/18 16:47 05/06/18 16:47 05/06/18 16:47 05/06/18 16:47 Oxygen Delivery Method Room Air Weight: 83.7 kg Body Mass Index (BMI) 29.7 Intake and Output for Last 24 Hours 05/04/18 05/05/18 05/06/18 23:59 23:59 23:59 Intake Total 1199 / 1199 3413 / 3413 1786 / 1786 Balance 1199 / 1199 3413 / 3413 178 / 1786 General: Confused, Disoriented, Non-Cooperative - Past postanesthesia HEENT: Atraumatic, PERRLA, EOMI Oral: No Gingival or Mucosal Lesions/ Ulcerations, Dry Mucosa Neck: Supple, No JVD, Trachea Midline Lungs: No rhonchi, No wheeze, No rales, Diminished - Respiratory effort poor Cardiovascular: Regular rate, Normal S1, Normal S2, No murmurs Abdomen: Bowel Sounds Present, Non Tender, Non-Distended Extremities: Edema, Tenderness, - - Bullous pemphigoid blistering Skin: Ulcer/ Wound, - - Bolus pemphigoid Musculoskeletal: No Tenderness to Palpation of Joints or Extremities, No Muscle Wasting Lymphatic: No Cervical, Supraclavicular, or Inguinal Adenopathy Neurological: Cranial nerves II-XII grossly intact, Neuro grossly intact Psych/Mental Status: Flat Affect - Fully assess secondary to patient under anesthesia Microbiology Past 72 Hours 05/04/18 15:50 Urine, Clean Catch Urine Culture - Preliminary Culture exhibits no growth. Laboratory Results 05/06/18 03:48: WBC 8.8, RBC 3.49 L, Hgb 11.7 L, Hct 34.3 L, MCV 98.3, MCH 33.5 H, MCHC 34.1, RDW 14.0, RDW Differential 48.7 H, Plt Count 170, MPV 9.1, Immature Gran % (Auto) 0.700, Neut % (Auto) 50.7, Lymph % (Auto) 39.6, [place] % (Auto) 6.2, Eos % (Auto) 2.5, Baso % (Auto) 0.3, Absolute Neuts (auto) 4.5, Absolute Lymphs (auto) 3.50, Total Counted Not Reportable 05/06/18 03:48: Sodium 143, Potassium 4.4, Chloride 114 H, Carbon Dioxide 21.0, Anion Gap 8, BUN 25 H, Creatinine 0.89, Estim Creat Clear Calc 44.84, Est GFR (MDRD) Af Amer 78, Est GFR (MDRD) Non-Af 64, BUN/Creatinine Ratio 28.1 H, Glucose 102, Calcium 8.4 L, Phosphorus 3.1, Magnesium 1.6, Total Bilirubin 0.30, AST 18, ALT 29, Alkaline Phosphatase 83, Total Protein 5.4 L, Albumin 2.4 L, Globulin 3.0, Albumin/Globulin Ratio 0.8 L, TSH 6.88 H 05/06/18 03:48: Lactic Acid 1.3 05/06/18 03:48: APTT 28.0 Current Medications Hydrocodone Bitart/Acetaminophen ([place] 5mg-325mg) 1 - 2 tablet PO Q6H PRN PRN PRN Reason: Moderate-severe pain Last Admin: 05/05/18 22:03 Dose: 2 tablet Albuterol Sulfate (Ventolin Aerosols) 2.5 mg INHALATION Q6HWA.RT [facility] Last Admin: 05/06/18 11:40 Dose: 2.5 mg Allopurinol (Zyloprim) 100 mg PO QHS [facility] Last Admin: 05/05/18 22:01 Dose: 100 mg Atorvastatin Calcium (Lipitor) 20 mg PO QHS [facility] Last Admin: 05/05/18 22:01 Dose: 20 mg Cholecalciferol (Vitamin D) 2,000 unit PO DAILY [facility] Last Admin: 05/06/18 09:26 Dose: 2,000 unit Heparin Sodium (Porcine) (Heparin Na) 5,000 unit SC Q8 [facility] Last Admin: 05/06/18 12:17 Dose: Not Given Hydralazine HCl (Apresoline Iv) 10 mg IV Q4H PRN PRN PRN Reason: SBP > 160 Last Admin: 05/06/18 04:40 Dose: 10 mg Ketorolac Tromethamine (Toradol) 30 mg IV Q6H PRN PRN PRN Reason: PAIN Stop: 05/09/18 20:01 Last Admin: 05/04/18 19:58 Dose: 30 mg Levothyroxine Sodium (Synthroid) 75 mcg PO DAILY@0600 [facility] Last Admin: 05/06/18 08:08 Dose: 75 mcg Lisinopril (Zestril) 10 mg PO DAILY [facility] Last Admin: 05/06/18 09:26 Dose: 10 mg Magnesium Hydroxide (Milk Of Magnesia) 30 ml PO DAILY PRN PRN PRN Reason: Constipation Morphine Sulfate () 1 - 2 mg IV Q4H PRN PRN PRN Reason: PAIN Last Admin: 05/06/18 05:22 Dose: 2 mg Nutritional Formula (Lactose Free) (Ensure Enlive) 120 ml PO TID [facility] Last Admin: 05/06/18 12:17 Dose: Not Given Nystatin (Mycostatin Powder) 1 applic TOPICAL BID [facility]; Protocol Last Admin: 05/06/18 09:28 Dose: 1 [facility] Last Admin: 05/06/18 08:08 Dose: 10 mg Sodium Chloride () 5 - 30 ml IV UD PRN PRN Reason: SALINE FLUSH Last Admin: 05/05/18 00:24 Dose: 10 ml Tamsulosin HCl (Flomax) 0.4 mg PO DAILY@1730 [facility] Last Admin: 05/05/18 17:58 Dose: 0.4 mg Triamcinolone Acetonide (Triamcinolone Acetonide) 0 applic TOPICAL DAILY [facility]; Protocol Last Admin: 05/06/18 09:28 Dose: 1 applic Medical Necessity - Tobacco Use Smoking Status: Former smoker Assessment/Plan All Active Problems Hypertensive urgency (Acute) Decreased dorsalis pedis pulse (Resolved) Severe sepsis (Acute) Acute cystitis (Acute) MSSA bacteremia (Acute) Abdominal pain (Acute) Acute dysphagia due to chicken piece (Resolved) Sinus node dysfunction (Resolved) Patient is a 83-year-old white female known history of chronic bilateral lower extremity edema, bullous rash, hypothyroidism, chronic pruritus, COPD, dyslipidemia, retention who presented on 05/04/2018 for kidney stone involving the right kidney with hydronephrosis and hydroureter at the ureterovesical junction approximately 4 mm and in lactacidosis. 1. Abdominal pain due to ureterolithiasis Patient had cystoscopy in late, showing a 4 mm stone with possible uric acid. No stenting required will monitor overnight, check laboratories, see if patient needs any home health needs but likely discharge tomorrow. 2. Hypertension: Since the blood pressure medications was held earlier, elevated, PRN hydralazine 3. Lactic acidosis: Lactic acidosis resolved 4. Gout: On allopurinol 5. COPD: On Symbicort. As needed breathing treatments 6. Hyperthyroidism: on synthroid. 7. Bullous pemphigoid: has some bullae on her shins. On prednisone and kenalog cream, as well as mupirocin cream, consulted wound care DVT prophylaxis: heparin Code status is full Diet regular after anesthesia Disposition she just had stone removal will monitor overnight and reevaluate in the a.m. likely discharge tomorrow. Chart is dictated with frame straightener software. Errors may occur in dictation that may change providers meaning. This note was generated with [employer] dictation software. It may contain incorrect words, spelling, and punctuation that were not noted in checking the note before signing.
[2018-05-06] MEDS: Tamsulosin HCl 0.4 MG Capsule PO (20:05)
[2018-05-06] MEDS: 0.9% NaCl Peripheral Flush Adult/Peds IV (21:02)
[2018-05-06] MEDS: Allopurinol 100 MG Tablet PO (21:05)
[2018-05-06] MEDS: Atorvastatin Calcium 20 MG Tablet PO (21:05)
[2018-05-06] MEDS: Ketorolac 30 MG/ML Syringe IV (23:49)
[2018-05-07] VITALS (11 sets, daily range): BP systolic 110–152; BP diastolic 50–62; PULSE 63–78; RESP 17–20; TEMP 36.6–36.8; O2SAT 93–97
[2018-05-07] MEDS: Levothyroxine 75 MCG Tablet PO (05:56)
[2018-05-07] MEDS: Heparin Injection (Vial) 5,000 UNIT/ML VIAL 5000 UNIT SC (05:56)
[2018-05-07 06:50] LABS: Absolute Lymphocyte Count 2.53 X10^3/ul (0.83-4.51); Absolute Neutrophil Count 3.8 X10^3/uL (2.0-7.7); Basophil# 0.03 X10^3/uL; Basophil% 0.4 % (0-1); Eosinophil# 0.26 X10^3/uL; Eosinophils% 3.6 % (0-5); Hemoglobin 12.4 g/dl (12.0-15.0); Lymphocyte # 2.53 X10^3/ul (4.0); Lymphocyte % 34.9 % (19-41); Mean Corp Hgb Conc 33.5 g/gl (32-36); Mean Corpuscular Hgb 33.4 pg (27.0-32.0); Mean Corpuscular Volume 99.7 fL (81-99); Mean Platelet Vol. 9.5 fl (6.2-12.0); Monocyte# 0.61 X10^3/uL; Monocyte% 8.4 % (0-10); Neutrophil # 3.78 X10^3/uL (2.7-7.7); Neutrophil % 52.1 % (47-70); POSITIVE COUNT NO; POSITIVE DIFFERENTIAL NO; POSITIVE MORPHOLOGY NO; Platelet Count 167 K/mm3 (150-450); RBC Distribution Width CV 14.5 % (11.6-14.6); RBC Distribution Width SD 51.5 fl (35.1-43.9); Red Blood Count 3.71 M/mm3 (4.2-5.4); White Blood Count 7.3 K/mm3 (4.4-11.0)
[2018-05-07 07:18] LABS: ALB/GLOB Ratio 0.8 RATIO (0.9-2.4); AST(SGOT) 27 U/L (15-37); Alanine Aminotransfer ALT/SGPT 31 U/L (13-56); Albumin, Serum 2.6 g/dL (3.2-5.0); Alkaline Phosphatase 68 U/L (45-117); Anion Gap 10 (5-15); BUN 17 mg/dL (7-18); BUN/Creat Ratio 18.5 RATIO (10-20); Calcium,Total 9.2 mg/dL (8.5-10.1); Chloride 113 mmol/L (98-107); Creatinine, Serum 0.92 mg/dL (0.55-1.02); EST Glomerular Filtration Rate 62 mL/min (>60); Est Glom Filt Rate - Afr Amer 75 mL/min (>60); Estimated Creatinine Clearance 43.37 ml/min; Globulin 3.3 g/dL (2.2-4.2); Glucose 90 mg/dL (74-106); Magnesium 1.7 mg/dL (1.6-2.6); Potassium 3.9 mmol/L (3.5-5.1); Protein, Total 5.9 g/dL (6.4-8.2); Sodium Level 144 mmol/L (136-145)
[2018-05-07] MEDS: predniSONE 10 MG Tablet PO (09:35)
[2018-05-07] MEDS: Lisinopril 10 MG Tablet PO (09:36)
[2018-05-07] MEDS: Triamcinolone 0.5% Cream TOPICAL (09:36)
[2018-05-07] MEDS: Nystatin Powder 15gm Bottle 1 APPLIC TOPICAL (09:36)
[2018-05-07] MEDS: Albuterol 2.5 MG/3 ML VIAL.NEB. INHALATION (11:02)
--- NOTE | 2018-05-07 15:08 | DCINST_ITS ---
- Discharge Diagnoses Current Active Problems: Current Active and Chronic Problems Abdominal pain (Acute) You will use the following diet at home:: Cardiac Your food should be the consistency of: Regular Your liquids should be the consistency of: Regular/Thin Discharge Activity: Return to Normal Activity Weight Bearing Status: Weight bearing as tolerated Call your doctor if you observe: Fever of 101 or Higher, Numbness or Tingling, Shortness of breath, Dizziness, Chest pain, Uncontrolled pain Allergies/Adverse Reactions: Allergies No Known Allergies Allergy (Verified 04/09/18 11:35) Medications to take at Discharge Allopurinol [Zyloprim] 100 mg PO QHS 09/10/13 Levothyroxine [Synthroid] 75 mcg PO DAILY 10/02/14 Budesonide/Formoterol 160/4.5 [Symbicort 160/4.5 Mcg Inhaler (SP)] 2 puff INHALATION BID 09/23/16 Atorvastatin Calcium [Lipitor] 20 mg PO QHS 09/10/17 Cholecalciferol (Vitamin D3) [Vitamin D3] 2,000 unit PO DAILY 01/31/18 Nystatin Powder [Mycostatin Powder] 1 applic TOPICAL BID #0 bottle 04/12/18 Ensure Enlive 120 ml PO TID 05/04/18 Lisinopril [Zestril] 10 mg PO DAILY 05/04/18 Mupirocin [Bactroban] 1 applic TP UD 05/04/18 Prednisone 10 - 20 mg PO DAILY 05/04/18 Triamcinolone 0.1% Cream [Kenalog] 1 applic TP UD 05/04/18 Hydrocodone/Acetaminophen [Hydrocodon-Acetaminophen 5-325] 1 each PO Q4H PRN 7 Days #7 tablet 05/07/18 Primary Care Physician: Salinas Keller III, MD [Primary Care Provider] - Please follow up with your Primary Care Physician in: 1 week Test Results: Test results from this visit will be discussed in further detail at your follow- up appointment, if applicable. Please Follow Up With: Elmo Yates MD When: 2 weeks Proposed Discharge Date: 05/07/18
--- NOTE | 2018-05-07 15:24 | DS.PCM_ITS ---
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 Urinary incontinence RADIATION DOSAGE (If Supplied By Facility): CTDIvol = ( 11.15 ) mGy, DLP = ( 576.85 ) mGycm TECHNIQUE: Transaxial images were obtained from the dome of the diaphragm to the symphysis pubis without oral contrast, and without intravenous contrast. Sagittal and coronal images were reconstructed. Individualized dose optimization techniques were used for this CT. COMPARISON: Prior study of 05/03/2016 FINDINGS: The visualized lung bases are unremarkable. The visualized portions of the heart are within normal limits. Normal liver. Gallstone is present within a contracted gallbladder. Normal spleen. Normal pancreas. Normal bilateral adrenal glands. There is a mild right hydronephrosis and hydroureter to the level of the UVJ. There is an obstructing calculus in the distal right ureter at the level of the UVJ measuring 4 mm. Normal left kidney. There is a small hiatal hernia. Normal small intestine. Normal colon. There is non-visualization of the appendix. There are densely calcified plaques of the abdominal aorta and common iliac arteries. Normal inferior vena cava. Normal retroperitoneum. Normal urinary bladder. Several tiny uterine calcifications are seen consistent with degenerative fibroids. Adnexal structures are unremarkable. Normal abdominal wall. There are diffuse degenerative changes of the visualized thoracolumbar spine. CT/Abdomen/Pelvis without Cont IMPRESSION: 1. Cholelithiasis noted within a contracted gallbladder. 2. Mild right hydronephrosis and hydroureter to the level of the UVJ, at which point is demonstrated an obstructing 4 mm calculus. 3. Small hiatal hernia. Electronically Signed: Willi Pires MD at 17:06 EDT , Service support , CC: Salinas Keller III, MD; Raymond Galdamez ~ Family Manager: Signed Consultations 05/05/18 15:40 Consult: Onc/Wound/lab technician Routine Comment: Operations: None Procedures: - - Report of Operation Date of Procedure: 05/06/18 Pre-Operative Diagnosis: Right ureteral calculi with obstruction Post-Operative Diagnosis: Same Surgery/Procedure Performed:: Cystoscopy, balloon dilation of the ureter, right ureteroscopy basket extraction of stone. Description of Surgical Findings:: 83-year-old female admitted to the hospital with obstructing stone in the distal right ureter she is failed to pass the stone spontaneously therefore taken her to surgery today for possible ESWL possible ureteroscopy and extraction,. Patient was taken back to the operating room at the smooth induction of anesthesia. 83-year-old female taken back to the operating room at the smooth induction of anesthesia she was placed supine on the lithotripter table we used the fluoroscope to try to localize the stone in the distal right ureter but were not able to see the stone clearly so therefore the patient was placed in dorsolithotomy position the urethra and vaginal area prepped and draped in usual sterile fashion went in the bladder with a 21 [place] rigid cystourethroscope immediately recognized the stone that was in the distal right ureter I advanced the wire past the stone I then dilated the distal ureter with a 12 [place] 10 cm balloon dilator, we then went into the ureter with the ureteroscope and used a basket and basketed the stone and then pulled the stone fragment out it was a very soft stone appeared to be uric acid we tried to get some of the fragments to be sent for analysis. We then went back into the ureter with the ureteroscope second time basketed some other small fragments in the distal ureter at this point the ureter was clear of obstructing stones, decided not to leave a stent in the bladder was drained the patient's anesthetic is currently being reversed she will be able to be discharged from the hospital once clinically stable. Type of Anesthesia:: General Drains: none - Admit VTE Documentation VTE Present on Admission: No VTE Mechan Device Prophylaxis: SCD's Summary of Care Provided: Patient is a 83-year-old white female known history of chronic bilateral lower extremity edema, bullous rash, hypothyroidism, chronic pruritus, COPD, dyslipidemia, retention who presented on 05/04/2018 for kidney stone involving the right kidney with hydronephrosis and hydroureter at the ureterovesical junction approximately 4 mm and lactacidosis. Abdominal pain due to ureterolithiasis Patient had cystoscopy in late, showing a 4 mm stone with possible uric acid. No stenting required some as needed pain medication and assess for home O2 have follow-up with urology no need for further Flomax. Most likely a uric acid stone will continue allopurinol Hypertension: Continue home medications Lactic acidosis: Lactic acidosis resolved Gout: On allopurinol COPD: On Symbicort. Assess home O2 Hyperthyroidism: on synthroid. Bullous pemphigoid: Continue home therapy, continue home medications Code status full Diet regular Disposition she will be discharged needs home O2, and continue home health Medications reviewed with the patient. Risks, benefits, alternatives, side effects, potential complications and dangers of medications discussed. Patient wishes to utilize these agents despite risk. A signed medical consent/advisement form regarding narcotic medications and a side medication agreement are located in the patient's chart. Chart is dictated with production cook software. Errors may occur in dictation that may change providers meaning. This note was generated with [employer] dictation software. It may contain incorrect words, spelling, and punctuation that were not noted in checking the note before signing. Patient Problems: Active and Suspected Problems Abdominal pain (Acute) Subjective: Feels weak and fatigued but currently wishes to go home does not wish to assess for rehab. Though suggested that patient may do better with it. This tightness off the oxygen will check if patient needs O2. - Physical Exam General: Alert, Oriented x3, Cooperative HEENT: Atraumatic, PERRLA, EOMI Oral: Moist Mucosa, No Gingival or Mucosal Lesions/ Ulcerations Neck: Supple, No JVD, Trachea Midline Lungs: No rhonchi, No wheeze, No rales, Diminished - Bilateral bases prolonged expiratory phase Cardiovascular: Regular rate, Regular Rhythm, Normal S1, Normal S2 Abdomen: Soft, Non Tender, Non-Distended Extremities: No clubbing, No cyanosis, Edema - Bilateral edema Skin: Ulcer/ Wound - Bolus pemphigoid bilateral shins Musculoskeletal: No Tenderness to Palpation of Joints or Extremities, Tenderness Lymphatic: No Cervical, Supraclavicular, or Inguinal Adenopathy Neurological: Cranial nerves II-XII grossly intact, Neuro grossly intact Psych/Mental Status: Normal Affect, Appropriate, Alert and oriented to time, place, person, mood and affect Vital Signs Temp Pulse Resp BP Pulse Ox 98.0 F 78 17 110/59 L 93 05/07/18 14:08 05/07/18 14:08 05/07/18 14:08 05/07/18 14:08 05/07/18 14:08 Oxygen Flow Rate (L/min) 3 Oxygen Delivery Method Room Air Weight: 83.7 kg Body Mass Index (BMI) 29.7 Intake and Output for Last 24 Hours 05/05/18 05/06/18 05/07/18 23:59 23:59 23:59 Intake Total 3413 / 3413 2286 / 2286 600 / 600 Balance 3413 / 3413 2286 / 2286 600 / 600 Microbiology Past 72 Hours 05/04/18 15:50 Urine Culture - Final Urine, Clean Catch Culture exhibits no growth. 05/04/18 16:10 Blood Culture - Preliminary Blood Culture (Wb) - Anticubital Right No growth in 48 hours. 05/04/18 15:43 Blood Culture - Preliminary Blood Culture (Wb) - Anticubital Left No growth in 48 hours. Laboratory Tests Past 24 Hrs 05/07/18 05/07/18 05:40 05:40 WBC 7.3 RBC 3.71 L Hgb 12.4 Hct 37.0 MCV 99.7 H MCH 33.4 H MCHC 33.5 RDW 14.5 RDW Differential 51.5 H Plt Count 167 MPV 9.5 Immature Gran % (Auto) 0.600 Neut % (Auto) 52.1 Lymph % (Auto) 34.9 Wise % (Auto) 8.4 Eos % (Auto) 3.6 Baso % (Auto) 0.4 Absolute Neuts (auto) 3.8 Absolute Lymphs (auto) 2.53 Total Counted Not Reportable Sodium 144 Potassium 3.9 Chloride 113 H Carbon Dioxide 21.0 Anion Gap 10 BUN 17 Creatinine 0.92 Estim Creat Clear Calc 43.37 Est GFR (MDRD) Af Amer 75 Est GFR (MDRD) Non-Af 62 BUN/Creatinine Ratio 18.5 Glucose 90 Calcium 9.2 Phosphorus 4.0 Magnesium 1.7 Total Bilirubin 0.60 AST 27 ALT 31 Alkaline Phosphatase 68 Total Protein 5.9 L Albumin 2.6 L Globulin 3.3 Albumin/Globulin Ratio 0.8 L Discharge Diet: No Restrictions - Low-sodium diet Discharge Activity: Return to Normal Activity Weight Bearing Status: Weight bearing as tolerated Call your doctor if you observe: Fever of 101 or Higher, Numbness or Tingling, Shortness of breath, Dizziness, Chest pain, Uncontrolled pain Cleanse incision/area with: - - Per home health continue treatment. And chronic steroids Home Medications: Medications to take at Discharge Allopurinol [Zyloprim] 100 mg PO QHS 09/10/13 Levothyroxine [Synthroid] 75 mcg PO DAILY 10/02/14 Budesonide/Formoterol 160/4.5 [Symbicort 160/4.5 Mcg Inhaler (SP)] 2 puff INHALATION BID 09/23/16 Atorvastatin Calcium [Lipitor] 20 mg PO QHS 09/10/17 Cholecalciferol (Vitamin D3) [Vitamin D3] 2,000 unit PO DAILY 01/31/18 Nystatin Powder [Mycostatin Powder] 1 applic TOPICAL BID #0 bottle 04/12/18 Ensure Enlive 120 ml PO TID 05/04/18 Lisinopril [Zestril] 10 mg PO DAILY 05/04/18 Mupirocin [Bactroban] 1 applic TP UD 05/04/18 Prednisone 10 - 20 mg PO DAILY 05/04/18 Triamcinolone 0.1% Cream [Kenalog] 1 applic TP UD 05/04/18 Hydrocodone/Acetaminophen [Hydrocodon-Acetaminophen 5-325] 1 each PO Q4H PRN 7 Days #7 tablet 05/07/18 Following Prescrptions Were Given to Patient: Hydrocodone/Acetaminophen [Hydrocodon-Acetaminophen 5-325] 1 each PO Q4H PRN 7 Days #7 tablet PRN Reason: Pain Primary Care Physician: Salinas Keller III, MD [Primary Care Provider] - Please follow up with your Primary Care Physician in: 1 week Please Follow Up With: Elmo Yates MD When: 2 weeks Disposition: Home with Home Health Minutes spent on discharge:: 36 Patient Condition:: Fair Medical Necessity - Tobacco Use Smoking Status: Former smoker Meaningful Use Info Meaningful Use Diagnoses (Choose all that apply): None applicable Code Visit Suggested the patient that she may do better with stepdown care and increase services however patient refuses and wishes to go home with home health will assess her for oxygen. Inpatient E&M: 57702 Disch Hosp
--- NOTE | 2018-05-07 15:36 | CASEMGMT ---
RN CM Note: Home oxygen testing ordered. If needed, [facility] is innetwork with pt's insurance. packet and script, green sheet in front of chart. Maren TRANN RN ACM
--- NOTE | 2018-05-07 18:20 | NURSING ---
Patient left without discharge teaching. Called and spoke with sonLogan. Provided discharge teaching to him. Questions answered. Voices understanding. Family to make followup appointments with Dr. Keller in one week and Dr. Yates in 2 weeks. Logan voices understanding of same.
--- NOTE | 2018-05-10 15:01 | CASEMGMT ---
CONSUELO GOMEZ Discharge F/U Phone Call LACE: 12 Strata: 4 Discharge date: 05/07/18 Call date: 05/10/18 Call time: [id number] Duration: 6 minutes Admission dx: Lactic acidosis, nephrolithiasis Pt states is 'not bad' since discharge from hospital. Pt states no questions regarding discharge instructions or medications at this time. Pt states has had no pain and states is not taking pain med that she was prescribed. Pt states that she will make f/u physician appt's. Pt states that Pricila from [facility] did not show up today yet to do therapy. Pt states no suggestions for [facility] at this time. This CONSUELO GOMEZ advised pt that I would f/u with [facility] in regards to therapy appt today, voices understanding. Pt voices no further concerns/needs at this time. Pt provided with contact info for Dr. Yates at this time, voices understanding. [facility]SUELO [facility]OMEZ
== END 2018-05-07 17:22 | disposition home or self-care (01) | DRG 669 ==
LOC: ED 16:07 → PCU 18:39
PROVIDERS: Anesthesiology; Urology; Admitting Provider Student in an Organized Health Care Education/Training Program; Emergency Provider Emergency Medicine; Family Provider Family Medicine; PCP Family Medicine; Visit Provider Internal Medicine
PROC: 0TC68ZZ Extirpation of Matter from Right Ureter, Via Natural or Artificial Opening Endoscopic (ICD-10-PCS; CPT 52332; principal; 2018-05-06 15:40)
DX: N13.2 Hydronephrosis with renal and ureteral calculous obstruction (principal); E87.2 Acidosis; L12.0 Bullous pemphigoid; M10.9 Gout, unspecified; J44.9 Chronic obstructive pulmonary disease, unspecified; E03.9 Hypothyroidism, unspecified; E78.5 Hyperlipidemia, unspecified; Z87.891 Personal history of nicotine dependence
CPT/HCPCS: 36415; 71045; 74176; 80048; 80053; 81001; 83605; 83735; 84100; 84443; 85025; 85610; 85730; 87040; 87086; 93005; 94640; 97110; 97162; 97165; 97530; 97535; 97802; 99285; J7030; J7040; A4216; C1769; J2405

== ENCOUNTER 2018-08-16 15:35 | Emergency (ER) | payer MEDICARE, SELFPAY ==
[2018-08-16 15:37] VITALS: BP 127/77; PULSE 70; RESP 20; TEMP 36.4; O2SAT 94; BMI 31.4
--- NOTE | 2018-08-16 16:11 | EKG12_ITS ---
Test Reason : GENERAL ILLNESS Blood Pressure : / mmHG Vent. Rate : 069 BPM Atrial Rate : 069 BPM P-R Int : 178 ms QRS Dur : 148 ms QT Int : 470 ms P-R-T Axes : 039 -27 101 degrees QTc Int : 503 ms Normal sinus rhythm Left bundle branch block Abnormal ECG Confirmed by ANDERSON MCKEE, MARLA ([id number]), research editor TYE MILLS ([id number]) on 08/22/2018 9:54:07 AM Referred By: LOLI Confirmed By:MARLA BARRON MD
--- NOTE | 2018-08-16 16:11 | RAD_ITS ---
STUDY: X-RAY CHEST REASON FOR EXAM: Female, 83 years old. Increased shortness of breath. TECHNIQUE: Single AP portable upright view of the chest. COMPARISON: Portable AP upright chest x-ray May 04, 2018. FINDINGS: The lungs are not as fully expanded today. There is stable focal scarring in the lateral left lung base but no new infiltrate. There is no demonstrated pleural abnormality. Normal size heart. Normal mediastinum and noelle. Normal visualized pulmonary arteries. There is stable atherosclerotic calcification of the aortic arch. There are stable degenerative changes and minor levoscoliosis of the visualized thoracic spine. Normal visualized ribs, clavicles, and shoulders. There is no demonstrated abnormality of the visualized soft tissue structures of the upper abdomen. RAD/Chest 1 View (Portable) IMPRESSION: Suboptimal inspiratory effort. No acute cardiopulmonary disease. Electronically Signed: Amanuel Skelton MD at 17:19 EST , Service support ,
[2018-08-16 16:23] LABS: Absolute Lymphocyte Count 1.33 X10^3/ul (0.83-4.51); Absolute Neutrophil Count 7.9 X10^3/uL (2.0-7.7); Basophil# 0.01 X10^3/uL; Basophil% 0.1 % (0-1); Eosinophil# 0.03 X10^3/uL; Eosinophils% 0.3 % (0-5); Hematocrit 47.8 % (37-47); Hemoglobin 16.2 g/dl (12.0-15.0); Lymphocyte # 1.33 X10^3/ul (4.0); Lymphocyte % 13.5 % (19-41); Mean Corp Hgb Conc 33.9 g/gl (32-36); Mean Corpuscular Hgb 32.9 pg (27.0-32.0); Mean Platelet Vol. 9.2 fl (6.2-12.0); Monocyte% 5.1 % (0-10); Neutrophil # 7.91 X10^3/uL (2.7-7.7); Neutrophil % 80.6 % (47-70); Platelet Count 257 K/mm3 (150-450); RBC Distribution Width CV 14.3 % (11.6-14.6); RBC Distribution Width SD 49.1 fl (35.1-43.9); Red Blood Count 4.93 M/mm3 (4.2-5.4); White Blood Count 9.8 K/mm3 (4.4-11.0)
[2018-08-16] MEDS: 0.9% Normal Saline 1,000 ML 150 ML IV (16:26)
[2018-08-16 16:27] LABS: POSITIVE COUNT NO; POSITIVE DIFFERENTIAL NO; POSITIVE MORPHOLOGY NO
--- NOTE | 2018-08-16 16:28 | NURSING ---
CHEMISTRIES HEMOLIZED
[2018-08-16 17:02] LABS: AST(SGOT) 22 U/L (15-37); Alanine Aminotransfer ALT/SGPT 41 U/L (13-56); Albumin, Serum 2.7 g/dL (3.2-5.0); Alkaline Phosphatase 111 U/L (45-117); Anion Gap 10 (5-15); BUN 39 mg/dL (7-18); Bilirubin, Direct 0.12 mg/dL (0.00-0.30); Calcium,Total 9.1 mg/dL (8.5-10.1); Chloride 104 mmol/L (98-107); Creatinine, Serum 1.26 mg/dL (0.55-1.02); EST Glomerular Filtration Rate 43 mL/min (>60); Est Glom Filt Rate - Afr Amer 52 mL/min (>60); Estimated Creatinine Clearance 31.67 ml/min; Globulin 3.7 g/dL (2.2-4.2); Glucose 255 mg/dL (74-106); Potassium 4.4 mmol/L (3.5-5.1); Protein, Total 6.4 g/dL (6.4-8.2); Sodium Level 140 mmol/L (136-145)
[2018-08-16 17:17] LABS: Bacteria 0 SEEN /hpf (None Seen); Mucous, Urine 0 SEEN /hpf (<or=2+); Red Blood Cells-Urine 0 SEEN /hpf (0-5); Squamous Epithelial Cells - UA 0 SEEN /hpf (5-10); White Blood Cells 0 SEEN /hpf (0-5)
[2018-08-16 17:26] LABS: Color, Urine Yellow (Yellow); Glucose, Dipstick Normal (Normal); Ketone-Dipstick Negative (Negative); Leukocyte Esterase-Dipstick Negative /ul (Negative); Nitrite-Dipstick Negative (Negative); Occult Blood-Urine Negative /ul (Negative); Protein-Dipstick 15 mg/dl (Negative); Urine Bilirubin Dipstick Negative (Negative); Urine Clarity Sl. Cloudy (Clear); Urine Urobilinogen Normal (Normal)
[2018-08-16 17:35] LABS: Amorphous Sediment 1+; Hyaline Cast 5-10 SEEN /lpf (0-5)
[2018-08-16 17:55] VITALS: BP 148/75; PULSE 70; RESP 20; O2SAT 95
[2018-08-16] MEDS: 0.9% Normal Saline 1,000 ML 999 ML IV (18:26)
--- NOTE | 2018-08-16 18:35 | ED.VISSUMM ---
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 She told son that she was nauseated 1 to go home. She leaned over and vomited. Patient presents with weakness. Son states that she normally is quite weak and he has to help her stand and move, but she seemed to be slightly worse today. Patient's only complaint at this time is her right arm hurts where her IV was started. She denies chest pain, shortness of breath, abdominal pain. She no longer feels nauseated. Son states that she has these episodes when she gets dehydrated. Patient has a history of bullous pemphigoid and has chronic leg wounds. She also has a history of hypertension, high cholesterol, COPD, hypothyroidism. Physical Examination: Vital signs grossly unremarkable. Patient sitting upright in bed. She falls asleep easily but will open her eyes to voice and answer questions. Head neck examination otherwise unremarkable. Heart is regular rate and rhythm. Lung sounds are clear. Abdomen is soft and nontender. Lower extremity exam reveals chronic leg wounds with without sign of acute infection. Test Results: Portable chest x-ray shows no acute process. EKG is sinus at 69 with a left bundle branch block. No acute ischemia. CBC reveals normal white count. Hemoglobin is concentrated at 16.2. Chemistry studies reveal glucose of 255, BUN 39, creatinine 1.26. LFTs and ammonia are normal. Urinalysis obtained via straight cath is normal. Troponin is negative. Emergency Department Course and Treatment: Patient received IV fluids in the ED. On repeat evaluation she is improved and much more alert. Family is comfortable caring for her at home. Treatment Plan: [] Disposition: Discharge Impression: 1. Nausea and vomiting, improved 2. Dehydration This note was generated with [employer] dictation software. It may contain incorrect words, spelling, and punctuation that were not noted in review of the chart prior to signing ED Disposition - Plan for ED Patient: Referrals: Salinas Keller III, MD [Primary Care Provider] -
--- NOTE | 2018-08-16 18:38 | ED.DEP ---
ED Disposition - Plan for ED Patient: Disposition: Home or Assisted Living Instructions: ED Nausea Vomiting, ED Dehydration Referrals: Salinas Keller III, MD [Primary Care Provider] - 5-7 Days
[2018-08-16 18:46] VITALS: BP 183/61; PULSE 69; RESP 20; O2SAT 96
[2018-08-16 19:27] VITALS: BP 188/83; PULSE 68; RESP 12; O2SAT 97
== END 2018-08-16 19:46 | disposition home or self-care (01) ==
PROVIDERS: Emergency Provider Emergency Medicine; Family Provider Family Medicine; PCP Family Medicine
DX: R11.2 Nausea with vomiting, unspecified (principal); E86.0 Dehydration; L12.0 Bullous pemphigoid; I10 Essential (primary) hypertension; I44.7 Left bundle-branch block, unspecified; J44.9 Chronic obstructive pulmonary disease, unspecified; E03.9 Hypothyroidism, unspecified; E78.00 Pure hypercholesterolemia, unspecified; E66.9 Obesity, unspecified; Z79.899 Other long term (current) drug therapy; Z87.891 Personal history of nicotine dependence
CPT/HCPCS: 71045; 80048; 80076; 81001; 82140; 84484; 85025; 93005; 96360; 99285; J7030; A4216

== ENCOUNTER 2018-08-27 14:01 | Observation (INO) | payer MEDICARE, SELFPAY ==
[2018-08-27 14:02] VITALS: BP 193/84; PULSE 97; RESP 17; TEMP 36.5; O2SAT 95; BMI 31.8
[2018-08-27 14:11] LABS: Bedside Glucose 250 mg/dL (70-110)
--- NOTE | 2018-08-27 14:11 | RAD_ITS ---
STUDY: X-RAY CHEST REASON FOR EXAM: Female, 83 years old. Generalized weakness TECHNIQUE: PA and lateral views of the chest. COMPARISON: 08/16/2018 FINDINGS: EKG leads project over the chest. The lungs are clear and expanded. There is no demonstrated pleural abnormality. Normal size heart. Normal mediastinum and noelle. Normal visualized pulmonary arteries. There is atherosclerotic calcification of the aortic arch with tortuosity. No acute bony process. There is no demonstrated abnormality of the visualized soft tissue structures of the upper abdomen. RAD/Chest 1 View (Portable) IMPRESSION: Nonacute portable x-ray examination of the chest. Electronically Signed: Pantera Maddox MD at 15:54 EST , Service support ,
--- NOTE | 2018-08-27 14:12 | EKG12_ITS ---
Test Reason : WEAKNESS Blood Pressure : / mmHG Vent. Rate : 089 BPM Atrial Rate : 089 BPM P-R Int : 170 ms QRS Dur : 132 ms QT Int : 402 ms P-R-T Axes : 035 -36 121 degrees QTc Int : 489 ms Normal sinus rhythm Left axis deviation Left bundle branch block Abnormal ECG Confirmed by ANDERSON MCKEE, MARLA ([id number]), web editor TYE MILLS ([id number]) on 08/30/2018 10:03:44 AM Referred By: ORAL Confirmed By:MARLA BARRON MD
[2018-08-27 14:27] LABS: Absolute Lymphocyte Count 1.77 X10^3/ul (0.83-4.51); Absolute Neutrophil Count 7.2 X10^3/uL (2.0-7.7); Basophil# 0.01 X10^3/uL; Basophil% 0.1 % (0-1); Eosinophil# 0.17 X10^3/uL; Eosinophils% 1.8 % (0-5); Hematocrit 46.1 % (37-47); Hemoglobin 15.5 g/dl (12.0-15.0); Lymphocyte # 1.77 X10^3/ul (4.0); Lymphocyte % 18.2 % (19-41); Mean Corp Hgb Conc 33.6 g/gl (32-36); Mean Corpuscular Volume 98.1 fL (81-99); Mean Platelet Vol. 9.2 fl (6.2-12.0); Monocyte# 0.49 X10^3/uL; Monocyte% 5.1 % (0-10); Neutrophil # 7.23 X10^3/uL (2.7-7.7); Neutrophil % 74.5 % (47-70); Platelet Count 181 K/mm3 (150-450); RBC Distribution Width CV 14.4 % (11.6-14.6); RBC Distribution Width SD 51.8 fl (35.1-43.9); White Blood Count 9.7 K/mm3 (4.4-11.0)
[2018-08-27 14:30] LABS: POSITIVE COUNT NO; POSITIVE DIFFERENTIAL NO; POSITIVE MORPHOLOGY NO
[2018-08-27 14:45] LABS: Anion Gap 8 (5-15); BUN 38 mg/dL (7-18); BUN/Creat Ratio 33.3 RATIO (10-20); Calcium,Total 9.5 mg/dL (8.5-10.1); Chloride 103 mmol/L (98-107); Creatinine, Serum 1.14 mg/dL (0.55-1.02); EST Glomerular Filtration Rate 48 mL/min (>60); Est Glom Filt Rate - Afr Amer 59 mL/min (>60); Glucose 257 mg/dL (74-106); Potassium 3.9 mmol/L (3.5-5.1); Sodium Level 140 mmol/L (136-145)
[2018-08-27 14:52] LABS: Lactic Acid 2.8 mmol/L (0.4-2.0)
[2018-08-27 14:53] LABS: Mucous, Urine 0 SEEN /hpf (<or=2+)
--- NOTE | 2018-08-27 14:53 | ED.RN ---
critical lactic acid of 2.[address] Govea and primary RN notified.
[2018-08-27 15:01] LABS: Color, Urine Yellow (Yellow); Glucose, Dipstick 50 mg/dl (Normal); Ketone-Dipstick Negative (Negative); Leukocyte Esterase-Dipstick 500 /ul (Negative); Nitrite-Dipstick Negative (Negative); Occult Blood-Urine 150 /ul (Negative); Protein-Dipstick 30 mg/dl (Negative); Specific Gravity, Urine 1.015 (1.002-1.030); Urine Bilirubin Dipstick Negative (Negative); Urine Clarity Cloudy (Clear); Urine Urobilinogen Normal (Normal); Urine pH 6.5 (5.0 - 8.0)
[2018-08-27] MEDS: 0.9% Normal Saline 1,000 ML 150 ML IV ×2 (15:05→19:26)
[2018-08-27 15:07] VITALS: BP 170/84; PULSE 85; RESP 18; TEMP 37.1; O2SAT 99
[2018-08-27 15:07] LABS: Bacteria 2+ /hpf (None Seen); Red Blood Cells-Urine 5-10 SEEN /hpf (0-5); Squamous Epithelial Cells - UA 0-5 SEEN /hpf (5-10); White Blood Cells 5-10 SEEN /hpf (0-5)
--- NOTE | 2018-08-27 15:51 | ED.VISSUMM ---
- ER Visit Summary Date of Service: 08/27/18 Chief Complaint: [Weakness] History of Present Illness: The patient is a 83 F [presents the ER with complaint of generalized weakness that started 2 days ago. Patient had a hard time doing her activities of daily living. Patient denies any shortness of breath or cough. She denies any fever. Denies any chest pain. Patient has had some dysuria. She also has these open wounds on her lower extremities which are chronic and has been seeing the supply chain specialist for these. Patient has felt this way in the past and it was due to dehydration. Patient has a history of COPD, high cholesterol, hypertension, hypothyroidism.] Physical Examination: [HEENT-PERRLA, EOMI. Cranial nerves II through XII grossly intact. TMs clear. Mucous membranes dry. No adenopathy. Cardiovascular-regular rate and rhythm without murmur or ectopy Lungs-clear to auscultation, chest wall stable without crepitus or subcu emphysema Abdomen-normoactive bowel sounds, soft, nontender, no rebound or rigidity, no peritoneal signs. Extremities-intact ?4, normal range of motion, normal pulses, atraumatic. Patient has excoriated lesions on both lower extremities but no evidence of cellulitis or acute infection.] Test Results: [EKG obtained arrival shows sinus rhythm with a ventricular rate of 89 bpm with a left bundle branch block. CBC with additional cannot 9.7, hemoglobin 15, hematocrit 46, platelets 181. Chemistries unremarkable. BUN was 38 creatinine 1.19. Urinalysis was positive for 500 leukocyte esterase and 5-10 WBCs as well as +2 bacteria. Troponin is less than 0.015. Lactate was elevated 2.8. Chest x-ray obtained read by myself as no acute disease process.] Emergency Department Course and Treatment: [Patient had urine culture sent and she was started on Rocephin 1 g IV. She was given a liter normal same fluid bolus] Treatment Plan: [Admit] Disposition: [Admit] Impression: [UTI Generalized weakness Dehydration] This note was generated with [employer] software. It may contain incorrect words, spelling, and punctuation that were not noted in review of the chart prior to signing ED Disposition - Plan for ED Patient: Referrals: Salinas Keller III, MD [Primary Care Provider] -
--- NOTE | 2018-08-27 15:54 | ED.DCSUM_ITS ---
- ER Visit Summary Date of Service: 08/27/18 Chief Complaint: [Weakness] History of Present Illness: The patient is a 83 F [presents the ER with complaint of generalized weakness that started 2 days ago. Patient had a hard time doing her activities of daily living. Patient denies any shortness of breath or cough. She denies any fever. Denies any chest pain. Patient has had some dysuria. She also has these open wounds on her lower extremities which are chronic and has been seeing the spinning machine operator for these. Patient has felt this way in the past and it was due to dehydration. Patient has a history of COPD, high cholesterol, hypertension, hypothyroidism.] Physical Examination: [HEENT-PERRLA, EOMI. Cranial nerves II through XII grossly intact. TMs clear. Mucous membranes dry. No adenopathy. Cardiovascular-regular rate and rhythm without murmur or ectopy Lungs-clear to auscultation, chest wall stable without crepitus or subcu emphysema Abdomen-normoactive bowel sounds, soft, nontender, no rebound or rigidity, no peritoneal signs. Extremities-intact ?4, normal range of motion, normal pulses, atraumatic. Patient has excoriated lesions on both lower extremities but no evidence of cellulitis or acute infection.] Test Results: [EKG obtained arrival shows sinus rhythm with a ventricular rate of 89 bpm with a left bundle branch block. CBC with additional cannot 9.7, hemoglobin 15, hematocrit 46, platelets 181. Chemistries unremarkable. BUN was 38 creatinine 1.19. Urinalysis was positive for 500 leukocyte esterase and 5- 10 WBCs as well as +2 bacteria. Troponin is less than 0.015. Lactate was elevated 2.8. Chest x-ray obtained read by myself as no acute disease process.] Emergency Department Course and Treatment: [Patient had urine culture sent and she was started on Rocephin 1 g IV. She was given a liter normal same fluid bolus] Treatment Plan: [Admit] Disposition: [Admit] Impression: [UTI Generalized weakness Dehydration] This note was generated with [employer] software. It may contain incorrect words, spelling, and punctuation that were not noted in review of the chart prior to signing ED Disposition - Plan for ED Patient: Referrals: Salinas Keller III, MD [Primary Care Provider] -
--- NOTE | 2018-08-27 15:55 | NURSING ---
DR CHANTELLE MIXON
[2018-08-27 16:00] VITALS: BP 191/70; PULSE 86; RESP 18; TEMP 37.1; O2SAT 96
--- NOTE | 2018-08-27 16:01 | NURSING ---
MED SURG CHANTELLE WEAKNESS, UTI, DEHYDRATION
--- NOTE | 2018-08-27 16:03 | NURSING ---
DR MIXON TALKED TO DR LOCKHART ABOUT PATIENT
[2018-08-27] MEDS: Ceftriaxone 1 GM/50 ML BAG IV (16:05)
--- NOTE | 2018-08-27 16:23 | PCM.HP.STD ---
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 (10) Nonhealing ulcer of left lower extremity with fat layer exposed Status: Chronic (11) Bilateral lower extremity edema Status: Chronic (12) Decreased dorsalis pedis pulse Status: Resolved (13) Chronic pruritus Status: Chronic (14) Severe sepsis Status: Acute (15) Acute cystitis Status: Acute (16) MSSA bacteremia Status: Acute (17) Abdominal pain Status: Acute (18) COPD, mild Status: Chronic (19) Hypothyroidism Status: Chronic (20) Dyslipidemia Status: Chronic (21) HTN (hypertension) Status: Chronic History of Present Illness Date of Admission: 08/27/18 Chief Complaint: Generalized weakness and UTI The patient is a 83 year old F with multiple comorbidities as listed above including bullous pemphigoid was brought into ER after she feels weak for about 1 week. Patient complain of burning micturition, increased frequency and urgency although she has incontinence for about 3-4 days. Denies any fever but has shivering. Denies chest pain, shortness of breath or palpitation. Denies abdominal pain. Patient has bolus for thyroid and rash with skin excoriation and superficial ulcer on both lower legs and left thigh. Wound appears pinkish in color and dry yellowish brown exudate. UA is positive for bacteria, LE and WBC 5-10 cells. Patient started on IV Rocephin and normal saline liter bolus and further admitted [] 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) Nonhealing ulcer of left lower extremity with fat layer exposed (Chronic) Bilateral lower extremity edema (Chronic) Chronic pruritus (Chronic) History of Ureteric stone (Chronic) COPD, mild (Chronic) Hypothyroidism (Chronic) Dyslipidemia (Chronic) HTN (hypertension) (Chronic) Allergies No Known Allergies Allergy (Verified 08/16/18 15:37) Home Medications: Ambulatory Orders Medication Instructions Recorded Allopurinol [Zyloprim] 100 mg PO QHS 09/10/13 Levothyroxine [Synthroid] 75 mcg PO DAILY 10/02/14 Budesonide/Formoterol 160/4.5 2 puff INHALATION BID 09/23/16 [Symbicort 160/4.5 Mcg Inhaler (SP)] Atorvastatin Calcium [Lipitor] 20 mg PO DAILY 09/10/17 Nystatin Powder [Mycostatin Powder] 1 applic TOPICAL BID #0 bottle 04/12/18 Ensure Enlive 120 ml PO TID 05/04/18 Lisinopril [Zestril] 10 mg PO DAILY 05/04/18 Mupirocin [Bactroban] 1 applic TP UD 05/04/18 Triamcinolone 0.1% Cream [Kenalog] 1 applic TP UD 05/04/18 Cholecalciferol (Vitamin D3) 2,000 unit PO DAILY 08/16/18 [Vitamin D3] Fish Oil 1 cap PO DAILY 08/16/18 Multivit-Min/Iron/Folic/Lutein 1 each PO DAILY 08/16/18 [Centrum Silver Women Tablet] Tetracycline HCl 100 mg PO DAILY 08/16/18 Vitamin B-6 1 tab PO DAILY 08/16/18 Vitamin B12 1 tab PO DAILY 08/16/18 Surgical History: noncontributory, - - Patient reports right ear surgery when she was a child. Tonsillectomy and adenoidectomy. Psychiatric History: No pertinent psych hx THERAPEUTIC STRATEGY LEAD History: No pertinent THERAPEUTIC STRATEGY LEAD history Smoking Status: Never smoker - *Family History Paternal History Items: Cancer - Unknown type Maternal History Items: Cancer - Breast cancer Review of Systems Constitutional: Reports: Chills, Malaise, Weakness, Fatigue. Denies: Fever HEENT: Denies: Head Aches, Sinus Congestion, Sinus Drainage Cardiovascular: Denies: Chest Pain, Palpitations Respiratory: Reports: Shortness of breath upon exertion. Denies: Cough, Shortness of breath at rest, Sputum production Gastrointestinal: Denies: Abdominal Pain, Nausea, Vomiting Genitourinary: Reports: Dysuria, Frequency, Incontinence, Urgency Musculoskeletal: Reports: Joint Pain, Joint stiffness. Denies: Joint Tenderness Skin: Reports: Rash, Skin Changes, Wounds Neurological: Reports: Balance problems, Incoordination. Denies: Focal weakness, Numbness, Tingling Psychiatric: Reports: Anxiety. Denies: Depression, Homicidal Ideations, Suicidal Ideations Hematologic/ Lymphatic: Denies: Easy Bruising, Easy Bleeding VTE Information - Inpt Only VTE Present on Admission: No VTE Mechan Device Prophylaxis: None VTE Pharm Prophylaxis ordered?: Yes Patient Problems: Active and Suspected Problems Generalized weakness (Acute) UTI (urinary tract infection) (Acute) - Physical Exam General: Alert, Oriented x3, Cooperative HEENT: Atraumatic, PERRLA, EOMI, Normocephalic Oral: No Gingival or Mucosal Lesions/ Ulcerations, Dry Mucosa Neck: Supple, No JVD, Negative Carotid Bruits Lungs: Clear to auscultation, No rhonchi, No wheeze, No rales, Diminished - Air entry diminished in bilateral lung bases. Cardiovascular: Regular rate, Regular Rhythm, Normal S1, Normal S2, No murmurs Abdomen: Bowel Sounds Present, Soft, Non Tender, Non-Distended Extremities: Capillary Refill Less than 3 Seconds, Edema Skin: Rash Present - Superficial ulceration in both lower legs with dry yellowish/brownish exudate Musculoskeletal: No Tenderness to Palpation of Joints or Extremities Neurological: Cranial nerves II-XII grossly intact Psych/Mental Status: Normal Affect, Appropriate Vital Signs Temp Pulse Resp BP Pulse Ox 98.7 F 86 18 191/70 H 96 08/27/18 16:00 08/27/18 16:00 08/27/18 16:00 08/27/18 16:00 08/27/18 16:00 Oxygen Delivery Method Room Air Weight: 197 lb 5.019 oz Body Mass Index (BMI) 31.8 Finger Stick Blood Glucose 250 Laboratory Tests Past 24 Hrs 08/27/18 08/27/18 08/27/18 14:10 14:10 14:10 WBC 9.7 RBC 4.70 Hgb 15.5 H Hct 46.1 MCV 98.1 MCH 33.0 H MCHC 33.6 RDW 14.4 RDW Differential 51.8 H Plt Count 181 MPV 9.2 Immature Gran % (Auto) 0.300 Neut % (Auto) 74.5 H Lymph % (Auto) 18.2 L [place] % (Auto) 5.1 Eos % (Auto) 1.8 Baso % (Auto) 0.1 Absolute Neuts (auto) 7.2 Absolute Lymphs (auto) 1.77 Total Counted Not Reportable Sodium 140 Potassium 3.9 Chloride 103 Carbon Dioxide 29.0 Anion Gap 8 BUN 38 H Creatinine 1.14 H Estim Creat Clear Calc 35.00 Est GFR (MDRD) Af Amer 59 L Est GFR (MDRD) Non-Af 48 L BUN/Creatinine Ratio 33.3 H Glucose 257 H Lactic Acid 2.8 H Calcium 9.5 Troponin I < 0.015 Urine Color Urine Clarity Urine pH Ur Specific [place] Urine Protein Urine Glucose (UA) Urine Ketones Urine Occult Blood Urine Nitrite Urine Bilirubin Urine Urobilinogen Ur Leukocyte Esterase Urine RBC Urine WBC Ur Squamous Epith Cells Urine Bacteria Urine Mucus 08/27/18 14:45 WBC RBC Hgb Hct MCV MCH MCHC RDW RDW Differential Plt Count MPV Immature Gran % (Auto) Neut % (Auto) Lymph % (Auto) [place] % (Auto) Eos % (Auto) Baso % (Auto) Absolute Neuts (auto) Absolute Lymphs (auto) Total Counted Sodium Potassium Chloride Carbon Dioxide Anion Gap BUN Creatinine Estim Creat Clear Calc Est GFR (MDRD) Af Amer Est GFR (MDRD) Non-Af BUN/Creatinine Ratio Glucose Lactic Acid Calcium Troponin I Urine Color Yellow Urine Clarity Cloudy Urine pH 6.5 Ur Specific [place] 1.015 Urine Protein 30 H Urine Glucose (UA) 50 H Urine Ketones Negative Urine Occult Blood 150 H Urine Nitrite Negative Urine Bilirubin Negative Urine Urobilinogen Normal Ur Leukocyte Esterase 500 H Urine RBC 5-10 SEEN Urine WBC 5-10 SEEN Ur Squamous Epith Cells 0-5 SEEN Urine Bacteria 2+ Urine Mucus 0 SEEN POC Glucose 08/27/18 14:05 POC Glucose 250 H Assessment/Plan All Active Problems Hypertensive urgency (Acute) Decreased dorsalis pedis pulse (Resolved) Severe sepsis (Acute) Acute cystitis (Acute) MSSA bacteremia (Acute) Abdominal pain (Acute) Generalized weakness (Acute) UTI (urinary tract infection) (Acute) Acute dysphagia due to chicken piece (Resolved) Sinus node dysfunction (Resolved) The patient is a 83 year old F with multiple comorbidities as listed above including bullous pemphigoid was brought into ER after she feels weak for about 1 week. Patient complain of burning micturition, increased frequency and urgency although she has incontinence for about 3-4 days. Denies any fever but has shivering. Denies chest pain, shortness of breath or palpitation. Denies abdominal pain. Patient has bolus for thyroid and rash with skin excoriation and superficial ulcer on both lower legs and left thigh. Wound appears pinkish in color and dry yellowish brown exudate. UA is positive for bacteria, LE and WBC 5-10 cells. Patient started on IV Rocephin and normal saline liter bolus and further admitted [] 1. Lower UTI/cystitis: Patient is being admitted on regular [facility] floor. IV fluid normal saline at 150 mL for 1 L and then 100 mL/h. Monitor intake and output. Continue IV Rocephin. Follow-up blood cultures x2 and urine culture sent from ER. KUB ultrasound ordered as patient was last admitted in April 2018 for 4MM left ureterovesical calculus with mild right hydroureter. At that time, patient had right ureteroscopy and stone extraction by Dr. Yates. 2. CKD stage III: Patient creatinine is 1.14 slightly elevated from baseline around 1.0. Last creatinine 1.26 on August 16, 2018 when she was discharged from ER after correction of dehydration. Monitor kidney function. Monitor intake and output. Bladder scan every 4 hourly for postvoid residual. Hold lisinopril until patient kidney function returns to baseline. 3. Bullous pemphigoid rash in both lower legs: Wound has pinkish granulation tissue and does not look like active infection. Continue home skin cream including Bactroban and triamcinolone. Patient follows her art therapy specialist. 4. Hypertension, hypothyroidism, dyslipidemia, chronic gout and mild COPD: Stable. Continue Symbicort, atorvastatin and allopurinol. DVT prophylaxis: Lovenox 40 Mg subcu daily. Discontinue if platelet count drops less than 90,000 or hemoglobin less than 8 g% Living will/goal of life: Discussed with the patient's son, . His elder brother is power of finance attorney for health. Patient does not have a living will. Given different options of care including full code, DNR CC arrest and DNR CC, patient would like to be full code. Wants all resuscitative many measures including intubation, vent therapy, artificial tube feeding and vasopressors. Total time spent in [id number] encounter in discussion of advanced directive 18 minutes. Laboratory Results 08/27/18 14:05: POC Glucose 250 H 08/27/18 14:10: WBC 9.7, RBC 4.70, Hgb 15.5 H, Hct 46.1, MCV 98.1, MCH 33.0 H, MCHC 33.6, RDW 14.4, RDW Differential 51.8 H, Plt Count 181, MPV 9.2, Immature Gran % (Auto) 0.300, Neut % (Auto) 74.5 H, Lymph % (Auto) 18.2 L, [place] % (Auto) 5.1, Eos % (Auto) 1.8, Baso % (Auto) 0.1, Absolute Neuts (auto) 7.2, Absolute Lymphs (auto) 1.77, Total Counted Not Reportable 08/27/18 14:10: Sodium 140, Potassium 3.9, Chloride 103, Carbon Dioxide 29.0, Anion Gap 8, BUN 38 H, Creatinine 1.14 H, Estim Creat Clear Calc 35.00, Est GFR (MDRD) Af Amer 59 L, Est GFR (MDRD) Non-Af 48 L, BUN/Creatinine Ratio 33.3 H, Glucose 257 H, Calcium 9.5, Troponin I < 0.015 08/27/18 14:10: Lactic Acid 2.8 H 08/27/18 14:45: Urine Color Yellow, Urine Clarity Cloudy, Urine pH 6.5, Ur Specific [place] 1.015, Urine Protein 30 H, Urine Glucose (UA) 50 H, Urine Ketones Negative, Urine Occult Blood 150 H, Urine Nitrite Negative, Urine Bilirubin Negative, Urine Urobilinogen Normal, Ur Leukocyte Esterase 500 H, Urine RBC 5-10 SEEN, Urine WBC 5-10 SEEN, Ur Squamous Epith Cells 0-5 SEEN, Urine Bacteria 2+, Urine Mucus 0 SEEN Clinical Impression(s) from Imaging Studies Chest X-Ray 08/27/18 14:11 IMPRESSION: Nonacute portable x-ray examination of the chest. Code Visit Inpatient E&M: 81848 Subs Hosp L1 Procedures: 95606 Advncd Care Plan 30 Min
--- NOTE | 2018-08-27 16:43 | US_ITS ---
STUDY: RENAL ULTRASOUND - COMPLETE REASON FOR EXAM: Female, 83 years old. UTI TECHNIQUE: Ultrasound evaluation of the kidneys was performed with real-time and static burr-scale imaging. COMPARISON: CT from 05/04/2018. FINDINGS: RIGHT KIDNEY: Normal location of the right kidney, which is normal in size. The right kidney measures 11.2 x 4.7 x 5.0 cm. There is a normal cortex of the right kidney. The renal cortex measures 1.6 cm. There is no right renal mass or cyst. 4 mm calcification could represent a small nephrolith. There is no right hydronephrosis. DISTAL RIGHT URETER: There is non-visualization of the distal right ureter. There is no demonstrated right ureterovesical junction calculus. There is a visualized right ureteral jet. LEFT KIDNEY: Normal location of the left kidney, which is normal in size. The left kidney measures 10.6 x 4.9 x 4.9 cm. There is a normal cortex of the left kidney. The renal cortex measures 1.0 cm. 2.5 cm rounded area of fluid in the central left kidney likely represents a dilated calyx (no parapelvic cysts seen on prior CT from 05/04/2018). Nonobstructing calculus measures 6 mm. DISTAL LEFT URETER: There is non-visualization of the distal left ureter. There is no demonstrated left ureterovesical junction calculus. There is a visualized left ureteral jet. BLADDER: The urinary bladder is not well-distended but there is small amount of echogenic material layering dependently within the lumen. US/Kidney and Bladder IMPRESSION: 1. Trace left hydronephrosis/calyceal dilation. 2. Bilateral nephrolithiasis. 3. Echogenic material in the dependent portion the urinary bladder may represent blood products, infectious material or proteinaceous debris. Electronically Signed: Pantera Maddox MD at 12:42 EST , Service support ,
[2018-08-27 17:41] VITALS: BMI 31.6
[2018-08-27 17:45] VITALS: BMI 31.6
[2018-08-27 18:10] VITALS: BP 155/74; PULSE 78; RESP 18; TEMP 37; O2SAT 93
[2018-08-27 18:22] LABS: Reflex Lactate? Y
[2018-08-27] MEDS: Albuterol 2.5 MG/3 ML VIAL.NEB. INHALATION (18:30)
[2018-08-27] MEDS: Budesonide Respules 0.5 MG/2 ML AMPUL.NEB. INHALATION (18:30)
--- NOTE | 2018-08-27 18:45 | RAD_ITS ---
STUDY: X-RAY - ABDOMEN/PELVIS REASON FOR EXAM: Female, 83 years old. Kidney stone TECHNIQUE: Two AP supine views of the abdomen and pelvis. COMPARISON: 05/04/2018 CT scan abdomen and pelvis FINDINGS: Normal visualized lung bases. There is a calcification measuring 1 cm adjacent to the L2-L3 level. This is seen on the prior paper steamer study but not visualized within the ureter. This stone is within the contracted gallbladder. The stone that was seen in the distal right ureterovesicular junction is not definitively seen, however there is a phlebolith and vascular calcification in the right side of the pelvis. There are vascular calcifications involving the splenic artery and the left upper quadrant. There is a moderate amount of colonic fecal material. There is no demonstrated free abdominal air. Liver spleen and kidneys are not well visualized. There are calcified phleboliths in the pelvis. There are diffuse degenerative changes of the visualized lumbar spine. RAD/Abdomen Single View IMPRESSION: The stone that is projected over the right side of the upper abdomen on prior study is a probable persistent stone in the gallbladder. Indeterminate phleboliths versus distal ureteral stone pelvis. If The patient has renal colic recommend noncontrast CT scan of the abdomen and pelvis for clarification. Electronically Signed: Carmen Bose MD at 10:07 EST Tel , Service support ,
[2018-08-27] MEDS: Enoxaparin 40 MG/0.4 ML Syringe SC (19:26)
[2018-08-27 20:12] LABS: Lactic Acid 3.1 mmol/L (0.4-2.0)
[2018-08-27 21:02] VITALS: BP 154/70; PULSE 78; RESP 14; TEMP 36.7; O2SAT 94
[2018-08-27 23:22] VITALS: PULSE 84; RESP 20
[2018-08-27] MEDS: Mupirocin Ointment 22gm Tube 1 APPLIC TOPICAL (23:30)
[2018-08-27] MEDS: Nystatin Powder 15gm Bottle 1 APPLIC TOPICAL (23:31)
[2018-08-27] MEDS: Famotidine 20 MG Tablet PO (23:32)
[2018-08-27] MEDS: Allopurinol 100 MG Tablet PO (23:32)
[2018-08-28] VITALS (11 sets, daily range): BP systolic 148–207; BP diastolic 59–92; PULSE 76–94; RESP 14–20; TEMP 36.7–37.2; O2SAT 92–95
[2018-08-28] MEDS: 0.9% Normal Saline 1,000 ML 100 ML IV ×2 (02:21→10:12)
[2018-08-28] MEDS: Phenazopyridine 95 MG Tablet PO ×3 (02:21→23:15)
[2018-08-28] MEDS: hydrALAZINE 20 MG/ML Vial 10 MG IV ×2 (02:25→20:48)
[2018-08-28] MEDS: Levothyroxine 75 MCG Tablet PO (05:14)
[2018-08-28 06:26] LABS: Absolute Lymphocyte Count 1.25 X10^3/ul (0.83-4.51); Absolute Neutrophil Count 6.9 X10^3/uL (2.0-7.7); Basophil# 0.03 X10^3/uL; Basophil% 0.3 % (0-1); Eosinophil# 0.13 X10^3/uL; Eosinophils% 1.5 % (0-5); Hematocrit 40.2 % (37-47); Hemoglobin 13.5 g/dl (12.0-15.0); Lymphocyte # 1.25 X10^3/ul (4.0); Lymphocyte % 14.2 % (19-41); Mean Corp Hgb Conc 33.6 g/gl (32-36); Mean Corpuscular Hgb 32.9 pg (27.0-32.0); Mean Platelet Vol. 9.3 fl (6.2-12.0); Monocyte# 0.42 X10^3/uL; Monocyte% 4.8 % (0-10); Neutrophil # 6.93 X10^3/uL (2.7-7.7); Neutrophil % 78.9 % (47-70); Platelet Count 172 K/mm3 (150-450); RBC Distribution Width CV 14.3 % (11.6-14.6); RBC Distribution Width SD 50.4 fl (35.1-43.9); White Blood Count 8.8 K/mm3 (4.4-11.0)
[2018-08-28 06:30] LABS: POSITIVE COUNT NO; POSITIVE DIFFERENTIAL NO; POSITIVE MORPHOLOGY NO
[2018-08-28 06:45] LABS: Anion Gap 11 (5-15); BUN 26 mg/dL (7-18); BUN/Creat Ratio 31.8 RATIO (10-20); Calcium,Total 8.8 mg/dL (8.5-10.1); Chloride 105 mmol/L (98-107); Creatinine, Serum 0.82 mg/dL (0.55-1.02); EST Glomerular Filtration Rate 71 mL/min (>60); Est Glom Filt Rate - Afr Amer 86 mL/min (>60); Estimated Creatinine Clearance 48.66 ml/min; Glucose 153 mg/dL (74-106); Potassium 3.7 mmol/L (3.5-5.1); Sodium Level 140 mmol/L (136-145); T4 Free Direct 0.87 ng/dL (0.76-1.46); Thyroid Stim Hormone (TSH) 5.75 uIU/mL (0.358-3.74)
[2018-08-28] MEDS: Albuterol 2.5 MG/3 ML VIAL.NEB. INHALATION ×2 (06:54→19:00)
[2018-08-28] MEDS: Budesonide Respules 0.5 MG/2 ML AMPUL.NEB. INHALATION ×2 (06:54→19:00)
--- NOTE | 2018-08-28 07:21 | PN_ITS ---
Patient Problems: Active and Suspected Problems Generalized weakness (Acute) UTI (urinary tract infection) (Acute) Subjective: Patient is an 83-year-old lady with multiple comorbidities presented with progressive generalized weakness and difficulty caring for herself at home. Patient was found to have acute cystitis on admission admitted to regular nursing floor for further management. Objective: GENERAL: Patient appears ill looking HEENT: Atraumatic; moist oral mucosa EYES; Anicteric, Normal Conjunctiva NECK; supple, normal thyroid, no distended JVD. RESPIRATORY: Diminished to auscultation bilaterally, CARDIOVASCULAR: Regular S1 S2, no audible murmurs GI: soft, non-tender, normoactive bowel sounds, : No Renal angle tenderness; No blackmon EXTREMITIES: , no clubbing, no cyanosis. NEURO: Awake; no lateralizing signs. SKIN: Bullous rash on lower extremities PSYCH; Normal affect Vitals/I&O's: Vital Signs Temp Pulse Resp BP Pulse Ox 98.6 F 76 14 176/76 H 95 08/28/18 02:03 08/28/18 02:25 08/28/18 02:03 08/28/18 03:27 08/28/18 02:03 Oxygen Delivery Method Room Air Weight: 88.904 kg Body Mass Index (BMI) 31.6 Finger Stick Blood Glucose 250 Intake and Output for Last 24 Hours 08/26/18 08/27/18 08/28/18 23:59 23:59 23:59 Intake Total 240 / 240 879 / 879 Balance 240 / 240 879 / 879 Laboratory Results 08/27/18 14:05: POC Glucose 250 H 08/27/18 14:10: WBC 9.7, RBC 4.70, Hgb 15.5 H, Hct 46.1, MCV 98.1, MCH 33.0 H, MCHC 33.6, RDW 14.4, RDW Differential 51.8 H, Plt Count 181, MPV 9.2, Immature Gran % (Auto) 0.300, Neut % (Auto) 74.5 H, Lymph % (Auto) 18.2 L, [place] % (Auto) 5.1, Eos % (Auto) 1.8, Baso % (Auto) 0.1, Absolute Neuts (auto) 7.2, Absolute Lymphs (auto) 1.77, Total Counted Not Reportable 08/27/18 14:10: Sodium 140, Potassium 3.9, Chloride 103, Carbon Dioxide 29.0, Anion Gap 8, BUN 38 H, Creatinine 1.14 H, Estim Creat Clear Calc 35.00, Est GFR (MDRD) Af Amer 59 L, Est GFR (MDRD) Non-Af 48 L, BUN/Creatinine Ratio 33.3 H, Glucose 257 H, Calcium 9.5, Troponin I < 0.015 08/27/18 14:10: Lactic Acid 2.8 H 08/27/18 14:45: Urine Color Yellow, Urine Clarity Cloudy, Urine pH 6.5, Ur Specific [place] 1.015, Urine Protein 30 H, Urine Glucose (UA) 50 H, Urine Ketones Negative, Urine Occult Blood 150 H, Urine Nitrite Negative, Urine Bilirubin Negative, Urine Urobilinogen Normal, Ur Leukocyte Esterase 500 H, Urine RBC 5-10 SEEN, Urine WBC 5-10 SEEN, Ur Squamous Epith Cells 0-5 SEEN, Urine Bacteria 2+, Urine Mucus 0 SEEN 08/27/18 19:00: Lactic Acid 3.1 H 08/28/18 05:52: WBC 8.8, RBC 4.10 L, Hgb 13.5, Hct 40.2, MCV 98.0, MCH 32.9 H, MCHC 33.6, RDW 14.3, RDW Differential 50.4 H, Plt Count 172, MPV 9.3, Immature Gran % (Auto) 0.300, Neut % (Auto) 78.9 H, Lymph % (Auto) 14.2 L, [place] % (Auto) 4.8, Eos % (Auto) 1.5, Baso % (Auto) 0.3, Absolute Neuts (auto) 6.9, Absolute Lymphs (auto) 1.25, Total Counted Not Reportable 08/28/18 05:52: Sodium 140, Potassium 3.7, Chloride 105, Carbon Dioxide 24.0, Anion Gap 11, BUN 26 H, Creatinine 0.82, Estim Creat Clear Calc 48.66, Est GFR (MDRD) Af Amer 86, Est GFR (MDRD) Non-Af 71, BUN/Creatinine Ratio 31.8 H, Glucose 153 H, Calcium 8.8, TSH 5.75 H, Free T4 0.87 08/28/18 05:52: Hemoglobin A1c Pending 08/28/18 05:52: Vitamin B12 Pending Current Medications Acetaminophen (Tylenol) 650 mg PO Q6H PRN PRN PRN Reason: Mild Pain (scale 0-3)/T>100.7 Al Hydroxide/Mg Hydroxide (Mylanta Ii) 30 ml PO Q6H PRN PRN PRN Reason: Gastric burning Albuterol Sulfate (Ventolin Aerosols) 2.5 mg INHALATION Q6HWA.RT [facility] Last Admin: 08/28/18 06:54 Dose: 2.5 mg Allopurinol (Zyloprim) 100 mg PO QHS [facility] Last Admin: 08/27/18 23:32 Dose: 100 mg Atorvastatin Calcium (Lipitor) 20 mg PO QHS [facility] Budesonide (Pulmicort Aerosol) 0.5 mg INHALATION Q12H.RT [facility] Last Admin: 08/28/18 06:54 Dose: 0.5 mg Enoxaparin Sodium (Lovenox) 40 mg SC DAILY@1000 [facility] Last Admin: 08/27/18 19:26 Dose: 40 mg Famotidine (Pepcid) 20 mg PO BID [facility] Last Admin: 08/27/18 23:32 Dose: 20 mg Hydralazine HCl (Apresoline Iv) 10 mg IV Q4H PRN PRN PRN Reason: SBP > 160 Last Admin: 08/28/18 02:25 Dose: 10 mg Ceftriaxone Sodium (Rocephin) 1 gm in 50 mls @ 100 mls/hr IV Q24 [facility] Sodium Chloride () 1,000 mls @ 100 mls/hr IV .Q10H [facility] Last Admin: 08/28/18 02:21 Dose: 100 mls/hr Levothyroxine Sodium (Synthroid) 75 mcg PO DAILY@0600 [facility] Last Admin: 08/28/18 05:14 Dose: 75 mcg Mupirocin (Bactroban) 1 applic TOPICAL BID [facility]; Protocol Last Admin: 08/27/18 23:30 Dose: 1 applicatio Nutritional Formula (Lactose Free) (Ensure Enlive) 120 ml PO TID [facility] Last Admin: 08/28/18 05:13 Dose: 120 ml Nystatin (Mycostatin Powder) 1 applic TOPICAL BID [facility]; Protocol Last Admin: 08/27/18 23:31 Dose: 1 applicatio Ondansetron HCl (Zofran) 4 mg IV Q8H PRN PRN PRN Reason: NAUSEA Oxycodone HCl (Oxyir) 5 mg PO Q4H PRN PRN PRN Reason: Moderate Pain (pain scale 4-5) Phenazopyridine HCl (Azo Standard) 95 mg PO BID [facility] Stop: 08/29/18 10:01 Last Admin: 08/28/18 02:21 Dose: 95 mg Psyllium Hydrophilic Mucilloid (Metamucil) 1 packet PO DAILY PRN PRN PRN Reason: CONSTIPATION Senna/Docusate Sodium (Senokot-S, Clara-Colace) 2 tablet PO BID PRN PRN Reason: constipation Sodium Chloride () 5 - 15 ml IV UD PRN PRN Reason: SALINE FLUSH Zolpidem Tartrate (Ambien (Generic)) 5 mg PO QHS PRN PRN PRN Reason: INSOMNIA Medical Necessity - Tobacco Use Smoking Status: Former smoker Assessment/Plan All Active Problems Hypertensive urgency (Acute) Decreased dorsalis pedis pulse (Resolved) Severe sepsis (Acute) Acute cystitis (Acute) MSSA bacteremia (Acute) Abdominal pain (Acute) Generalized weakness (Acute) UTI (urinary tract infection) (Acute) Acute dysphagia due to chicken piece (Resolved) Sinus node dysfunction (Resolved) Patient is an 83-year-old lady with multiple comorbidities presented with progressive generalized weakness and difficulty caring for herself at home. Patient was found to have acute cystitis on admission admitted to regular nursing floor for further management. 1. Acute cystitis: To regular nursing floor after cultures have been obtained in the ED. Patient was started on Rocephin with plans to adjust antibiotics based on culture result. 2. Hypertension-blood pressure controlled, home medications continued with dose adjustment as needed 3. Chronic lower extremity ulcers patient has Collin wraps. Consult was placed to the wound care nurse 4. COPD currently not in exacerbation did continue home regimen patient is on Pulmicort aerosol treatment at home did continue 5. Obesity with BMI of 31; weight loss advised 6. Bullous pemphigoid patient is apparently followed by radio news writer Dr. Urbano Lira as outpatient 7. Hypothyroidism-patient is on levothyroxine home dose continued 8. Gout currently not in exacerbation patient is on allopurinol 9. Dyslipidemia-patient is on statin therapy, continued at home dose 10. Physical deconditioning requested for PT OT eval and high school social studies tutor to assist with discharge planning 11. [facility] Medic[facility] Acetaminophen (Tylenol) 650 mg PO Q6H PRN PRN PRN Reason: Mild Pain (scale 0-3)/T>100.7 Al Hydroxide/Mg Hydroxide (Mylanta Ii) 30 ml PO Q6H PRN PRN PRN Reason: Gastric burning Albuterol Sulfate (Ventolin Aerosols) 2.5 mg INHALATION Q6HWA.RT [facility] Last Admin: 08/28/18 06:54 Dose: 2.5 mg Allopurinol (Zyloprim) 100 mg PO QHS [facility] Last Admin: 08/27/18 23:32 Dose: 100 mg Atorvastatin Calcium (Lipitor) 20 mg PO QHS [facility] Budesonide (Pulmicort Aerosol) 0.5 mg INHALATION Q12H.RT [facility] Last Admin: 08/28/18 06:54 Dose: 0.5 mg Enoxaparin Sodium (Lovenox) 40 mg SC DAILY@1000 [facility] Last Admin: 08/27/18 19:26 Dose: 40 mg Famotidine (Pepcid) 20 mg PO BID [facility] Last Admin: 08/27/18 23:32 Dose: 20 mg Hydralazine HCl (Apresoline Iv) 10 mg IV Q4H PRN PRN PRN Reason: SBP > 160 Last Admin: 08/28/18 02:25 Dose: 10 mg Ceftriaxone Sodium (Rocephin) 1 gm in 50 mls @ 100 mls/hr IV Q24 [facility] Sodium Chloride () 1,000 mls @ 100 mls/hr IV .Q10H [facility] Last Admin: 08/28/18 02:21 Dose: 100 mls/hr Levothyroxine Sodium (Synthroid) 75 mcg PO DAILY@0600 [facility] Last Admin: 08/28/18 05:14 Dose: 75 mcg Mupirocin (Bactroban) 1 applic TOPICAL BID [facility]; Protocol Last Admin: 08/27/18 23:30 Dose: 1 applicatio Nutritional Formula (Lactose Free) (Ensure Enlive) 120 ml PO TID [facility] Last Admin: 08/28/18 05:13 Dose: 120 ml Nystatin (Mycostatin Powder) 1 applic TOPICAL BID [facility]; Protocol Last Admin: 08/27/18 23:31 Dose: 1 applicatio Ondansetron HCl (Zofran) 4 mg IV Q8H PRN PRN PRN Reason: NAUSEA Oxycodone HCl (Oxyir) 5 mg PO Q4H PRN PRN PRN Reason: Moderate Pain (pain scale 4-5) Phenazopyridine HCl (Azo Standard) 95 mg PO BID [facility] Stop: 08/29/18 10:01 Last Admin: 08/28/18 02:21 Dose: 95 mg Psyllium Hydrophilic Mucilloid (Metamucil) 1 packet PO DAILY PRN PRN PRN Reason: CONSTIPATION Senna/Docusate Sodium (Senokot-S, Clara-Colace) 2 tablet PO BID PRN PRN Reason: constipation Sodium Chloride () 5 - 15 ml IV UD PRN PRN Reason: SALINE FLUSH Zolpidem Tartrate (Ambien (Generic)) 5 mg PO QHS PRN PRN PRN Reason: INSOMNIA Clinical Impression(s) from Imaging Studies Chest X-Ray 08/27/18 14:11 IMPRESSION: Nonacute portable x-ray examination of the chest. Electronically Signed: Pantera Maddox MD at 15:54 EST , Service support , Code Visit OBSV E&M: 87707 Subsequent observation care L3
[2018-08-28 07:40] LABS: Hemoglobin A1c 7.9 % (4.2-6.3)
[2018-08-28] MEDS: Enoxaparin 40 MG/0.4 ML Syringe SC (10:06)
[2018-08-28] MEDS: Mupirocin Ointment 22gm Tube 1 APPLIC TOPICAL ×2 (10:06→23:15)
[2018-08-28] MEDS: Nystatin Powder 15gm Bottle 1 APPLIC TOPICAL ×2 (10:06→23:15)
[2018-08-28] MEDS: Famotidine 20 MG Tablet PO ×2 (10:07→23:15)
[2018-08-28] MEDS: Ceftriaxone 1 GM/50 ML BAG IV (10:12)
[2018-08-28] MEDS: 0.9% NaCl Peripheral Flush Adult/Peds IV (14:06)
[2018-08-28] MEDS: Atorvastatin Calcium 20 MG Tablet PO (23:15)
[2018-08-28] MEDS: Allopurinol 100 MG Tablet PO (23:15)
[2018-08-29] VITALS (10 sets, daily range): BP systolic 135–182; BP diastolic 49–81; PULSE 71–102; RESP 14–22; TEMP 36.3–37.3; O2SAT 92–96
--- NOTE | 2018-08-29 00:15 | NURSING ---
Pt c/o pain, when asked to point to the location she lifted right hand to mid sternum. With present elevation of BP + groaning, considered pt at a high risk for MO. Informed Charge nurse Abner, requested EKG from Respiratory and assessed pts VS. Dr. Escalante informed, restarted pt on her home Lisinopril to start now. Will continue to monitor.
--- NOTE | 2018-08-29 00:38 | EKG12_ITS ---
Test Reason : CP Blood Pressure : / mmHG Vent. Rate : 096 BPM Atrial Rate : 096 BPM P-R Int : 180 ms QRS Dur : 132 ms QT Int : 374 ms P-R-T Axes : 065 -38 141 degrees QTc Int : 472 ms Normal sinus rhythm Left axis deviation Left bundle branch block Abnormal ECG Confirmed by TONYA MCKEE, JONATHAN ([id number]), rewrite editor TYE IMLLS ([id number]) on 08/31/2018 10:21:46 AM Referred By: ELLEN Confirmed By:JONATHAN CASTANEDA MD
[2018-08-29] MEDS: 0.9% Normal Saline 1,000 ML 100 ML IV (00:47)
[2018-08-29] MEDS: Lisinopril 10 MG Tablet PO ×2 (00:47→09:30)
[2018-08-29] MEDS: Levothyroxine 75 MCG Tablet PO (06:13)
[2018-08-29 06:30] LABS: Anion Gap 10 (5-15); BUN 15 mg/dL (7-18); BUN/Creat Ratio 22.5 RATIO (10-20); Calcium,Total 8.3 mg/dL (8.5-10.1); Chloride 108 mmol/L (98-107); Creatinine, Serum 0.67 mg/dL (0.55-1.02); EST Glomerular Filtration Rate 90 mL/min (>60); Est Glom Filt Rate - Afr Amer 109 mL/min (>60); Glucose 139 mg/dL (74-106); Magnesium 1.6 mg/dL (1.6-2.6); Potassium 3.4 mmol/L (3.5-5.1); Sodium Level 139 mmol/L (136-145)
[2018-08-29] MEDS: Albuterol 2.5 MG/3 ML VIAL.NEB. INHALATION ×2 (06:40→19:38)
[2018-08-29] MEDS: Budesonide Respules 0.5 MG/2 ML AMPUL.NEB. INHALATION ×2 (06:40→19:38)
[2018-08-29 07:02] LABS: Hematocrit 34.5 % (37-47); Mean Corp Hgb Conc 34.8 g/gl (32-36); Mean Corpuscular Hgb 33.9 pg (27.0-32.0); Mean Corpuscular Volume 97.5 fL (81-99); Mean Platelet Vol. 9.5 fl (6.2-12.0); Platelet Count 137 K/mm3 (150-450); RBC Distribution Width CV 14.2 % (11.6-14.6); RBC Distribution Width SD 48.6 fl (35.1-43.9); Red Blood Count 3.54 M/mm3 (4.2-5.4); White Blood Count 6.2 K/mm3 (4.4-11.0)
[2018-08-29 07:05] LABS: Scan Indicated on CBC? Y/N NO
[2018-08-29 08:53] LABS: Vitamin B12 1016 pg/mL (211-911)
[2018-08-29] MEDS: Phenazopyridine 95 MG Tablet PO (09:29)
[2018-08-29] MEDS: Mupirocin Ointment 22gm Tube 1 APPLIC TOPICAL ×2 (09:30→23:04)
[2018-08-29] MEDS: Ceftriaxone 1 GM/50 ML BAG IV (09:30)
[2018-08-29] MEDS: Famotidine 20 MG Tablet PO ×2 (09:30→23:05)
[2018-08-29] MEDS: Nystatin Powder 15gm Bottle 1 APPLIC TOPICAL ×2 (09:30→23:04)
[2018-08-29] MEDS: Enoxaparin 40 MG/0.4 ML Syringe SC (09:30)
--- NOTE | 2018-08-29 10:37 | NURSING ---
Called and talked with nurse at Dr Urbano Lira, dermatology and they have no record of seeing patient. unsure who has ordered the ointments for patient's legs. Pt unable to tell this nurse as well. States she thinks she just sees Dr Salinas Keller who is the patient's primary care doctor. will let Dr Wells know.
--- NOTE | 2018-08-29 10:44 | NURSING ---
wound photo: left lower leg
--- NOTE | 2018-08-29 10:44 | NURSING ---
wound photo: right lower leg
--- NOTE | 2018-08-29 11:00 | CASEMGMT ---
Social Work Assessment Referral Date: 08/29/2018 Date of Assessment: 08/29/2018 Reason for consult: SNF Informant: SW Personal Status: SW met with pt to complete initial assessment. SW introduced self and role at [facility]. Pt is sitting upright in bed, is alert and orientated, but defers to her son Zac to answer questions. Pt gave this worker permission to speak to pt's son Zac who is present in room. Zac states that pt lives in a two story home with one story set up. Zac states that he lives with pt as well as Zac's sister who is mentally handicapped though and requires assistance. Zac states that pt's other son Logan lives close and checks on pt daily. Zac states that Logan's attempts to bath pt when pt is cooperative and agreeable. Zac states that pt requires assistance at home and Zac, Logan, and Logan's assist pt. DME include wheelchair, wheeled walker, cane, liftchair, and bedside commode. Zac states that pt has a 4ft radius of pt getting to bed/liftchair, and bedside commode. Zac states that if pt needs transportation then he will get pt in to wheelchair and get to car for transportation. PCP is Dr. Salinas Keller and preferred pharmacy is [facility]. Substance Abuse Hx: Zac denied but states pt did smoke cigarettes a long time ago. Mental Health Hx: Zac states that pt has had some depression but currently not taking medications. SAMMY asked Zac about discharge plans for pt. Zac states that pt wants to go home and he is agreeable to pt returning home at discharge. SAMMY asked Zac about HHC. Zac states that pt used to have HHC in the past (penitentiary, PT/OT) but is not current with HHC. Pt agreeable to HHC being set up again. Zac states he has no preference for HHC company. Zac states that he is in the process of trying to get pt new lift chair. Zac states that he has the prescription but [facility] requires fee of chair up front and will reimburse family $225. Zac states that he is working to get the money needed for the fee of the lift chair. SW informed Zac that this worker will update CONSUELO GOMEZ who will be able to set up HHC for pt. Zac and pt state understanding, denied additional needs or concerns at this time. SW updated RN JASON Albarran of pt and pt's family request to return home with [facility]. Kia Bob AIR MOVING TECHNICIAN, FISCAL ASSISTANT
--- NOTE | 2018-08-29 13:44 | CASEMGMT ---
RN CM Note: Intro role of CM to patient and RUDD form explained re: Observation status for treatment of cystitis. Explained billing will be paid per her insurance policy and condition will continue to be evaluated for Inpt necessity. Also let pt know that [facility] sends paper in the billing packet with their phone number if questions arise. Pt states she understands and does not have further questions. Maren PINEDA RN ACM
[2018-08-29] MEDS: 0.9% NaCl Peripheral Flush Adult/Peds IV (14:39)
[2018-08-29] MEDS: hydrALAZINE 20 MG/ML Vial 10 MG IV (14:39)
[2018-08-29] MEDS: oxyCODONE 5 MG Tablet PO (14:56)
[2018-08-29] MEDS: Mag Hydrox/Al Hydrox/Simeth 30 ML UDC PO (14:57)
--- NOTE | 2018-08-29 15:18 | NURSING ---
PT MOANING AND YELLING OUT. PT STATED THAT HER UPPER EPIGASTRIC AREA IS HURTING. MEDICATED PER DR CASTILLO
--- NOTE | 2018-08-29 17:06 | PN_ITS ---
Patient Problems: Active and Suspected Problems Generalized weakness (Acute) UTI (urinary tract infection) (Acute) Subjective: Patient was seen and examined today, I talked with the wound care nurse today concerning her care, it appears that the patient has a past history of bullous pemphigus and according to her PCP Dr. Salinas Keller, patient was treated with oral prednisone and steroid ointment. I have decided to place the patient on triamcinolone cream to her legs. We are awaiting placement for the patient in a penitentiary facility. - Physical Exam General: Alert, Oriented x3, Cooperative, No apparent distress, Well developed, Well nourished HEENT: Atraumatic, PERRLA, EOMI, Normocephalic Oral: Moist Mucosa Neck: Supple, No Nuchal Rigidity, Trachea Midline, Thyroid Normal Size and Texture Lungs: Clear to auscultation, Normal air movement, No rhonchi, No wheeze, No rales Cardiovascular: Regular rate, Regular Rhythm, Normal S1, Normal S2, No murmurs, No Ectopic Activity, PMI Normal, No rub noted, No Gallop Abdomen: Bowel Sounds Present, Soft, Non Tender, Non-Distended, No hernias noted Extremities: Capillary Refill Less than 3 Seconds, Edema - There is generalized lower leg edema noted Skin: Ulcer/ Wound - There are scattered areas of reddened skin which are broken over the patient's lower legs bilaterally Neurological: Cranial nerves II-XII grossly intact, Neuro grossly intact, Sensory exam intact to light touch and pain, Coordination normal Psych/Mental Status: Normal Affect, Appropriate, Alert and oriented to time, place, person, mood and affect Vital Signs Temp Pulse Resp BP Pulse Ox 99.1 F 102 H 22 H 182/73 H 96 08/29/18 14:42 08/29/18 15:19 08/29/18 15:19 08/29/18 15:19 08/29/18 15:19 Oxygen Delivery Method Room Air Weight: 88.904 kg Body Mass Index (BMI) 31.6 Finger Stick Blood Glucose 250 Intake and Output for Last 24 Hours 08/27/18 08/28/18 08/29/18 23:59 23:59 23:59 Intake Total 240 / 240 2577 / 2577 1994 Output Total 1200 / 1200 1400 / 1400 Balance 240 / 240 1377 / 1377 595 / 595 Microbiology Past 72 Hours 08/27/18 14:23 Blood Culture - Preliminary Blood Culture (Wb) - Anticubital Right No growth in 48 hours. 08/27/18 14:10 Blood Culture - Preliminary Blood Culture (Wb) - Right Hand No growth in 48 hours. 08/27/18 14:45 Urine Culture - Final Urine Catheter - Catheter Proteus mirabilis Laboratory Tests Past 24 Hrs 08/28/18 08/29/18 08/29/18 05:52 05:48 05:48 WBC 6.2 RBC 3.54 L Hgb 12.0 Hct 34.5 L MCV 97.5 MCH 33.9 H MCHC 34.8 RDW 14.2 RDW Differential 48.6 H Plt Count 137 L MPV 9.5 Sodium 139 Potassium 3.4 L Chloride 108 H Carbon Dioxide 21.0 Anion Gap 10 BUN 15 Creatinine 0.67 Estim Creat Clear Calc 39.90 Est GFR (MDRD) Af Amer 109 Est GFR (MDRD) Non-Af 90 BUN/Creatinine Ratio 22.5 H Glucose 139 H Calcium 8.3 L Magnesium 1.6 Vitamin B12 1016 H Medical Necessity - Tobacco Use Smoking Status: Former smoker Assessment/Plan All Active Problems Hypertensive urgency (Acute) Decreased dorsalis pedis pulse (Resolved) Severe sepsis (Acute) Acute cystitis (Acute) MSSA bacteremia (Acute) Abdominal pain (Acute) Generalized weakness (Acute) UTI (urinary tract infection) (Acute) Acute dysphagia due to chicken piece (Resolved) Sinus node dysfunction (Resolved) #1 acute cystitis-urine culture positive for Proteus, I change the patient's antibiotic to oral Keflex today #2 deconditioning/debility-patient will continue with PT and OT, she will need placement at least short-term in a penitentiary facility #3 hypertension #4 bullous pemphigoid-patient again was placed on triamcinolone cream to her legs #5 hyperlipidemia #6 hypothyroidism Code Visit OBSV E&M: 84673 Subsequent observation care L3
[2018-08-29] MEDS: Cephalexin 500 MG Capsule PO (23:04)
[2018-08-29] MEDS: Atorvastatin Calcium 20 MG Tablet PO (23:05)
[2018-08-29] MEDS: Allopurinol 100 MG Tablet PO (23:05)
[2018-08-29] MEDS: Triamcinolone 0.5% Cream 1 APPLIC TOPICAL (23:08)
[2018-08-30] VITALS (9 sets, daily range): BP systolic 147–163; BP diastolic 56–70; PULSE 83–94; RESP 14–18; TEMP 37.1–37.2; O2SAT 90–96
[2018-08-30] MEDS: oxyCODONE 5 MG Tablet PO (00:21)
[2018-08-30] MEDS: Levothyroxine 75 MCG Tablet PO (06:24)
[2018-08-30] MEDS: Albuterol 2.5 MG/3 ML VIAL.NEB. INHALATION ×3 (07:50→19:12)
[2018-08-30] MEDS: Budesonide Respules 0.5 MG/2 ML AMPUL.NEB. INHALATION ×2 (07:51→19:12)
[2018-08-30] MEDS: Mupirocin Ointment 22gm Tube 1 APPLIC TOPICAL (08:54)
[2018-08-30] MEDS: Triamcinolone 0.5% Cream 1 APPLIC TOPICAL ×2 (08:54→20:59)
[2018-08-30] MEDS: Nystatin Powder 15gm Bottle 1 APPLIC TOPICAL ×2 (09:29→20:59)
[2018-08-30] MEDS: Cephalexin 500 MG Capsule PO ×2 (09:30→20:59)
[2018-08-30] MEDS: Lisinopril 10 MG Tablet PO (09:31)
[2018-08-30] MEDS: Enoxaparin 40 MG/0.4 ML Syringe SC (09:31)
[2018-08-30] MEDS: Famotidine 20 MG Tablet PO ×2 (09:31→20:59)
--- NOTE | 2018-08-30 10:30 | CASEMGMT ---
CONSUELO GOMEZ in to discuss discharge plans with gabriela Frank and patient. CONSUELO GOMEZ voiced concerns about patient returning home with [facility]. Patient is requiring max assist x2 for transfers and ADLs and per therapy notes patient would benefit from SNF. Patient voiced understanding that she is requiring more care. Son Zac stated that patient and him would discuss possible placement and would also talk with other son Logan. CONSUELO GOMEZ provided list of in-network facilities with patient's insurance. CONSUELO GOMEZ updated SAMMY Bob of potential SNF.
--- NOTE | 2018-08-30 13:12 | CASEMGMT ---
Addendum entered by Kia Bob 08/30/18 14:51: SW received message from Oneyda at [facility] stating she is able to accept pt and will submit for pre-cert. Original Note: Social Work Note RN JASON Albarran updated this worker that pt and pt's sons are agreeable to referral being sent to [facility]. SAMMY faxed referral to [facility]. SAMMY placed a call to Oneyda at [facility] and updated her on referral. SAMMY informed Oneyda if she is able to accept to submit for pre-cert. Oneyda states she will review referral and let this worker know. SAMMY waiting for call back from Oneyda at [facility]. Plan: [facility] pending acceptance and pre-cert Kia Bob HARDENER HELPER, ORANGE PEEL OPERATOR
[2018-08-30] MEDS: DULoxetine Hcl 30 MG Capsule PO (16:49)
--- NOTE | 2018-08-30 19:33 | PN_ITS ---
Patient Problems: Active and Suspected Problems Generalized weakness (Acute) UTI (urinary tract infection) (Acute) Subjective: Since seen and examined today, she appears lethargic, I stopped her OxyIR-her last dose was early this morning. Patient's family has agreed for short-term placement in an extended care facility, patient is in agreement with this. I have started the patient on an antidepressant today to see if this would help her mood. - Physical Exam General: Alert, Oriented x3, Cooperative, No apparent distress, Well developed, Lethargic HEENT: Atraumatic, PERRLA, EOMI, Normocephalic Oral: Moist Mucosa Neck: Supple, No Nuchal Rigidity, Trachea Midline, Thyroid Normal Size and Texture Lungs: Clear to auscultation, Normal air movement Cardiovascular: Regular rate, No murmurs Abdomen: Bowel Sounds Present, Soft, Non Tender Extremities: No clubbing, No cyanosis, Capillary Refill Less than 3 Seconds Neurological: Cranial nerves II-XII grossly intact, Neuro grossly intact, Sensory exam intact to light touch and pain Psych/Mental Status: Appropriate, Flat Affect, - - Patient is alert but lethargic Vital Signs Temp Pulse Resp BP Pulse Ox 98.9 F 83 18 152/67 H 94 08/30/18 15:00 08/30/18 15:00 08/30/18 16:00 08/30/18 15:00 08/30/18 15:00 Oxygen Flow Rate (L/min) 2 Oxygen Delivery Method Room Air Weight: 88.904 kg Body Mass Index (BMI) 31.6 Finger Stick Blood Glucose 250 Intake and Output for Last 24 Hours 08/28/18 08/29/18 08/30/18 23:59 23:59 23:59 Intake Total 2577 / 2577 2145 / 2145 6250 / 6250 Output Total 1200 / 1200 1650 / 1650 410 / 410 Balance 1377 / 1377 495 / 495 5840 / 5840 Microbiology Past 72 Hours 08/27/18 14:23 Blood Culture - Preliminary Blood Culture (Wb) - Anticubital Right No growth in 48 hours. 08/27/18 14:10 Blood Culture - Preliminary Blood Culture (Wb) - Right Hand No growth in 48 hours. 08/27/18 14:45 Urine Culture - Final Urine Catheter - Catheter Proteus mirabilis Medical Necessity - Tobacco Use Smoking Status: Former smoker Assessment/Plan All Active Problems Hypertensive urgency (Resolved) Decreased dorsalis pedis pulse (Resolved) Severe sepsis (Resolved) Acute cystitis (Acute) MSSA bacteremia (Resolved) Abdominal pain (Resolved) Generalized weakness (Acute) UTI (urinary tract infection) (Acute) Acute dysphagia due to chicken piece (Resolved) Sinus node dysfunction (Resolved) #1 acute cystitis-urine culture positive for Proteus, patient remains on oral Keflex #2 deconditioning/debility-patient will continue with PT and OT, she will need placement at least short-term in a [place] facility #3 hypertension #4 bullous pemphigoid-patient again is on triamcinolone cream to her legs #5 hyperlipidemia #6 hypothyroidism #7 lethargy-I feel this is secondary to deconditioning and depression, I started the patient on Cymbalta 30 mg daily, patient's narcotics were stopped Code Visit OBSV E&M: [id number] Subsequent observation care L3
[2018-08-30] MEDS: Atorvastatin Calcium 20 MG Tablet PO (20:59)
[2018-08-30] MEDS: Allopurinol 100 MG Tablet PO (20:59)
[2018-08-31] VITALS (12 sets, daily range): BP systolic 147–201; BP diastolic 60–87; PULSE 77–88; RESP 16–21; TEMP 36.6–37; O2SAT 92–96
[2018-08-31] MEDS: Levothyroxine 75 MCG Tablet PO (05:28)
[2018-08-31] MEDS: Budesonide Respules 0.5 MG/2 ML AMPUL.NEB. INHALATION ×2 (06:52→19:09)
[2018-08-31] MEDS: Albuterol 2.5 MG/3 ML VIAL.NEB. INHALATION ×3 (06:52→19:09)
[2018-08-31] MEDS: Cephalexin 500 MG Capsule PO ×2 (09:16→21:18)
[2018-08-31] MEDS: DULoxetine Hcl 30 MG Capsule PO (09:17)
[2018-08-31] MEDS: Nystatin Powder 15gm Bottle 1 APPLIC TOPICAL ×2 (09:17→21:17)
[2018-08-31] MEDS: Enoxaparin 40 MG/0.4 ML Syringe SC (09:17)
[2018-08-31] MEDS: Famotidine 20 MG Tablet PO ×2 (09:17→21:19)
[2018-08-31] MEDS: Triamcinolone 0.5% Cream 1 APPLIC TOPICAL ×2 (09:18→21:18)
[2018-08-31] MEDS: Lisinopril 10 MG Tablet PO (09:19)
--- NOTE | 2018-08-31 10:12 | NURSING ---
wound photo: bilateral lower legs
--- NOTE | 2018-08-31 10:13 | NURSING ---
wound photo: right anterolateral lower leg
--- NOTE | 2018-08-31 11:18 | CASEMGMT ---
Social Work Note SW faxed updated clinicals to [facility]. Plan: [facility] pending pre-cert Kia Bob DIRECTOR STRATEGIC PLANNING, STAFF GENETIC COUNSELOR
--- NOTE | 2018-08-31 15:04 | CASEMGMT ---
Social Work Note SAMMY placed a call to Oneyda at [facility]. Per Oneyda she hasn't heard from pt's insurance yet. SAMMY updated pt on acceptance to [facility]. Pt presently confused asking where her breakfast is at and where her son Zac is at. SAMMY asked pt if she would like this worker to call her son Zac and have him call [facility] and pt denied. SAMMY placed a call to pt's other son Logan who is listed as first person to call for pt. SAMMY updated Logan on acceptance to [facility] pending pre-cert. Logan asked this worker about pt's insurance and if pt will have copay. SAMMY encouraged Logan to call pt's insurance to determine pt's policy and if there will be a copay. Logan states understanding. Plan: [facility] pending pre-cert Kia Bob GUT CLEANER, HUSKER OPERATOR
--- NOTE | 2018-08-31 15:10 | NURSING ---
student nurses charting reviewed for educational teaching only
--- NOTE | 2018-08-31 16:38 | CASEMGMT ---
Social Work Note SW received message from Oneyda at [facility] stating she still hasn't received pre-cert yet. Oneyda states she spoke with Claudine and Aetkristy informed her they have been taking 2 days to get back to pt's for pre-cert. Plan: [facility] pending pre-cert Kia Bob CFA, METAL BONDING ASSEMBLER
--- NOTE | 2018-08-31 19:33 | PCM.PROGNOTE ---
Patient Problems: Active and Suspected Problems Generalized weakness (Acute) UTI (urinary tract infection) (Acute) Subjective: She was seen and examined today, she still appears to be lethargic but answers simple questions appropriately. We are currently awaiting approval for placement in a [place] facility. - Physical Exam General: Alert, Oriented x3, Cooperative, No apparent distress, Well developed, Lethargic HEENT: Atraumatic, PERRLA, EOMI, Normocephalic Oral: Moist Mucosa Neck: Supple, No Nuchal Rigidity, Trachea Midline, Thyroid Normal Size and Texture Lungs: Clear to auscultation, Normal air movement, No rhonchi, No wheeze, No rales Cardiovascular: Regular rate, Regular Rhythm, Normal S1, Normal S2, No murmurs, No Ectopic Activity, PMI Normal, No rub noted, No Gallop Abdomen: Bowel Sounds Present, Soft, Non Tender, Non-Distended, No hernias noted Extremities: No clubbing, No cyanosis, No edema, Capillary Refill Less than 3 Seconds Neurological: Cranial nerves II-XII grossly intact, Neuro grossly intact, Sensory exam intact to light touch and pain, Coordination normal Psych/Mental Status: Appropriate, Flat Affect Vital Signs Temp Pulse Resp BP Pulse Ox 98.1 F 84 18 177/78 H 93 08/31/18 17:10 08/31/18 17:10 08/31/18 17:10 08/31/18 17:10 08/31/18 17:10 Oxygen Flow Rate (L/min) 2 Oxygen Delivery Method Room Air Weight: 88.904 kg Body Mass Index (BMI) 31.6 Finger Stick Blood Glucose 250 Intake and Output for Last 24 Hours 08/29/18 08/30/18 08/31/18 23:59 23:59 23:59 Intake Total 2145 / 2145 6250 / 6250 1650 / 1650 Output Total 1650 / 1650 410 / 410 800 / 800 Balance 495 / 495 5840 / 5840 850 / 850 Microbiology Past 72 Hours 08/27/18 14:23 Blood Culture - Preliminary Blood Culture (Wb) - Anticubital Right No growth in 48 hours. 08/27/18 14:10 Blood Culture - Preliminary Blood Culture (Wb) - Right Hand No growth in 48 hours. 08/27/18 14:45 Urine Culture - Final Urine Catheter - Catheter Proteus mirabilis Medical Necessity - Tobacco Use Smoking Status: Former smoker Assessment/Plan All Active Problems Hypertensive urgency (Resolved) Decreased dorsalis pedis pulse (Resolved) Severe sepsis (Resolved) Acute cystitis (Acute) MSSA bacteremia (Resolved) Abdominal pain (Resolved) Generalized weakness (Acute) UTI (urinary tract infection) (Acute) Acute dysphagia due to chicken piece (Resolved) Sinus node dysfunction (Resolved) #1 acute cystitis-urine culture positive for Proteus, patient remains on oral Keflex #2 deconditioning/debility-patient will continue with PT and OT, she will need placement at least short-term in a [place] facility #3 hypertension #4 bullous pemphigoid-patient again is on triamcinolone cream to her legs #5 hyperlipidemia #6 hypothyroidism #7 lethargy-I feel this is secondary to deconditioning and depression, continue patient on Cymbalta Code Visit OBSV E&M: [id number] Subsequent observation care L2
[2018-08-31] MEDS: Atorvastatin Calcium 20 MG Tablet PO (21:18)
[2018-08-31] MEDS: Allopurinol 100 MG Tablet PO (21:19)
[2018-08-31] MEDS: Zolpidem Tartrate 5 MG Tablet PO (23:48)
[2018-09-01 03:05] VITALS: PULSE 124; RESP 12; RESP 48; O2SAT 96
[2018-09-01 03:12] LABS: Bedside Glucose 184 mg/dL (70-110)
[2018-09-01] MEDS: Albuterol 2.5 MG/3 ML VIAL.NEB. INHALATION (03:13)
[2018-09-01 03:32] LABS: Base Excess -12 mmol/L (-2 to +2); Bicarbonate 16.4 mmol/L (22-26); Blood Gas Specimen Type ART; EPAP 8; FI02 50; IPAP 14; PO2 84 mmHG (75-100); RR 12; SITE R Radial; SO2 93 % (95-99); Time Given 316; Total Carbon Dioxide 18 mmol/L; pCO2 45.2 mmHg (35-45); pH 7.17 (7.35-7.45)
--- NOTE | 2018-09-01 04:05 | NURSING ---
Son, Logan, notified of . [facility] also called.
--- NOTE | 2018-09-01 04:21 | PN_ITS ---
Progress Note Responded to Rapid response Patient admitted for generalized weakness Patient was found to have oxygen saturation of 54% and was placed on nonrebr eather mask which brought her oxygen to 95. Patient was later transitioned to BiPAP because of increased work of breathing. Patient was noted to be obtunded and was not responding to commands. Patient was not responding to sternal rub. Solu-medrol 125 mg was ordered for which patient received. Patient received albuterol inhalation. Because of increased work of breathing with respiratory rate in the 40s a decision was made to intubate patient by RSI. Patient was given 20 mg of etomidate and 100 mg of succinylcHONYL. Patient had a poor Mallampati score and was difficult to intubate patient. Patient was intermittently bagged between intubation. Patient was noted to have bradycardia and poor oxygenation. Patient received atropine. A CODE BLUE was called. CPR was initiated as patient did not have palpable pulses. During the course of intubation patient was continuously bagged and ET tube inserted with a color change on monitor. CPR was started at 325am and ended at 344. Patient was noted to have asystole and PEA and received 5 rounds of epinephrine. Also patient received 1 amp of bicarbonate. After 19 minutes of CPR patient remained in asystole and a code was called off. Before the code was started attempts was made to call family but we were unable to get hold of them. After the code nursing team notified Logan Patinokarl, who is patient's son.
--- NOTE | 2018-09-01 04:22 | PCM.DEATH ---
Preliminary Cause of Acute COPD exacerbation Date of Admission: 08/27/18 Date of : 09/01/18 - Principle Diagnosis Acute COPD exacerbation Problem List: Active and Suspected Problems Generalized weakness (Acute) UTI (urinary tract infection) (Acute) Hospital Course Patient was admitted because of generalized weakness and was diagnosed with acute cystitis. Patient was started on Rocephin. Because urine culture grew Proteus Mirabilis antibiotics was changed to oral Keflex. Because of this deconditioning patient worked for PT and OT and [facility] was recommended. During the course of her admission patient was noted to be severely hypoxic and was placed on nonrebreather mask which was later transitioned to BiPAP because of increased work of breathing. Because patient continued to have increased work of breathing rapid response was called. Patient received albuterol inhalation and Solu-Medrol IV. During the course of rapid response patient continued to deteriorate and was noted to have severe hypoxia and bradycardia. Patient received atropine because of bradycardia. Patient was noted to be in asystole and was having pulseless electrical activity. ACLS was initiated and patient was intubated in the course of the ACLS. Rapid response and code was done for a total of 19 minutes where patient received 5 rounds of epinephrine and an amp of bicarbonate with normal saline wide open. After a total of 19 minutes patient continues to have any pulse and CPR was called off. Patient had no heart sounds, or lung sounds or pupillary reflex. Her pupils were dilated and did not respond to light. And patient was pronounced. Cause of is probable acute COPD exacerbation. Code Visit Inpatient E&M: [id number] [facility]
--- NOTE | 2018-09-01 04:25 | NURSING ---
Patient received approximately one liter of IV normal saline during code blue.
--- NOTE | 2018-09-01 04:32 | EXP.PCM_ITS ---
Preliminary Cause of Acute COPD exacerbation Date of Admission: 08/27/18 Date of : 09/01/18 - Principle Diagnosis Acute COPD exacerbation Problem List: Active and Suspected Problems Generalized weakness (Acute) UTI (urinary tract infection) (Acute) Hospital Course Patient was admitted because of generalized weakness and was diagnosed with acute cystitis. Patient was started on Rocephin. Because urine culture grew Proteus Mirabilis antibiotics was changed to oral Keflex. Because of this deconditioning patient worked for PT and OT and long-term home facility was recommended. During the course of her admission patient was noted to be severely hypoxic and was placed on nonrebreather mask which was later transitioned to BiPAP because of increased work of breathing. Because patient continued to have increased work of breathing rapid response was called. Patient received albuterol inhalation and Solu-Medrol IV. During the course of rapid response patient continued to deteriorate and was noted to have severe hypoxia and bradycardia. Patient received atropine because of bradycardia. Patient was noted to be in asystole and was having pulseless electrical activity. ACLS was initiated and patient was intubated in the course of the ACLS. Rapid response and code was done for a total of 19 minutes where patient received 5 rounds of epinephrine and an amp of bicarbonate with normal saline wide open. After a total of 19 minutes patient continues to have any pulse and CPR was called off. Patient had no heart sounds, or lung sounds or pupillary reflex. Her pupils were dilated and did not respond to light. And patient was pronounced. Cause of is probable acute COPD exacerbation. Code Visit Inpatient E&M: [id number] [facility]
--- NOTE | 2018-09-01 04:34 | DCINST_ITS ---
- Discharge Diagnoses Current Active Problems: Current Active and Chronic Problems Generalized weakness (Acute) UTI (urinary tract infection) (Acute) History of Ureteric stone (Chronic) Allergies/Adverse Reactions: Allergies No Known Allergies Allergy (Verified 08/16/18 15:37) Medications to take at Discharge Allopurinol [Zyloprim] 100 mg PO QHS 09/10/13 Levothyroxine [Synthroid] 75 mcg PO DAILY 10/02/14 Budesonide/Formoterol 160/4.5 [Symbicort 160/4.5 Mcg Inhaler (SP)] 2 puff INH ALATION BID 09/23/16 Atorvastatin Calcium [Lipitor] 20 mg PO DAILY 09/10/17 Nystatin Powder [Mycostatin Powder] 1 applic TOPICAL BID #0 bottle 04/12/18 Ensure Enlive 120 ml PO TID 05/04/18 Lisinopril [Zestril] 10 mg PO DAILY 05/04/18 Mupirocin [Bactroban] 1 applic TP UD 05/04/18 Triamcinolone 0.1% Cream [Kenalog] 1 applic TP UD 05/04/18 Cholecalciferol (Vitamin D3) [Vitamin D3] 2,000 unit PO DAILY 08/16/18 Fish Oil 1 cap PO DAILY 08/16/18 Multivit-Min/Iron/Folic/Lutein [Centrum Silver Women Tablet] 1 each PO DAILY 08/16/18 Tetracycline HCl 100 mg PO DAILY 08/16/18 Vitamin B-6 1 tab PO DAILY 08/16/18 Vitamin B12 1 tab PO DAILY 08/16/18 Primary Care Physician: Salinas Keller III, MD [Primary Care Provider] - Test Results: Test results from this visit will be discussed in further detail at your follow- up appointment, if applicable. Proposed Discharge Date: 09/01/18
--- NOTE | 2018-09-01 04:40 | NURSING ---
Found patient in bed, looking leonard and breathing with accessory muscle use. The patient was very labored and audible wheezing/rhonchi could be heard. I sat the patient up and placed pulse ox for 54% on room air HR was in the high 120s. I immediately placed NC at 10L and went to get 100% non rebreather. CONSUELO Perez also to bedside. Ana called for CPS. MD was immediately page at [phone]. With non rebreather sats were up to 93%. CPS to bedside and recommended Bipap, at this time MD had not called and COMMISSION AUDITOR was called at appx [phone]. Please refer to paper documentation for COMMISSION AUDITOR/Code blue documentation. Time of was 034.
--- NOTE | 2018-09-01 04:47 | NURSING ---
Family here to see patient.
--- NOTE | 2018-09-01 04:47 | CPS ---
Received phone call by nurse in [facility], claiming that pt. was desatting in the 80's. I got there immediately, and I noticed that the pt. was on a NRB. Nurse stated pt. was satting in the 50's prior. I listened to breath sounds, and I heard fine crackles throughout the pt. I went to get BiPAP to help pt. breathe easier.
--- NOTE | 2018-09-01 05:37 | NURSING ---
Called the home
--- NOTE | 2018-09-01 06:10 | NURSING ---
Logan, Son called. Stated they had found paperwork listing [facility] and would like to change from [facility]. I called and canceled with Juan and called [facility] service to notify of patient.
--- NOTE | 2018-09-02 04:42 | CPS ---
Addendum entered and electronically signed by Leodan Valenzuela 09/02/18 04:44: Received phone call by nurse in [facility], claiming that pt. was desatting in the 80's. I got there immediately, and I noticed that the pt. was on a NRB. Nurse stated pt. was satting in the 50's prior. I listened to breath sounds, and I heard fine crackles throughout the pt. I went to get BiPAP to help pt. breathe easier. Original Note: Bridget Burton and Bull Quintanilla were present during this CODE
== END 2018-09-01 04:44 ==
LOC: ED 16:16 → MS3 16:29
PROVIDERS: Internal Medicine; Admitting Provider Internal Medicine; Emergency Provider Emergency Medicine; Family Provider Family Medicine; PCP Family Medicine; Visit Provider Internal Medicine
DX: J44.1 Chronic obstructive pulmonary disease with (acute) exacerbation (principal); I46.9 Cardiac arrest, cause unspecified; N30.00 Acute cystitis without hematuria; B96.4 Proteus (mirabilis) (morganii) as the cause of diseases classified elsewhere; E03.9 Hypothyroidism, unspecified; E86.0 Dehydration; E78.5 Hyperlipidemia, unspecified; I12.9 Hypertensive chronic kidney disease with stage 1 through stage 4 chronic kidney disease, or unspecified chronic kidney disease; N18.3 Chronic kidney disease, stage 3 (moderate); L12.0 Bullous pemphigoid; M10.9 Gout, unspecified; E66.9 Obesity, unspecified; Z66 Do not resuscitate; Z68.31 Body mass index [BMI] 31.0-31.9, adult; Z79.899 Other long term (current) drug therapy; Z79.51 Long term (current) use of inhaled steroids; Z71.3 Dietary counseling and surveillance; Z87.891 Personal history of nicotine dependence
CPT/HCPCS: 31500; 36415; 36600; 71045; 74018; 76770; 80048; 81001; 82607; 82803; 82962; 83036; 83605; 83735; 84439; 84443; 84484; 85025; 85027; 87040; 87077; 87086; 87088; 87186; 92950; 93005; 94002; 94640; 94799; 96360; 96361; 96365; 96366; 96372; 96375; 96376; 97162; 97166; 97530; 97802; 99218; 99285; J7030; A4216; G0378; J1940